=== PATIENT | male | born 1965 | race Caucasian/White ===

== ENCOUNTER 2017-03-07 13:04 | Inpatient (IN) | payer SELFPAY ==
[~2017-03-07] VITALS: Ht 172.7 cm; Wt 88.5 kg
[2017-03-07 13:19] VITALS: BP 84/52; PULSE 110; RESP 30; TEMP 98.9; O2SAT 95
[2017-03-07 13:36] VITALS: BP 84/54; PULSE 115; RESP 25; TEMP 98.9; O2SAT 95
[2017-03-07] MEDS ORDERED: VANCOMYCIN INJ 1,000 MG in SODIUM CHLOR 0.9% 250 ML INJ 250 ML IV ONE (13:45)
[2017-03-07] MEDS ORDERED: PIPERACIL-TAZO 3.375 GM PREMIX 50 ML IV ONE (13:45)
[2017-03-07] MEDS ORDERED: IBUPROFEN 600 MG TAB PO ONE (13:45)
[2017-03-07] MEDS ORDERED: SODIUM CHLOR 0.9% 1000 ML INJ 1,000 ML IV ONE ×4 (13:45→15:00)
--- NOTE | 2017-03-07 13:49 | PD ---
HPI Chief Complaint: Altered Mental Status Time Seen by Provider: 13:22 Travel History International Travel<30 days: No Contact w/Intl Traveler<30days: No Traveled to known affect area: No History of Present Illness HPI This patient is brought in by paramedics. He is critically ill. He is challenging to get any history from. He says he is a daily heavy alcohol drinker and was drinking today. He arrives febrile and hypotensive and tachycardic with an obvious right foot infection with a lot of necrotic changes to that foot. He is an uncontrolled diabetic. He says he moved here from [place] 10 days ago. He doesn't take any prescription medications or take care of himself in any way. Symptoms are severe. No alleviating factors. Duration is unknown. He says 5 or 6 days but I suspect they've been going on much longer. PFSH Past Medical History Diabetes: Yes Patient Takes Glucophage: No Tetanus Vaccination: Unknown Past Surgical History Surgical History: No Previous Surgery Social History Alcohol Use: No (DAILY ) Tobacco Use: No (QUIT 5-6 DAYS AGO 03/02/17) Substance Use: No Allergies-Medications (Allergen,Severity, Reaction): Coded Allergies: No Known Allergies (Unverified , 03/07/17) Reported Meds & Prescriptions Reported Meds & Active Scripts Active No Active Prescriptions or Reported Medications Review of Systems General / Constitutional: Positive: Fever Eyes: No: Visual changes HENT: No: Headaches Cardiovascular: Positive: Tachycardia, Edema, No: Chest Pain or Discomfort Respiratory: No: Shortness of Breath Gastrointestinal: No: Abdominal Pain Genitourinary: No: Dysuria Musculoskeletal: Positive: Weakness, No: Pain Skin: No Rash Neurologic: Positive: Weakness, Change in Mentation Psychiatric: No: Depression Endocrine: No: Polydipsia Hematologic/Lymphatic: No: Easy Bruising Physical Exam Narrative GENERAL: Well-nourished, well-developed patient who is critically ill . SKIN: Focused skin assessment reveals no rash and nodules. Skin is Warm and dry. HEAD: Atraumatic. Normocephalic. EYES: Pupils equal and round. No scleral icterus. No injection or drainage. ENT: No nasal bleeding or discharge. Mucous membranes pink and moist. NECK: Trachea midline. No JVD. CARDIOVASCULAR: Regular rate and rhythm. No murmur appreciated. Tachycardic 120s RESPIRATORY: No accessory muscle use. Clear to auscultation. Breath sounds equal bilaterally. GASTROINTESTINAL: Abdomen soft, non-tender, nondistended. Hepatic and splenic margins not palpable. MUSCULOSKELETAL: No obvious deformities. No clubbing. No cyanosis. There is some edema redness warmth swelling of the right foot and ankle and lower leg. He does have a dopplerable dorsalis pedis pulse on the right foot but a week posterior tibial pulse. The right great toe is entirely blackened and necrotic. It is also some necrotic changes on either malleolus. NEUROLOGICAL: Awake but drowsy. No obvious cranial nerve deficits. Motor grossly within normal limits. Normal speech. PSYCHIATRIC: Appropriate mood and affect; insight and judgment poor . Data Data Last Documented VS Vital Signs Date Time Temp Pulse Resp B/P (MAP) Pulse Ox O2 Delivery O2 Flow Rate FiO2 03/07/17 14:26 95 Room Air 03/07/17 13:36 98.9 115 25 84/54 (64) Orders Orders Complete Blood Count With Diff (03/07/17 13:34) Comprehensive Metabolic Panel (03/07/17 13:34) Prothrombin Time / Inr (Pt) (03/07/17 13:34) Act Partial Throm Time (Ptt) (03/07/17 13:34) Lactic Acid Sepsis Protocol (03/07/17 13:34) Urinalysis - C+S If Indicated (03/07/17 13:34) Blood Culture (03/07/17 13:34) Chest, Single Ap (03/07/17 13:34) Blood Glucose (03/07/17 13:34) Ecg Monitoring (03/07/17 13:34) Iv Access Insert/Monitor (03/07/17 13:34) Oximetry (03/07/17 13:34) Oxygen Administration (03/07/17 13:34) Ibuprofen (Motrin) (03/07/17 13:45) Sodium Chlor 0.9% 1000 Ml Inj (Ns 1000 M (03/07/17 13:45) Sodium Chlor 0.9% 1000 Ml Inj (Ns 1000 M (03/07/17 13:45) Vancomycin Inj (Vancomycin Inj) (03/07/17 13:45) Piperacil-Tazo 3.375 Gm Premix (Zosyn 3. (03/07/17 13:45) Insulin Human Regular Inj (Novolin R Inj (03/07/17 14:00) Alcohol (Ethanol) (03/07/17 13:50) Drug Screen, Random Urine (03/07/17 13:50) Sodium Chlor 0.9% 1000 Ml Inj (Ns 1000 M (03/07/17 14:30) Sodium Chlor 0.9% 1000 Ml Inj (Ns 1000 M (03/07/17 15:00) Admit Order (Ed Use Only) (03/07/17 14:56) Labs Laboratory Tests Test 03/07/17 13:55 White Blood Count 19.8 TH/MM3 Red Blood Count 3.40 MIL/MM3 Hemoglobin 10.6 GM/DL Hematocrit 32.2 % Mean Corpuscular Volume 94.9 FL Mean Corpuscular Hemoglobin 31.3 PG Mean Corpuscular Hemoglobin Concent 33.0 % Red Cell Distribution Width 14.3 % Platelet Count 250 TH/MM3 Mean Platelet Volume 10.2 FL Neutrophils (%) (Auto) 80.6 % Lymphocytes (%) (Auto) 4.8 % Monocytes (%) (Auto) 7.8 % Eosinophils (%) (Auto) 6.5 % Basophils (%) (Auto) 0.3 % Neutrophils # (Auto) 16.0 TH/MM3 Lymphocytes # (Auto) 1.0 TH/MM3 Monocytes # (Auto) 1.5 TH/MM3 Eosinophils # (Auto) 1.3 TH/MM3 Basophils # (Auto) 0.1 TH/MM3 CBC Comment AUTO DIFF Differential Total Cells Counted 100 Neutrophils % (Manual) 50 % Band Neutrophils % 25 % Lymphocytes % 6 % Monocytes % 17 % Neutrophils # (Manual) 15.2 TH/MM3 Metamyelocytes 1 % Myelocytes 1 % Differential Comment FINAL DIFF MANUAL Toxic Granulation 1+ Toxic Vacuolation PRESENT Platelet Estimate NORMAL Platelet Morphology Comment NORMAL Prothrombin Time 18.4 SEC Prothromb Time International Ratio 1.6 RATIO Activated Partial Thromboplast Time 42.7 SEC Blood Urea Nitrogen 67 MG/DL Creatinine 5.38 MG/DL Random Glucose 265 MG/DL Total Protein 6.2 GM/DL Albumin 1.6 GM/DL Calcium Level 8.6 MG/DL Alkaline Phosphatase 81 U/L Aspartate Amino Transf (AST/SGOT) 186 U/L Alanine Aminotransferase (ALT/SGPT) 40 U/L Total Bilirubin 4.6 MG/DL Sodium Level 129 MEQ/L Potassium Level 3.7 MEQ/L Chloride Level 89 MEQ/L Carbon Dioxide Level 15.4 MEQ/L Anion Gap 25 MEQ/L Estimat Glomerular Filtration Rate 11 ML/MIN Lactic Acid Level 11.1 mmol/L MDM Medical Decision Making Medical Screen Exam Complete: Yes Emergency Medical Condition: Yes Medical Record Reviewed: Yes Differential Diagnosis Sepsis, DKA, diabetic foot infection, necrotic foot Narrative Course I have reviewed the patient's electronic medical record. I placed 3 IVs 2 blood cultures obtained I gave him 3 L normal saline IV bolus He arrives hypotensive and tachycardic I gave him IV vancomycin and IV Zosyn CBC shows leukocytosis Metabolic profile shows renal failure with creatinine of 5+ LFTs are noted Lactate very elevated at 11 Accu-Chek 378 I gave him 10 units IV regular insulin I reviewed his chest x-ray which is negative for infiltrate Urinalysis is clean This patient has severe septic shock from a diabetic foot infection and has extensive necrotic changes to the right foot. Undoubtedly he will require amputation after stabilization. I reviewed with cable driller Dr. Lozano who will admit Extensive bedside time is spent in this complicated case He has now had a total of 4 L IV fluid infused and blood pressure is come up from 70 to 99 systolic Critical Care Narrative Aggregate critical care time was 83 minutes. Time to perform other separately billable procedures was not included in the critical care time. My time did not include minutes spent treating any other patients simultaneously or on activities that did not directly contribute to the patient's treatment. The services I provided to this patient were to treat and/or prevent clinically significant deterioration that could result in: Cardiopulmonary arrest, septic shock, I provided critical care services requiring my management, as noted below: Chart data review, documentation time, medication orders and management, vital sign assessments/reviewing monitor data, ordering and reviewing lab tests, ordering and interpreting/reviewing x-rays and diagnostic studies, care of the patient and discussion of the patient with the admitting physicians. Sepsis Criteria SIRS Criteria (2 or more): Temp > 100.9 or < 96.8, Heart rate over 90, WBC > 18892, < 4000 or > 10% bands Sepsis Criteria (SIRS+source): Infect source susp/known Severe Sepsis (+one): Hypotension, Lactate >2, Acute Oliguria/Renal Failure Septic Shock Criteria: Unresponsive to 30ml/kg fluid bolus, Lactic acid >=4 Multiple Organ Dysfunction Syn: Evidence -2 organs failing Criteria Outcome: Meets septic shock criteria, Meets multiple organ dys. criteria Diagnosis Primary Impression: Septic shock Additional Impressions: Diabetic infection of right foot Ischemic necrosis of foot Admitting Information Admitting Physician Requests: Admit Scripts No Active Prescriptions or Reported Meds Matt Saleem MD Mar 07, 2017 13:49
[2017-03-07] MEDS ORDERED: INSULIN HUMAN REGULAR 1,000 UNITS/10 ML VIAL IV PUSH ONE (14:00)
[2017-03-07 14:08] LABS: BASOPHIL # 0.1 TH/MM3 (0-0.2); BASOPHIL % 0.3 % (0.0-2.0); EOSINOPHIL # 1.3 TH/MM3 (0-0.4); EOSINOPHIL % 6.5 % (0.0-4.0); HEMATOCRIT 32.2 % (39.0-51.0); LYMPH % 4.8 % (9.0-44.0); MEAN CELL VOLUME 94.9 FL (80.0-100.0); MEAN CORPUSCULAR HEMOGLOBIN 31.3 PG (27.0-34.0); MONO % 7.8 % (0.0-8.0); NEUT % 80.6 % (16.0-70.0); PLATELET COUNT 250 TH/MM3 (150-450); RED CELL DISTRIBUTION WIDTH 14.3 % (11.6-17.2); WHITE BLOOD COUNT 19.8 TH/MM3 (4.0-11.0)
[2017-03-07 14:10] LABS: HEMO FLAGS AUTO DIFF
[2017-03-07 14:21] LABS: APTT (PATIENT) 42.7 SEC (24.3-30.1); INTERNATIONAL NORMALIZED RATIO 1.6 RATIO; PROTHROMBIN TIME - PATIENT 18.4 SEC (9.8-11.6)
--- NOTE | 2017-03-07 14:25 | RADRPT ---
EXAM DATE/TIME: 03/07/2017 13:55 [facility] COMPARISON: No previous studies available for comparison. INDICATIONS : Fever. MEDICAL HISTORY : None. SURGICAL HISTORY : None. ENCOUNTER: Initial ACUITY: 1 day PAIN SCORE: 8/10 LOCATION: Bilateral chest FINDINGS: Portable AP view of the chest demonstrates a normal-sized cardiac silhouette. No effusion, consolidat ion, or pneumothorax is visualized. The bones and soft tissues demonstrate no acute abnormality. CONCLUSION: No acute cardiopulmonary abnormality is identified. Danny Ngo MD on March 07, 2017 at 14:23 Board Certified Radiologist. This report was verified electronically.
[2017-03-07 14:31] LABS: ALT (GPT) 40 U/L (12-78); ANION GAP 25 MEQ/L (5-15); AST (GOT) 186 U/L (15-37); BICARBONATE 15.4 MEQ/L (21.0-32.0); BLOOD UREA NITROGEN 67 MG/DL (7-18); CHLORIDE 89 MEQ/L (98-107); GLOMERULAR FILTRATION RATE 11 ML/MIN (>89); POTASSIUM 3.7 MEQ/L (3.5-5.1); SODIUM (NA) 129 MEQ/L (136-145)
[2017-03-07 14:34] LABS: ALKALINE PHOSPHATASE 81 U/L (45-117); TOTAL BILIRUBIN ADULT 4.6 MG/DL (0.2-1.0)
[2017-03-07 14:44] LABS: BANDS 25 % (0-6); METAMYELOCYTES 1 % (0-1); MYELOCYTES 1 % (0-0); NEUTROPHIL # MANUAL DIFF 15.2 TH/MM3 (1.8-7.7); PLATELET ESTIMATE SMEAR NORMAL (NORMAL); PLATELET MORPHOLOGY NORMAL (NORMAL); POLYS (SEG NEUTROPHILS) 50 % (16-70); SCAN/DIFF FINAL DIFF MANUAL; TOXIC GRANULATION 1+ (NORMAL); TOXIC VACUOLATION PRESENT (NONE SEEN); WBC DIFF SAMPLE 100
[2017-03-07] MEDS ORDERED: RESP: ALBUTEROL 2.5 MG/IPRATROPIUM 0.5 MG NEB (PRN) INH (15:45)
[2017-03-07] MEDS ORDERED: MORPHINE SULFATE 4 MG/ML INJ IV PRN (15:45)
[2017-03-07] MEDS ORDERED: MISCELLANEOUS NURSING INFORMATION XX SCH (15:45)
[2017-03-07] MEDS ORDERED: CHLORHEXIDINE GLUCONATE 2 % 1 PACK (2 CLOTHS) TOP PRN (15:45)
[2017-03-07] MEDS ORDERED: Vancomycin Consult Pharmacy 1 EA OTHER SCH (15:45)
[2017-03-07] MEDS ORDERED: ACETAMINOPHEN 325 MG TAB PO PRN (15:45)
[2017-03-07 16:01] LABS: LACTIC ACID GHOST NOT REPORTABLE
--- NOTE | 2017-03-07 16:08 | HHI.HP ---
HPI Service Critical Care Medicine Primary Care Physician No Primary Care Physician Admission Diagnosis septic shock from diabetic foot infection, necrotic R foot Diagnosis: Chief Complaint: Confusion Travel History International Travel<30 Days: No Contact w/Intl Traveler <30 Da: No Traveled to Known Affected Are: No History of Present Illness 51 y/o delirious man with draining wound right great toe, untreated diabetes, and severe COPD. According to his girlfriend at bedside in ED he has been confused for 3 days while on a trip to [place]. He has diabetes but does not take insulin, oral agents, nor check his sugar. This foot problem started as a non-healing cut on his right great toe. He is clearly in septic shock at present with hypotension, lactic acid 11, and leukocytosis. He will require a right above knee amputation eventually, possibly sooner if we can't control the source with antibiotics. He has audible wheezing from the doorway and is a chronic smoker. DIANA with creatinine > 5, and metabolic acidosis. Review of Systems ROS No chest pain. Denies SOB. Past Family Social History Allergies: Coded Allergies: No Known Allergies (Unverified , 03/07/17) Past Medical History Past Medical History Diabetes: Yes Patient Takes Glucophage: No Tetanus Vaccination: Unknown Past Surgical History Surgical History: No Previous Surgery Social History Alcohol Use: No (DAILY ) Tobacco Use: No (QUIT 5-6 DAYS AGO 03/02/17) Substance Use: No Allergies-Medications Allergies-Medications (Allergen,Severity, Reaction): Coded Allergies: No Known Allergies (Unverified , 03/07/17) Reported Meds & Prescriptions Reported Meds & Active Scripts Active No Active Prescriptions or Reported Medications Physical Exam Vital Signs Vital Signs Date Time Temp Pulse Resp B/P (MAP) Pulse Ox O2 Delivery O2 Flow Rate FiO2 03/07/17 14:26 95 Room Air 03/07/17 13:36 98.9 115 25 84/54 (64) 95 Room Air 03/07/17 13:36 115 25 95 03/07/17 13:19 98.9 110 30 84/52 (63) 95 Physical Exam [place]-appearing middle age man. Head: Normal. Neck: Supple, airway widely patent. Lungs: Diffuse wheezes and mild tachypnea. Heart: NL S1S2, tachycardia. No JVD. Abdomen: Soft, no guarding, BS active. Extremities: Black, gangrenous right great toe with diffuse erythema involving the foot, ankle and lower leg. 3+ edema right side. No palpable pulses below groin. Palpable right groin nodes. Left foot tepid, pulses absent. Neuro: Confused, delirious. Moves 4 limbs. Feet numb. Tracks with eyes, obinna, protects airway. Laboratory Laboratory Tests Test 03/07/17 13:55 White Blood Count 19.8 Red Blood Count 3.40 Hemoglobin 10.6 Hematocrit 32.2 Mean Corpuscular Volume 94.9 Mean Corpuscular Hemoglobin 31.3 Mean Corpuscular Hemoglobin Concent 33.0 Red Cell Distribution Width 14.3 Platelet Count 250 Mean Platelet Volume 10.2 Neutrophils (%) (Auto) 80.6 Lymphocytes (%) (Auto) 4.8 Monocytes (%) (Auto) 7.8 Eosinophils (%) (Auto) 6.5 Basophils (%) (Auto) 0.3 Neutrophils # (Auto) 16.0 Lymphocytes # (Auto) 1.0 Monocytes # (Auto) 1.5 Eosinophils # (Auto) 1.3 Basophils # (Auto) 0.1 CBC Comment AUTO DIFF Differential Total Cells Counted 100 Neutrophils % (Manual) 50 Band Neutrophils % 25 Lymphocytes % 6 Monocytes % 17 Neutrophils # (Manual) 15.2 Metamyelocytes 1 Myelocytes 1 Differential Comment FINAL DIFF MANUAL Toxic Granulation 1+ Toxic Vacuolation PRESENT Platelet Estimate NORMAL Platelet Morphology Comment NORMAL Prothrombin Time 18.4 Prothromb Time International Ratio 1.6 Activated Partial Thromboplast Time 42.7 Blood Urea Nitrogen 67 Creatinine 5.38 Random Glucose 265 Total Protein 6.2 Albumin 1.6 Calcium Level 8.6 Alkaline Phosphatase 81 Aspartate Amino Transf (AST/SGOT) 186 Alanine Aminotransferase (ALT/SGPT) 40 Total Bilirubin 4.6 Sodium Level 129 Potassium Level 3.7 Chloride Level 89 Carbon Dioxide Level 15.4 Anion Gap 25 Estimat Glomerular Filtration Rate 11 Lactic Acid Level 11.1 Ethyl Alcohol Level LESS THAN 3 Date/Time Source Procedure Growth Status 03/07/17 13:55 Blood Peripheral Aerobic Blood Culture Pending Received 03/07/17 13:55 Blood Peripheral Anaerobic Blood Culture Pending Received Result Diagram: 03/07/17 1355 03/07/17 1355 Caprini VTE Risk Assessment Caprini VTE Risk Assessment: No/Low Risk (score <= 1) Caprini Risk Assessment Model Point Value = 1 Point Value = 2 Point Value = 3 Point Value = 5 Age 41-60 Minor surgery BMI > 25 kg/m2 Swollen legs Varicose veins or History of unexplained or recurrent spontaneous Oral contraceptives or hormone replacement Sepsis (< 1 month) Serious lung disease, including pneumonia (< 1 month) Abnormal pulmonary function Acute myocardial infarction Congestive heart failure (< 1 month) History of inflammatory bowel disease Medical patient at bed rest Age 61-74 Arthroscopic surgery Major open surgery (> 45 min) Laparoscopic surgery (> 45 min) Malignancy Confined to bed (> 72 hours) Immobilizing plaster cast Central venous access Age >= 75 History of VTE Family history of VTE Factor V Leiden Prothrombin [id number] Lupus anticoagulant Anticardiolipin antibodies Elevated serum homocysteine Heparin-induced thrombocytopenia Other congenital or acquired thrombophilia Stroke (< 1 month) Elective arthroplasty Hip, pelvis, or leg fracture Acute spinal cord injury (< 1 month) Prophylaxis Regimen Total Risk Factor Score Risk Level Prophylaxis Regimen 0-1 Low Early ambulation 2 Moderate Order ONE of the following: *Sequential Compression Device (SCD) *Heparin 5000 units SQ BID 3-4 Higher Order ONE of the following medications: *Heparin 5000 units SQ TID *Enoxaparin/Lovenox 40 mg SQ daily (WT < 150 kg, CrCl > 30 mL/min) *Enoxaparin/Lovenox 30 mg SQ daily (WT < 150 kg, CrCl > 10-29 mL/min) *Enoxaparin/Lovenox 30 mg SQ BID (WT < 150 kg, CrCl > 30 mL/min) AND/OR *Sequential Compression Device (SCD) 5 or more Highest Order ONE of the following medications: *Heparin 5000 units SQ TID (Preferred with Epidurals) *Enoxaparin/Lovenox 40 mg SQ daily (WT < 150 kg, CrCl > 30 mL/min) *Enoxaparin/Lovenox 30 mg SQ daily (WT < 150 kg, CrCl > 10-29 mL/min) *Enoxaparin/Lovenox 30 mg SQ BID (WT < 150 kg, CrCl > 30 mL/min) AND *Sequential Compression Device (SCD) Assessment and Plan Assessment and Plan Assessment: 1. Septic shock. 2. DIANA. 3. Gangrene right foot. 4. DIANA. 5. Emphysema, COPD. 6. Encephalopathy. 7. Diabetes mellitus, Type 2 Plan: 1. Aggressive iv hydration. 2. Broad abx coverage including anerobes. 3. Confirm correction of lactic acid. 4. Consider right leg amputation for source control. 5. Follow Creatinine closely. 6. Protonix. 7. Duonebs. 8. Dennison to CBD. 9. SSI coverage. 10. Check beta-hydroxybutyrate (Possibly DKA) Overall impression: Patient is critically ill and in septic shock from a gangrenous right leg. He has developed renal failure and severe metabolic acidosis. Ideally we will tune him up prior to amputation, but the right leg may need to come off sooner to achieve source control. Critical Care 44 mins Carlos A Lofton MD Mar 07, 2017 16:08
[2017-03-07] MEDS ORDERED: DEXTROSE 50% IN WATER 50 ML VIAL(D50) IV PRN (16:15)
[2017-03-07] MEDS ORDERED: GLUCAGON 1 MG/ML VIAL OTHER PRN (16:15)
[2017-03-07 17:03] LABS: CKMB 19.5 NG/ML (0.5-3.6)
[2017-03-07] MEDS: SODIUM CHLOR 0.9% 1000 ML INJ 1,000 ML IV SCH ×2 (17:59→22:55)
[2017-03-07 18:01] VITALS: BP 108/56; PULSE 98; RESP 22; O2SAT 96
[2017-03-07] MEDS: NOREPINEPHRINE 4 MG/D5W 250 ML IV PRN (19:37)
[2017-03-07 20:00] VITALS: BP 89/55; PULSE 106; RESP 22; TEMP 97.9; O2SAT 93
[2017-03-07] MEDS: HEPARIN SODIUM - SQ 10,000 UNITS/ML VIAL SQ SCH (20:03)
[2017-03-07 22:00] VITALS: PULSE 106
[2017-03-07] MEDS: PIPERACIL-TAZO 2.25 GM PREMIX 50 ML IV SCH (22:55)
[2017-03-07] MEDS: INSULIN ASPART SUPPLEMENTAL SCALE SQ SCH (23:06)
--- NOTE | 2017-03-07 23:28 | PD.CONS ---
cc: Efren Hanks MD HPI Service Orthopedic Surgeons Consult Requested By Dr. Lofton Reason for Consult Gangrene right lower extremity Primary Care Physician No Primary Care Physician Admission Diagnosis septic shock from diabetic foot infection, necrotic R foot Diagnoses: (1) Ischemic necrosis of foot (2) Diabetic infection of right foot (3) Septic shock Chief Complaint: Right foot infection History of Present Illness 51 y/o delirious man with draining wound right great toe, untreated diabetes, and severe COPD. According to his girlfriend, he has been confused for 3 days while on a trip to [place]. He has diabetes but does not take insulin, oral agents, nor check his sugar. This foot problem started as a non-healing cut on his right great toe. He presented in septic shock at present with hypotension, lactic acid 11, and leukocytosis. Orthopedic consultation was requested for possible amputation. The patient is mildly confused at the present time. As per the nursing staff in addition to his medical condition, he may be withdrawing from alcohol. Review of Systems Reviewed and well outlined in the medical record Past Family Social History Past Medical History Past Medical History Diabetes: Yes Patient Takes Glucophage: No Tetanus Vaccination: Unknown Past Surgical History Surgical History: No Previous Surgery Social History Alcohol Use: No (DAILY ) Tobacco Use: No (QUIT 5-6 DAYS AGO 03/02/17) Substance Use: No Allergies-Medications (Allergen,Severity, Reaction): Coded Allergies: No Known Allergies (Unverified , 03/07/17) Reported Meds & Prescriptions Reported Meds & Active Scripts Active No Active Prescriptions or Reported Medications Allergies: Coded Allergies: No Known Allergies (Unverified , 03/07/17) Active Ordered Medications Current Medications Medications (Trade) Dose Ordered Sig/Stacy Route Start Time Stop Time Status Last Admin Sodium Chloride 1,000 ml @ 150 mls/hr Q6H40M IV 03/07/17 15:31 03/07/17 22:55 (Tylenol) 650 mg Q6H PRN PO 03/07/17 15:45 (Morphine Inj) 2 mg Q2H PRN IV 03/07/17 15:45 (Protonix Inj) 40 mg DAILY IV 03/08/17 09:00 (Duoneb Neb) 1 ampule Q4HR NEB PRN INH 03/07/17 15:45 (Heparin Inj) 5,000 units Q12H SQ 03/07/17 18:00 03/07/17 20:03 Miscellaneous Information 1 Q361D XX 03/07/17 15:45 03/07/17 15:45 (Chlorhexidine 2% Cloth) 3 pack Taper DAILY@04 TOP 03/08/17 04:00 03/04/18 03:59 (Chlorhexidine 2% Cloth) 3 pack UNSCH PRN TOP 03/07/17 15:45 Pharmacy Profile Note 0 ml @ 0 mls/hr UNSCH OTHER 03/07/17 15:45 Piperacillin Sod/ Tazobactam Sod 50 ml @ 100 mls/hr Q8H IV 03/07/17 22:00 03/07/17 22:55 (D50w (Vial) Inj) 50 ml UNSCH PRN IV 03/07/17 16:15 (Glucagon Inj) 1 mg UNSCH PRN OTHER 03/07/17 16:15 (NovoLOG SUPPLEMENTAL SCALE) 1 Q6H SQ 03/07/17 16:15 03/07/17 23:06 Norepinephrine Bitartrate 250 ml @ 7.5 mls/hr TITRATE PRN IV 03/07/17 21:00 03/07/17 19:37 Reported Meds & Active Scripts Active No Active Prescriptions or Reported Medications Family History Noncontributory Physical Exam Vital Signs Vital Signs Date Time Temp Pulse Resp B/P (MAP) Pulse Ox O2 Delivery O2 Flow Rate FiO2 03/07/17 22:00 106 86/52 03/07/17 20:00 97.9 106 22 89/55 (66) 93 03/07/17 19:37 92 68/44 03/07/17 18:01 98 22 108/56 (73) 96 Nasal Cannula 4.00 03/07/17 17:57 03/07/17 14:26 95 Room Air 03/07/17 13:36 98.9 115 25 84/54 (64) 95 Room Air 03/07/17 13:36 115 25 95 03/07/17 13:19 98.9 110 30 84/52 (63) 95 Physical Exam There is a necrotic great toe on the right. There is no active drainage but it is malodorous. There is a large fluid-filled blister over the medial aspect of the ankle. There is mild swelling of the foot as well as the lower leg. There is slight decrease in temperature of the foot but appears normal in the leg. He relates normal sensation of the leg and foot. There are no palpable pulses present. Laboratory Laboratory Tests Test 03/07/17 13:55 03/07/17 15:49 03/07/17 16:52 03/07/17 17:50 White Blood Count 19.8 Red Blood Count 3.40 Hemoglobin 10.6 Hematocrit 32.2 Mean Corpuscular Volume 94.9 Mean Corpuscular Hemoglobin 31.3 Mean Corpuscular Hemoglobin Concent 33.0 Red Cell Distribution Width 14.3 Platelet Count 250 Mean Platelet Volume 10.2 Neutrophils (%) (Auto) 80.6 Lymphocytes (%) (Auto) 4.8 Monocytes (%) (Auto) 7.8 Eosinophils (%) (Auto) 6.5 Basophils (%) (Auto) 0.3 Neutrophils # (Auto) 16.0 Lymphocytes # (Auto) 1.0 Monocytes # (Auto) 1.5 Eosinophils # (Auto) 1.3 Basophils # (Auto) 0.1 CBC Comment AUTO DIFF Differential Total Cells Counted 100 Neutrophils % (Manual) 50 Band Neutrophils % 25 Lymphocytes % 6 Monocytes % 17 Neutrophils # (Manual) 15.2 Metamyelocytes 1 Myelocytes 1 Differential Comment FINAL DIFF MANUAL Toxic Granulation 1+ Toxic Vacuolation PRESENT Platelet Estimate NORMAL Platelet Morphology Comment NORMAL Prothrombin Time 18.4 Prothromb Time International Ratio 1.6 Activated Partial Thromboplast Time 42.7 Blood Urea Nitrogen 67 Creatinine 5.38 Random Glucose 265 Total Protein 6.2 Albumin 1.6 Calcium Level 8.6 Alkaline Phosphatase 81 Aspartate Amino Transf (AST/SGOT) 186 Alanine Aminotransferase (ALT/SGPT) 40 Total Bilirubin 4.6 Sodium Level 129 Potassium Level 3.7 Chloride Level 89 Carbon Dioxide Level 15.4 Anion Gap 25 Estimat Glomerular Filtration Rate 11 Lactic Acid Level 11.1 6.0 Ethyl Alcohol Level LESS THAN 3 Ammonia 20 Total Creatine Kinase 1454 Creatine Kinase MB 19.5 Creatine Kinase MB % 1.3 B-Hydroxybutyrate 0.14 Nasal Screen MRSA (PCR) MRSA NOT DETECTED Test 03/07/17 19:45 Urine Opiates Screen NEG Urine Barbiturates Screen NEG Urine Amphetamines Screen NEG Urine Benzodiazepines Screen NEG Urine Cocaine Screen POS Urine Cannabinoids Screen POS Date/Time Source Procedure Growth Status 03/07/17 13:55 Blood Peripheral Aerobic Blood Culture Pending Received 03/07/17 13:55 Blood Peripheral Anaerobic Blood Culture Pending Received Result Diagram: 03/07/17 1355 03/07/17 1355 Imaging Last 48 hours Impressions Chest X-Ray 03/07/17 1334 Signed Impressions: Service Date/Time: Tuesday, March 07, 2017 13:55 - CONCLUSION: No acute cardiopulmonary abnormality is identified. Danny Ngo MD Assessment & Plan Problem List: (1) Septic shock ICD Codes: A41.9 - Sepsis, unspecified organism; R65.21 - Severe sepsis with septic shock Status: Acute (2) Ischemic necrosis of foot ICD Codes: I96 - Gangrene, not elsewhere classified Status: Acute Plan: Anticipate probable amputation at the below-knee level. This may be done urgently if his clinical course indicates. If he does show improvement on antibiotics consideration for vascular/podiatry evaluation as the patient does have good sensation involving the foot and may not require as high of a level of amputation. Will keep nothing by mouth for now and follow closely. (3) Diabetic infection of right foot ICD Codes: E11.69 - Type 2 diabetes mellitus with other specified complication ; L08.9 - Local infection of the skin and subcutaneous tissue, unspecified Status: Acute Efren Hanks MD Mar 07, 2017 23:28
[2017-03-08] VITALS (9 sets, daily range): BP systolic 86–100; BP diastolic 53–58; PULSE 90–103; RESP 24–26; TEMP 97.3–97.7; O2SAT 96–98
[2017-03-08] MEDS: CHLORHEXIDINE GLUCONATE 2 % 1 PACK (2 CLOTHS) TOP SCH (03:30)
[2017-03-08] MEDS: NOREPINEPHRINE 4 MG/D5W 250 ML IV PRN ×2 (04:14→15:30)
[2017-03-08] MEDS: INSULIN ASPART SUPPLEMENTAL SCALE SQ SCH ×3 (04:15→16:15)
[2017-03-08 05:13] LABS: ALKALINE PHOSPHATASE 68 U/L (45-117); ALT (GPT) 71 U/L (12-78); ANION GAP 14 MEQ/L (5-15); AST (GOT) 350 U/L (15-37); BLOOD UREA NITROGEN 66 MG/DL (7-18); CHLORIDE 103 MEQ/L (98-107); GLOMERULAR FILTRATION RATE 13 ML/MIN (>89); MAGNESIUM 1.5 MG/DL (1.5-2.5); POTASSIUM 3.6 MEQ/L (3.5-5.1); SODIUM (NA) 133 MEQ/L (136-145); TOTAL BILIRUBIN ADULT 5.1 MG/DL (0.2-1.0)
[2017-03-08] MEDS: PIPERACIL-TAZO 2.25 GM PREMIX 50 ML IV SCH ×3 (05:19→21:57)
[2017-03-08] MEDS: HEPARIN SODIUM - SQ 10,000 UNITS/ML VIAL SQ SCH ×2 (05:20→18:00)
[2017-03-08] MEDS: SODIUM CHLOR 0.9% 1000 ML INJ 1,000 ML IV SCH ×2 (05:28→11:30)
[2017-03-08 05:46] LABS: AUTOMATED NEUTROPHIL # 19.2 TH/MM3 (1.8-7.7); BASOPHIL # 0.1 TH/MM3 (0-0.2); BASOPHIL % 0.3 % (0.0-2.0); EOSINOPHIL # 1.4 TH/MM3 (0-0.4); HEMATOCRIT 38.9 % (39.0-51.0); LYMPH % 4.5 % (9.0-44.0); MEAN CELL VOLUME 96.1 FL (80.0-100.0); MEAN CORPUSCULAR HEMOGLOBIN 30.1 PG (27.0-34.0); MEAN CORPUSCULAR HGB CONC 31.3 % (32.0-36.0); MONO % 4.4 % (0.0-8.0); NEUT % 84.8 % (16.0-70.0); PLATELET COUNT 268 TH/MM3 (150-450); RED BLOOD COUNT 4.05 MIL/MM3 (4.50-5.90); RED CELL DISTRIBUTION WIDTH 14.7 % (11.6-17.2); WHITE BLOOD COUNT 22.6 TH/MM3 (4.0-11.0)
[2017-03-08 05:48] LABS: HEMO FLAGS AUTO DIFF
--- NOTE | 2017-03-08 08:27 | PD.ORT.PN ---
Subjective Subjective Remarks The patient is awake, mildly confused. He is in no distress. Objective Vitals Vital Signs Date Time Temp Pulse Resp B/P (MAP) Pulse Ox O2 Delivery O2 Flow Rate FiO2 03/08/17 06:00 97 03/08/17 04:14 100 96/55 03/08/17 04:00 100 03/08/17 04:00 97.6 100 25 96/55 (69) 98 03/08/17 02:00 101 03/08/17 01:30 100 90/52 03/08/17 01:13 100 102/65 03/08/17 00:00 103 03/08/17 00:00 97.3 103 26 97/57 (70) 97 03/07/17 22:00 106 86/52 03/07/17 22:00 106 03/07/17 20:00 97.9 106 22 89/55 (66) 93 03/07/17 20:00 106 03/07/17 19:37 92 68/44 03/07/17 18:01 98 22 108/56 (73) 96 Nasal Cannula 4.00 03/07/17 17:57 03/07/17 14:26 95 Room Air 03/07/17 13:36 98.9 115 25 84/54 (64) 95 Room Air 03/07/17 13:36 115 25 95 03/07/17 13:19 98.9 110 30 84/52 (63) 95 I/O 03/07/17 03/07/17 03/07/17 03/08/17 03/08/17 03/08/17 07:00 15:00 23:00 07:00 15:00 23:00 Intake Total 1828 ml Output Total 140 ml Balance 1688 ml Intake Oral 0 ml IV Total 1828 ml Output Urine Total 140 ml # Bowel Movements 0 Result Diagram: 03/08/17 0426 03/08/17 0426 Other Results Laboratory Tests Test 03/07/17 13:55 Prothromb Time International Ratio 1.6 RATIO Prothrombin Time 18.4 SEC (9.8-11.6) Imaging Last 24 hours Impressions Chest X-Ray 03/07/17 1334 Signed Impressions: Service Date/Time: Tuesday, March 07, 2017 13:55 - CONCLUSION: No acute cardiopulmonary abnormality is identified. Danny Ngo MD Objective Remarks There is less swelling of the foot. The skin is "wrinkling". The blister over the medial aspect has decompressed. His great toe clinically is unchanged and necrotic. He actively moves his ankle and toes. The foot is warm. The lower leg is warm. There is no induration or fluctuance. There is mild swelling. Assessment & Plan Problem List: (1) Septic shock ICD Codes: A41.9 - Sepsis, unspecified organism; R65.21 - Severe sepsis with septic shock Status: Acute (2) Ischemic necrosis of foot ICD Codes: I96 - Gangrene, not elsewhere classified Status: Acute Plan: Anticipate possible amputation at the below-knee level. This may be done urgently if his clinical course indicates. His white count is elevated. Lactic acid improved. Currently attempting to wean from pressors. If he does show improvement on antibiotics consideration for vascular/podiatry evaluation as the patient does have good sensation involving the foot, moves the ankle and toes and may not require as high of a level of amputation. Will keep nothing by mouth for now and follow closely. Discussed with Clinical Quality Manager. (3) Diabetic infection of right foot ICD Codes: E11.69 - Type 2 diabetes mellitus with other specified complication ; L08.9 - Local infection of the skin and subcutaneous tissue, unspecified Status: Acute Efren Hanks MD Mar 08, 2017 08:27
[2017-03-08] MEDS ORDERED: Vancomycin Consult Pharmacy 1 EA OTHER SCH (08:30)
--- NOTE | 2017-03-08 08:49 | HHI.CCPN ---
Subjective Remarks/Hospital Course 51 y/o delirious man with draining wound right great toe, untreated diabetes, and severe COPD. According to his girlfriend at bedside in ED he has been confused for 3 days while on a trip to [place]. He has diabetes but does not take insulin, oral agents, nor check his sugar. This foot problem started as a non-healing cut on his right great toe. He is clearly in septic shock at present with hypotension, lactic acid 11, and leukocytosis. He will require a right above knee amputation eventually, possibly sooner if we can't control the source with antibiotics. He has audible wheezing from the doorway and is a chronic smoker. DIANA with creatinine > 5, and metabolic acidosis. 03/08 Patient was started on Levophed 8 mics overnight now down to 4 mics. Lactic acid trending down 4.2 this morning from 11.1 on arrical however his WBC increased 22.6 from 19. Objective Vital Signs Date Time Temp Pulse Resp B/P (MAP) Pulse Ox O2 Delivery O2 Flow Rate FiO2 03/08/17 06:00 97 03/08/17 04:14 96/55 03/08/17 04:00 97.6 25 98 03/07/17 18:01 Nasal Cannula 4.00 Intake and Output 03/08/17 03/08/17 03/09/17 08:00 16:00 00:00 Intake Total 1828 ml Output Total 140 ml Balance 1688 ml Result Diagram: 03/08/17 0426 03/08/17 0426 Other Results Laboratory Tests Test 03/07/17 13:55 03/07/17 15:49 03/07/17 16:52 03/07/17 17:50 White Blood Count 19.8 TH/MM3 Red Blood Count 3.40 MIL/MM3 Hemoglobin 10.6 GM/DL Hematocrit 32.2 % Mean Corpuscular Volume 94.9 FL Mean Corpuscular Hemoglobin 31.3 PG Mean Corpuscular Hemoglobin Concent 33.0 % Red Cell Distribution Width 14.3 % Platelet Count 250 TH/MM3 Mean Platelet Volume 10.2 FL Neutrophils (%) (Auto) 80.6 % Lymphocytes (%) (Auto) 4.8 % Monocytes (%) (Auto) 7.8 % Eosinophils (%) (Auto) 6.5 % Basophils (%) (Auto) 0.3 % Neutrophils # (Auto) 16.0 TH/MM3 Lymphocytes # (Auto) 1.0 TH/MM3 Monocytes # (Auto) 1.5 TH/MM3 Eosinophils # (Auto) 1.3 TH/MM3 Basophils # (Auto) 0.1 TH/MM3 CBC Comment AUTO DIFF Differential Total Cells Counted 100 Neutrophils % (Manual) 50 % Band Neutrophils % 25 % Lymphocytes % 6 % Monocytes % 17 % Neutrophils # (Manual) 15.2 TH/MM3 Metamyelocytes 1 % Myelocytes 1 % Differential Comment FINAL DIFF MANUAL Toxic Granulation 1+ Toxic Vacuolation PRESENT Platelet Estimate NORMAL Platelet Morphology Comment NORMAL Prothrombin Time 18.4 SEC Prothromb Time International Ratio 1.6 RATIO Activated Partial Thromboplast Time 42.7 SEC Blood Urea Nitrogen 67 MG/DL Creatinine 5.38 MG/DL Random Glucose 265 MG/DL Total Protein 6.2 GM/DL Albumin 1.6 GM/DL Calcium Level 8.6 MG/DL Alkaline Phosphatase 81 U/L Aspartate Amino Transf (AST/SGOT) 186 U/L Alanine Aminotransferase (ALT/SGPT) 40 U/L Total Bilirubin 4.6 MG/DL Sodium Level 129 MEQ/L Potassium Level 3.7 MEQ/L Chloride Level 89 MEQ/L Carbon Dioxide Level 15.4 MEQ/L Anion Gap 25 MEQ/L Estimat Glomerular Filtration Rate 11 ML/MIN Lactic Acid Level 11.1 mmol/L 6.0 mmol/L Ethyl Alcohol Level LESS THAN 3 MG/DL Ammonia 20 MCMOL/L Total Creatine Kinase 1454 U/L Creatine Kinase MB 19.5 NG/ML Creatine Kinase MB % 1.3 % B-Hydroxybutyrate 0.14 MMOL/L Nasal Screen MRSA (PCR) MRSA NOT DETECTED Test 03/07/17 19:45 03/08/17 04:26 Urine Opiates Screen NEG Urine Barbiturates Screen NEG Urine Amphetamines Screen NEG Urine Benzodiazepines Screen NEG Urine Cocaine Screen POS Urine Cannabinoids Screen POS White Blood Count 22.6 TH/MM3 Red Blood Count 4.05 MIL/MM3 Hemoglobin 12.2 GM/DL Hematocrit 38.9 % Mean Corpuscular Volume 96.1 FL Mean Corpuscular Hemoglobin 30.1 PG Mean Corpuscular Hemoglobin Concent 31.3 % Red Cell Distribution Width 14.7 % Platelet Count 268 TH/MM3 Mean Platelet Volume 9.1 FL Neutrophils (%) (Auto) 84.8 % Lymphocytes (%) (Auto) 4.5 % Monocytes (%) (Auto) 4.4 % Eosinophils (%) (Auto) 6.0 % Basophils (%) (Auto) 0.3 % Neutrophils # (Auto) 19.2 TH/MM3 Lymphocytes # (Auto) 1.0 TH/MM3 Monocytes # (Auto) 1.0 TH/MM3 Eosinophils # (Auto) 1.4 TH/MM3 Basophils # (Auto) 0.1 TH/MM3 CBC Comment AUTO DIFF Blood Urea Nitrogen 66 MG/DL Creatinine 4.86 MG/DL Random Glucose 142 MG/DL Total Protein 6.2 GM/DL Albumin 1.4 GM/DL Calcium Level 7.5 MG/DL Phosphorus Level 1.8 MG/DL Magnesium Level 1.5 MG/DL Alkaline Phosphatase 68 U/L Aspartate Amino Transf (AST/SGOT) 350 U/L Alanine Aminotransferase (ALT/SGPT) 71 U/L Total Bilirubin 5.1 MG/DL Sodium Level 133 MEQ/L Potassium Level 3.6 MEQ/L Chloride Level 103 MEQ/L Carbon Dioxide Level 16.0 MEQ/L Anion Gap 14 MEQ/L Estimat Glomerular Filtration Rate 13 ML/MIN Lactic Acid Level 4.2 mmol/L Imaging Last Impressions Chest X-Ray 03/07/17 1334 Signed Impressions: Service Date/Time: Tuesday, March 07, 2017 13:55 - CONCLUSION: No acute cardiopulmonary abnormality is identified. Danny Ngo MD Objective Remarks GENERAL: Patient is 51 yo critically ill lying on Levophed. SKIN: Warm and dry. HEAD: Normocephalic. EYES: No scleral icterus. No injection or drainage. NECK: Supple, trachea midline. No JVD or lymphadenopathy. CARDIOVASCULAR: Regular rate and rhythm without murmurs, gallops, or rubs. RESPIRATORY: Breath sounds equal bilaterally. No accessory muscle use. GASTROINTESTINAL: Abdomen soft, non-tender, nondistended. Extremities: Black, gangrenous right great toe with diffuse erythema involving the foot, ankle and lower leg. + edema right side. No palpable pulses below groin. Palpable right groin nodes. Left foot tepid, pulses absent. BACK: Nontender without obvious deformity. No CVA tenderness. A/P Assessment and Plan 1)Resp Insuff 2)Septic shock. Gram + bacteremia 3)DIANA. 4)Gangrene right foot. 5)Lactic acidemia 6)Rhabdo 7)Leukocytosis 8)Elevated AST 9)Emphysema, COPD. 10)Encephalopathy. 11)Diabetes mellitus, Type 2 12)ETOH use 13)Malnutrition Plan: Neuro: Monitor neuro status and avoid sedatives Place on Thiamine/Folic acid. Monitor for signs of DT's Pulm: Continue with oxygen keep sat >92% Bronchodilators. CXR 03/07: No acute disease CV: Continue to wean off Levophed keep MAP>65mmHg Serial lactic acid monitoring. Trending down. Continue with IVF, give 1L bolus NS : Monitor renal function, I/O's, avoid nephrotoxins. Change IVF to SW+2amps bicarb @150ml/hr, monitor CK's, check renal US, renal eval. GI: Keep NPO for now, on Protonix 40mg IV daily ID: Continue with abx ( Vanco, Zosyn) adjust doses abx per renal function. BC form 03/07: GPC 4 bottles Will consult ID service. send wound for culture/GS. Consult wound nurse. Discussed with Ortho- Dr. Hanks if no improvements he will likely take him to OR later today. Vascular surgery eval. Heme: Monitor CBC Endo: SSI for glycemic control. GI prophylaxis- Protonix 40mg daily DVT prophylaxis- SCD to LLE, hold chemical AC prophylaxis for now as patient might got to OR. Lines: Place Right IJ CVP Patient is critically ill and in septic shock requiring pressors from a gangrenous right leg, renal failure, worsening leukocytosis Critical Care 30 mins Iman Duffy MD Mar 08, 2017 08:49
[2017-03-08] MEDS: PANTOPRAZOLE SODIUM 40 MG VIAL IV SCH (09:45)
[2017-03-08] MEDS: FOLIC ACID 1 MG TAB PO SCH (09:45)
[2017-03-08] MEDS: THIAMINE HCL 100 MG TAB PO SCH (09:45)
[2017-03-08 09:46] LABS: BANDS 27 % (0-6); METAMYELOCYTES 2 % (0-1); MYELOCYTES 3 % (0-0); NEUTROPHIL # MANUAL DIFF 17.6 TH/MM3 (1.8-7.7); PLATELET ESTIMATE SMEAR NORMAL (NORMAL); PLATELET MORPHOLOGY NORMAL (NORMAL); POLYS (SEG NEUTROPHILS) 46 % (16-70); SCAN/DIFF FINAL DIFF MANUAL; TOXIC GRANULATION 1+ (NORMAL); TOXIC VACUOLATION PRESENT (NONE SEEN); WBC DIFF SAMPLE 100
--- NOTE | 2017-03-08 09:54 | RADRPT ---
EXAM DATE/TIME: 03/08/2017 08:58 [facility] COMPARISON: No previous studies available for comparison. INDICATIONS : Acute renal failure. MEDICAL HISTORY : Diabetes. Unable to obtain further medical history. SURGICAL HISTORY : Unable to obtain further surgical history. ENCOUNTER: Initial ACUITY: 1 day PAIN SCORE: 8/10 LOCATION: Bilateral flank MEASUREMENTS: RIGHT KIDNEY: 10.2 x 5.8 x 5.0 cm LEFT KIDNEY: 10.2 x 5.2 x 5.3 cm FINDINGS: RIGHT KIDNEY: Renal cortex is normal in thickness and echotexture. No hydronephrosis, stone, or mass. LEFT KIDNEY: Renal cortex is normal in thickness and echotexture. No hydronephrosis, stone, or mass. BLADDER: Dennison catheter. Bladder decompressed. The liver appears to be enlarged measuring 20 cm with increased echogenicity. There is a trace of marylin e fluid in the upper abdomen. CONCLUSION: 1. Unremarkable bilateral renal ultrasound. 2. Hepatomegaly with a trace of ascites in the upper abdomen. Carl Sands MD on March 08, 2017 at 9:50 Board Certified Radiologist. This report was verified electronically.
[2017-03-08] MEDS ORDERED: SODIUM PHOSPHATE INJ 15 MMOL in SODIUM CHLORIDE 0.9% INJ 150 ML IV ONE (10:00)
--- NOTE | 2017-03-08 10:51 | PD.CONS ---
[facility] Service Nephrology Consult Requested By Reason for Consult Acute renal failure Primary Care Physician No Primary Care Physician History of Present Illness Patient is a 51-year-old male with history of diabetes, not taking any medications he had open right toe wound and infection which was draining he went to [place] for 3 days straight and came back confused, delirious and has been admitted with sepsis and dehydration, gangrene of right foot his creatinine was 5.38 and this has declined to 4.86 after hydration, his renal ultrasound was unremarkable, he did not have previous history of kidney disease. Review of Systems Constitutional: COMPLAINS OF: Fatigue Musculoskeletal: COMPLAINS OF: Joint pain Psychiatric: COMPLAINS OF: Confusion Past Family Social History Allergies: Coded Allergies: No Known Allergies (Unverified , 03/07/17) Past Medical History Diabetes Right toe wound Hypertension Reported Medications Reported Meds & Active Scripts Active No Active Prescriptions or Reported Medications Active Ordered Medications Current Medications Medications (Trade) Dose Ordered Sig/Stacy Route Start Time Stop Time Status Last Admin Sodium Chloride 1,000 ml @ 150 mls/hr Q6H40M IV 03/07/17 15:31 03/08/17 05:28 (Tylenol) 650 mg Q6H PRN PO 03/07/17 15:45 (Morphine Inj) 2 mg Q2H PRN IV 03/07/17 15:45 (Protonix Inj) 40 mg DAILY IV 03/08/17 09:00 03/08/17 09:45 (Duoneb Neb) 1 ampule Q4HR NEB PRN INH 03/07/17 15:45 (Heparin Inj) 5,000 units Q12H SQ 03/07/17 18:00 03/08/17 05:20 Miscellaneous Information 1 Q361D XX 03/07/17 15:45 03/07/17 15:45 (Chlorhexidine 2% Cloth) 3 pack Taper DAILY@04 TOP 03/08/17 04:00 03/04/18 03:59 03/08/17 03:30 (Chlorhexidine 2% Cloth) 3 pack UNSCH PRN TOP 03/07/17 15:45 Pharmacy Profile Note 0 ml @ 0 mls/hr UNSCH OTHER 03/07/17 15:45 Piperacillin Sod/ Tazobactam Sod 50 ml @ 100 mls/hr Q8H IV 8/25/17 22:00 03/08/17 05:19 (D50w (Vial) Inj) 50 ml UNSCH PRN IV 03/07/17 16:15 (Glucagon Inj) 1 mg UNSCH PRN OTHER 03/07/17 16:15 (NovoLOG SUPPLEMENTAL SCALE) 1 Q6H SQ 03/07/17 16:15 03/07/17 23:06 Norepinephrine Bitartrate 250 ml @ 7.5 mls/hr TITRATE PRN IV 03/07/17 21:00 03/08/17 04:14 (Vitamin B1) 100 mg DAILY PO 03/08/17 09:00 03/08/17 09:45 (Folate) 1 mg DAILY PO 03/08/17 09:00 03/08/17 09:45 Sodium Phosphate 15 mmol/Sodium Chloride 155 ml @ 38.75 mls/ hr ONCE ONCE IV 03/08/17 10:00 03/08/17 13:59 Family History Noncontributory Social History History of smoking, alcohol use positive Physical Exam Vital Signs Vital Signs Date Time Temp Pulse Resp B/P (MAP) Pulse Ox O2 Delivery O2 Flow Rate FiO2 03/08/17 06:00 97 03/08/17 04:14 100 96/55 03/08/17 04:00 100 03/08/17 04:00 97.6 100 25 96/55 (69) 98 03/08/17 02:00 101 03/08/17 01:30 100 90/52 03/08/17 01:13 100 102/65 03/08/17 00:00 103 03/08/17 00:00 97.3 103 26 97/57 (70) 97 03/07/17 22:00 106 86/52 03/07/17 22:00 106 03/07/17 20:00 97.9 106 22 89/55 (66) 93 03/07/17 20:00 106 03/07/17 19:37 92 68/44 03/07/17 18:01 98 22 108/56 (73) 96 Nasal Cannula 4.00 03/07/17 17:57 03/07/17 14:26 95 Room Air 03/07/17 13:36 98.9 115 25 84/54 (64) 95 Room Air 03/07/17 13:36 115 25 95 03/07/17 13:19 98.9 110 30 84/52 (63) 95 Physical Exam GENERAL: Well-nourished, well-developed patient. SKIN: Warm and dry. HEAD: Normocephalic. EYES: No scleral icterus. No injection or drainage. NECK: Supple, trachea midline. No JVD or lymphadenopathy. CARDIOVASCULAR: Regular rate and rhythm without murmurs, gallops, or rubs. RESPIRATORY: Breath sounds equal bilaterally. No accessory muscle use. GASTROINTESTINAL: Abdomen soft, non-tender, nondistended. EXTREMITIES: No cyanosis, positive edema. Gangrene right toe and around right ankle NEUROLOGICAL: Awake, alert, appears slow and confused Laboratory Laboratory Tests Test 03/07/17 13:55 03/07/17 15:49 03/07/17 16:52 03/07/17 17:50 White Blood Count 19.8 Red Blood Count 3.40 Hemoglobin 10.6 Hematocrit 32.2 Mean Corpuscular Volume 94.9 Mean Corpuscular Hemoglobin 31.3 Mean Corpuscular Hemoglobin Concent 33.0 Red Cell Distribution Width 14.3 Platelet Count 250 Mean Platelet Volume 10.2 Neutrophils (%) (Auto) 80.6 Lymphocytes (%) (Auto) 4.8 Monocytes (%) (Auto) 7.8 Eosinophils (%) (Auto) 6.5 Basophils (%) (Auto) 0.3 Neutrophils # (Auto) 16.0 Lymphocytes # (Auto) 1.0 Monocytes # (Auto) 1.5 Eosinophils # (Auto) 1.3 Basophils # (Auto) 0.1 CBC Comment AUTO DIFF Differential Total Cells Counted 100 Neutrophils % (Manual) 50 Band Neutrophils % 25 Lymphocytes % 6 Monocytes % 17 Neutrophils # (Manual) 15.2 Metamyelocytes 1 Myelocytes 1 Differential Comment FINAL DIFF MANUAL Toxic Granulation 1+ Toxic Vacuolation PRESENT Platelet Estimate NORMAL Platelet Morphology Comment NORMAL Prothrombin Time 18.4 Prothromb Time International Ratio 1.6 Activated Partial Thromboplast Time 42.7 Blood Urea Nitrogen 67 Creatinine 5.38 Random Glucose 265 Total Protein 6.2 Albumin 1.6 Calcium Level 8.6 Alkaline Phosphatase 81 Aspartate Amino Transf (AST/SGOT) 186 Alanine Aminotransferase (ALT/SGPT) 40 Total Bilirubin 4.6 Sodium Level 129 Potassium Level 3.7 Chloride Level 89 Carbon Dioxide Level 15.4 Anion Gap 25 Estimat Glomerular Filtration Rate 11 Lactic Acid Level 11.1 6.0 Ethyl Alcohol Level LESS THAN 3 Ammonia 20 Total Creatine Kinase 1454 Creatine Kinase MB 19.5 Creatine Kinase MB % 1.3 B-Hydroxybutyrate 0.14 Nasal Screen MRSA (PCR) MRSA NOT DETECTED Test 03/07/17 19:45 03/08/17 04:26 Urine Opiates Screen NEG Urine Barbiturates Screen NEG Urine Amphetamines Screen NEG Urine Benzodiazepines Screen NEG Urine Cocaine Screen POS Urine Cannabinoids Screen POS White Blood Count 22.6 Red Blood Count 4.05 Hemoglobin 12.2 Hematocrit 38.9 Mean Corpuscular Volume 96.1 Mean Corpuscular Hemoglobin 30.1 Mean Corpuscular Hemoglobin Concent 31.3 Red Cell Distribution Width 14.7 Platelet Count 268 Mean Platelet Volume 9.1 Neutrophils (%) (Auto) 84.8 Lymphocytes (%) (Auto) 4.5 Monocytes (%) (Auto) 4.4 Eosinophils (%) (Auto) 6.0 Basophils (%) (Auto) 0.3 Neutrophils # (Auto) 19.2 Lymphocytes # (Auto) 1.0 Monocytes # (Auto) 1.0 Eosinophils # (Auto) 1.4 Basophils # (Auto) 0.1 CBC Comment AUTO DIFF Differential Total Cells Counted 100 Neutrophils % (Manual) 46 Band Neutrophils % 27 Lymphocytes % 10 Monocytes % 12 Neutrophils # (Manual) 17.6 Metamyelocytes 2 Myelocytes 3 Differential Comment FINAL DIFF MANUAL Toxic Granulation 1+ Toxic Vacuolation PRESENT Platelet Estimate NORMAL Platelet Morphology Comment NORMAL Blood Urea Nitrogen 66 Creatinine 4.86 Random Glucose 142 Total Protein 6.2 Albumin 1.4 Calcium Level 7.5 Phosphorus Level 1.8 Magnesium Level 1.5 Alkaline Phosphatase 68 Aspartate Amino Transf (AST/SGOT) 350 Alanine Aminotransferase (ALT/SGPT) 71 Total Bilirubin 5.1 Sodium Level 133 Potassium Level 3.6 Chloride Level 103 Carbon Dioxide Level 16.0 Anion Gap 14 Estimat Glomerular Filtration Rate 13 Lactic Acid Level 4.2 Date/Time Source Procedure Growth Status 03/07/17 13:55 Blood Peripheral Aerobic Blood Culture - Preliminary Gram Positive Cocci Resulted 03/07/17 13:55 Anaerobic Blood Culture - Preliminary Gram Positive Cocci Resulted Result Diagram: 03/08/17 0426 03/08/17 0426 Imaging Last Impressions Renal Ultrasound 03/08/17 0000 Signed Impressions: Service Date/Time: Wednesday, March 08, 2017 08:58 - CONCLUSION: 1. Unremarkable bilateral renal ultrasound. 2. Hepatomegaly with a trace of ascites in the upper abdomen. Carl Sands MD Chest X-Ray 03/07/17 1334 Signed Impressions: Service Date/Time: Tuesday, March 07, 2017 13:55 - CONCLUSION: No acute cardiopulmonary abnormality is identified. Danny Ngo MD Assessment and Plan Problem List: (1) Acute renal failure ICD Codes: N17.9 - Acute kidney failure, unspecified Status: Acute Plan: Likely dehydrated for underlying sepsis continue supportive care hydration and antibiotics to treat gram-positive cocci bacteremia Avoid nephrotoxic Follow the BMP (2) Sepsis ICD Codes: A41.9 - Sepsis, unspecified organism Plan: Gram-positive cocci in the blood will follow (3) Diabetic infection of right foot ICD Codes: E11.69 - Type 2 diabetes mellitus with other specified complication ; L08.9 - Local infection of the skin and subcutaneous tissue, unspecified Status: Acute Plan: On IV antibiotics Zosyn received vancomycin (4) Ischemic necrosis of foot ICD Codes: I96 - Gangrene, not elsewhere classified Status: Acute Plan: Likely will need amputation, BKA Problem Qualifiers (1) Acute renal failure: Qualified Codes: N17.9 - Acute kidney failure, unspecified Freddy Feliciano MD Mar 08, 2017 10:51
[2017-03-08 11:26] LABS: BACTERIA, URINE RARE /hpf; BLOOD, URINE LARGE (NEG); GLUCOSE,URINE NEG (NEG); HYALINE CAST, URINE 43 /lpf (RARE); KETONE, URINE NEG (NEG); MUCUS URINE FEW /lpf (OCC); NITRITE,URINE NEG (NEG); PH, URINE 5.5 (5.0-8.5); SQUAMOUS EPITHELIAL CELL URINE 5 /hpf (0-5); TRANSITIONAL EPI CELLS, URINE <1 /hpf; URINE COLOR DARK-YELLOW (YELLW/STRAW)
--- NOTE | 2017-03-08 11:33 | RADRPT ---
EXAM DATE/TIME: 03/08/2017 10:47 [facility] COMPARISON: No previous studies available for comparison. INDICATIONS : Right shoulder pain. MEDICAL HISTORY : None. SURGICAL HISTORY : None. ENCOUNTER: Initial ACUITY: 4 - 6 days PAIN SCORE: 5/10 LOCATION: Right Shoulder FINDINGS: Examination of the right shoulder demonstrates no evidence of fracture or dislocation.. Bone mineral ization is normal. The acromioclavicular joint is intact. No foreign body is identified. CONCLUSION: Within normal limits. Danny Buchanan MD on March 08, 2017 at 11:31 Board Certified Radiologist. This report was verified electronically.
--- NOTE | 2017-03-08 11:33 | PD.VS.CON ---
History of Present Illness Chief Complaint: Diabetic foot infection RIGHT foot Consult Requested by: Dr. Hanks (ortho), Dr. Lofton (ICU) History of Present Illness 51 yo male with DM that is likely poorly controlled as he doesn't check his glucose levels who was admitted with septic shock likely from his R foot. The patient is currently in the ICU on pressures with ARF, now improving in LA/ pressor requirement and improving creatinine with appropriate resuscitation. He is obtunded and the history is obtained from the girlfriend. Of note, the POA is the brother because he is NOK. The patient and his girlfriend returned from [place] and then patient had a couple of sores on his R great toe as of Fri. Over the course of 2 days , these progressed and he developed R foot swelling and erythema and new lesions on the medial aspect of the distal calf. Presented to the hospital because of these wounds and because he was continuously passing out. Unknown if F/C. Past/Family/Social History Past Medical History DM Past Surgical History none Social History unknown, lives alone; Family History unknown Home Medications No Active Prescriptions or Reported Meds Coded Allergies: No Known Allergies (Unverified , 03/07/17) Review of Systems ROS Limitations: Clinical Condition Physical Exam Vitals/I&O Date Time Temp Pulse Resp B/P (MAP) Pulse Ox O2 Delivery O2 Flow Rate FiO2 03/08/17 06:00 97 03/08/17 04:14 100 96/55 03/08/17 04:00 100 03/08/17 04:00 97.6 100 25 96/55 (69) 98 03/08/17 02:00 101 03/08/17 01:30 100 90/52 03/08/17 01:13 100 102/65 03/08/17 00:00 103 03/08/17 00:00 97.3 103 26 97/57 (70) 97 03/07/17 22:00 106 86/52 03/07/17 22:00 106 03/07/17 20:00 97.9 106 22 89/55 (66) 93 03/07/17 20:00 106 03/07/17 19:37 92 68/44 03/07/17 18:01 98 22 108/56 (73) 96 Nasal Cannula 4.00 03/07/17 17:57 03/07/17 14:26 95 Room Air 03/07/17 13:36 98.9 115 25 84/54 (64) 95 Room Air 03/07/17 13:36 115 25 95 03/07/17 13:19 98.9 110 30 84/52 (63) 95 03/08/17 03/08/17 03/08/17 07:00 15:00 23:00 Intake Total 1828 ml Output Total 140 ml Balance 1688 ml Neuro: obtunded but intermittently arousable and answers questions, but falls asleep in middle of next question HEENT: NC/AT; + icteric sclera Neck: no JVD Heart: reg rate Lungs: nonlabored breathing, good sats Vascular: palpable R popliteal pulse Extremities: R great toe edematous and gangrenous, + serous exudate and odor R medial distal calf with bulla and what appears to be purulnece beneath edema to knee, erythema to above ankle Laboratory Tests Test 03/07/17 13:55 03/07/17 15:49 03/07/17 16:52 03/07/17 17:50 White Blood Count 19.8 Red Blood Count 3.40 Hemoglobin 10.6 Hematocrit 32.2 Mean Corpuscular Volume 94.9 Mean Corpuscular Hemoglobin 31.3 Mean Corpuscular Hemoglobin Concent 33.0 Red Cell Distribution Width 14.3 Platelet Count 250 Mean Platelet Volume 10.2 Neutrophils (%) (Auto) 80.6 Lymphocytes (%) (Auto) 4.8 Monocytes (%) (Auto) 7.8 Eosinophils (%) (Auto) 6.5 Basophils (%) (Auto) 0.3 Neutrophils # (Auto) 16.0 Lymphocytes # (Auto) 1.0 Monocytes # (Auto) 1.5 Eosinophils # (Auto) 1.3 Basophils # (Auto) 0.1 CBC Comment AUTO DIFF Differential Total Cells Counted 100 Neutrophils % (Manual) 50 Band Neutrophils % 25 Lymphocytes % 6 Monocytes % 17 Neutrophils # (Manual) 15.2 Metamyelocytes 1 Myelocytes 1 Differential Comment FINAL DIFF MANUAL Toxic Granulation 1+ Toxic Vacuolation PRESENT Platelet Estimate NORMAL Platelet Morphology Comment NORMAL Prothrombin Time 18.4 Prothromb Time International Ratio 1.6 Activated Partial Thromboplast Time 42.7 Blood Urea Nitrogen 67 Creatinine 5.38 Random Glucose 265 Total Protein 6.2 Albumin 1.6 Calcium Level 8.6 Alkaline Phosphatase 81 Aspartate Amino Transf (AST/SGOT) 186 Alanine Aminotransferase (ALT/SGPT) 40 Total Bilirubin 4.6 Sodium Level 129 Potassium Level 3.7 Chloride Level 89 Carbon Dioxide Level 15.4 Anion Gap 25 Estimat Glomerular Filtration Rate 11 Lactic Acid Level 11.1 6.0 Ethyl Alcohol Level LESS THAN 3 Ammonia 20 Total Creatine Kinase 1454 Creatine Kinase MB 19.5 Creatine Kinase MB % 1.3 B-Hydroxybutyrate 0.14 Nasal Screen MRSA (PCR) MRSA NOT DETECTED Test 03/07/17 19:45 03/08/17 04:26 03/08/17 10:25 Urine Opiates Screen NEG Urine Barbiturates Screen NEG Urine Amphetamines Screen NEG Urine Benzodiazepines Screen NEG Urine Cocaine Screen POS Urine Cannabinoids Screen POS White Blood Count 22.6 Red Blood Count 4.05 Hemoglobin 12.2 Hematocrit 38.9 Mean Corpuscular Volume 96.1 Mean Corpuscular Hemoglobin 30.1 Mean Corpuscular Hemoglobin Concent 31.3 Red Cell Distribution Width 14.7 Platelet Count 268 Mean Platelet Volume 9.1 Neutrophils (%) (Auto) 84.8 Lymphocytes (%) (Auto) 4.5 Monocytes (%) (Auto) 4.4 Eosinophils (%) (Auto) 6.0 Basophils (%) (Auto) 0.3 Neutrophils # (Auto) 19.2 Lymphocytes # (Auto) 1.0 Monocytes # (Auto) 1.0 Eosinophils # (Auto) 1.4 Basophils # (Auto) 0.1 CBC Comment AUTO DIFF Differential Total Cells Counted 100 Neutrophils % (Manual) 46 Band Neutrophils % 27 Lymphocytes % 10 Monocytes % 12 Neutrophils # (Manual) 17.6 Metamyelocytes 2 Myelocytes 3 Differential Comment FINAL DIFF MANUAL Toxic Granulation 1+ Toxic Vacuolation PRESENT Platelet Estimate NORMAL Platelet Morphology Comment NORMAL Blood Urea Nitrogen 66 Creatinine 4.86 Random Glucose 142 Total Protein 6.2 Albumin 1.4 Calcium Level 7.5 Phosphorus Level 1.8 Magnesium Level 1.5 Alkaline Phosphatase 68 Aspartate Amino Transf (AST/SGOT) 350 Alanine Aminotransferase (ALT/SGPT) 71 Total Bilirubin 5.1 Sodium Level 133 Potassium Level 3.6 Chloride Level 103 Carbon Dioxide Level 16.0 Anion Gap 14 Estimat Glomerular Filtration Rate 13 Lactic Acid Level 4.2 Date/Time Source Procedure Growth Status 03/07/17 13:55 Blood Peripheral Aerobic Blood Culture - Preliminary Gram Positive Cocci Resulted 03/07/17 13:55 Anaerobic Blood Culture - Preliminary Gram Positive Cocci Resulted 03/08/17 10:00 Fluid Other Gram Stain Pending Received 03/08/17 10:00 Fluid Other Body Fluid Culture Pending Received Last 48 hours Impressions Renal Ultrasound 03/08/17 0000 Signed Impressions: Service Date/Time: Wednesday, March 08, 2017 08:58 - CONCLUSION: 1. Unremarkable bilateral renal ultrasound. 2. Hepatomegaly with a trace of ascites in the upper abdomen. Carl Sands MD Chest X-Ray 03/07/17 1334 Signed Impressions: Service Date/Time: Tuesday, March 07, 2017 13:55 - CONCLUSION: No acute cardiopulmonary abnormality is identified. Danny Ngo MD Assessment and Plan Plan He has a diabetic foot infection and secondary sepsis from this. He is improving but I think the chance of limb salvage is minimal and the most prudent action is source control with an open BKA. He already has positive blood cultures. 1. Recommend open R BKA; consent will need to be obtained from NOK. Dr. Hanks (ortho) reportedly has him on the schedule today and I will discuss with him. 2. Trend creatinine, Lactic acid and bilirubin 3. Continue broad antibiotics. 4. Check Hgb A1c, needs diabetic counseling Will follow. Jimbo Rankin MD FACS RPVI manager psychology [facility] at [facility] [phone] Jimbo Rankin MD Mar 08, 2017 11:33
[2017-03-08 11:34] LABS: COMMENT (UR) CATH-CULTURE IND; CULTURE IF INDICATED CATH CULTURE IND
[2017-03-08 11:45] LABS: BICARBONATE 17.7 MEQ/L (21.0-32.0); POTASSIUM 3.7 MEQ/L (3.5-5.1)
--- NOTE | 2017-03-08 11:56 | PD.ID.CON ---
History of Present Illness Service ID Consult Requested By Reason for Consult Evaluation and Mment of septic shock, Strep bacteremia, right great toe gangrene , osteomyelitis as well as gangrenous changes noted on right leg. Primary Care Physician No Primary Care Physician Diagnoses: History of Present Illness Most of the history was obtained from the girlfriend was in the room. Patient appeared to be delirious. is a 51 y/o CM , who appears delirious, and was admitted overnight with septic shock, right great toe wound with gangrene possible osteomyelitis and untreated diabetes. Patient's cough and reports that approximately a week prior to admission patient had an episode of acute gastroenteritis and so did she. She thinks patient hasn't eaten in almost a week. He does consume heavy alcohol and this is the only fluid that he's been consuming in the last 7 days. She reports that patient stopped his right great toe on the superior aspect but did not see any ED, PCP or urgent care for this. No history of consumption of any antibiotics prior to admission. She reports that he is a known diabetic but is not compliant with his medications. Patient was noted to have sepsis on admission with low blood pressure and needing to be placed on pressors septic shock. He was noted to have an elevated lactic acid of 11.8 as well as in acute renal failure. His urine output is low and nephrology has been consulted. Vascular surgery as well as orthopedic surgeons have seen this patient and patient's girlfriend informs me that the surgeons have told him that patient needs a 2 staged amputation beginning with below knee amputation. At the time of my evaluation patient is in the IMC on levophed 4 mics, has undergone fluid resuscitation, has decreased urine output, as well as decreased mentation. There is a plan for placement of a central line later today. Review of Systems ROS Limitations: Altered Mental Status, Poor Historian Past Family Social History Allergies: Coded Allergies: No Known Allergies (Unverified , 03/07/17) Past Medical History Diabetes noncompliant with medications or checking blood sugars. Past Surgical History None per patient or his girlfriend. Reported Medications Reported Meds & Active Scripts Active No Active Prescriptions or Reported Medications Active Ordered Medications Current Medications Medications (Trade) Dose Ordered Sig/Stacy Route Start Time Stop Time Status Last Admin Sodium Chloride 1,000 ml @ 150 mls/hr Q6H40M IV 03/07/17 15:31 03/08/17 11:30 (Tylenol) 650 mg Q6H PRN PO 03/07/17 15:45 (Morphine Inj) 2 mg Q2H PRN IV 03/07/17 15:45 (Protonix Inj) 40 mg DAILY IV 03/08/17 09:00 03/08/17 09:45 (Duoneb Neb) 1 ampule Q4HR NEB PRN INH 03/07/17 15:45 (Heparin Inj) 5,000 units Q12H SQ 03/07/17 18:00 03/08/17 05:20 Miscellaneous Information 1 Q361D XX 03/07/17 15:45 03/07/17 15:45 (Chlorhexidine 2% Cloth) 3 pack Taper DAILY@04 TOP 03/08/17 04:00 03/04/18 03:59 03/08/17 03:30 (Chlorhexidine 2% Cloth) 3 pack UNSCH PRN TOP 03/07/17 15:45 Piperacillin Sod/ Tazobactam Sod 50 ml @ 100 mls/hr Q8H IV 03/07/17 22:00 03/08/17 05:19 (D50w (Vial) Inj) 50 ml UNSCH PRN IV 03/07/17 16:15 (Glucagon Inj) 1 mg UNSCH PRN OTHER 03/07/17 16:15 (NovoLOG SUPPLEMENTAL SCALE) 1 Q6H SQ 03/07/17 16:15 03/07/17 23:06 Norepinephrine Bitartrate 250 ml @ 7.5 mls/hr TITRATE PRN IV 03/07/17 21:00 03/08/17 04:14 (Vitamin B1) 100 mg DAILY PO 03/08/17 09:00 03/08/17 09:45 (Folate) 1 mg DAILY PO 03/08/17 09:00 03/08/17 09:45 Sodium Phosphate 15 mmol/Sodium Chloride 155 ml @ 38.75 mls/ hr ONCE ONCE IV 03/08/17 10:00 03/08/17 13:59 03/08/17 11:22 Family History Could not be obtained. Social History Heavy alcohol consumption as reported by his girlfriend. Possibly smokes. No history of IV drug abuse. Physical Exam Vital Signs Vital Signs Date Time Temp Pulse Resp B/P (MAP) Pulse Ox O2 Delivery O2 Flow Rate FiO2 03/08/17 06:00 97 03/08/17 04:14 100 96/55 03/08/17 04:00 100 03/08/17 04:00 97.6 100 25 96/55 (69) 98 03/08/17 02:00 101 03/08/17 01:30 100 90/52 03/08/17 01:13 100 102/65 03/08/17 00:00 103 03/08/17 00:00 97.3 103 26 97/57 (70) 97 03/07/17 22:00 106 86/52 03/07/17 22:00 106 03/07/17 20:00 97.9 106 22 89/55 (66) 93 03/07/17 20:00 106 03/07/17 19:37 92 68/44 03/07/17 18:01 98 22 108/56 (73) 96 Nasal Cannula 4.00 03/07/17 17:57 03/07/17 14:26 95 Room Air 03/07/17 13:36 98.9 115 25 84/54 (64) 95 Room Air 03/07/17 13:36 115 25 95 03/07/17 13:19 98.9 110 30 84/52 (63) 95 Physical Exam GENERAL: Acutely ill-appearing, well-nourished, well-developed patient, in no apparent distress. SKIN: No rashes, ecchymoses or lesions. Cool and dry. HEAD: Atraumatic. Normocephalic. No temporal or scalp tenderness. EYES: Pupils equal round and reactive. Extraocular motions intact. No scleral icterus. No injection or drainage. ENT: Nose without bleeding, purulent drainage or septal hematoma. Throat without erythema, tonsillar hypertrophy or exudate. Uvula midline. Airway patent. NECK: Trachea midline. Supple, nontender, no meningeal signs. CARDIOVASCULAR: Regular rate and rhythm without murmurs, gallops, or rubs. RESPIRATORY: Clear to auscultation. Breath sounds equal bilaterally. No wheezes , rales, or rhonchi. GASTROINTESTINAL: Abdomen soft, non-tender, nondistended. MUSCULOSKELETAL: Right great toe with ulceration as well as blackening of his toe noted. On the medial aspect of the left leg there is a large blister with blackening noted. There is also some streaking noted that appears to be on the medial aspect of his thigh. NEUROLOGICAL: Awake and alert. Grossly nonfocal. Oriented to self, place. It is slow to respond and appears encephalopathic. Psych cooperative IV line sites with no evidence of infection. Laboratory Laboratory Tests Test 03/07/17 13:55 03/07/17 15:49 03/07/17 16:52 03/07/17 17:50 White Blood Count 19.8 Red Blood Count 3.40 Hemoglobin 10.6 Hematocrit 32.2 Mean Corpuscular Volume 94.9 Mean Corpuscular Hemoglobin 31.3 Mean Corpuscular Hemoglobin Concent 33.0 Red Cell Distribution Width 14.3 Platelet Count 250 Mean Platelet Volume 10.2 Neutrophils (%) (Auto) 80.6 Lymphocytes (%) (Auto) 4.8 Monocytes (%) (Auto) 7.8 Eosinophils (%) (Auto) 6.5 Basophils (%) (Auto) 0.3 Neutrophils # (Auto) 16.0 Lymphocytes # (Auto) 1.0 Monocytes # (Auto) 1.5 Eosinophils # (Auto) 1.3 Basophils # (Auto) 0.1 CBC Comment AUTO DIFF Differential Total Cells Counted 100 Neutrophils % (Manual) 50 Band Neutrophils % 25 Lymphocytes % 6 Monocytes % 17 Neutrophils # (Manual) 15.2 Metamyelocytes 1 Myelocytes 1 Differential Comment FINAL DIFF MANUAL Toxic Granulation 1+ Toxic Vacuolation PRESENT Platelet Estimate NORMAL Platelet Morphology Comment NORMAL Prothrombin Time 18.4 Prothromb Time International Ratio 1.6 Activated Partial Thromboplast Time 42.7 Blood Urea Nitrogen 67 Creatinine 5.38 Random Glucose 265 Total Protein 6.2 Albumin 1.6 Calcium Level 8.6 Alkaline Phosphatase 81 Aspartate Amino Transf (AST/SGOT) 186 Alanine Aminotransferase (ALT/SGPT) 40 Total Bilirubin 4.6 Sodium Level 129 Potassium Level 3.7 Chloride Level 89 Carbon Dioxide Level 15.4 Anion Gap 25 Estimat Glomerular Filtration Rate 11 Lactic Acid Level 11.1 6.0 Ethyl Alcohol Level LESS THAN 3 Ammonia 20 Total Creatine Kinase 1454 Creatine Kinase MB 19.5 Creatine Kinase MB % 1.3 B-Hydroxybutyrate 0.14 Nasal Screen MRSA (PCR) MRSA NOT DETECTED Test 03/07/17 19:45 03/08/17 04:26 03/08/17 10:25 03/08/17 11:38 Urine Opiates Screen NEG Urine Barbiturates Screen NEG Urine Amphetamines Screen NEG Urine Benzodiazepines Screen NEG Urine Cocaine Screen POS Urine Cannabinoids Screen POS White Blood Count 22.6 Red Blood Count 4.05 Hemoglobin 12.2 Hematocrit 38.9 Mean Corpuscular Volume 96.1 Mean Corpuscular Hemoglobin 30.1 Mean Corpuscular Hemoglobin Concent 31.3 Red Cell Distribution Width 14.7 Platelet Count 268 Mean Platelet Volume 9.1 Neutrophils (%) (Auto) 84.8 Lymphocytes (%) (Auto) 4.5 Monocytes (%) (Auto) 4.4 Eosinophils (%) (Auto) 6.0 Basophils (%) (Auto) 0.3 Neutrophils # (Auto) 19.2 Lymphocytes # (Auto) 1.0 Monocytes # (Auto) 1.0 Eosinophils # (Auto) 1.4 Basophils # (Auto) 0.1 CBC Comment AUTO DIFF Differential Total Cells Counted 100 Neutrophils % (Manual) 46 Band Neutrophils % 27 Lymphocytes % 10 Monocytes % 12 Neutrophils # (Manual) 17.6 Metamyelocytes 2 Myelocytes 3 Differential Comment FINAL DIFF MANUAL Toxic Granulation 1+ Toxic Vacuolation PRESENT Platelet Estimate NORMAL Platelet Morphology Comment NORMAL Blood Urea Nitrogen 66 72 Creatinine 4.86 4.73 Random Glucose 142 135 Total Protein 6.2 Albumin 1.4 Calcium Level 7.5 7.4 Phosphorus Level 1.8 Magnesium Level 1.5 Alkaline Phosphatase 68 Aspartate Amino Transf (AST/SGOT) 350 Alanine Aminotransferase (ALT/SGPT) 71 Total Bilirubin 5.1 Sodium Level 133 138 Potassium Level 3.6 3.7 Chloride Level 103 105 Carbon Dioxide Level 16.0 17.7 Anion Gap 14 15 Estimat Glomerular Filtration Rate 13 13 Lactic Acid Level 4.2 Urine Color DARK-YELLOW Urine Turbidity CLOUDY Urine pH 5.5 Urine Specific Recluse 1.014 Urine Protein 30 Urine Glucose (UA) NEG Urine Ketones NEG Urine Occult Blood LARGE Urine Nitrite NEG Urine Bilirubin SMALL Urine Urobilinogen LESS THAN 2.0 Urine Leukocyte Esterase TRACE Urine RBC 15 Urine WBC 44 Urine WBC Clumps FEW Urine Squamous Epithelial Cells 5 Urine Transitional Epithelial Cells <1 Urine Amorphous Sediment MOD Urine Bacteria RARE Urine Hyaline Casts 43 Urine Mucus FEW Microscopic Urinalysis Comment CATH-CULTURE IND Total Creatine Kinase 1502 Date/Time Source Procedure Growth Status 03/07/17 13:55 Blood Peripheral Aerobic Blood Culture - Preliminary Gram Positive Cocci Resulted 03/07/17 13:55 Anaerobic Blood Culture - Preliminary Gram Positive Cocci Resulted 03/08/17 10:00 Fluid Other Gram Stain Pending Received 03/08/17 10:00 Fluid Other Body Fluid Culture Pending Received 03/08/17 10:25 Urine Clean Catch Urine Culture Pending Received Result Diagram: 03/08/17 0426 03/08/17 1025 Imaging Last Impressions Shoulder X-Ray 03/08/17 0000 Signed Impressions: Service Date/Time: Wednesday, March 08, 2017 10:47 - CONCLUSION: Within normal limits. Danny Buchanan MD Renal Ultrasound 03/08/17 0000 Signed Impressions: Service Date/Time: Wednesday, March 08, 2017 08:58 - CONCLUSION: 1. Unremarkable bilateral renal ultrasound. 2. Hepatomegaly with a trace of ascites in the upper abdomen. Carl Sands MD Chest X-Ray 03/07/17 1334 Signed Impressions: Service Date/Time: Tuesday, March 07, 2017 13:55 - CONCLUSION: No acute cardiopulmonary abnormality is identified. Danny Ngo MD Assessment and Plan Assessment and Plan Septic shock with multiorgan dysfunction syndrome Group B strep bacteremia likely source right great toe osteomyelitis/gangrene. Lymphangitis strep related. Possible acute necrotizing component as patient lower extremity worsened quickly in the last 24 hours. Strep toxin concern. Acute renal failure: prerenal, sepsis. Acute metabolic encephalopathy: sepsis, alcohol related withdrawal. Lactic acidemia: sepsis, ischemia of tissues. Abnormal LFTs: Increased AST but normal ALT: likely alcohol related, sepsis. Acute Elevation in CK: ? Rhabdomyolysis vs acute ischemia and destruction of local tissues. Diabetes Mellitus non compliance with hyperglycemia. Recs Continue Zosyn IV DC Vanco IV Check Random Vanco level if significant level in blood will hold off on Vanco IV. If grows resistant strep or MRSA will chose alternative agent to Vanco IV to avoid nephrotoxins. Repeat Blood cultures x 2 Check CRP. Follow cultures Follow clinically. Reina Mason plan for the day. Ortho notes reviewed. Time in excess of 80 mins total including coordination of care, renal adjustment of doses, review of MAR etc, critical thinking and decision making. Susie De La Cruz MD Mar 08, 2017 11:56
[2017-03-08 12:00] LABS: CALCIUM-PROTEIN CORRECTED 8.3 MG/DL (8.5-10.1)
[2017-03-08] MEDS ORDERED: NORMOSOL R INJ 1,000 ML IV ONE (12:00)
[2017-03-08] MEDS ORDERED: PHENYLEPH/NS 1000 MCG/10 ML SYR IV ONE (12:00)
[2017-03-08] MEDS ORDERED: PROPOFOL 200 MG/20 ML AMP IV ONE (12:00)
[2017-03-08] MEDS ORDERED: SODIUM CHLOR 0.9% 250 ML INJ 250 ML IV ONE (12:00)
[2017-03-08 12:14] LABS: CKMB 50.9 NG/ML (0.5-3.6)
--- NOTE | 2017-03-08 13:13 | PD.PROCEDR ---
Central Line Procedure REASON FOR PROCEDURE Central venous access PROCEDURE PERFORMED Central line placement: Right IJ CVP CONSENT Informed consent for procedure was obtained. The risks and benefits of the procedure were discussed to include but limited to bleeding, clot formation, infection, and even . ANESTHESIA Local injection of 1% Lidocaine DESCRIPTION OF THE PROCEDURE The patient was placed in supine, mild Trendelenburg position. The area was exposed and cleansed with ChloraPrep, times two. Large sterile drape was used to cover the patient, with the site exposed, under sterile conditions including cap, face mask, sterile gown, and sterile gloves. On single attempt, the introducer needle was inserted with negative pressure in syringe and venous flash was obtained. The guide wire was then advanced without any restriction and the needle was removed. The dilator was used without any complications. Using Seldinger technique the catheter was advanced over the guide wire to a depth of 20 centimeters. The guide wire was removed. All ports were aspirated with dark venous blood return and flushed easily with sterile saline. All ports were capped. Antibiotic disc was placed around central line at puncture site. The central line was secured to the skin with two interrupted 2.0 silk sutures. The area was bandaged with sterile see-through central line bandage. RADIOLOGICAL DATA Ultrasound guidance was used to locate right IJ vein CXR ordered to verify line placement COMPLICATIONS: No apparent complications ESTIMATED BLOOD LOSS: Less than 1 cc. Iman Duffy MD Mar 08, 2017 13:13
[2017-03-08] MEDS ORDERED: SODIUM BICARBONATE 8.4% INJ 50 ML ONE (13:42)
--- NOTE | 2017-03-08 13:47 | RADRPT ---
EXAM DATE/TIME: 03/08/2017 13:12 [place] COMPARISON: CHEST SINGLE AP, March 07, 2017, 13:55. INDICATIONS : Right central line placement. MEDICAL HISTORY : renal failure SURGICAL HISTORY : unobtainable ENCOUNTER: Initial ACUITY: 1 day PAIN SCORE: 8/10 LOCATION: Bilateral upper chest FINDINGS: New right-sided central line with the tip overlying the region of the caval atrial junction. The lungs are mildly hypoinflated and there is indistinctness of the central pulmonary vasculature wh ich may be secondary to portable supine technique and hypoinflation. No evidence of pneumothorax or f ocal airspace consolidation. Heart size is normal. CONCLUSION: New right-sided central line with the tip overlying the region of the caval atrial junction. No evide nce of pneumothorax. Denae Wilson MD on March 08, 2017 at 13:43 Board Certified Radiologist. This report was verified electronically.
[2017-03-08] MEDS ORDERED: SODIUM BICARBONATE 8.4% INJ 50 MEQ/50 ML SYR IV PUSH ONE (14:00)
[2017-03-08 14:29] LABS: BLOOD GAS BASE EXCESS -9.6 mmol/L (-2-2); BLOOD GAS CARBOXYHEMOGLOBIN 1.5 % (0-4); BLOOD GAS HCO3 15 mmol/L (22-26); BLOOD GAS O2 HGB SATURATION 93 % (90-100); BLOOD GAS OXYGEN CONTENT 13.9 Vol % (12.0-20.0); BLOOD GAS PCO2 28 mmHg (38-42); BLOOD GAS PO2 76 mmHg (61-120); BLOOD GAS TOTAL HGB 10.6 G/DL (12.0-16.0); CRITICAL VALUE YES; TEMP CORR TO 98.6
[2017-03-08 14:30] LABS: DRAW SITE LT RADIAL; FIO2 21 %; NUMBER OF ARTERIAL PUNCTURES 2; STAT YES; ULNAR PULSE PRESENT
[2017-03-08] MEDS: CLINDAMYCIN INJ 900 MG in SODIUM CHLORIDE 0.9% INJ 100 ML IV SCH (15:19)
[2017-03-08] MEDS: SODIUM BICARBONATE 8.4% INJ 100 MEQ in WATER STERILE FOR INJ 850 ML IV SCH (15:19)
[2017-03-08] MEDS ORDERED: GENTAMICIN SULFATE 80 MG/2 ML VIAL ONE ×2 (20:34→22:24)
[2017-03-08] MEDS ORDERED: SUGAMMADEX SODIUM 200 MG/2 ML VIAL IV PUSH ONE ×2 (21:14)
[2017-03-08] MEDS ORDERED: PROPOFOL 1000 MG/100 ML INJ 100 ML ONE (23:57)
--- NOTE | 2017-03-08 23:58 | PD.OP ---
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 Right below-knee amputation 2. Arthrotomy with irrigation and debridement right knee Anesthesia: Gen. Surgeon: Efren Hanks Television Cameraman(s): Zoë Iniguez PA-C ([place]) The surgical procedure was assisted by my physician's surgeon assistant. Her presence was necessary throughout the case for manipulation and positioning of the surgical extremity. My PA was assisting me throughout the duration of this procedure. The skill set of the physician surgeon assistant was medically necessary to complete this procedure. During the surgical case the calibration technician was working at the back table and the physician surgeon assistant was directly assisting me. Operation and Findings: Indications: This 51-year-old male presented in septic shock secondary to a necrotic right foot. The patient did not improve on antibiotic therapy. He has been evaluated by vascular surgery who felt he was not a candidate for revascularization. It was recommended by both the vascular surgeon and the cloak room attendant that he undergo below-knee amputation. Procedure and findings: The patient was taken to the operative suite and after undergoing an adequate level of general anesthesia was kept supine on the operating table. He was maintained on his regular antibiotic schedule. The right lower extremity was noted to have a gangrenous great toe with diffuse swelling and erythema of the foot and a large fluid-filled blister over the medial aspect. There is mild swelling of the lower extremity. He was also noted to have a joint effusion of the knee. The foot was isolated and the right lower extremity prepped and draped in usual sterile fashion with alcohol and Hibiclens. Attention was first focused at the knee and an aspiration revealed return of purulence. It was sent for culture as well as CBC with differential. A below-knee amputation was then performed. A transverse incision was made approximately 12 cm distal to the joint line candidate in the sagittal plane on the medial and lateral aspects and connecting it distally posteriorly. This was carried down through skin and subcutaneous tissue with a knife as well as to the muscular fascia. Upon entering the muscle was noted to be edematous tissue and cloudy fluid this was also cultured. The anterior compartment was initially dissected and the neurovascular bundle identified anterior to the intermuscular septum. The artery, vein and nerve were isolated. The artery and vein were clamped cut and ligated. The nerve was pulled into the wound and cut approximately to allow retraction. The proximal fibula was also identified and subperiosteal dissection carried out. An osteotomy of the tibia and fibula were completed with a saw. The fibular cut was approximately 2 cm proximal to the tibia. The distal extremity was then brought anteriorly and utilizing amputation knife the leg removed. The posterior compartment was isolated and dissected from the underlying soleus muscle. It was noted to have some necrosis as well as purulence. All necrotic tissue was debrided sharply with a scalpel.The involvement was worse in the deep posterior compartment. The posterior tibial artery, vein and tibial nerve were identified and isolated and the artery and vein ligated and sutured. The nerve was retracted into the wound cut and allowed to retract. Small saphenous vein and sural indicating branch were also isolated and the subcutaneous tense tissues posteriorly and in a similar fashion isolated and ligated. The wound was thoroughly irrigated with antibiotic irrigant and pulse lavage. The tourniquet was released and no significant bleeding noted. The muscle appeared somewhat dusky but viable. It was therefore elected to allow the level of the BKA to heal understanding this may require further debridement and or a higher level amputation. After thorough irrigation the wound was clean. Incision was closed in layers utilizing #1 Vicryl suture on the muscular fascia including a myodesis of the Achilles tendon to the anterior tibial periosteum. The fascia was closed with 0 Vicryl suture, the subcutaneous tissue with 2-0 Vicryl suture and the skin with 3-0 nylon. Attention was then focused at the knee where a medial arthrotomy was made. Incision was carried down through skin and subcutaneous tense tissue with a knife. The arthrotomy was then completed and return of cloudy fluid again encountered. This was also cultured. The joint was thoroughly irrigated with antibiotic irrigant and pulse lavage. A synovectomy was completed in the suprapatellar pouch and all visualized synovial tissue. A drain was placed and the arthrotomy closed with #1 Vicryl suture. The deep tissue was closed with 0 Vicryl suture and the subcutaneous tense tissue with 2-0 Vicryl suture. 3-0 nylon was utilized on the skin. Sterile dressings were applied, the patient was placed into a lower extremity splint and taken to the recovery room in stable condition. He was not extubated in the operating room setting. He will return to the medical intensive care unit. The patient tolerated the procedure well. Estimated blood loss: Less than 100 cc Complications: None Tourniquet time: 45 minutes Efren Hanks MD Mar 08, 2017 23:58
[2017-03-09] VITALS (36 sets, daily range): BP systolic 86–113; BP diastolic 51–62; PULSE 81–97; RESP 16–46; TEMP 98.1–103.1; O2SAT 98–100
[2017-03-09] MEDS ORDERED: MIDAZOLAM HCL 2 MG/2 ML VIAL ONE (00:05)
[2017-03-09] MEDS ORDERED: DO NOT ADM ANY ANTICOAGULANT DRUGS PRN (00:30)
[2017-03-09] MEDS: INSULIN ASPART SUPPLEMENTAL SCALE SQ SCH ×5 (01:00→22:31)
[2017-03-09] MEDS: NOREPINEPHRINE 4 MG/D5W 250 ML IV PRN ×2 (01:46→22:30)
[2017-03-09] MEDS: SODIUM BICARBONATE 8.4% INJ 100 MEQ in WATER STERILE FOR INJ 850 ML IV SCH ×2 (01:47→05:25)
[2017-03-09] MEDS: CHLORHEXIDINE GLUCONATE 2 % 1 PACK (2 CLOTHS) TOP SCH (01:47)
[2017-03-09] MEDS: PROPOFOL 1000 MG/100 ML IV PRN (02:12)
[2017-03-09 02:17] LABS: WBC, SYNOVIAL FLUID 83000 /MM3 (0-200)
[2017-03-09] MEDS: CLINDAMYCIN INJ 900 MG in SODIUM CHLORIDE 0.9% INJ 100 ML IV SCH ×5 (05:24→22:29)
[2017-03-09] MEDS: PIPERACIL-TAZO 2.25 GM PREMIX 50 ML IV SCH ×3 (05:24→22:30)
[2017-03-09] MEDS: HEPARIN SODIUM - SQ 10,000 UNITS/ML VIAL SQ SCH ×2 (05:25→17:30)
[2017-03-09 05:34] LABS: AUTOMATED NEUTROPHIL # 22.1 TH/MM3 (1.8-7.7); BASOPHIL # 0.1 TH/MM3 (0-0.2); BASOPHIL % 0.5 % (0.0-2.0); EOSINOPHIL # 0.1 TH/MM3 (0-0.4); EOSINOPHIL % 0.5 % (0.0-4.0); HEMATOCRIT 30.5 % (39.0-51.0); LYMPH % 6.3 % (9.0-44.0); LYMPHOCYTE # 1.6 TH/MM3 (1.0-4.8); MEAN CELL VOLUME 93.5 FL (80.0-100.0); MEAN CORPUSCULAR HEMOGLOBIN 30.9 PG (27.0-34.0); NEUT % 89.7 % (16.0-70.0); PLATELET COUNT 188 TH/MM3 (150-450); RED BLOOD COUNT 3.26 MIL/MM3 (4.50-5.90); WHITE BLOOD COUNT 24.7 TH/MM3 (4.0-11.0)
[2017-03-09 05:41] LABS: HEMO FLAGS AUTO DIFF
[2017-03-09 06:09] LABS: BANDS 10 % (0-6); CORRECTED NUCLEATED RBC 1 /100 WBC (0-0); EOSINOPHILS 1 % (0-4); METAMYELOCYTES 1 % (0-1); MYELOCYTES 2 % (0-0); POLYS (SEG NEUTROPHILS) 75 % (16-70); PROMYELOCYTES 1 % (0-0); WBC DIFF SAMPLE 100
[2017-03-09 06:10] LABS: BICARBONATE 21.3 MEQ/L (21.0-32.0); CALCIUM-PROTEIN CORRECTED 7.5 MG/DL (8.5-10.1); MAGNESIUM 1.5 MG/DL (1.5-2.5); PLATELET ESTIMATE SMEAR NORMAL (NORMAL); PLATELET MORPHOLOGY NORMAL (NORMAL); POTASSIUM 3.5 MEQ/L (3.5-5.1); SCAN/DIFF FINAL DIFF MANUAL; TOTAL BILIRUBIN ADULT 4.8 MG/DL (0.2-1.0); TOXIC VACUOLATION PRESENT (NONE SEEN)
--- NOTE | 2017-03-09 07:44 | HHI.CCPN ---
Subjective Remarks/Hospital Course 51 y/o delirious man with draining wound right great toe, untreated diabetes, and severe COPD. According to his girlfriend at bedside in ED he has been confused for 3 days while on a trip to [place]. He has diabetes but does not take insulin, oral agents, nor check his sugar. This foot problem started as a non-healing cut on his right great toe. He is clearly in septic shock at present with hypotension, lactic acid 11, and leukocytosis. He will require a right above knee amputation eventually, possibly sooner if we can't control the source with antibiotics. He has audible wheezing from the doorway and is a chronic smoker. DIANA with creatinine > 5, and metabolic acidosis. 03/08 Patient was started on Levophed 8 mics overnight now down to 4 mics. Lactic acid trending down 4.2 this morning from 11.1 on arrical however his WBC increased 22.6 from 19. 03/09 Patient s/p Right BKA last night remaind intubated postop sedated with Diprivan. On Levophed 7 mics and bicarb drip. Objective Vital Signs Date Time Temp Pulse Resp B/P (MAP) Pulse Ox O2 Delivery O2 Flow Rate FiO2 03/09/17 06:00 93 03/09/17 04:15 100 40 03/09/17 04:00 99.1 23 98/59 (72) 03/09/17 00:30 Mechanical Ventilator 03/08/17 07:20 2.00 Intake and Output 03/09/17 03/09/17 03/10/17 08:00 16:00 00:00 Intake Total 2626 ml Output Total 250 ml Balance 2376 ml Result Diagram: 03/09/17 0350 03/09/17 0350 Other Results Laboratory Tests Test 03/08/17 10:25 03/08/17 11:38 03/08/17 14:23 03/08/17 21:10 Urine Color DARK-YELLOW Urine Turbidity CLOUDY Urine pH 5.5 Urine Specific [place] 1.014 Urine Protein 30 mg/dL Urine Glucose (UA) NEG mg/dL Urine Ketones NEG mg/dL Urine Occult Blood LARGE Urine Nitrite NEG Urine Bilirubin SMALL Urine Urobilinogen LESS THAN 2.0 MG/DL Urine Leukocyte Esterase TRACE Urine RBC 15 /hpf Urine WBC 44 /hpf Urine WBC Clumps FEW Urine Squamous Epithelial Cells 5 /hpf Urine Transitional Epithelial Cells <1 /hpf Urine Amorphous Sediment MOD Urine Bacteria RARE /hpf Urine Hyaline Casts 43 /lpf Urine Mucus FEW /lpf Microscopic Urinalysis Comment CATH-CULTURE IND Blood Urea Nitrogen 72 MG/DL Creatinine 4.73 MG/DL Random Glucose 135 MG/DL Total Protein 5.5 GM/DL Calcium Level 7.4 MG/DL Sodium Level 138 MEQ/L Potassium Level 3.7 MEQ/L Chloride Level 105 MEQ/L Carbon Dioxide Level 17.7 MEQ/L Anion Gap 15 MEQ/L Estimat Glomerular Filtration Rate 13 ML/MIN Protein Corrected Calcium 8.3 MG/DL Total Creatine Kinase 1502 U/L Creatine Kinase MB 50.9 NG/ML Creatine Kinase MB % 3.4 % C-Reactive Protein 26.00 MG/DL Random Vancomycin Level 12.7 COMMENT Lactic Acid Level 4.1 mmol/L Blood Gas Puncture Site LT RADIAL Blood Gas Patient Temperature 98.6 Blood Gas HCO3 15 mmol/L Blood Gas Base Excess -9.6 mmol/L Blood Gas Oxygen Saturation 93 % Arterial Blood pH 7.34 Arterial Blood Partial Pressure CO2 28 mmHg Arterial Blood Partial Pressure O2 76 mmHg Arterial Blood Oxygen Content 13.9 Vol % Arterial Blood Carboxyhemoglobin 1.5 % Arterial Blood Methemoglobin 1.0 % Blood Gas Hemoglobin 10.6 G/DL Blood Gas Inspired Oxygen 21 % Synovial Fluid Color YELLOW Synovial Fluid Appearance MARKED Synovial Fluid WBC 47174 /MM3 Synovial Fluid RBC 6000 /MM3 Synovial Fluid Neutrophils 99 % Synovial Fluid Lymphocytes 0 % Synovial Fluid Monocytes 1 % Test 03/09/17 03:50 White Blood Count 24.7 TH/MM3 Red Blood Count 3.26 MIL/MM3 Hemoglobin 10.1 GM/DL Hematocrit 30.5 % Mean Corpuscular Volume 93.5 FL Mean Corpuscular Hemoglobin 30.9 PG Mean Corpuscular Hemoglobin Concent 33.0 % Red Cell Distribution Width 15.0 % Platelet Count 188 TH/MM3 Mean Platelet Volume 9.2 FL Neutrophils (%) (Auto) 89.7 % Lymphocytes (%) (Auto) 6.3 % Monocytes (%) (Auto) 3.0 % Eosinophils (%) (Auto) 0.5 % Basophils (%) (Auto) 0.5 % Neutrophils # (Auto) 22.1 TH/MM3 Lymphocytes # (Auto) 1.6 TH/MM3 Monocytes # (Auto) 0.7 TH/MM3 Eosinophils # (Auto) 0.1 TH/MM3 Basophils # (Auto) 0.1 TH/MM3 CBC Comment AUTO DIFF Differential Total Cells Counted 100 Neutrophils % (Manual) 75 % Band Neutrophils % 10 % Lymphocytes % 6 % Monocytes % 4 % Eosinophils % 1 % Neutrophils # (Manual) 22.0 TH/MM3 Metamyelocytes 1 % Myelocytes 2 % Promyelocytes 1 % Nucleated Red Blood Cells 1 /100 WBC Differential Comment FINAL DIFF MANUAL Toxic Vacuolation PRESENT Platelet Estimate NORMAL Platelet Morphology Comment NORMAL Red Cell Morphology Comment NORMAL Blood Urea Nitrogen 78 MG/DL Creatinine 4.52 MG/DL Random Glucose 169 MG/DL Total Protein 5.1 GM/DL Albumin 1.1 GM/DL Calcium Level 6.5 MG/DL Phosphorus Level 2.8 MG/DL Magnesium Level 1.5 MG/DL Alkaline Phosphatase 77 U/L Aspartate Amino Transf (AST/SGOT) 162 U/L Alanine Aminotransferase (ALT/SGPT) 55 U/L Total Bilirubin 4.8 MG/DL Sodium Level 136 MEQ/L Potassium Level 3.5 MEQ/L Chloride Level 101 MEQ/L Carbon Dioxide Level 21.3 MEQ/L Anion Gap 14 MEQ/L Estimat Glomerular Filtration Rate 14 ML/MIN Protein Corrected Calcium 7.5 MG/DL Imaging Last Impressions Shoulder X-Ray 03/08/17 0000 Signed Impressions: Service Date/Time: Wednesday, March 08, 2017 10:47 - CONCLUSION: Within normal limits. Danny Buchanan MD Renal Ultrasound 03/08/17 0000 Signed Impressions: Service Date/Time: Wednesday, March 08, 2017 08:58 - CONCLUSION: 1. Unremarkable bilateral renal ultrasound. 2. Hepatomegaly with a trace of ascites in the upper abdomen. Carl Sands MD Chest X-Ray 03/08/17 0000 Signed Impressions: Service Date/Time: Wednesday, March 08, 2017 13:12 - CONCLUSION: New right-sided central line with the tip overlying the region of the caval atrial junction. No evidence of pneumothorax. Denae Wilson MD Objective Remarks GENERAL: Patient is 51 yo critically ill intubated, sedated and on Levophed. SKIN: Warm and dry. HEAD: Normocephalic. EYES: No scleral icterus. No injection or drainage. NECK: Supple, trachea midline. No JVD or lymphadenopathy. Orally intubated CARDIOVASCULAR: Regular rate and rhythm without murmurs, gallops, or rubs. RESPIRATORY: Breath sounds equal bilaterally. No accessory muscle use. GASTROINTESTINAL: Abdomen soft, non-tender, nondistended. Extremities: Right BKA Neuro: Intubated and sedated A/P Assessment and Plan 1)VDRF 2)Septic shock. Gram + bacteremia/ Group B strep 3)s/p right BKA 4)Septic arthritis of knee 5)DIANA. 6)Lactic acidemia 7)Rhabdo 8)Leukocytosis 9)Elevated AST 10)Emphysema, COPD. 11)Encephalopathy. 12)Diabetes mellitus, Type 2 13)ETOH use 14)Malnutrition Plan: Neuro: On Diptivan infusion for sedation. Daily sdeation vacation. Monitor neuro status On Thiamine/Folic acid. Pulm: Continue with vent support keep sat >92% Bronchodilators, ICU vent bundle, check CXR and ABG CV: Continue to wean off Levophed keep MAP>65mmHg Serial lactic acid monitoring. Trending down. Continue with IVF : Monitor renal function, I/O's, avoid nephrotoxins. IVF change IVF NS@100 ml/hr, monitor CK's, Renal US: No hydro. Renal is following-Dr. Feliciano GI: Keep NPO for now, on Protonix 40mg IV daily Monitor LFT;s, check US liver ID: Continue with abx ( Zosyn, Clindamycin) adjust doses abx per renal function. ID is following BC form 03/07: GPC, Group B strep s/p right BKA 03/08. Follow up on cultures Ortho and Vascular are following Heme: Monitor CBC Endo: SSI for glycemic control. GI prophylaxis- Protonix 40mg daily DVT prophylaxis- SCD to LLE, Lines: Right IJ CVP placed 03/08 Patient is critically ill and in septic shock requiring pressors, renal failure , worsening leukocytosis Critical Care 30 mins Iman Duffy MD Mar 09, 2017 07:44
[2017-03-09] MEDS: PANTOPRAZOLE SODIUM 40 MG VIAL IV SCH (07:52)
[2017-03-09] MEDS: FOLIC ACID 1 MG TAB PO SCH (08:36)
[2017-03-09] MEDS: THIAMINE HCL 100 MG TAB PO SCH (08:36)
--- NOTE | 2017-03-09 08:38 | RADRPT ---
EXAM DATE/TIME: 03/09/2017 07:58 This report includes an Addendum and supersedes previous reports for this exam. [facility] COMPARISON: CHEST SINGLE AP, March 08, 2017, 13:12. INDICATIONS : Shortness of breath. MEDICAL HISTORY : None. SURGICAL HISTORY : None. ENCOUNTER: Initial ACUITY: 1 day PAIN SCORE: Non-responsive. LOCATION: Bilateral chest FINDINGS: Single view of the chest demonstrate interval placement of an endotracheal tube with the tip at the l evel of the clavicles. There is a left-sided chest tube overlying the left lung base with hypoinflati on of the left hemithorax and a deep sulcus sign seen on the left. There is a stable right-sided cent ral line with the tip overlying the cavoatrial junction. The right hemithorax is grossly clear. [place] us structures are unremarkable. CONCLUSION: Status post interval intubation and placement of a left-sided chest tube. Hypoinflation of the left l arthur and a deep sulcus sign suggestive of a left-sided pneumothorax are present. Stable right sided ce ntral line. Denae Wilson MD on March 09, 2017 at 8:35 Board Certified Radiologist. This report was verified electronically. ADDENDUM: This report is amended after discussion with the referring physician. There is no left-sided chest tu be present. The line overlying the inferior left hemithorax is artifact. There is persistent appearan ce of a deep sulcus sign concern for possible pneumothorax. Recommend better evaluation with CT to ex clude this abnormality. Denae Wilson MD on March 09, 2017 at 10:28 Board Certified Radiologist. This report was verified electronically.
[2017-03-09 08:40] LABS: BLOOD GAS BASE EXCESS -4.4 mmol/L (-2-2); BLOOD GAS CARBOXYHEMOGLOBIN 1.3 % (0-4); BLOOD GAS HCO3 19 mmol/L (22-26); BLOOD GAS METHEMOGLOBIN 1.1 % (0-2); BLOOD GAS O2 HGB SATURATION 96 % (90-100); BLOOD GAS OXYGEN CONTENT 17.3 Vol % (12.0-20.0); BLOOD GAS PCO2 31 mmHg (38-42); BLOOD GAS PO2 116 mmHg (61-120); BLOOD GAS TOTAL HGB 12.7 G/DL (12.0-16.0); CRITICAL VALUE YES; FIO2 40 %; TEMP CORR TO 98.6; VENT SETTINGS PRVC 16/500/1.0/5
[2017-03-09 08:41] LABS: DRAW SITE RT RADIAL; NUMBER OF ARTERIAL PUNCTURES 1; STAT NO; ULNAR PULSE Y
--- NOTE | 2017-03-09 08:58 | PD.ORT.PN ---
Subjective Post Op Day #: 1 Subjective Remarks Patient is intubated and sedated and not arousable. RN at bedside. RN to reports no acute overnight events and patient is stable. Objective Vitals Vital Signs Date Time Temp Pulse Resp B/P (MAP) Pulse Ox O2 Delivery O2 Flow Rate FiO2 03/09/17 07:45 100 40 03/09/17 06:00 93 03/09/17 04:15 100 40 03/09/17 04:00 93 03/09/17 04:00 99.1 93 23 98/59 (72) 100 03/09/17 02:00 88 03/09/17 01:46 96 99/55 03/09/17 00:45 100 50 03/09/17 00:40 94 03/09/17 00:30 50 03/09/17 00:30 98.7 94 23 99/56 (70) 100 03/09/17 00:30 97 16 98/57 (71) 99 Mechanical Ventilator 50 03/09/17 00:15 98 23 94/51 (65) 99 Mechanical Ventilator 50 03/09/17 00:00 104 22 101/55 (70) 99 Mechanical Ventilator 50 03/08/17 23:50 50 03/08/17 23:50 98.8 106 26 106/56 (73) 97 Mechanical Ventilator 50 03/08/17 20:15 89 22 118/73 (88) 99 03/08/17 20:00 90 16 121/73 (89) 99 03/08/17 19:53 100 Room Air 03/08/17 19:53 90 03/08/17 19:53 97.3 90 16 120/74 (89) 100 03/08/17 16:00 97.7 100 24 93/58 (70) 96 03/08/17 15:30 94/57 03/08/17 14:56 86/50 03/08/17 12:00 91/52 03/08/17 12:00 97.6 92 24 100/55 (70) 96 I/O 03/08/17 03/08/17 03/08/17 03/09/17 03/09/17 03/09/17 07:00 15:00 23:00 07:00 15:00 23:00 Intake Total 1828 ml 4185 ml 2626 ml Output Total 140 ml 400 ml 250 ml Balance 1688 ml 3785 ml 2376 ml Intake Oral 0 ml 0 ml IV Total 1828 ml 2830 ml 2526 ml Other 1355 ml 100 ml Output Urine Total 140 ml 350 ml 250 ml Estimated Blood Loss 50 ml # Bowel Movements 0 0 0 Result Diagram: 03/09/17 0350 03/09/17 0350 Imaging Last 24 hours Impressions Chest X-Ray 03/07/17 1334 Signed Impressions: Service Date/Time: Tuesday, March 07, 2017 13:55 - CONCLUSION: No acute cardiopulmonary abnormality is identified. Danny Ngo MD Procedures 1. Right below-knee amputation 03/08/2017 2. Arthrotomy with irrigation and debridement right knee 03/08/2017 Objective Remarks RLE: BKA stable, + drain, posterior and sugar tong splint in place, frank wrap and dressings not removed for examination, knee is 0 of extension, thigh is soft and warm Assessment & Plan Ortho Post Op Day #: 1 Problem List: (1) Septic shock ICD Codes: A41.9 - Sepsis, unspecified organism; R65.21 - Severe sepsis with septic shock Status: Acute (2) Ischemic necrosis of foot ICD Codes: I96 - Gangrene, not elsewhere classified Status: Acute (3) Diabetic infection of right foot ICD Codes: E11.69 - Type 2 diabetes mellitus with other specified complication ; L08.9 - Local infection of the skin and subcutaneous tissue, unspecified Status: Acute Assessment and Plan POD #1 1. Right below-knee amputation POD #1 2. Arthrotomy with irrigation and debridement right knee Ortho status stable Nonweightbearing right lower extremity. Keep splint on at this time Daily dressing changes starting postop day #2 Keep drain in at this time Awaiting cultures and microbiology: right knee synovial fluid aspirate and right calf posterior compartment culture Will progress rehab when patient is extubated and more arousable Discharge planning Zoë Iniguez Mar 09, 2017 08:58
[2017-03-09 09:22] LABS: CKMB 12.8 NG/ML (0.5-3.6)
[2017-03-09] MEDS: fentaNYL DRIP 250 ML IV PRN (09:31)
[2017-03-09] MEDS: RESP: ALBUTEROL 2.5 MG/IPRATROPIUM 0.5 MG NEB (SCH) NEB ×3 (09:54→21:12)
--- NOTE | 2017-03-09 12:45 | RADRPT ---
EXAM DATE/TIME: 03/09/2017 12:31 [facility] COMPARISON: No previous studies available for comparison. INDICATIONS : Respiratory distress. RADIATION DOSE: 8.07 CTDIvol (mGy) MEDICAL HISTORY : diabetes SURGICAL HISTORY : None. ENCOUNTER: Initial ACUITY: 1 day PAIN SCALE: Non-responsive LOCATION: Bilateral chest TECHNIQUE: Volumetric scanning of the chest was performed. Using automated exposure control and adjustment of t he mA and/or kV according to patient size, radiation dose was kept as low as reasonably achievable to obtain optimal diagnostic quality images. DICOM format image data is available electronically for r eview and comparison. Follow-up recommendations for detected pulmonary nodules are based at a minimum on nodule size and pa tient risk factors according to Fleischner Society Guidelines. FINDINGS: LUNGS: The upper lung badillo are clear. There are infiltrates in both lung bases with small effusions. Other yañez, no other definite abnormalities are seen in the lung badillo. No evidence of pneumothorax. PLEURAE: Small bilateral effusions. MEDIASTINUM: The heart and great vessels demonstrate no acute abnormality. There is no mediastinal or hilar lymph adenopathy. Atherosclerotic changes. Coronary calcifications. There is an ET tube in place. AXILLAE: Within normal limits. No lymphadenopathy. MUSCULOSKELETAL: Within normal limits for patient age. MISCELLANEOUS: Small amount of ascites adjacent to the liver. NG tube in the stomach. CONCLUSION: Bibasilar infiltrates with small effusions. Carl Sands MD on March 09, 2017 at 12:41 Board Certified Radiologist. This report was verified electronically.
--- NOTE | 2017-03-09 13:24 | RADRPT ---
EXAM DATE/TIME: 03/09/2017 12:50 [facility] COMPARISON: No previous studies available for comparison. INDICATIONS : Increased lab values. MEDICAL HISTORY : Diabetes. Hepatomegaly. Confusion. Unable to obtain further medical information. SURGICAL HISTORY : Unable to obtain further surgical information. ENCOUNTER: Initial ACUITY: 1 day PAIN SCORE: Nonresponsive. LOCATION: Abdomen. MEASUREMENTS: LIVER: 19.8 cm length COMMON DUCT: 4 mm RIGHT KIDNEY: 10.9 x 6.0 x 5.8 cm SPLEEN: 12.7 cm length FINDINGS: LIVER: There is increased echogenicity throughout the liver. No dilated biliary ducts. There is a trace of a scites adjacent to the liver. COMMON DUCT: No intraluminal mass or stone visualized. GALLBLADDER: No evidence of gallstones. There is some thickening of the gallbladder wall 5 mm. PANCREAS: The visualized portions are within normal limits. RIGHT KIDNEY: No hydronephrosis, stone or mass. SPLEEN: No focal lesion. CONCLUSION: 1. No gallstones or biliary tract obstruction. 2. Thickening of the gallbladder wall at 5 mm. This can be seen with chronic gallbladder disease. 3. Increased echogenicity throughout the liver suggestive of fatty infiltration and/or hepatocellular disease. Carl Sands MD on March 09, 2017 at 13:20 Board Certified Radiologist. This report was verified electronically.
--- NOTE | 2017-03-09 13:31 | HHI.IDPN ---
Subjective Subjective Remarks is a 51 y/o CM , who appears delirious, and was admitted overnight with septic shock, right great toe wound with gangrene possible osteomyelitis and untreated diabetes. Patient's cough and reports that approximately a week prior to admission patient had an episode of acute gastroenteritis and so did she. She thinks patient hasn't eaten in almost a week. He does consume heavy alcohol and this is the only fluid that he's been consuming in the last 7 days. She reports that patient stopped his right great toe on the superior aspect but did not see any ED, PCP or urgent care for this. No history of consumption of any antibiotics prior to admission. She reports that he is a known diabetic but is not compliant with his medications. Patient was noted to have sepsis on admission with low blood pressure and needing to be placed on pressors septic shock. He was noted to have an elevated lactic acid of 11.8 as well as in acute renal failure. His urine output is low and nephrology has been consulted. Vascular surgery as well as orthopedic surgeons have seen this patient and patient's girlfriend informs me that the surgeons have told him that patient needs a 2 staged amputation beginning with below knee amputation. At the time of my evaluation patient is in the [facility] on levophed 4 mics, has undergone fluid resuscitation, has decreased urine output, as well as decreased mentation. There is a plan for placement of a central line later today. Overnight events reviewed. Temp 103 F No rash No diarrhea S/p BKA yesterday. WBC elevated today. Right knee appears swollen. RN informs me about small necrotic area on sacral area. No e.o infection surrounding it. Antibiotics Zosyn IV Clinda IV Lines Line sites with no e.o infection Past Medical History reviewed Allergies: Coded Allergies: No Known Allergies (Unverified , 03/07/17) Objective . Vital Signs Date Time Temp Pulse Resp B/P (MAP) Pulse Ox O2 Delivery O2 Flow Rate FiO2 03/09/17 13:05 99 40 03/09/17 12:52 99 100 03/09/17 10:01 99 40 03/09/17 07:45 100 40 03/09/17 06:00 93 03/09/17 04:15 100 40 03/09/17 04:00 93 03/09/17 04:00 99.1 93 23 98/59 (72) 100 8/27/17 02:00 88 03/09/17 01:46 96 99/55 03/09/17 00:45 100 50 03/09/17 00:40 94 03/09/17 00:30 50 03/09/17 00:30 98.7 94 23 99/56 (70) 100 03/09/17 00:30 97 16 98/57 (71) 99 Mechanical Ventilator 50 03/09/17 00:15 98 23 94/51 (65) 99 Mechanical Ventilator 50 03/09/17 00:00 104 22 101/55 (70) 99 Mechanical Ventilator 50 03/08/17 23:50 50 03/08/17 23:50 98.8 106 26 106/56 (73) 97 Mechanical Ventilator 50 03/08/17 20:15 89 22 118/73 (88) 99 03/08/17 20:00 90 16 121/73 (89) 99 03/08/17 19:53 100 Room Air 03/08/17 19:53 90 03/08/17 19:53 97.3 90 16 120/74 (89) 100 03/08/17 16:00 97.7 100 24 93/58 (70) 96 03/08/17 15:30 94/57 03/08/17 14:56 86/50 . Laboratory Tests Test 03/07/17 13:55 03/08/17 04:26 03/09/17 03:50 White Blood Count 19.8 TH/MM3 22.6 TH/MM3 24.7 TH/MM3 Red Blood Count 3.40 MIL/MM3 4.05 MIL/MM3 3.26 MIL/MM3 Hemoglobin 10.6 GM/DL 12.2 GM/DL 10.1 GM/DL Hematocrit 32.2 % 38.9 % 30.5 % Mean Corpuscular Volume 94.9 FL 96.1 FL 93.5 FL Mean Corpuscular Hemoglobin 31.3 PG 30.1 PG 30.9 PG Mean Corpuscular Hemoglobin Concent 33.0 % 31.3 % 33.0 % Red Cell Distribution Width 14.3 % 14.7 % 15.0 % Platelet Count 250 TH/MM3 268 TH/MM3 188 TH/MM3 Mean Platelet Volume 10.2 FL 9.1 FL 9.2 FL Neutrophils (%) (Auto) 80.6 % 84.8 % 89.7 % Lymphocytes (%) (Auto) 4.8 % 4.5 % 6.3 % Monocytes (%) (Auto) 7.8 % 4.4 % 3.0 % Eosinophils (%) (Auto) 6.5 % 6.0 % 0.5 % Basophils (%) (Auto) 0.3 % 0.3 % 0.5 % Neutrophils # (Auto) 16.0 TH/MM3 19.2 TH/MM3 22.1 TH/MM3 Lymphocytes # (Auto) 1.0 TH/MM3 1.0 TH/MM3 1.6 TH/MM3 Monocytes # (Auto) 1.5 TH/MM3 1.0 TH/MM3 0.7 TH/MM3 Eosinophils # (Auto) 1.3 TH/MM3 1.4 TH/MM3 0.1 TH/MM3 Basophils # (Auto) 0.1 TH/MM3 0.1 TH/MM3 0.1 TH/MM3 CBC Comment AUTO DIFF AUTO DIFF AUTO DIFF Differential Total Cells Counted 100 100 100 Neutrophils % (Manual) 50 % 46 % 75 % Band Neutrophils % 25 % 27 % 10 % Lymphocytes % 6 % 10 % 6 % Monocytes % 17 % 12 % 4 % Neutrophils # (Manual) 15.2 TH/MM3 17.6 TH/MM3 22.0 TH/MM3 Metamyelocytes 1 % 2 % 1 % Myelocytes 1 % 3 % 2 % Differential Comment FINAL DIFF MANUAL FINAL DIFF MANUAL FINAL DIFF MANUAL Toxic Granulation 1+ 1+ Toxic Vacuolation PRESENT PRESENT PRESENT Platelet Estimate NORMAL NORMAL NORMAL Platelet Morphology Comment NORMAL NORMAL NORMAL Eosinophils % 1 % Promyelocytes 1 % Nucleated Red Blood Cells 1 /100 WBC Red Cell Morphology Comment NORMAL Laboratory Tests Test 03/07/17 13:55 03/07/17 15:49 03/07/17 16:52 03/08/17 04:26 Blood Urea Nitrogen 67 MG/DL 66 MG/DL Creatinine 5.38 MG/DL 4.86 MG/DL Random Glucose 265 MG/DL 142 MG/DL Total Protein 6.2 GM/DL 6.2 GM/DL Albumin 1.6 GM/DL 1.4 GM/DL Calcium Level 8.6 MG/DL 7.5 MG/DL Alkaline Phosphatase 81 U/L 68 U/L Aspartate Amino Transf (AST/SGOT) 186 U/L 350 U/L Alanine Aminotransferase (ALT/SGPT) 40 U/L 71 U/L Total Bilirubin 4.6 MG/DL 5.1 MG/DL Sodium Level 129 MEQ/L 133 MEQ/L Potassium Level 3.7 MEQ/L 3.6 MEQ/L Chloride Level 89 MEQ/L 103 MEQ/L Carbon Dioxide Level 15.4 MEQ/L 16.0 MEQ/L Anion Gap 25 MEQ/L 14 MEQ/L Estimat Glomerular Filtration Rate 11 ML/MIN 13 ML/MIN Lactic Acid Level 11.1 mmol/L 6.0 mmol/L 4.2 mmol/L Ammonia 20 MCMOL/L Total Creatine Kinase 1454 U/L Creatine Kinase MB 19.5 NG/ML Creatine Kinase MB % 1.3 % Phosphorus Level 1.8 MG/DL Magnesium Level 1.5 MG/DL Test 03/08/17 10:25 03/08/17 11:38 03/09/17 03:50 03/09/17 08:18 Blood Urea Nitrogen 72 MG/DL 78 MG/DL Creatinine 4.73 MG/DL 4.52 MG/DL Random Glucose 135 MG/DL 169 MG/DL Total Protein 5.5 GM/DL 5.1 GM/DL Calcium Level 7.4 MG/DL 6.5 MG/DL Sodium Level 138 MEQ/L 136 MEQ/L Potassium Level 3.7 MEQ/L 3.5 MEQ/L Chloride Level 105 MEQ/L 101 MEQ/L Carbon Dioxide Level 17.7 MEQ/L 21.3 MEQ/L Anion Gap 15 MEQ/L 14 MEQ/L Estimat Glomerular Filtration Rate 13 ML/MIN 14 ML/MIN Protein Corrected Calcium 8.3 MG/DL 7.5 MG/DL Total Creatine Kinase 1502 U/L 527 U/L Creatine Kinase MB 50.9 NG/ML 12.8 NG/ML Creatine Kinase MB % 3.4 % 2.4 % C-Reactive Protein 26.00 MG/DL Lactic Acid Level 4.1 mmol/L 2.6 mmol/L Albumin 1.1 GM/DL Phosphorus Level 2.8 MG/DL Magnesium Level 1.5 MG/DL Alkaline Phosphatase 77 U/L Aspartate Amino Transf (AST/SGOT) 162 U/L Alanine Aminotransferase (ALT/SGPT) 55 U/L Total Bilirubin 4.8 MG/DL Microbiology Date/Time Source Procedure Growth Status 03/08/17 12:00 Blood Peripheral Aerobic Blood Culture - Preliminary NO GROWTH IN 1 DAY Resulted 03/08/17 12:00 Blood Peripheral Anaerobic Blood Culture - Final QNS - SEE AEROBE REPORT Resulted 03/08/17 11:50 Blood Peripheral Aerobic Blood Culture - Preliminary NO GROWTH IN 1 DAY Resulted 03/08/17 11:50 Blood Peripheral Anaerobic Blood Culture - Preliminary NO GROWTH IN 1 DAY Resulted 03/07/17 13:55 Blood Peripheral Aerobic Blood Culture - Preliminary Group B Beta Strep Resulted 03/07/17 13:55 Anaerobic Blood Culture - Preliminary Group B Beta Strep Resulted 03/07/17 13:55 Blood Peripheral Aerobic Blood Culture - Preliminary Group B Beta Strep Resulted 03/07/17 13:55 Anaerobic Blood Culture - Preliminary Group B Beta Strep Resulted 03/08/17 10:00 Fluid Other Gram Stain - Final Resulted 03/08/17 10:00 Fluid Other Body Fluid Culture Pending Resulted 03/08/17 10:25 Urine Clean Catch Urine Culture - Preliminary NO GROWTH IN 24 HOURS. Resulted 03/08/17 21:10 Abscess Knee Fungal Smear Pending Received 03/08/17 21:10 Abscess Knee Fungal Culture Pending Received 03/08/17 21:10 Abscess Knee Acid Fast Stain Pending Received 03/08/17 21:10 Abscess Knee Mycobacterial Culture Pending Received 03/08/17 21:10 Abscess Knee Gram Stain - Final Resulted 03/08/17 21:10 Abscess Knee Wound Culture Pending Resulted 03/08/17 21:10 Abscess Knee Fungal Smear - Final NO FUNGAL ELEMENTS SEEN. Resulted 03/08/17 21:10 Abscess Knee Fungal Culture Pending Resulted 03/08/17 21:10 Abscess Knee Acid Fast Stain Pending Received 03/08/17 21:10 Abscess Knee Mycobacterial Culture Pending Received 03/08/17 21:10 Abscess Knee Gram Stain - Final Resulted 03/08/17 21:10 Abscess Knee Wound Culture Pending Resulted Imaging Last Impressions Liver Ultrasound 03/09/17 0000 Signed Impressions: Service Date/Time: Thursday, March 09, 2017 12:50 - CONCLUSION: 1. No gallstones or biliary tract obstruction. 2. Thickening of the gallbladder wall at 5 mm. This can be seen with chronic gallbladder disease. 3. Increased echogenicity throughout the liver suggestive of fatty infiltration and/or hepatocellular disease. Carl Sands MD Chest X-Ray 03/09/17 0000 Signed Impressions: Service Date/Time: Thursday, March 09, 2017 07:58 - CONCLUSION: Status post interval intubation and placement of a left-sided chest tube. Hypoinflation of the left lung and a deep sulcus sign suggestive of a left-sided pneumothorax are present. Stable right sided central line. Denae Wilson MD ADDENDUM: This report is amended after discussion with the referring physician. There is no left-sided chest tube present. The line overlying the inferior left hemithorax is artifact. There is persistent appearance of a deep sulcus sign concern for possible pneumothorax. Recommend better evaluation with CT to exclude this abnormality. Denae Wilson MD Chest CT 03/09/17 0000 Signed Impressions: Service Date/Time: Thursday, March 09, 2017 12:31 - CONCLUSION: Bibasilar infiltrates with small effusions. Carl Sands MD Shoulder X-Ray 03/08/17 Signed Impressions: Service Date/Time: Wednesday, March 08, 2017 10:47 - CONCLUSION: Within normal limits. Danny Buchanan MD Renal Ultrasound 03/08/17 Signed Impressions: Service Date/Time: Wednesday, March 08, 2017 08:58 - CONCLUSION: 1. Unremarkable bilateral renal ultrasound. 2. Hepatomegaly with a trace of ascites in the upper abdomen. Carl Sands MD Physical Exam GENERAL: Acutely ill-appearing, well-nourished, well-developed patient, in no apparent distress. SKIN: No rashes, ecchymoses or lesions. Cool and dry. HEAD: Atraumatic. Normocephalic. No temporal or scalp tenderness. EYES: Pupils equal round and reactive. Extraocular motions intact. No scleral icterus. No injection or drainage. ENT: Nose without bleeding, purulent drainage or septal hematoma. Throat without erythema, tonsillar hypertrophy or exudate. Uvula midline. Airway patent. NECK: Trachea midline. Supple, nontender, no meningeal signs. CARDIOVASCULAR: Regular rate and rhythm without murmurs, gallops, or rubs. RESPIRATORY: Clear to auscultation. Breath sounds equal bilaterally. No wheezes , rales, or rhonchi. GASTROINTESTINAL: Abdomen soft, non-tender, nondistended. MUSCULOSKELETAL: right BKA site with dressing on it. Left knee with swelling slight warmth noted and superior area of bogginess ? ballotable. Right hand on palm below the 5th digit there was a callous like lesion with erythema, yellowish boggy swelling noted. NEUROLOGICAL: Awake and alert. Grossly nonfocal. Oriented to self, place. It is slow to respond and appears encephalopathic. Psych cooperative IV line sites with no evidence of infection. Assessment & Plan Remarks Septic shock with multiorgan dysfunction syndrome Group B strep bacteremia likely source right great toe osteomyelitis/gangrene. Lymphangitis strep related. Possible left knee effusion ? septic arthritis. Possible acute necrotizing component as patient lower extremity worsened quickly in the last 24 hours. Strep toxin concern. Acute renal failure: prerenal, sepsis. Acute metabolic encephalopathy: sepsis, alcohol related withdrawal. Lactic acidemia: sepsis, ischemia of tissues. Abnormal LFTs: Increased AST but normal ALT: likely alcohol related, sepsis. Acute Elevation in CK: ? Rhabdomyolysis vs acute ischemia and destruction of local tissues. Diabetes Mellitus non compliance with hyperglycemia. Recs Continue Zosyn IV Continue Clindamycin IV Hand surgery consult (Re: possible right palm abscess) Blood cultures x 2 2D ECHO r/o endocarditis. Xray Right knee Follow Blood cultures Follow intra op cultures Follow cultures Follow clinically. Reina Mason plan for the day. Ortho notes reviewed. Susie De La Cruz MD Mar 09, 2017 13:31
[2017-03-09] MEDS: SODIUM CHLOR 0.9% 1000 ML INJ 1,000 ML IV SCH ×2 (13:34→22:30)
--- NOTE | 2017-03-09 15:04 | RADRPT ---
EXAM DATE/TIME: 03/09/2017 14:15 [facility] COMPARISON: No previous studies available for comparison. INDICATIONS : Left knee swelling. MEDICAL HISTORY : Diabetes mellitus type II. SURGICAL HISTORY : None. ENCOUNTER: Initial ACUITY: 1 day PAIN SCORE: Non-responsive. LOCATION: Left knee. FINDINGS: There is a moderate left knee joint effusion. Mild medial compartment osteoarthritis present. No frac ture or subluxation seen. Patchy atherosclerotic plaque seen of the popliteal artery. CONCLUSION: 1. No acute bony abnormality. 2. Moderate nonspecific joint effusion. 3. Mild medial compartment osteoarthritis. Danny Buchanan MD on March 09, 2017 at 15:02 Board Certified Radiologist. This report was verified electronically.
--- NOTE | 2017-03-09 15:06 | RADRPT ---
EXAM DATE/TIME: 03/09/2017 14:11 [facility] COMPARISON: No previous studies available for comparison. INDICATIONS : Right hand swelling. MEDICAL HISTORY : Diabetes mellitus type II. SURGICAL HISTORY : None. ENCOUNTER: Initial ACUITY: 1 day PAIN SCORE: Non-responsive. LOCATION: Right hand. FINDINGS: Fairly generalized soft tissue swelling seen. No radiopaque foreign body. No high-grade arthropathy, erosions or acute fracture/subluxation demonstrated. There is an old, healed fracture of the mid to d istal shaft of the fifth metacarpal. CONCLUSION: Nonspecific soft tissue swelling. No acute bony abnormality of the right hand. Danny Buchanan MD on March 09, 2017 at 15:04 Board Certified Radiologist. This report was verified electronically.
--- NOTE | 2017-03-09 15:52 | HHI.NPPN ---
Subjective History of Present Illness 51 year old male with diabetes, Right foot gangrene Additional Remarks has septic shock, s/p amputation R BKA, Rt septic knee Objective Data Data Vital Signs Date Time Temp Pulse Resp B/P (MAP) Pulse Ox O2 Delivery O2 Flow Rate FiO2 03/09/17 13:05 99 40 03/09/17 12:52 99 100 03/09/17 10:01 99 40 03/09/17 07:45 100 40 03/09/17 06:00 93 03/09/17 04:15 100 40 03/09/17 04:00 93 03/09/17 04:00 99.1 93 23 98/59 (72) 100 03/09/17 02:00 88 03/09/17 01:46 96 99/55 03/09/17 00:45 100 50 03/09/17 00:40 94 03/09/17 00:30 50 03/09/17 00:30 98.7 94 23 99/56 (70) 100 03/09/17 00:30 97 16 98/57 (71) 99 Mechanical Ventilator 50 03/09/17 00:15 98 23 94/51 (65) 99 Mechanical Ventilator 50 03/09/17 00:00 104 22 101/55 (70) 99 Mechanical Ventilator 50 03/08/17 23:50 50 03/08/17 23:50 98.8 106 26 106/56 (73) 97 Mechanical Ventilator 50 03/08/17 20:15 89 22 118/73 (88) 99 03/08/17 20:00 90 16 121/73 (89) 99 03/08/17 19:53 100 Room Air 03/08/17 19:53 90 03/08/17 19:53 97.3 90 16 120/74 (89) 100 03/08/17 16:00 97.7 100 24 93/58 (70) 96 -: 03/09/17 0350 03/09/17 0350 Microbiology 03/08/17 Fungal Smear, Received Pending 03/08/17 Fungal Culture, Received Pending 03/08/17 Acid Fast Stain, Received Pending 03/08/17 Mycobacterial Culture, Received Pending 03/08/17 Gram Stain - Final, Resulted 03/08/17 Wound Culture, Resulted Pending 03/08/17 Fungal Smear - Final, Resulted NO FUNGAL ELEMENTS SEEN. 03/08/17 Fungal Culture, Resulted Pending 03/08/17 Acid Fast Stain, Received Pending 03/08/17 Mycobacterial Culture, Received Pending 03/08/17 Gram Stain - Final, Resulted 03/08/17 Wound Culture, Resulted Pending Physical Exam General Appearance: Well Developed Neck Neck Exam: Neck Supple Pulmonary Resp Exam: Clear Bilaterally, Breath Sounds Equal Cardiology CV Exam: Tachycardia Gastrointestinal/Abdomen GI Exam: Soft, Bowel Sounds Present Extremeties Extremities Exam: No Edema (RT BKA) Assessment/Plan Problem List: (1) Acute renal failure ICD Codes: N17.9 - Acute kidney failure, unspecified Status: Acute Plan: ATN not resolved from sepsis intubated s/p Rt BKA on vasopressor poor UOP likely need dialysis support possible soon Avoid nephrotoxic Follow the BMP (2) Sepsis ICD Codes: A41.9 - Sepsis, unspecified organism Plan: Beta strep infection (3) Diabetic infection of right foot ICD Codes: E11.69 - Type 2 diabetes mellitus with other specified complication ; L08.9 - Local infection of the skin and subcutaneous tissue, unspecified Status: Acute Plan: On IV antibiotics Zosyn/ Clindamycin (4) Ischemic necrosis of foot ICD Codes: I96 - Gangrene, not elsewhere classified Status: Acute Plan: post amputation, BKA Problem Qualifiers (1) Acute renal failure: Qualified Codes: N17.9 - Acute kidney failure, unspecified Freddy Feliciano MD Mar 09, 2017 15:52
[2017-03-10] VITALS (51 sets, daily range): BP systolic 76–105; BP diastolic 46–64; PULSE 77–89; RESP 12–25; TEMP 97.5–98.8; O2SAT 96–100
[2017-03-10] MEDS: CHLORHEXIDINE GLUCONATE 2 % 1 PACK (2 CLOTHS) TOP SCH (04:00)
[2017-03-10] MEDS: RESP: ALBUTEROL 2.5 MG/IPRATROPIUM 0.5 MG NEB (SCH) NEB ×4 (04:03→19:32)
[2017-03-10 04:14] LABS: BASOPHIL # 0.1 TH/MM3 (0-0.2); BASOPHIL % 0.4 % (0.0-2.0); EOSINOPHIL # 0.2 TH/MM3 (0-0.4); EOSINOPHIL % 0.7 % (0.0-4.0); HEMATOCRIT 29.1 % (39.0-51.0); LYMPH % 9.3 % (9.0-44.0); LYMPHOCYTE # 2.9 TH/MM3 (1.0-4.8); MEAN CORPUSCULAR HEMOGLOBIN 30.4 PG (27.0-34.0); MONO % 3.3 % (0.0-8.0); NEUT % 86.3 % (16.0-70.0); PLATELET COUNT 121 TH/MM3 (150-450); RED BLOOD COUNT 3.16 MIL/MM3 (4.50-5.90); WHITE BLOOD COUNT 31.4 TH/MM3 (4.0-11.0)
[2017-03-10] MEDS: INSULIN ASPART SUPPLEMENTAL SCALE SQ SCH ×4 (04:15→21:48)
[2017-03-10 04:16] LABS: INTERNATIONAL NORMALIZED RATIO 1.3 RATIO
[2017-03-10 04:20] LABS: HEMO FLAGS AUTO DIFF
[2017-03-10 04:28] LABS: BICARBONATE 22.3 MEQ/L (21.0-32.0); CALCIUM-PROTEIN CORRECTED 7.7 MG/DL (8.5-10.1); POTASSIUM 3.2 MEQ/L (3.5-5.1); TOTAL BILIRUBIN ADULT 5.4 MG/DL (0.2-1.0)
[2017-03-10 04:54] LABS: BANDS 7 % (0-6); CORRECTED NUCLEATED RBC 3 /100 WBC (0-0); EOSINOPHILS 1 % (0-4); METAMYELOCYTES 1 % (0-1); MYELOCYTES 1 % (0-0); NEUTROPHIL # MANUAL DIFF 26.7 TH/MM3 (1.8-7.7); POLYS (SEG NEUTROPHILS) 76 % (16-70); WBC DIFF SAMPLE 100
[2017-03-10 04:55] LABS: PLATELET ESTIMATE SMEAR LOW (NORMAL); PLATELET MORPHOLOGY NORMAL (NORMAL); SCAN/DIFF FINAL DIFF MANUAL; TARGET CELLS 1+ (NORMAL)
[2017-03-10] MEDS: NOREPINEPHRINE 4 MG/D5W 250 ML IV PRN ×2 (05:18→23:49)
[2017-03-10] MEDS: HEPARIN SODIUM - SQ 10,000 UNITS/ML VIAL SQ SCH ×2 (05:24→17:11)
[2017-03-10] MEDS: CLINDAMYCIN INJ 900 MG in SODIUM CHLORIDE 0.9% INJ 100 ML IV SCH ×3 (05:25→21:12)
[2017-03-10] MEDS: PIPERACIL-TAZO 2.25 GM PREMIX 50 ML IV SCH ×3 (05:25→21:12)
--- NOTE | 2017-03-10 08:33 | HHI.CCPN ---
Subjective Remarks/Hospital Course 51 y/o delirious man with draining wound right great toe, untreated diabetes, and severe COPD. According to his girlfriend at bedside in ED he has been confused for 3 days while on a trip to [place]. He has diabetes but does not take insulin, oral agents, nor check his sugar. This foot problem started as a non-healing cut on his right great toe. He is clearly in septic shock at present with hypotension, lactic acid 11, and leukocytosis. He will require a right above knee amputation eventually, possibly sooner if we can't control the source with antibiotics. He has audible wheezing from the doorway and is a chronic smoker. DIANA with creatinine > 5, and metabolic acidosis. 03/08 Patient was started on Levophed 8 mics overnight now down to 4 mics. Lactic acid trending down 4.2 this morning from 11.1 on arrical however his WBC increased 22.6 from 19. 03/09 Patient s/p Right BKA last night remains intubated postop sedated with Diprivan. On Levophed 7 mics and bicarb drip. 03/10 Patient is sedated with Diprivan and Fentanyl. On Levophed 8 mics. renal function worse today with Cr:5.29 from 4.532 with poor UOP:75ml in 24 hrs. Afebrile. Objective Vital Signs Date Time Temp Pulse Resp B/P (MAP) Pulse Ox O2 Delivery O2 Flow Rate FiO2 03/10/17 06:00 79 03/10/17 05:18 84/52 03/10/17 04:18 99 40 03/10/17 04:00 98.2 17 03/09/17 00:30 Mechanical Ventilator 03/08/17 07:20 2.00 Intake and Output 03/10/17 03/10/17 03/11/17 08:00 16:00 00:00 Intake Total 1669 ml Output Total 30 ml Balance 1639 ml Result Diagram: 03/10/17 0354 03/10/17 0354 Other Results Laboratory Tests Test 03/09/17 08:35 03/10/17 03:54 Blood Gas Puncture Site RT RADIAL Blood Gas Patient Temperature 98.6 Blood Gas HCO3 19 mmol/L Blood Gas Base Excess -4.4 mmol/L Blood Gas Oxygen Saturation 96 % Arterial Blood pH 7.42 Arterial Blood Partial Pressure CO2 31 mmHg Arterial Blood Partial Pressure O2 116 mmHg Arterial Blood Oxygen Content 17.3 Vol % Arterial Blood Carboxyhemoglobin 1.3 % Arterial Blood Methemoglobin 1.1 % Blood Gas Hemoglobin 12.7 G/DL Blood Gas [facility]/500/1.0/5 Blood Gas Inspired Oxygen 40 % White Blood Count 31.4 TH/MM3 Red Blood Count 3.16 MIL/MM3 Hemoglobin 9.6 GM/DL Hematocrit 29.1 % Mean Corpuscular Volume 92.0 FL Mean Corpuscular Hemoglobin 30.4 PG Mean Corpuscular Hemoglobin Concent 33.0 % Red Cell Distribution Width 15.0 % Platelet Count 121 TH/MM3 Mean Platelet Volume 9.1 FL Neutrophils (%) (Auto) 86.3 % Lymphocytes (%) (Auto) 9.3 % Monocytes (%) (Auto) 3.3 % Eosinophils (%) (Auto) 0.7 % Basophils (%) (Auto) 0.4 % Neutrophils # (Auto) 27.0 TH/MM3 Lymphocytes # (Auto) 2.9 TH/MM3 Monocytes # (Auto) 1.0 TH/MM3 Eosinophils # (Auto) 0.2 TH/MM3 Basophils # (Auto) 0.1 TH/MM3 CBC Comment AUTO DIFF Differential Total Cells Counted 100 Neutrophils % (Manual) 76 % Band Neutrophils % 7 % Lymphocytes % 11 % Monocytes % 3 % Eosinophils % 1 % Neutrophils # (Manual) 26.7 TH/MM3 Metamyelocytes 1 % Myelocytes 1 % Nucleated Red Blood Cells 3 /100 WBC Differential Comment FINAL DIFF MANUAL Platelet Estimate LOW Platelet Morphology Comment NORMAL Target Cells 1+ Prothrombin Time 14.0 SEC Prothromb Time International Ratio 1.3 RATIO Blood Urea Nitrogen 97 MG/DL Creatinine 5.29 MG/DL Random Glucose 179 MG/DL Total Protein 5.4 GM/DL Albumin 0.9 GM/DL Calcium Level 6.8 MG/DL Alkaline Phosphatase 107 U/L Aspartate Amino Transf (AST/SGOT) 136 U/L Alanine Aminotransferase (ALT/SGPT) 50 U/L Total Bilirubin 5.4 MG/DL Sodium Level 137 MEQ/L Potassium Level 3.2 MEQ/L Chloride Level 99 MEQ/L Carbon Dioxide Level 22.3 MEQ/L Anion Gap 16 MEQ/L Estimat Glomerular Filtration Rate 11 ML/MIN Protein Corrected Calcium 7.7 MG/DL Imaging Last Impressions Liver Ultrasound 03/09/17 0000 Signed Impressions: Service Date/Time: Thursday, March 09, 2017 12:50 - CONCLUSION: 1. No gallstones or biliary tract obstruction. 2. Thickening of the gallbladder wall at 5 mm. This can be seen with chronic gallbladder disease. 3. Increased echogenicity throughout the liver suggestive of fatty infiltration and/or hepatocellular disease. Carl Sands MD Knee X-Ray 03/09/17 0000 Signed Impressions: Service Date/Time: Thursday, March 09, 2017 14:15 - CONCLUSION: 1. No acute bony abnormality. 2. Moderate nonspecific joint effusion. 3. Mild medial compartment osteoarthritis. Danny Buchanan MD Hand X-Ray 03/09/17 0000 Signed Impressions: Service Date/Time: Thursday, March 09, 2017 14:11 - CONCLUSION: Nonspecific soft tissue swelling. No acute bony abnormality of the right hand. Danny Buchanan MD Chest X-Ray 03/09/17 0000 Signed Impressions: Service Date/Time: Thursday, March 09, 2017 07:58 - CONCLUSION: Status post interval intubation and placement of a left-sided chest tube. Hypoinflation of the left lung and a deep sulcus sign suggestive of a left-sided pneumothorax are present. Stable right sided central line. Denae Wilson MD ADDENDUM: This report is amended after discussion with the referring physician. There is no left-sided chest tube present. The line overlying the inferior left hemithorax is artifact. There is persistent appearance of a deep sulcus sign concern for possible pneumothorax. Recommend better evaluation with CT to exclude this abnormality. Denae Wilson MD Chest CT 03/09/17 Signed Impressions: Service Date/Time: Thursday, March 09, 2017 12:31 - CONCLUSION: Bibasilar infiltrates with small effusions. Carl Sands MD Shoulder X-Ray 03/08/17 0000 Signed Impressions: Service Date/Time: Wednesday, March 08, 2017 10:47 - CONCLUSION: Within normal limits. Danny Buchanan MD Renal Ultrasound 03/08/17 0000 Signed Impressions: Service Date/Time: Wednesday, March 08, 2017 08:58 - CONCLUSION: 1. Unremarkable bilateral renal ultrasound. 2. Hepatomegaly with a trace of ascites in the upper abdomen. Carl Sands MD Objective Remarks GENERAL: Patient is 51 yo critically ill intubated, sedated and on Levophed. SKIN: Warm and dry. HEAD: Normocephalic. EYES: No scleral icterus. No injection or drainage. NECK: Supple, trachea midline. No JVD or lymphadenopathy. Orally intubated CARDIOVASCULAR: Regular rate and rhythm without murmurs, gallops, or rubs. RESPIRATORY: Breath sounds equal bilaterally. No accessory muscle use. GASTROINTESTINAL: Abdomen soft, non-tender, nondistended. Extremities: Right BKA Neuro: Intubated and sedated A/P Assessment and Plan 1)VDRF 2)Septic shock. Gram + bacteremia/ Group B strep 3)s/p right BKA 4)Septic arthritis of knee 5)DIANA. 6)Lactic acidemia 7)Rhabdo 8)Leukocytosis 9)Elevated AST 10)Emphysema, COPD. 11)Encephalopathy. 12)Diabetes mellitus, Type 2 13)ETOH use 14)Malnutrition Plan: Neuro: On Diprivan ?Fentnayl infusion for sedation. Daily sedation vacation. Monitor neuro status On Thiamine/Folic acid. Pulm: Continue with vent support keep sat >92% Bronchodilators, ICU vent bundle, Ct chest 03/08: Bibasilar infiltrates CV: Continue to wean off Levophed keep MAP>65mmHg Serial lactic acid monitoring. Trending down. Continue with IVF : Monitor renal function, I/O's, avoid nephrotoxins. IVF NS@75 ml/hr, monitor CK's, Diurese with Bumex, give KCL 20meq Iv x1, likely need HD Renal US: No hydro. Renal is following-Dr. Feliciano GI: on Protonix 40mg IV daily, start tube feeds- Nepro with goal rate 40ml/hr Monitor LFT;s, US liver: No gallstones or biliary tract obstruction. Thickening of the gallbladder wall at 5 mm. This can be seen with chronic gallbladder disease. Increased echogenicity throughout the liver suggestive of fatty infiltration and/or hepatocellular disease. ID: Continue with abx ( Zosyn, Clindamycin) adjust doses abx per renal function. ID is following BC form 03/07: GPC, Group B strep Fluid cx 03/08: Group B strep s/p right BKA 03/08 Ortho and Vascular are following X ray left knee showed mod joint effusion, no joint abnormalities will discuss with Ortho about possible aspiration/drainage Heme: Monitor CBC Endo: SSI for glycemic control. GI prophylaxis- Protonix 40mg daily DVT prophylaxis- SCD to LLE, Lines: Right IJ CVP placed 03/08 Patient is critically ill and in septic shock requiring pressors, renal failure , leukocytosis Critical Care 30 mins Iman Duffy MD Mar 10, 2017 08:33
[2017-03-10] MEDS ORDERED: BUMETANIDE INJ 1 MG/4 ML VIAL IV PUSH ONE (09:30)
[2017-03-10] MEDS: FOLIC ACID 1 MG TAB PO SCH (09:43)
[2017-03-10] MEDS: PANTOPRAZOLE SODIUM 40 MG VIAL IV SCH (09:43)
[2017-03-10] MEDS: THIAMINE HCL 100 MG TAB PO SCH (09:43)
[2017-03-10] MEDS: SODIUM CHLOR 0.9% 1000 ML INJ 1,000 ML IV SCH ×2 (09:44→17:11)
--- NOTE | 2017-03-10 09:47 | PD.ORT.PN ---
Subjective Post Op Day #: 2 Subjective Remarks Patient is intubated and sedated and not arousable. RN at bedside. RN to reports no acute overnight events overnight. Physician made note to have left knee examined for possible aspiration. I performed dressing change myself at bedside and examined the wound with assistance of RN. Objective Vitals Vital Signs Date Time Temp Pulse Resp B/P (MAP) Pulse Ox O2 Delivery O2 Flow Rate FiO2 03/10/17 08:43 99 40 03/10/17 08:43 40 03/10/17 06:00 79 03/10/17 05:18 81 84/52 03/10/17 04:18 99 40 03/10/17 04:00 77 03/10/17 04:00 98.2 77 17 94/57 (69) 99 03/10/17 02:00 79 03/10/17 01:24 99 40 03/10/17 00:00 82 03/10/17 00:00 97.5 82 18 97/60 (72) 99 03/09/17 22:35 99 40 03/09/17 22:30 80 97/57 03/09/17 22:00 81 03/09/17 20:00 85 03/09/17 20:00 98.1 85 16 101/62 (75) 98 03/09/17 19:45 99 40 03/09/17 16:15 90 19 101/61 (74) 99 03/09/17 16:00 103.1 90 19 98/57 (71) 100 03/09/17 15:58 40 03/09/17 15:58 99 40 03/09/17 15:45 93 19 97/57 (70) 99 03/09/17 15:30 95 18 97/55 (69) 99 03/09/17 15:15 97 22 100/57 (71) 99 03/09/17 15:00 97 18 98/55 (69) 99 03/09/17 14:45 97 29 96/56 (69) 98 03/09/17 14:30 92 21 88/53 (65) 99 03/09/17 14:15 91 23 86/51 (63) 99 03/09/17 14:15 86/51 03/09/17 14:00 92 23 88/51 (63) 99 03/09/17 13:45 93 21 91/51 (64) 99 03/09/17 13:30 97 23 99/55 (70) 98 03/09/17 13:16 97 33 113/62 (79) 99 03/09/17 13:05 99 40 03/09/17 13:00 95 20 97/61 (73) 98 03/09/17 12:53 92 92/56 (68) 98 03/09/17 12:52 99 100 03/09/17 12:45 92 46 92/54 (67) 100 03/09/17 12:30 89 27 91/52 (65) 100 03/09/17 12:22 92 23 96/56 (69) 100 03/09/17 12:00 102.3 94 22 95/53 (67) 99 03/09/17 10:01 99 40 I/O 03/09/17 03/09/17 03/09/17 03/10/17 03/10/17 03/10/17 07:00 15:00 23:00 07:00 15:00 23:00 Intake Total 2626 ml 1415 ml 1669 ml Output Total 250 ml 45 ml 30 ml Balance 2376 ml 1370 ml 1639 ml IV Total 2526 ml 1415 ml 1669 ml Other 100 ml Output Urine Total 250 ml 45 ml 30 ml # Bowel Movements 0 0 Result Diagram: 03/10/17 0354 03/10/17 0354 Other Results Laboratory Tests Test 03/10/17 03:54 Prothromb Time International Ratio 1.3 RATIO Prothrombin Time 14.0 SEC (9.8-11.6) Imaging Last 24 hours Impressions Chest X-Ray 03/07/17 1334 Signed Impressions: Service Date/Time: Tuesday, March 07, 2017 13:55 - CONCLUSION: No acute cardiopulmonary abnormality is identified. Danny Ngo MD Procedures 1. Right below-knee amputation 03/08/2017 2. Arthrotomy with irrigation and debridement right knee 03/08/2017 Objective Remarks RLE: BKA stable, drain was pulled, incision line is healing very well, sutures are intact, skin is warm, good capillary refill present, no specific areas of mottling at this time. No specific swelling noted. Slight purplish hue present over skin noted on lateral portion near incision line. No necrotic tissue noted. Knee itself does not have an effusion. Full range of motion of knee is appreciated with passive movement. Neuro exam unobtainable LLE: Moderate effusion present at knee, the skin is not hot or erythematous in nature, no localizing signs of a septic knee joint at this point, skin is soft, good cap refill noted distally, neuro exam is unobtainable Assessment & Plan Ortho Post Op Day #: 2 Problem List: (1) Septic shock ICD Codes: A41.9 - Sepsis, unspecified organism; R65.21 - Severe sepsis with septic shock Status: Acute (2) Ischemic necrosis of foot ICD Codes: I96 - Gangrene, not elsewhere classified Status: Acute (3) Diabetic infection of right foot ICD Codes: E11.69 - Type 2 diabetes mellitus with other specified complication ; L08.9 - Local infection of the skin and subcutaneous tissue, unspecified Status: Acute Assessment and Plan POD #2 1. Right below-knee amputation POD #2 2. Arthrotomy with irrigation and debridement right knee Ortho status stable. I'm very pleased with how postoperative incision line appears upon examination at this time. Nonweightbearing right lower extremity. Keep splint on at this time Daily dressing changes per orders Drain was removed Awaiting cultures and microbiology: right knee synovial fluid aspirate and right calf posterior compartment culture -currently on clindamycin and Zosyn per ID. Previous right foot wound culture revealed group B strep Will progress rehab when patient is extubated and more arousable Discharge planning Left knee was examined. Upon my clinical judgment I do not think an aspiration is necessary at this time. The knee does not appear septic. It is not hot or erythematous in nature, although there is a moderate effusion present. I would like to watch it at this time. Will consider aspiration of the next few days if symptoms do not improve. RN makes mention of right first digit upper extremity necrosis forming. Hand surgeon has been consulted Zoë Iniguez Mar 10, 2017 09:47
[2017-03-10] MEDS ORDERED: POTASSIUM CHLOR 20 MEQ PREMIX 100 ML IV ONE (10:00)
[2017-03-10 11:35] LABS: CKMB 12.6 NG/ML (0.5-3.6)
--- NOTE | 2017-03-10 12:04 | HHI.NPPN ---
Subjective History of Present Illness 51 year old male with diabetes, Right foot gangrene Additional Remarks has septic shock, s/p amputation R BKA, Rt septic knee Objective Data Data Vital Signs Date Time Temp Pulse Resp B/P (MAP) Pulse Ox O2 Delivery O2 Flow Rate FiO2 03/10/17 11:47 99 40 03/10/17 08:43 99 40 03/10/17 08:43 40 03/10/17 06:00 79 03/10/17 05:18 81 84/52 03/10/17 04:18 99 40 03/10/17 04:00 77 03/10/17 04:00 98.2 77 17 94/57 (69) 99 03/10/17 02:00 79 03/10/17 01:24 99 40 03/10/17 00:00 82 03/10/17 00:00 97.5 82 18 97/60 (72) 99 03/09/17 22:35 99 40 03/09/17 22:30 80 97/57 03/09/17 22:00 81 03/09/17 20:00 85 03/09/17 20:00 98.1 85 16 101/62 (75) 98 03/09/17 19:45 99 40 03/09/17 16:15 90 19 101/61 (74) 99 03/09/17 16:00 103.1 90 19 98/57 (71) 100 03/09/17 15:58 40 03/09/17 15:58 99 40 03/09/17 15:45 93 19 97/57 (70) 99 03/09/17 15:30 95 18 97/55 (69) 99 03/09/17 15:15 97 22 100/57 (71) 99 03/09/17 15:00 97 18 98/55 (69) 99 03/09/17 14:45 97 29 96/56 (69) 98 03/09/17 14:30 92 21 88/53 (65) 99 03/09/17 14:15 91 23 86/51 (63) 99 03/09/17 14:15 86/51 03/09/17 14:00 92 23 88/51 (63) 99 03/09/17 13:45 93 21 91/51 (64) 99 03/09/17 13:30 97 23 99/55 (70) 98 03/09/17 13:16 97 33 113/62 (79) 99 03/09/17 13:05 99 40 03/09/17 13:00 95 20 97/61 (73) 98 03/09/17 12:53 92 92/56 (68) 98 03/09/17 12:52 99 100 03/09/17 12:45 92 46 92/54 (67) 100 03/09/17 12:30 89 27 91/52 (65) 100 03/09/17 12:22 92 23 96/56 (69) 100 -: 03/10/17 0354 03/10/17 0354 Microbiology 03/09/17 Aerobic Blood Culture - Preliminary, Resulted NO GROWTH IN 1 DAY 03/09/17 Anaerobic Blood Culture - Final, Resulted QNS - SEE AEROBE REPORT 03/09/17 Aerobic Blood Culture - Preliminary, Resulted NO GROWTH IN 1 DAY 03/09/17 Anaerobic Blood Culture - Final, Resulted QNS - SEE AEROBE REPORT Physical Exam General Appearance: Well Developed Neck Neck Exam: Neck Supple Pulmonary Resp Exam: Clear Bilaterally, Breath Sounds Equal Cardiology CV Exam: Tachycardia Gastrointestinal/Abdomen GI Exam: Soft, Bowel Sounds Present Extremeties Extremities Exam: No Edema (RT BKA) Assessment/Plan Problem List: (1) Acute renal failure ICD Codes: N17.9 - Acute kidney failure, unspecified Status: Acute Plan: ATN not resolved from sepsis intubated s/p Rt BKA on vasopressor poor UOP need dialysis support discuss with family agreeable d/w Dr. Duffy he will place vascat Follow the [facility] (2) Sepsis ICD Codes: A41.9 - Sepsis, unspecified organism Plan: Beta strep infection (3) Diabetic infection of right foot ICD Codes: E11.69 - Type 2 diabetes mellitus with other specified complication ; L08.9 - Local infection of the skin and subcutaneous tissue, unspecified Status: Acute Plan: On IV antibiotics Zosyn/ Clindamycin (4) Ischemic necrosis of foot ICD Codes: I96 - Gangrene, not elsewhere classified Status: Acute Plan: post amputation, BKA Problem Qualifiers (1) Acute renal failure: Qualified Codes: N17.9 - Acute kidney failure, unspecified Freddy Feliciano MD Mar 10, 2017 12:04
[2017-03-10] MEDS ORDERED: SODIUM CHLOR 0.9% 1000 ML INJ 1,000 ML OTHER PRN ×2 (12:05)
[2017-03-10] MEDS ORDERED: SODIUM CHLOR 0.9% 1000 ML INJ 1,000 ML IV PRN (12:05)
[2017-03-10] MEDS ORDERED: cloNIDine HCL 0.1 MG TAB PO PRN (12:15)
[2017-03-10] MEDS ORDERED: ACETAMINOPHEN 325 MG TAB PO PRN (12:15)
[2017-03-10] MEDS ORDERED: SODIUM CHLORIDE 0.9% FLUSH 10 ML FLUSH IV FLUSH PRN (12:15)
[2017-03-10] MEDS ORDERED: MANNITOL 12.5 GM/50 ML VIAL IV PRN (12:15)
[2017-03-10] MEDS ORDERED: GELATIN 12 MM/7 MM FOAM TOP PRN (12:15)
[2017-03-10] MEDS ORDERED: ONDANSETRON HCL 4 MG/2 ML VIAL IV PRN (12:15)
[2017-03-10] MEDS ORDERED: HEPARIN SODIUM - IV 10,000 UNITS/10 ML VIAL IVF PRN (12:15)
[2017-03-10] MEDS ORDERED: diphenhydrAMINE HCL 25 MG CAP PO PRN (12:15)
[2017-03-10] MEDS ORDERED: NITROGLYCERIN 0.4 MG SL 25 TABS/BTL SL PRN (12:15)
[2017-03-10] MEDS: LACTULOSE SYRUP 20 GM/30 ML CUP PO SCH ×3 (12:39→21:12)
[2017-03-10] MEDS: DOCUSATE SODIUM 100 MG/10 ML UDC PO SCH ×2 (12:39→21:12)
[2017-03-10] MEDS: SENNOSIDES SYRUP 8.8 MG/5 ML CUP PO SCH (12:40)
--- NOTE | 2017-03-10 12:44 | PD.VS.PN ---
Subjective Subjective/Hospital Course Pt intubated and on propofol drip for sedation POD 2 (Right BKA) Callus with darkened ulceration to Right lateral aspect of palm Right hand swollen (Jael Aranda) Objective Vitals/I&O Date Time Temp Pulse Resp B/P (MAP) Pulse Ox O2 Delivery O2 Flow Rate FiO2 03/10/17 11:47 99 40 03/10/17 08:43 99 40 03/10/17 08:43 40 03/10/17 06:00 79 03/10/17 05:18 81 84/52 03/10/17 04:18 99 40 03/10/17 04:00 77 03/10/17 04:00 98.2 77 17 94/57 (69) 99 03/10/17 02:00 79 03/10/17 01:24 99 40 03/10/17 00:00 82 03/10/17 00:00 97.5 82 18 97/60 (72) 99 03/09/17 22:35 99 40 03/09/17 22:30 80 97/57 03/09/17 22:00 81 03/09/17 20:00 85 03/09/17 20:00 98.1 85 16 101/62 (75) 98 03/09/17 19:45 99 40 03/09/17 16:15 90 19 101/61 (74) 99 03/09/17 16:00 103.1 90 19 98/57 (71) 100 03/09/17 15:58 40 03/09/17 15:58 99 40 03/09/17 15:45 93 19 97/57 (70) 99 03/09/17 15:30 95 18 97/55 (69) 99 03/09/17 15:15 97 22 100/57 (71) 99 03/09/17 15:00 97 18 98/55 (69) 99 03/09/17 14:45 97 29 96/56 (69) 98 03/09/17 14:30 92 21 88/53 (65) 99 03/09/17 14:15 91 23 86/51 (63) 99 03/09/17 14:15 86/51 03/09/17 14:00 92 23 88/51 (63) 99 03/09/17 13:45 93 21 91/51 (64) 99 03/09/17 13:30 97 23 99/55 (70) 98 03/09/17 13:16 97 33 113/62 (79) 99 03/09/17 13:05 99 40 03/09/17 13:00 95 20 97/61 (73) 98 03/09/17 12:53 92 92/56 (68) 98 03/09/17 12:52 99 100 03/09/17 12:45 92 46 92/54 (67) 100 03/09/17 12:30 89 27 91/52 (65) 100 03/10/17 03/10/17 03/10/17 07:00 15:00 23:00 Intake Total 1669 ml Output Total 30 ml Balance 1639 ml Physical Exam GENERAL: Pt intubated and sedated with Propofol SKIN: Warm and dry/ R BKA dressing intact with an frank wrap C/D Right lateral aspect of palm with a darkened ulceration and swelling Right strong palpable radial pulse present Triphasic signal heard via Doppler right deep brown arch Right hand warm with cap refill 3 sec (Jael Aranda) Laboratory Laboratory Tests Test 03/10/17 03:54 03/10/17 09:42 White Blood Count 31.4 Red Blood Count 3.16 Hemoglobin 9.6 Hematocrit 29.1 Mean Corpuscular Volume 92.0 Mean Corpuscular Hemoglobin 30.4 Mean Corpuscular Hemoglobin Concent 33.0 Red Cell Distribution Width 15.0 Platelet Count 121 Mean Platelet Volume 9.1 Neutrophils (%) (Auto) 86.3 Lymphocytes (%) (Auto) 9.3 Monocytes (%) (Auto) 3.3 Eosinophils (%) (Auto) 0.7 Basophils (%) (Auto) 0.4 Neutrophils # (Auto) 27.0 Lymphocytes # (Auto) 2.9 Monocytes # (Auto) 1.0 Eosinophils # (Auto) 0.2 Basophils # (Auto) 0.1 CBC Comment AUTO DIFF Differential Total Cells Counted 100 Neutrophils % (Manual) 76 Band Neutrophils % 7 Lymphocytes % 11 Monocytes % 3 Eosinophils % 1 Neutrophils # (Manual) 26.7 Metamyelocytes 1 Myelocytes 1 Nucleated Red Blood Cells 3 Differential Comment FINAL DIFF MANUAL Platelet Estimate LOW Platelet Morphology Comment NORMAL Target Cells 1+ Prothrombin Time 14.0 Prothromb Time International Ratio 1.3 Blood Urea Nitrogen 97 Creatinine 5.29 Random Glucose 179 Total Protein 5.4 Albumin 0.9 Calcium Level 6.8 Alkaline Phosphatase 107 Aspartate Amino Transf (AST/SGOT) 136 Alanine Aminotransferase (ALT/SGPT) 50 Total Bilirubin 5.4 Sodium Level 137 Potassium Level 3.2 Chloride Level 99 Carbon Dioxide Level 22.3 Anion Gap 16 Estimat Glomerular Filtration Rate 11 Protein Corrected Calcium 7.7 Phosphorus Level 4.7 Total Creatine Kinase 672 Creatine Kinase MB 12.6 Creatine Kinase MB % 1.9 Date/Time Source Procedure Growth Status 03/09/17 19:56 Blood Peripheral Aerobic Blood Culture - Preliminary NO GROWTH IN 1 DAY Resulted 03/09/17 19:56 Blood Peripheral Anaerobic Blood Culture - Final QNS - SEE AEROBE REPORT Resulted 03/08/17 10:00 Fluid Other Gram Stain - Final Complete 03/08/17 10:00 Body Fluid Culture - Final Group B Beta Strep Complete 03/08/17 10:25 Urine Clean Catch Urine Culture - Final NO GROWTH IN 48 HOURS. Complete 03/08/17 21:10 Abscess Knee Fungal Smear - Final NO FUNGAL ELEMENTS SEEN. Resulted 03/08/17 21:10 Abscess Knee Fungal Culture Pending Resulted Imaging Last 48 hours Impressions Liver Ultrasound 03/09/17 0000 Signed Impressions: Service Date/Time: Thursday, March 09, 2017 12:50 - CONCLUSION: 1. No gallstones or biliary tract obstruction. 2. Thickening of the gallbladder wall at 5 mm. This can be seen with chronic gallbladder disease. 3. Increased echogenicity throughout the liver suggestive of fatty infiltration and/or hepatocellular disease. Carl Sands MD Knee X-Ray 03/09/17 0000 Signed Impressions: Service Date/Time: Thursday, March 09, 2017 14:15 - CONCLUSION: 1. No acute bony abnormality. 2. Moderate nonspecific joint effusion. 3. Mild medial compartment osteoarthritis. Danny Buchanan MD Hand X-Ray 03/09/17 0000 Signed Impressions: Service Date/Time: Thursday, March 09, 2017 14:11 - CONCLUSION: Nonspecific soft tissue swelling. No acute bony abnormality of the right hand. Danny Buchanan MD Chest X-Ray 03/09/17 0000 Signed Impressions: Service Date/Time: Thursday, March 09, 2017 07:58 - CONCLUSION: Status post interval intubation and placement of a left-sided chest tube. Hypoinflation of the left lung and a deep sulcus sign suggestive of a left-sided pneumothorax are present. Stable right sided central line. Denae Wlison MD ADDENDUM: This report is amended after discussion with the referring physician. There is no left-sided chest tube present. The line overlying the inferior left hemithorax is artifact. There is persistent appearance of a deep sulcus sign concern for possible pneumothorax. Recommend better evaluation with CT to exclude this abnormality. Denae Wilson MD Chest CT 03/09/17 0000 Signed Impressions: Service Date/Time: Thursday, March 09, 2017 12:31 - CONCLUSION: Bibasilar infiltrates with small effusions. Carl Sands MD (Jael Aranda) Assessment and Plan Plan Pt w/ a hx of a diabetic foot infection and secondary sepsis from this Pt s/p R BKA 03/08/17 Ulceration noted to right hand with swelling Pt w/ strong palpable R Radial pulse and triphasic signals heard via deep brown arch Pt with adequate blood flow to right hand Plan Recommend elevating right arm to relieve pressure and to decrease swelling No vascular surgical interventions needed at this time Will sign off Jael LEAL [facility] [employer] [facility] [phone] Discharge Planning Pt cleared from a vascular standpoint (Jael Aranda) Plan Pt underwent open BKA with ortho for source control. Please call with any questions. Happy to see him anytime if needed from a vascular surgery standpoint. (Jimbo Rankin MD) Jael Aranda Mar 10, 2017 12:44 Jimbo Rankin MD Mar 10, 2017 16:39
--- NOTE | 2017-03-10 13:32 | PD.PROCEDR ---
Central Line Procedure REASON FOR PROCEDURE Central venous access PROCEDURE PERFORMED Central line placement: Left IJ vascath CONSENT Informed consent for procedure was obtained. The risks and benefits of the procedure were discussed to include but limited to bleeding, clot formation, infection, and even . ANESTHESIA Local injection of 1% Lidocaine DESCRIPTION OF THE PROCEDURE The patient was placed in supine, mild Trendelenburg position. The area was exposed and cleansed with ChloraPrep, times two. Large sterile drape was used to cover the patient, with the site exposed, under sterile conditions including cap, face mask, sterile gown, and sterile gloves. On single attempt, the introducer needle was inserted with negative pressure in syringe and venous flash was obtained. The guide wire was then advanced without any restriction and the needle was removed. The dilator was used without any complications. Using Seldinger technique the catheter was advanced over the guide wire to a depth of 20 centimeters. The guide wire was removed. All ports were aspirated with dark venous blood return and flushed easily with sterile saline. All ports were capped. Antibiotic disc was placed around central line at puncture site. The central line was secured to the skin with two interrupted 2.0 silk sutures. The area was bandaged with sterile see-through central line bandage. RADIOLOGICAL DATA Ultrasound guidance was used to locate left IJ vein CXR ordered to verify line placement. COMPLICATIONS: No apparent complications ESTIMATED BLOOD LOSS: Less than 1 cc. Iman Duffy MD Mar 10, 2017 13:32
--- NOTE | 2017-03-10 14:29 | RADRPT ---
EXAM DATE/TIME: 03/10/2017 13:39 [place] COMPARISON: CHEST SINGLE AP, March 09, 2017, 7:58. INDICATIONS : Post central line placement MEDICAL HISTORY : diabetic, septic shock SURGICAL HISTORY : None. ENCOUNTER: Subsequent ACUITY: 2 days PAIN SCORE: Non-responsive. LOCATION: Bilateral chest FINDINGS: ET tube, nasogastric tube, central venous catheter and dialysis catheter are in good position. Moder ate bibasilar parenchymal changes are evident worse on the right than the left. Mild interstitial pr ominence is evident. CONCLUSION: Support apparatus in good position without pneumothorax. Darinel Graves MD FACR on March 10, 2017 at 14:25 Board Certified Radiologist. This report was verified electronically.
--- NOTE | 2017-03-10 15:19 | PD.CONS ---
History of Present Illness Service Hand Surgery Consult Requested By Reason for Consult Abscess of right hand Primary Care Physician No Primary Care Physician Diagnoses: History of Present Illness History is obtained from the chart and RN as patient is sedated. This is a 51 year old male who was admitted over the weekend for septic shock. The patient was brought into the hospital delirious by his girlfriend and found to have gangrene of the right great toe, which was likely the source of the sepsis. He is diabetic, with poor control. The patient's girlfriend reported that he had not eaten in a week and had consumed only alcohol in the last 7 days. 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 Hand surgery was called to evaluate a blister which had formed on the right hand. On arrival, the RN noted that another blister had formed on the left wrist. He has just undergone a central line placement. RN states that he has been given a dose of Bumex without any result, and he is due to have dialysis today. Review of Systems ROS Limitations: Clinical Condition, Intubated, Altered Mental Status Past Family Social History Allergies: Coded Allergies: No Known Allergies (Unverified , 03/07/17) Past Medical History Uncontrolled diabetes Past Surgical History None reported Active Ordered Medications Current Medications Medications (Trade) Dose Ordered Sig/Stacy Route Start Time Stop Time Status Last Admin (Tylenol) 650 mg Q6H PRN PO 03/07/17 15:45 03/09/17 09:19 (Morphine Inj) 2 mg Q2H PRN IV 03/07/17 15:45 03/09/17 07:56 (Protonix Inj) 40 mg DAILY IV 03/08/17 09:00 03/10/17 09:43 (Duoneb Neb) 1 ampule Q4HR NEB PRN INH 03/07/17 15:45 (Heparin Inj) 5,000 units Q12H SQ 03/07/17 18:00 03/10/17 05:24 Miscellaneous Information 1 Q361D XX 03/07/17 15:45 03/07/17 15:45 (Chlorhexidine 2% Cloth) 3 pack Taper DAILY@04 TOP 03/08/17 04:00 03/04/18 03:59 03/10/17 04:00 (Chlorhexidine 2% Cloth) 3 pack UNSCH PRN TOP 03/07/17 15:45 Piperacillin Sod/ Tazobactam Sod 50 ml @ 100 mls/hr Q8H IV 03/07/17 22:00 03/10/17 12:40 (D50w (Vial) Inj) 50 ml UNSCH PRN IV 03/07/17 16:15 (Glucagon Inj) 1 mg UNSCH PRN OTHER 03/07/17 16:15 (NovoLOG SUPPLEMENTAL SCALE) 1 Q6H SQ 03/07/17 16:15 03/10/17 10:15 Norepinephrine Bitartrate 250 ml @ 7.5 mls/hr TITRATE PRN IV 03/07/17 21:00 03/10/17 05:18 (Vitamin B1) 100 mg DAILY PO 03/08/17 09:00 03/10/17 09:43 (Folate) 1 mg DAILY PO 03/08/17 09:00 03/10/17 09:43 Clindamycin Phosphate 900 mg/ Sodium Chloride 106 ml @ 212 mls/hr Q8H IV 03/08/17 13:00 03/10/17 12:40 Propofol 100 ml @ 2.79 mls/hr TITRATE PRN IV 03/09/17 00:30 03/09/17 02:12 (Duoneb Neb) 1 ampule Q6HR NEB NEB 03/09/17 10:00 03/10/17 08:42 Fentanyl Citrate 250 ml @ 5 mls/hr Q24H PRN IV 03/09/17 08:38 03/09/17 09:31 Sodium Chloride 1,000 ml @ 75 mls/hr [id number] IV 03/09/17 11:00 03/10/17 09:44 (Colace Liq) 100 mg Q12HR PO 03/10/17 10:00 03/10/17 12:39 (Senna Liq) 8.8 mg DAILY PO 03/10/17 10:00 03/10/17 12:40 (Lactulose Liq) 30 ml QID PO 03/10/17 13:00 03/10/17 12:39 Sodium Chloride 1,000 ml @ 0 mls/hr Q0M PRN OTHER 03/10/17 12:05 (Heparin Inj) 8,000 units UNSCH PRN IVF 03/10/17 12:15 Sodium Chloride 1,000 ml @ 200 mls/hr Q5H PRN IV 03/10/17 12:05 Sodium Chloride 1,000 ml @ 0 mls/hr Q0M PRN OTHER 03/10/17 12:05 (Mannitol Inj) 12.5 gm UNSCH PRN IV 03/10/17 12:15 (Albumin 25% Inj) 25 gm UNSCH PRN IV 03/10/17 12:15 (NS Flush) 5 ml UNSCH PRN IV FLUSH 03/10/17 12:15 (Heparin Inj) UNSCH PRN .XX 03/10/17 12:15 (Gentamicin (Dialysis) Inj) 20 mg UNSCH PRN IV 03/10/17 12:15 (Zofran Inj) 4 mg UNSCH PRN IV 03/10/17 12:15 (Tylenol) 650 mg UNSCH PRN PO 03/10/17 12:15 (Benadryl) 25 mg UNSCH PRN PO 03/10/17 12:15 (Nitrostat Sl) 0.4 mg UNSCH PRN SL 03/10/17 12:15 (Catapres) 0.1 mg UNSCH PRN PO 03/10/17 12:15 (Epogen Inj) 4,000 units UNSCH PRN IV 03/10/17 14:00 (Gelfoam 12 Mm/7 Mm Top) 1 foam UNSCH PRN TOP 03/10/17 12:15 Family History None reported. Social History Known to abuse alcohol. Cocaine and cannabis also noted on drug screen. Physical Exam Vital Signs Vital Signs Date Time Temp Pulse Resp B/P (MAP) Pulse Ox O2 Delivery O2 Flow Rate FiO2 03/10/17 11:47 99 40 03/10/17 08:43 99 40 03/10/17 08:43 40 03/10/17 06:00 79 03/10/17 05:18 81 84/52 03/10/17 04:18 99 40 03/10/17 04:00 77 03/10/17 04:00 98.2 77 17 94/57 (69) 99 03/10/17 02:00 79 03/10/17 01:24 99 40 03/10/17 00:00 82 03/10/17 00:00 97.5 82 18 97/60 (72) 99 03/09/17 22:35 99 40 03/09/17 22:30 80 97/57 03/09/17 22:00 81 03/09/17 20:00 85 03/09/17 20:00 98.1 85 16 101/62 (75) 98 03/09/17 19:45 99 40 03/09/17 16:15 90 19 101/61 (74) 99 03/09/17 16:00 103.1 90 19 98/57 (71) 100 03/09/17 15:58 40 03/09/17 15:58 99 40 03/09/17 15:45 93 19 97/57 (70) 99 03/09/17 15:30 95 18 97/55 (69) 99 03/09/17 15:15 97 22 100/57 (71) 99 Physical Exam GENERAL: Patient is lying in bed, intubated and sedated. SKIN: There is a blister-like lesion present to the ulnar aspect of the right hand, just proximal to the fifth finger. Fluid under the blister is dark in appearance. There is an area in the center where the skin is adhered to underlying tissue. There is no open area. On the left wrist, there is a similar blister on the radial aspect, also with dark fluid. There is pitting edema throughout the upper extremity bilaterally. HEAD: Atraumatic. Normocephalic. No temporal or scalp tenderness. ENT: Patient is intubated. NECK: Trachea midline. CARDIOVASCULAR: Regular rate and rhythm without murmurs, gallops, or rubs. RESPIRATORY: Patient is intubated. MUSCULOSKELETAL: Pitting edema present to all extremities. NEUROLOGICAL: Sedated and intubated. Laboratory Laboratory Tests Test 03/10/17 03:54 03/10/17 09:42 White Blood Count 31.4 Red Blood Count 3.16 Hemoglobin 9.6 Hematocrit 29.1 Mean Corpuscular Volume 92.0 Mean Corpuscular Hemoglobin 30.4 Mean Corpuscular Hemoglobin Concent 33.0 Red Cell Distribution Width 15.0 Platelet Count 121 Mean Platelet Volume 9.1 Neutrophils (%) (Auto) 86.3 Lymphocytes (%) (Auto) 9.3 Monocytes (%) (Auto) 3.3 Eosinophils (%) (Auto) 0.7 Basophils (%) (Auto) 0.4 Neutrophils # (Auto) 27.0 Lymphocytes # (Auto) 2.9 Monocytes # (Auto) 1.0 Eosinophils # (Auto) 0.2 Basophils # (Auto) 0.1 CBC Comment AUTO DIFF Differential Total Cells Counted 100 Neutrophils % (Manual) 76 Band Neutrophils % 7 Lymphocytes % 11 Monocytes % 3 Eosinophils % 1 Neutrophils # (Manual) 26.7 Metamyelocytes 1 Myelocytes 1 Nucleated Red Blood Cells 3 Differential Comment FINAL DIFF MANUAL Platelet Estimate LOW Platelet Morphology Comment NORMAL Target Cells 1+ Prothrombin Time 14.0 Prothromb Time International Ratio 1.3 Blood Urea Nitrogen 97 Creatinine 5.29 Random Glucose 179 Total Protein 5.4 Albumin 0.9 Calcium Level 6.8 Alkaline Phosphatase 107 Aspartate Amino Transf (AST/SGOT) 136 Alanine Aminotransferase (ALT/SGPT) 50 Total Bilirubin 5.4 Sodium Level 137 Potassium Level 3.2 Chloride Level 99 Carbon Dioxide Level 22.3 Anion Gap 16 Estimat Glomerular Filtration Rate 11 Protein Corrected Calcium 7.7 Phosphorus Level 4.7 Total Creatine Kinase 672 Creatine Kinase MB 12.6 Creatine Kinase MB % 1.9 Date/Time Source Procedure Growth Status 03/09/17 19:56 Blood Peripheral Aerobic Blood Culture - Preliminary NO GROWTH IN 1 DAY Resulted 03/09/17 19:56 Blood Peripheral Anaerobic Blood Culture - Final QNS - SEE AEROBE REPORT Resulted 03/08/17 10:00 Fluid Other Gram Stain - Final Complete 03/08/17 10:00 Body Fluid Culture - Final Group B Beta Strep Complete 03/08/17 10:25 Urine Clean Catch Urine Culture - Final NO GROWTH IN 48 HOURS. Complete 03/08/17 21:10 Abscess Knee Fungal Smear - Final NO FUNGAL ELEMENTS SEEN. Resulted 03/08/17 21:10 Abscess Knee Fungal Culture Pending Resulted Result Diagram: 03/10/17 0354 03/10/17 0354 Assessment and Plan Problem List: (1) Abscess of right hand ICD Codes: L02.511 - Cutaneous abscess of right hand Status: Acute Plan: The area was cleansed with betadine. Using sterile scissor and forceps, the superficial abscess was unroofed. Approximately 1mL of brown, turbid fluid was removed. There was an area in the center where the tissue was necrotic. This was also removed sharply with scissor and forceps. The area was then mechanically debrided with sterile cause. A dressing was applied including povidone iodine ointment, telfa, and loosely wrapped andrae. RN was present for exam and procedure. Dressings to be changed daily. (2) Abscess, wrist ICD Codes: L02.419 - Cutaneous abscess of limb, unspecified Plan: The area was cleansed with betadine. Using sterile scissor and forceps, the superficial abscess was unroofed. Approximately 0.5mL of brown, turbid fluid was removed. This was also removed sharply with scissor and forceps. The area was then mechanically debrided with sterile gauze. A dressing was applied including povidone iodine ointment, telfa, and loosely wrapped andrae. RN was present for exam and procedure. Dressings to be changed daily. Physician Attestation The exam, history, and the medical decision-making described in the above note were completed with the assistance of the mid-level provider. I reviewed and agree with the findings presented. I attest that I had a [id number] encounter with the patient on the same day, and personally performed and documented my assessment and findings in the medical record. Gudelia Marie M.D. Leila Echeverria Mar 10, 2017 15:19
--- NOTE | 2017-03-10 16:46 | PD.WCN.NOT ---
Wound Consult Description: Received consult from Doctor Duffy for coccyx pressure injury Communicated with: MASON Dick [facility] and Doctor Duffy Recommendation: Please paint wound to R side of sacrum and L heel with povidone-iodine BID and leave open to air. Additional Information: Patient seen on 5th floor [facility] for evaluation of coccyx possible pressure injury. Patient turned to L side with maximum assist from conventional underwriter and Mayelin [facility]. Patient noted with wound over R side of sacrum that presents with 100% coverage of black stable eschar.100% coverage of eschar to wound over a sandra prominence indicates unstageable pressure injury. Wound measures 1 cm x 1cm. L side of sacrum is noted with a deflated blister that measures 2cm x 1cm. Both wounds are dry without active drainage or odor.Bilateral buttocks and gluteal cleft areas present with macerated skin and deflated blisters that appear to be resolving. Cleansed wound with normal saline and patted dry. Applied skin prep to R side sacral wound and left open to air.Patient is laying on special support surface mattress Yaritza standard [facility] bed low air loss mattress, two cloth pads noted in staggered fashion were under patient slightly soiled. Mayelin [facility] Removed soiled cloth pads and placed two staggered ultrasorb pads under patient.Patient positioned to R side with pillow. Wound care was also consulted for R foot wound. Patient now has R BKA, BKA surgery was on 03/08/2017 Assessed L heel, patient is noted with small area of purple non blanchable discoloration to the intact skin on L heel, indicating deep tissue injury.Wound measures ~2cm x ~1cm and appears to be resolving. L heel is being floated on pillow. Applied skin prep over DTI and left open to air. Jinny Ortega [facility] Mar 10, 2017 16:46
[2017-03-10] MEDS: HEPARIN SODIUM - IV 10,000 UNITS/10 ML VIAL PRN (18:11)
[2017-03-10] MEDS: GENTAMICIN SULFATE (DIALYSIS USE ONLY) 20 MG/2 ML VIAL IV PRN (18:12)
[2017-03-10] MEDS: ALBUMIN HUMAN 25% 25 GM/100 ML BAGP IV PRN (18:13)
[2017-03-10] MEDS: EPOETIN ALFA 4,000 UNITS/ML VIAL IV PRN (18:13)
--- NOTE | 2017-03-10 20:45 | ECHRPT ---
Indication: endocarditis CONCLUSIONS The left ventricular systolic function is normal with an estimated ejection fraction in the range of 55-60%. Normal left ventricular size. Wall thickness is normal. No regional wall motion abnormalities are present. The right ventricle is mildly dilated. There is mild tricuspid valve regurgitation. BP: / HR: Rhythm: MEASUREMENTS (Male / Female) Normal Values Technical Quality:Good 2D ECHO LV Diastolic Diameter PLAX 4.9 cm 4.2 - 5.9 / 3.9 - 5.3 cm LV Systolic Diameter PLAX 3.6 cm IVS Diastolic Thickness 1.0 cm 0.6 - 1.0 / 0.6 - 0.9 cm LVPW Diastolic Thickness 0.8 cm 0.6 - 1.0 / 0.6 - 0.9 cm LV Relative Wall Thickness 0.4 RV Internal Dim ED PLAX 4.1 cm M-MODE Aortic Root Diameter MM 3.7 cm LA Systolic Diameter MM 3.1 cm LA Ao Ratio MM 0.8 AV Cusp Separation MM 2.5 cm DOPPLER Mitral E Point Velocity 59.2 cm/s Mitral A Point Velocity 72.1 cm/s Mitral E to A Ratio 0.8 LV E' Lateral Velocity 12.4 cm/s Mitral E to LV E' Lateral Ratio 4.8 LV E' Septal Velocity 9.7 cm/s Mitral E to LV E' Septal Ratio 6.1 TR Peak Velocity 277.0 cm/s TR Peak Gradient 30.7 mmHg FINDINGS LEFT VENTRICLE The left ventricular systolic function is normal with an estimated ejection fraction in the range of 55-60%. Normal left ventricular size. Wall thickness is normal. No regional wall motion abnormalities are present. RIGHT VENTRICLE The right ventricle is mildly dilated. LEFT ATRIUM The left atrial size is normal. RIGHT ATRIUM The right atrial size is normal. ATRIAL SEPTUM Normal atrial septal thickness without atrial level shunting by limited color doppler interrogation. AORTA The aortic root and proximal ascending aorta are normal in size on limited imaging. MITRAL VALVE Structurally normal mitral valve. No mitral valve regurgitation. No mitral valve stenosis. AORTIC VALVE Trileaflet aortic valve. No aortic valve regurgitation. No aortic valve stenosis. TRICUSPID VALVE Structurally normal tricuspid valve. There is mild tricuspid valve regurgitation. PULMONARY VALVE The pulmonary valve is not well visualized. VESSELS The inferior vena cava is normal in size. PERICARDIUM No pericardial effusion. Kat Martinez MD, FACC (Electronically Signed) Final Date:10 March 2017 20:44
[2017-03-10] MEDS: PROPOFOL 1000 MG/100 ML IV PRN (20:50)
[2017-03-11] VITALS (83 sets, daily range): BP systolic 88–123; BP diastolic 50–70; PULSE 80–93; RESP 16–35; TEMP 98.4–99.7; O2SAT 96–100
[2017-03-11] MEDS: fentaNYL DRIP 250 ML IV PRN (01:55)
[2017-03-11] MEDS: RESP: ALBUTEROL 2.5 MG/IPRATROPIUM 0.5 MG NEB (SCH) NEB ×4 (03:19→20:38)
[2017-03-11] MEDS: CHLORHEXIDINE GLUCONATE 2 % 1 PACK (2 CLOTHS) TOP SCH (04:00)
[2017-03-11] MEDS: INSULIN ASPART SUPPLEMENTAL SCALE SQ SCH ×4 (04:03→22:15)
[2017-03-11] MEDS: CLINDAMYCIN INJ 900 MG in SODIUM CHLORIDE 0.9% INJ 100 ML IV SCH (06:00)
[2017-03-11] MEDS: PIPERACIL-TAZO 2.25 GM PREMIX 50 ML IV SCH (06:00)
[2017-03-11] MEDS: HEPARIN SODIUM - SQ 10,000 UNITS/ML VIAL SQ SCH (06:03)
[2017-03-11 07:04] LABS: AUTOMATED NEUTROPHIL # 22.5 TH/MM3 (1.8-7.7); BASOPHIL # 0.1 TH/MM3 (0-0.2); BASOPHIL % 0.5 % (0.0-2.0); EOSINOPHIL # 0.2 TH/MM3 (0-0.4); EOSINOPHIL % 0.7 % (0.0-4.0); HEMATOCRIT 26.7 % (39.0-51.0); LYMPH % 9.6 % (9.0-44.0); LYMPHOCYTE # 2.5 TH/MM3 (1.0-4.8); MEAN CELL VOLUME 91.2 FL (80.0-100.0); MEAN CORPUSCULAR HEMOGLOBIN 30.2 PG (27.0-34.0); MEAN CORPUSCULAR HGB CONC 33.1 % (32.0-36.0); MONO % 3.1 % (0.0-8.0); NEUT % 86.1 % (16.0-70.0); PLATELET COUNT 85 TH/MM3 (150-450); RED BLOOD COUNT 2.93 MIL/MM3 (4.50-5.90); RED CELL DISTRIBUTION WIDTH 15.2 % (11.6-17.2); WHITE BLOOD COUNT 26.2 TH/MM3 (4.0-11.0)
[2017-03-11 07:23] LABS: HEMO FLAGS AUTO DIFF
[2017-03-11 07:44] LABS: BICARBONATE 21.7 MEQ/L (21.0-32.0)
[2017-03-11 08:01] LABS: POTASSIUM 3.7 MEQ/L (3.5-5.1)
--- NOTE | 2017-03-11 08:02 | HHI.CCPN ---
Subjective Remarks/Hospital Course 51 y/o delirious man with draining wound right great toe, untreated diabetes, and severe COPD. According to his girlfriend at bedside in ED he has been confused for 3 days while on a trip to [place]. He has diabetes but does not take insulin, oral agents, nor check his sugar. This foot problem started as a non-healing cut on his right great toe. He is clearly in septic shock at present with hypotension, lactic acid 11, and leukocytosis. He will require a right above knee amputation eventually, possibly sooner if we can't control the source with antibiotics. He has audible wheezing from the doorway and is a chronic smoker. DIANA with creatinine > 5, and metabolic acidosis. 03/08 Patient was started on Levophed 8 mics overnight now down to 4 mics. Lactic acid trending down 4.2 this morning from 11.1 on arrical however his WBC increased 22.6 from 19. 03/09 Patient s/p Right BKA last night remains intubated postop sedated with Diprivan. On Levophed 7 mics and bicarb drip. 03/10 Patient is sedated with Diprivan and Fentanyl. On Levophed 8 mics. renal function worse today with Cr:5.29 from 4.532 with poor UOP:75ml in 24 hrs. Afebrile. 03/11 Patient remains sedated and intubated. HD initiated yesterday with removal 2L. Levophed down 5 mics. Afebrile, WBC trending down. TF held for high residuals. Objective Vital Signs Date Time Temp Pulse Resp B/P (MAP) Pulse Ox O2 Delivery O2 Flow Rate FiO2 03/11/17 06:00 82 03/11/17 04:53 99 40 03/11/17 04:00 99.2 19 89/53 (65) 03/09/17 00:30 Mechanical Ventilator 03/08/17 07:20 2.00 Intake and Output 03/11/17 03/11/17 03/12/17 08:00 16:00 00:00 Output Total 100.0 ml Balance -100.0 ml Result Diagram: 03/11/17 0614 03/11/17613 Other Results Laboratory Tests Test 03/10/17 09:42 03/10/17 18:30 03/11/17 06:14 Phosphorus Level 4.7 MG/DL Total Creatine Kinase 672 U/L Creatine Kinase MB 12.6 NG/ML Creatine Kinase MB % 1.9 % White Blood Count 26.2 TH/MM3 Red Blood Count 2.93 MIL/MM3 Hemoglobin 8.8 GM/DL Hematocrit 26.7 % Mean Corpuscular Volume 91.2 FL Mean Corpuscular Hemoglobin 30.2 PG Mean Corpuscular Hemoglobin Concent 33.1 % Red Cell Distribution Width 15.2 % Platelet Count 85 TH/MM3 Mean Platelet Volume 9.6 FL Neutrophils (%) (Auto) 86.1 % Lymphocytes (%) (Auto) 9.6 % Monocytes (%) (Auto) 3.1 % Eosinophils (%) (Auto) 0.7 % Basophils (%) (Auto) 0.5 % Neutrophils # (Auto) 22.5 TH/MM3 Lymphocytes # (Auto) 2.5 TH/MM3 Monocytes # (Auto) 0.8 TH/MM3 Eosinophils # (Auto) 0.2 TH/MM3 Basophils # (Auto) 0.1 TH/MM3 CBC Comment AUTO DIFF Blood Urea Nitrogen 74 MG/DL Creatinine 4.69 MG/DL Random Glucose 142 MG/DL Calcium Level 7.5 MG/DL Carbon Dioxide Level 21.7 MEQ/L Estimat Glomerular Filtration Rate 13 ML/MIN Imaging Last Impressions Chest X-Ray 03/10/17 0000 Signed Impressions: Service Date/Time: Friday, March 10, 2017 13:39 - CONCLUSION: Support apparatus in good position without pneumothorax. Darinel Graves MD FACR Liver Ultrasound 03/09/17 0000 Signed Impressions: Service Date/Time: Thursday, March 09, 2017 12:50 - CONCLUSION: 1. No gallstones or biliary tract obstruction. 2. Thickening of the gallbladder wall at 5 mm. This can be seen with chronic gallbladder disease. 3. Increased echogenicity throughout the liver suggestive of fatty infiltration and/or hepatocellular disease. Carl Sands MD Knee X-Ray 03/09/17 0000 Signed Impressions: Service Date/Time: Thursday, March 09, 2017 14:15 - CONCLUSION: 1. No acute bony abnormality. 2. Moderate nonspecific joint effusion. 3. Mild medial compartment osteoarthritis. Danny Buchanan MD Hand X-Ray 03/09/17 0000 Signed Impressions: Service Date/Time: Thursday, March 09, 2017 14:11 - CONCLUSION: Nonspecific soft tissue swelling. No acute bony abnormality of the right hand. Danny Buchanan MD Chest CT 03/09/17 0000 Signed Impressions: Service Date/Time: Thursday, March 09, 2017 12:31 - CONCLUSION: Bibasilar infiltrates with small effusions. Carl Sands MD Shoulder X-Ray 03/08/17 0000 Signed Impressions: Service Date/Time: Wednesday, March 08, 2017 10:47 - CONCLUSION: Within normal limits. Danny Buchanan MD Renal Ultrasound 03/08/17 0000 Signed Impressions: Service Date/Time: Wednesday, March 08, 2017 08:58 - CONCLUSION: 1. Unremarkable bilateral renal ultrasound. 2. Hepatomegaly with a trace of ascites in the upper abdomen. Carl Sands MD Objective Remarks GENERAL: Patient is 51 yo critically ill intubated, sedated and on Levophed. SKIN: Warm and dry. HEAD: Normocephalic. EYES: No scleral icterus. No injection or drainage. NECK: Supple, trachea midline. No JVD or lymphadenopathy. Orally intubated CARDIOVASCULAR: Regular rate and rhythm without murmurs, gallops, or rubs. RESPIRATORY: Breath sounds equal bilaterally. No accessory muscle use. GASTROINTESTINAL: Abdomen soft, non-tender, nondistended. Extremities: Right BKA Neuro: Intubated and sedated A/P Assessment and Plan 1)VDRF 2)Septic shock. Gram + bacteremia/ Group B strep 3)s/p right BKA 4)Septic arthritis of knee 5)DIANA. 6)Lactic acidemia 7)Rhabdo 8)Leukocytosis 9)Elevated AST 10)Emphysema, COPD. 11)Encephalopathy. 12)Diabetes mellitus, Type 2 13)ETOH use 14)Malnutrition Plan: Neuro: On Diprivan, Fentanyl infusion for sedation. Daily sedation vacation. Monitor neuro status On Thiamine/Folic acid. Pulm: Continue with vent support keep sat >92% Bronchodilators, ICU vent bundle, SBT daily as dimitri CV: Continue to wean off Levophed keep MAP>65mmHg Serial lactic acid monitoring. Trending down. 03/10 Echo EF 55-60%, no RWMA, no vegetations : Monitor renal function, I/O's, avoid nephrotoxins. HD inittaed 03/10 with removal 2L. for another HD session today. Renal US: No hydro. Renal is following-Dr. Feliciano. Cr: 4.69 today from 5. GI: on Protonix 40mg IV daily, tube feeds- Nepro with goal rate 40ml/hr Monitor LFT;s, US liver: No gallstones or biliary tract obstruction. Thickening of the gallbladder wall at 5 mm. This can be seen with chronic gallbladder disease. Increased echogenicity throughout the liver suggestive of fatty infiltration and/or hepatocellular disease. ID: Continue with abx ( Zosyn, Clindamycin) adjust doses abx per renal function. ID is following BC form 03/07: GPC, Group B strep Fluid/wound cx 03/08: Group B strep s/p right BKA 03/08 Ortho and Vascular are following X ray left knee showed mod joint effusion, no joint abnormalities will discuss with Ortho about possible aspiration/drainage Right hand abscess s/p debridement at bedside by Dr. Marie 03/10 Heme: Monitor CBC Endo: SSI for glycemic control. GI prophylaxis- Protonix 40mg daily DVT prophylaxis- SCD to LLE, Lines: Right IJ CVP placed 03/08, Left IJ vascath placed 03/10 Patient is critically ill and in septic shock requiring pressors, renal failure , leukocytosis Critical Care 30 mins Iman Duffy MD Mar 11, 2017 08:02
[2017-03-11] MEDS: THIAMINE HCL 100 MG TAB PO SCH (08:38)
[2017-03-11] MEDS: SENNOSIDES SYRUP 8.8 MG/5 ML CUP PO SCH (08:38)
[2017-03-11] MEDS: PANTOPRAZOLE SODIUM 40 MG VIAL IV SCH (08:38)
[2017-03-11] MEDS: POVIDONE IODINE 10% OINT 30 GM TUBE TOPICAL SCH (08:38)
[2017-03-11] MEDS: FOLIC ACID 1 MG TAB PO SCH (08:38)
[2017-03-11] MEDS: DOCUSATE SODIUM 100 MG/10 ML UDC PO SCH ×2 (08:38→21:21)
[2017-03-11] MEDS: LACTULOSE SYRUP 20 GM/30 ML CUP PO SCH ×2 (08:38→16:22)
[2017-03-11 09:12] LABS: BANDS 8 % (0-6); BASOPHILS 1 % (0-2); CORRECTED NUCLEATED RBC 15 /100 WBC (0-0); METAMYELOCYTES 1 % (0-1); NEUTROPHIL # MANUAL DIFF 18.6 TH/MM3 (1.8-7.7); POLYS (SEG NEUTROPHILS) 62 % (16-70); WBC DIFF SAMPLE 100
[2017-03-11 09:13] LABS: TOXIC GRANULATION 1+ (NORMAL)
[2017-03-11 09:14] LABS: PLATELET ESTIMATE SMEAR LOW (NORMAL); PLATELET MORPHOLOGY NORMAL (NORMAL); SCAN/DIFF FINAL DIFF MANUAL
--- NOTE | 2017-03-11 10:17 | PD.ORT.PN ---
Subjective Post Op Day #: 3 Subjective Remarks Patient is intubated and sedated and not arousable. RN to reports no acute overnight events overnight. Left knee aspirate was performed at bedside with RN. Objective Vitals Vital Signs Date Time Temp Pulse Resp B/P (MAP) Pulse Ox O2 Delivery O2 Flow Rate FiO2 03/11/17 07:58 97 40 03/11/17 06:00 82 03/11/17 04:53 99 40 03/11/17 04:00 40 03/11/17 04:00 84 03/11/17 04:00 99.2 84 19 89/53 (65) 99 03/11/17 02:58 98 40 03/11/17 02:00 80 03/11/17 00:00 40 03/11/17 00:00 99.0 83 22 89/53 (65) 99 03/11/17 00:00 83 03/10/17 23:49 84 90/54 03/10/17 23:16 87 96/57 03/10/17 22:18 90 100/58 03/10/17 22:00 87 03/10/17 20:47 84 100/62 03/10/17 20:00 84 03/10/17 20:00 98.8 84 21 102/64 (77) 99 03/10/17 20:00 40 03/10/17 19:32 99 40 03/10/17 17:00 84 21 91/56 (68) 100 03/10/17 16:45 85 21 93/57 (69) 100 03/10/17 16:37 86 24 95/57 (70) 100 03/10/17 16:32 87 21 76/48 (57) 100 03/10/17 16:30 86 20 78/46 (57) 100 03/10/17 16:15 87 16 96/55 (69) 99 03/10/17 16:00 98.7 89 21 78/48 (58) 100 03/10/17 15:45 87 20 92/54 (67) 100 03/10/17 15:30 87 25 95/58 (70) 100 03/10/17 15:15 80 24 92/55 (67) 100 03/10/17 15:11 99 40 03/10/17 15:00 83 20 86/52 (63) 99 03/10/17 14:45 84 22 86/52 (63) 99 03/10/17 14:35 85 18 84/52 (63) 99 03/10/17 14:30 85 23 86/51 (63) 98 03/10/17 14:15 87 18 77/48 (58) 98 03/10/17 14:00 86 21 88/53 (65) 98 03/10/17 13:45 86 22 89/53 (65) 98 03/10/17 13:30 87 12 90/53 (65) 98 03/10/17 13:15 87 17 89/53 (65) 96 03/10/17 13:00 85 14 96/61 (73) 100 03/10/17 12:30 84 18 98/60 (73) 99 03/10/17 12:15 86 16 94/57 (69) 99 03/10/17 12:00 98.5 86 19 95/55 (68) 99 03/10/17 11:47 99 40 03/10/17 11:45 86 18 96/55 (69) 99 03/10/17 11:30 87 18 97/55 (69) 99 03/10/17 11:15 87 18 98/58 (71) 99 03/10/17 11:00 87 21 96/56 (69) 99 03/10/17 10:45 86 13 95/57 (70) 100 03/10/17 10:30 86 24 96/58 (71) 99 03/10/17 10:15 85 14 94/54 (67) 99 I/O 03/10/17 03/10/17 03/10/17 03/11/17 03/11/17 03/11/17 07:00 15:00 23:00 07:00 15:00 23:00 Intake Total 1669 ml 1260 ml 1620 ml 50 ml Output Total 30 ml 60 ml 135.0 ml Balance 1639 ml 1200 ml 1485.0 ml 50 ml IV Total 1669 ml 1160 ml 1500 ml 50 ml Tube Irrigant 100 ml 120 ml Output Urine Total 30 ml 60 ml 35 ml Tube Feeding Residual Discard 100.0 ml # Bowel Movements 0 0 Result Diagram: 03/11/17 0614 03/11/17613 Imaging Last 24 hours Impressions Chest X-Ray 03/07/17 7257 Signed Impressions: Service Date/Time: Tuesday, March 07, 2017 13:55 - CONCLUSION: No acute cardiopulmonary abnormality is identified. Danny Ngo MD Procedures 1. Right below-knee amputation 03/08/2017 2. Arthrotomy with irrigation and debridement right knee 03/08/2017 Objective Remarks RLE: BKA stable, splint and dressing not removed for examination, skin is warm over thigh, good capillary refill present over thigh, no specific areas of mottling at this time. No specific swelling noted. (03/10/17) Dressings removed for exam. Slight purplish hue present over skin noted on lateral portion near incision line. No necrotic tissue noted. Knee itself does not have an effusion. Full range of motion of knee is appreciated with passive movement. Neuro exam unobtainable LLE: Moderate effusion present at knee, small area of pink hue noted on lateral portion, pt does grimace with passive ROM, skin is soft, good cap refill noted distally, neuro exam is unobtainable Left knee aspiration: RN increased sedation for pain control, lateral aspect of knee joint was cleansed with betadine/chlorahexadine, 18 gauge needle was inserted into joint, approximately 20cc of dark yellow cloudy fluid was obtained , sent for cultures, cleansed with alcohol and a sterile dressing was applied. Assessment & Plan Ortho Post Op Day #: 3 Problem List: (1) Septic shock ICD Codes: A41.9 - Sepsis, unspecified organism; R65.21 - Severe sepsis with septic shock Status: Acute (2) Ischemic necrosis of foot ICD Codes: I96 - Gangrene, not elsewhere classified Status: Acute (3) Diabetic infection of right foot ICD Codes: E11.69 - Type 2 diabetes mellitus with other specified complication ; L08.9 - Local infection of the skin and subcutaneous tissue, unspecified Status: Acute Assessment and Plan POD #3 1. Right below-knee amputation POD #3. Arthrotomy with irrigation and debridement right knee POD #0 Left knee aspiration Ortho status stable. Based upopnm exam left knee was aspirated. see above for details of procedure Left knee aspirate sent for cultures, G/S, aerobic/anaerobic. Awaiting results. Possible repeat aspiration and/or knee washout in OR depending on clinical course. Nonweightbearing right lower extremity. Keep splint on at this time Daily dressing changes per orders Awaiting cultures and microbiology: right knee synovial fluid aspirate. right calf posterior showed group B strep -currently on clindamycin and Zosyn per ID. Previous right foot wound culture revealed group B strep Will progress rehab when patient is extubated and more arousable Discharge planning Hand surgeon has seen Zoë Du Mar 11, 2017 10:17
[2017-03-11] MEDS ORDERED: SUGAMMADEX SODIUM 200 MG/2 ML VIAL IV PUSH ONE ×2 (12:00)
[2017-03-11] MEDS ORDERED: PHENYLEPH/NS 1000 MCG/10 ML SYR IV ONE (12:00)
[2017-03-11] MEDS ORDERED: PROPOFOL 200 MG/20 ML AMP IV ONE (12:00)
[2017-03-11 12:16] LABS: WBC, SYNOVIAL FLUID 27000 /MM3 (0-200)
--- NOTE | 2017-03-11 12:17 | HHI.IDPN ---
Subjective Subjective Remarks is a 51 y/o CM , who appears delirious, and was admitted overnight with septic shock, right great toe wound with gangrene possible osteomyelitis and untreated diabetes. Patient's cough and reports that approximately a week prior to admission patient had an episode of acute gastroenteritis and so did she. She thinks patient hasn't eaten in almost a week. He does consume heavy alcohol and this is the only fluid that he's been consuming in the last 7 days. She reports that patient stopped his right great toe on the superior aspect but did not see any ED, PCP or urgent care for this. No history of consumption of any antibiotics prior to admission. She reports that he is a known diabetic but is not compliant with his medications. Patient was noted to have sepsis on admission with low blood pressure and needing to be placed on pressors septic shock. He was noted to have an elevated lactic acid of 11.8 as well as in acute renal failure. His urine output is low and nephrology has been consulted. Vascular surgery as well as orthopedic surgeons have seen this patient and patient's girlfriend informs me that the surgeons have told him that patient needs a 2 staged amputation beginning with below knee amputation. At the time of my evaluation patient is in the [facility] on levophed 4 mics, has undergone fluid resuscitation, has decreased urine output, as well as decreased mentation. There is a plan for placement of a central line later today. Overnight events reviewed. Underwent Left knee thoracentesis. Right knee in post op dressing. New blister on left thumb. Also LLE with significant erythema. On HD (not a scheduled) S/p BKA No fevers No rash No diarrhea Antibiotics Zosyn IV Clinda IV Lines Line sites with no e.o infection Past Medical History reviewed Allergies: Coded Allergies: No Known Allergies (Unverified , 03/07/17) Objective . Vital Signs Date Time Temp Pulse Resp B/P (MAP) Pulse Ox O2 Delivery O2 Flow Rate FiO2 03/11/17 12:00 40 03/11/17 10:54 99 40 03/11/17 09:15 87 23 96/56 (69) 99 03/11/17 09:00 87 20 92/55 (67) 99 03/11/17 08:45 87 20 93/53 (66) 99 03/11/17 08:30 86 19 94/56 (69) 99 8/29/17 08:15 84 17 92/54 (67) 99 03/11/17 08:00 98.7 84 21 94/58 (70) 99 03/11/17 08:00 40 03/11/17 07:58 97 40 03/11/17 07:45 84 19 91/55 (67) 99 03/11/17 07:30 83 22 91/54 (66) 99 03/11/17 07:15 83 19 91/55 (67) 99 03/11/17 07:00 83 18 93/55 (68) 99 03/11/17 06:45 83 30 95/58 (70) 99 03/11/17 06:30 83 28 92/55 (67) 98 03/11/17 06:16 82 20 88/50 (63) 100 03/11/17 06:15 82 20 88/50 (63) 99 03/11/17 06:00 82 19 92/53 (66) 99 03/11/17 06:00 82 03/11/17 05:45 83 20 94/55 (68) 99 03/11/17 05:30 84 19 92/53 (66) 99 03/11/17 05:15 82 18 93/56 (68) 99 03/11/17 05:00 82 17 90/53 (65) 99 03/11/17 04:53 99 40 03/11/17 04:00 40 03/11/17 04:00 84 03/11/17 04:00 99.2 84 19 89/53 (65) 99 03/11/17 02:58 98 40 03/11/17 02:00 80 03/11/17 00:00 40 03/11/17 00:00 99.0 83 22 89/53 (65) 99 03/11/17 00:00 83 03/10/17 23:49 84 90/54 03/10/17 23:16 87 96/57 03/10/17 22:18 90 100/58 03/10/17 22:00 87 03/10/17 20:47 84 100/62 03/10/17 20:00 84 03/10/17 20:00 98.8 84 21 102/64 (77) 99 03/10/17 20:00 40 03/10/17 19:32 99 40 03/10/17 17:00 84 21 91/56 (68) 100 03/10/17 16:45 85 21 93/57 (69) 100 03/10/17 16:37 86 24 95/57 (70) 100 03/10/17 16:32 87 21 76/48 (57) 100 03/10/17 16:30 86 20 78/46 (57) 100 03/10/17 16:15 87 16 96/55 (69) 99 03/10/17 16:00 98.7 89 21 78/48 (58) 100 03/10/17 15:45 87 20 92/54 (67) 100 03/10/17 15:30 87 25 95/58 (70) 100 03/10/17 15:15 80 24 92/55 (67) 100 03/10/17 15:11 99 40 03/10/17 15:00 83 20 86/52 (63) 99 03/10/17 14:45 84 22 86/52 (63) 99 03/10/17 14:35 85 18 84/52 (63) 99 03/10/17 14:30 85 23 86/51 (63) 98 03/10/17 14:15 87 18 77/48 (58) 98 03/10/17 14:00 86 21 88/53 (65) 98 03/10/17 13:45 86 22 89/53 (65) 98 03/10/17 13:30 87 12 90/53 (65) 98 03/10/17 13:15 87 17 89/53 (65) 96 03/10/17 13:00 85 14 96/61 (73) 100 03/10/17 12:30 84 18 98/60 (73) 99 03/10/17 12:15 86 16 94/57 (69) 99 03/11/17 03/11/17 03/12/17 15:00 23:00 07:00 Intake Total 50 ml Balance 50 ml IV Total 50 ml . Laboratory Tests Test 03/10/17 03:54 03/11/17 06:14 White Blood Count 31.4 TH/MM3 26.2 TH/MM3 Red Blood Count 3.16 MIL/MM3 2.93 MIL/MM3 Hemoglobin 9.6 GM/DL 8.8 GM/DL Hematocrit 29.1 % 26.7 % Mean Corpuscular Volume 92.0 FL 91.2 FL Mean Corpuscular Hemoglobin 30.4 PG 30.2 PG Mean Corpuscular Hemoglobin Concent 33.0 % 33.1 % Red Cell Distribution Width 15.0 % 15.2 % Platelet Count 121 TH/MM3 85 TH/MM3 Mean Platelet Volume 9.1 FL 9.6 FL Neutrophils (%) (Auto) 86.3 % 86.1 % Lymphocytes (%) (Auto) 9.3 % 9.6 % Monocytes (%) (Auto) 3.3 % 3.1 % Eosinophils (%) (Auto) 0.7 % 0.7 % Basophils (%) (Auto) 0.4 % 0.5 % Neutrophils # (Auto) 27.0 TH/MM3 22.5 TH/MM3 Lymphocytes # (Auto) 2.9 TH/MM3 2.5 TH/MM3 Monocytes # (Auto) 1.0 TH/MM3 0.8 TH/MM3 Eosinophils # (Auto) 0.2 TH/MM3 0.2 TH/MM3 Basophils # (Auto) 0.1 TH/MM3 0.1 TH/MM3 CBC Comment AUTO DIFF AUTO DIFF Differential Total Cells Counted 100 100 Neutrophils % (Manual) 76 % 62 % Band Neutrophils % 7 % 8 % Lymphocytes % 11 % 27 % Monocytes % 3 % 1 % Eosinophils % 1 % Neutrophils # (Manual) 26.7 TH/MM3 18.6 TH/MM3 Metamyelocytes 1 % 1 % Myelocytes 1 % Nucleated Red Blood Cells 3 /100 WBC 15 /100 WBC Differential Comment FINAL DIFF MANUAL FINAL DIFF MANUAL Platelet Estimate LOW LOW Platelet Morphology Comment NORMAL NORMAL Target Cells 1+ Basophils % 1 % Toxic Granulation 1+ Laboratory Tests Test 03/10/17 03:54 03/10/17 09:42 03/11/17 06:14 Blood Urea Nitrogen 97 MG/DL 74 MG/DL Creatinine 5.29 MG/DL 4.69 MG/DL Random Glucose 179 MG/DL 142 MG/DL Total Protein 5.4 GM/DL Albumin 0.9 GM/DL Calcium Level 6.8 MG/DL 7.5 MG/DL Alkaline Phosphatase 107 U/L Aspartate Amino Transf (AST/SGOT) 136 U/L Alanine Aminotransferase (ALT/SGPT) 50 U/L Total Bilirubin 5.4 MG/DL Sodium Level 137 MEQ/L 138 MEQ/L Potassium Level 3.2 MEQ/L 3.7 MEQ/L Chloride Level 99 MEQ/L 100 MEQ/L Carbon Dioxide Level 22.3 MEQ/L 21.7 MEQ/L Anion Gap 16 MEQ/L 16 MEQ/L Estimat Glomerular Filtration Rate 11 ML/MIN 13 ML/MIN Protein Corrected Calcium 7.7 MG/DL Phosphorus Level 4.7 MG/DL Total Creatine Kinase 672 U/L Creatine Kinase MB 12.6 NG/ML Creatine Kinase MB % 1.9 % Microbiology Date/Time Source Procedure Growth Status 03/09/17 19:56 Blood Peripheral Aerobic Blood Culture - Preliminary NO GROWTH IN 2 DAYS Resulted 03/09/17 19:56 Blood Peripheral Anaerobic Blood Culture - Final QNS - SEE AEROBE REPORT Resulted 03/09/17 19:55 Blood Peripheral Aerobic Blood Culture - Preliminary NO GROWTH IN 2 DAYS Resulted 03/09/17 19:55 Blood Peripheral Anaerobic Blood Culture - Final QNS - SEE AEROBE REPORT Resulted 03/11/17 10:06 Fluid Synovial Fluid Gram Stain Pending Received 03/11/17 10:06 Fluid Synovial Fluid Body Fluid Culture Pending Received 03/11/17 10:06 Fluid Synovial Fluid Acid Fast Stain Pending Received 03/11/17 10:06 Fluid Synovial Fluid Mycobacterial Culture Pending Received 03/08/17 21:10 Abscess Knee Fungal Smear - Final NO FUNGAL ELEMENTS SEEN. Resulted 03/08/17 21:10 Abscess Knee Fungal Culture Pending Resulted 03/08/17 21:10 Abscess Knee Acid Fast Stain - Final NO ACID FAST BACILLI SEEN Resulted 03/08/17 21:10 Abscess Knee Mycobacterial Culture Pending Resulted 03/08/17 21:10 Abscess Knee Gram Stain - Final Complete 03/08/17 21:10 Wound Culture - Final Group B Beta Strep Complete 03/08/17 21:10 Abscess Knee Fungal Smear - Final NO FUNGAL ELEMENTS SEEN. Resulted 03/08/17 21:10 Abscess Knee Fungal Culture Pending Resulted 03/08/17 21:10 Abscess Knee Acid Fast Stain - Final NO ACID FAST BACILLI SEEN Resulted 03/08/17 21:10 Abscess Knee Mycobacterial Culture Pending Resulted 03/08/17 21:10 Abscess Knee Gram Stain - Final Resulted 03/08/17 21:10 Abscess Knee Wound Culture - Preliminary NO GROWTH IN 48 HOURS. Resulted Imaging Last Impressions Liver Ultrasound 03/09/17 0000 Signed Impressions: Service Date/Time: Thursday, March 09, 2017 12:50 - CONCLUSION: 1. No gallstones or biliary tract obstruction. 2. Thickening of the gallbladder wall at 5 mm. This can be seen with chronic gallbladder disease. 3. Increased echogenicity throughout the liver suggestive of fatty infiltration and/or hepatocellular disease. Carl Sands MD Chest X-Ray 03/09/17 Signed Impressions: Service Date/Time: Thursday, March 09, 2017 07:58 - CONCLUSION: Status post interval intubation and placement of a left-sided chest tube. Hypoinflation of the left lung and a deep sulcus sign suggestive of a left-sided pneumothorax are present. Stable right sided central line. Denae Wilson MD ADDENDUM: This report is amended after discussion with the referring physician. There is no left-sided chest tube present. The line overlying the inferior left hemithorax is artifact. There is persistent appearance of a deep sulcus sign concern for possible pneumothorax. Recommend better evaluation with CT to exclude this abnormality. Denae Wilson MD Chest CT 03/09/17 Signed Impressions: Service Date/Time: Thursday, March 09, 2017 12:31 - CONCLUSION: Bibasilar infiltrates with small effusions. Carl Sands MD Shoulder X-Ray 03/08/17 Signed Impressions: Service Date/Time: Wednesday, March 08, 2017 10:47 - CONCLUSION: Within normal limits. Danny Buchanan MD Renal Ultrasound 03/08/17 Signed Impressions: Service Date/Time: Wednesday, March 08, 2017 08:58 - CONCLUSION: 1. Unremarkable bilateral renal ultrasound. 2. Hepatomegaly with a trace of ascites in the upper abdomen. Carl Sands MD Physical Exam GENERAL: Acutely ill-appearing, well-nourished, well-developed patient, in no apparent distress. SKIN: No rashes, ecchymoses or lesions. Cool and dry. HEAD: Atraumatic. Normocephalic. No temporal or scalp tenderness. EYES: Pupils equal round and reactive. Extraocular motions intact. No scleral icterus. No injection or drainage. ENT: Intubated. NECK: Trachea midline. Supple, nontender, no meningeal signs. CARDIOVASCULAR: Regular rate and rhythm without murmurs, gallops, or rubs. RESPIRATORY: Clear to auscultation. Breath sounds equal bilaterally. No wheezes , rales, or rhonchi. GASTROINTESTINAL: Abdomen soft, non-tender, nondistended. MUSCULOSKELETAL: right BKA site with dressing on it. Left knee with swelling slight warmth noted and superior area of bogginess reduced. Right hand dressing. Left hand thumb with blister noted. NEUROLOGICAL: Sedated on vent. IV line sites with no evidence of infection. Assessment & Plan Remarks Septic shock with multiorgan dysfunction syndrome Group B strep bacteremia likely source right great toe osteomyelitis/gangrene. Lymphangitis strep related. Possible left knee effusion ? septic arthritis. Possible acute necrotizing component as patient lower extremity worsened quickly in the last 24 hours. Strep toxin concern. Acute renal failure: prerenal, sepsis. Acute metabolic encephalopathy: sepsis, alcohol related withdrawal. Lactic acidemia: sepsis, ischemia of tissues. Abnormal LFTs: Increased AST but normal ALT: likely alcohol related, sepsis. Acute Elevation in CK: ? Rhabdomyolysis vs acute ischemia and destruction of local tissues. Diabetes Mellitus non compliance with hyperglycemia. Recs DC Zosyn IV DC Clinda IV Start Ceftriaxone IV (Re: Strep Grp B Endocarditis, multiple joint septic arthritis) Hand surgery consult (Re: possible right palm abscess) Blood cultures x 2 2D ECHO r/o endocarditis. Added studies and fungal culture for Synovial fluid. Xray Right knee Follow Blood cultures Follow intra op cultures Follow cultures Follow clinically. Reina Mason plan for the day. Ortho notes reviewed. Susie De La Cruz MD Mar 11, 2017 12:17
--- NOTE | 2017-03-11 12:27 | HHI.NPPN ---
Subjective History of Present Illness 51 year old male with diabetes, Right foot gangrene Additional Remarks has septic shock, s/p amputation R BKA, Rt septic knee Objective Data Data 03/11/17 03/12/17 19:00 07:00 Intake Total 50 ml Balance 50 ml IV Total 50 ml Vital Signs Date Time Temp Pulse Resp B/P (MAP) Pulse Ox O2 Delivery O2 Flow Rate FiO2 03/11/17 12:00 40 03/11/17 10:54 99 40 03/11/17 09:15 87 23 96/56 (69) 99 03/11/17 09:00 87 20 92/55 (67) 99 03/11/17 08:45 87 20 93/53 (66) 99 03/11/17 08:30 86 19 94/56 (69) 99 03/11/17 08:15 84 17 92/54 (67) 99 03/11/17 08:00 98.7 84 21 94/58 (70) 99 03/11/17 08:00 40 03/11/17 07:58 97 40 03/11/17 07:45 84 19 91/55 (67) 99 03/11/17 07:30 83 22 91/54 (66) 99 03/11/17 07:15 83 19 91/55 (67) 99 03/11/17 07:00 83 18 93/55 (68) 99 03/11/17 06:45 83 30 95/58 (70) 99 03/11/17 06:30 83 28 92/55 (67) 98 03/11/17 06:16 82 20 88/50 (63) 100 03/11/17 06:15 82 20 88/50 (63) 99 03/11/17 06:00 82 19 92/53 (66) 99 03/11/17 06:00 82 03/11/17 05:45 83 20 94/55 (68) 99 03/11/17 05:30 84 19 92/53 (66) 99 03/11/17 05:15 82 18 93/56 (68) 99 03/11/17 05:00 82 17 90/53 (65) 99 03/11/17 04:53 99 40 03/11/17 04:00 40 03/11/17 04:00 84 03/11/17 04:00 99.2 84 19 89/53 (65) 99 03/11/17 02:58 98 40 03/11/17 02:00 80 03/11/17 00:00 40 03/11/17 00:00 99.0 83 22 89/53 (65) 99 03/11/17 00:00 83 03/10/17 23:49 84 90/54 03/10/17 23:16 87 96/57 03/10/17 22:18 90 100/58 03/10/17 22:00 87 03/10/17 20:47 84 100/62 03/10/17 20:00 84 03/10/17 20:00 98.8 84 21 102/64 (77) 99 03/10/17 20:00 40 03/10/17 19:32 99 40 03/10/17 17:00 84 21 91/56 (68) 100 03/10/17 16:45 85 21 93/57 (69) 100 03/10/17 16:37 86 24 95/57 (70) 100 03/10/17 16:32 87 21 76/48 (57) 100 03/10/17 16:30 86 20 78/46 (57) 100 03/10/17 16:15 87 16 96/55 (69) 99 03/10/17 16:00 98.7 89 21 78/48 (58) 100 03/10/17 15:45 87 20 92/54 (67) 100 03/10/17 15:30 87 25 95/58 (70) 100 03/10/17 15:15 80 24 92/55 (67) 100 03/10/17 15:11 99 40 03/10/17 15:00 83 20 86/52 (63) 99 03/10/17 14:45 84 22 86/52 (63) 99 03/10/17 14:35 85 18 84/52 (63) 99 03/10/17 14:30 85 23 86/51 (63) 98 03/10/17 14:15 87 18 77/48 (58) 98 03/10/17 14:00 86 21 88/53 (65) 98 03/10/17 13:45 86 22 89/53 (65) 98 03/10/17 13:30 87 12 90/53 (65) 98 03/10/17 13:15 87 17 89/53 (65) 96 03/10/17 13:00 85 14 96/61 (73) 100 03/10/17 12:30 84 18 98/60 (73) 99 -: 03/11/17 0614 03/11/17 0614 Microbiology 03/11/17 Gram Stain, Received Pending 03/11/17 Body Fluid Culture, Received Pending 03/11/17 Acid Fast Stain, Received Pending 03/11/17 Mycobacterial Culture, Received Pending Physical Exam General Appearance: Well Developed Neck Neck Exam: Neck Supple Pulmonary Resp Exam: Clear Bilaterally, Breath Sounds Equal Cardiology CV Exam: Tachycardia Gastrointestinal/Abdomen GI Exam: Soft, Bowel Sounds Present Extremeties Extremities Exam: No Edema (RT BKA) Assessment/Plan Problem List: (1) Acute renal failure ICD Codes: N17.9 - Acute kidney failure, unspecified Status: Acute Plan: ATN from sepsis intubated s/p Rt BKA on vasopressor poor UOP on hemodialysis seen at dialysis UF 2 L or more BP low trying Albumin/ Vasopressors critically ill R BKA (2) Sepsis ICD Codes: A41.9 - Sepsis, unspecified organism Plan: Beta strep infection (3) Diabetic infection of right foot ICD Codes: E11.69 - Type 2 diabetes mellitus with other specified complication ; L08.9 - Local infection of the skin and subcutaneous tissue, unspecified Status: Acute Plan: On IV antibiotics Ceftriaxone (4) Ischemic necrosis of foot ICD Codes: I96 - Gangrene, not elsewhere classified Status: Acute Plan: post amputation, BKA Problem Qualifiers (1) Acute renal failure: Qualified Codes: N17.9 - Acute kidney failure, unspecified Freddy Feliciano MD Mar 11, 2017 12:27
[2017-03-11] MEDS: cefTRIAXone INJ 2,000 MG in SODIUM CHLORIDE 0.9% INJ 100 ML IV SCH (16:21)
[2017-03-11] MEDS: NOREPINEPHRINE 4 MG/D5W 250 ML IV PRN (17:02)
[2017-03-11] MEDS ORDERED: ceFAZolin INJ 1,000 MG VIAL ONE (19:09)
[2017-03-11] MEDS ORDERED: GENTAMICIN SULFATE 80 MG/2 ML VIAL ONE (19:09)
--- NOTE | 2017-03-11 20:29 | PD.OP ---
cc: Efren Hanks MD Operative Report Date of Surgery: Mar 11, 2017 Preoperative Diagnosis: (1) Septic arthritis of knee, left Postoperative Diagnosis: (1) Septic arthritis of knee, left Procedure: Left knee arthrotomy with irrigation debridement Anesthesia: Gen. Surgeon: Efren Hanks Research Chemist(s): OR staff Operation and Findings: The patient was taken to the operative suite and after undergoing an adequate level of general anesthesia was kept supine on the operating table. The patient was maintained on his schedule of antibiotic therapy. The left lower extremity was prepped and draped in usual sterile fashion with alcohol and Hibiclens. A joint effusion was noted. There was no erythema. A medial parapatellar arthrotomy was made with incision along the medial aspect of the patella. This was carried down through skin and subcutaneous tense tissue with a knife. Hemostasis was obtained with electrocautery. An arthrotomy was made and copious amounts of serosanguineous type fluid evacuated. It was cultured. The knee joint was then thoroughly irrigated with pulse lavage with antibiotic irrigant.. Some small particulate material and clot were also lavaged. The articular cartilage appeared mildly degenerative but otherwise intact. The synovial tissue appeared healthy. A partial synovectomy was completed in the suprapatellar pouch. After an adequate irrigation and debridement a Hemovac drain was left in place. Incision was closed in layers utilizing #1 Vicryl suture on the arthrotomy and deep tissue, 2-0 Vicryl suture in subcutaneous tissue and velma on the skin. Sterile dressings were applied, the patient was transferred to the hospital bed and taken back to the medical intensive care unit in stable condition. Estimated blood loss: 50 cc Complications: None Efren Hanks MD Mar 11, 2017 20:29
[2017-03-11] MEDS ORDERED: SODIUM CHLORIDE 0.9% FLUSH 10 ML FLUSH IV FLUSH PRN (20:30)
[2017-03-11] MEDS ORDERED: Post-op Orders (for Pharmacy) MISC XX ONE (20:30)
[2017-03-11] MEDS: SODIUM CHLORIDE 0.9% FLUSH 10 ML FLUSH IV FLUSH SCH (21:21)
[2017-03-12] VITALS (62 sets, daily range): BP systolic 83–144; BP diastolic 50–82; PULSE 80–101; RESP 15–27; TEMP 98.1–100.1; O2SAT 96–100
[2017-03-12] MEDS: fentaNYL DRIP 250 ML IV PRN ×2 (02:41→16:52)
[2017-03-12] MEDS: RESP: ALBUTEROL 2.5 MG/IPRATROPIUM 0.5 MG NEB (SCH) NEB ×4 (04:12→20:20)
[2017-03-12] MEDS: INSULIN ASPART SUPPLEMENTAL SCALE SQ SCH ×4 (04:15→22:08)
[2017-03-12 04:56] LABS: BASOPHIL # 0.1 TH/MM3 (0-0.2); BASOPHIL % 0.3 % (0.0-2.0); EOSINOPHIL # 0.2 TH/MM3 (0-0.4); EOSINOPHIL % 0.8 % (0.0-4.0); HEMATOCRIT 26.9 % (39.0-51.0); LYMPH % 7.1 % (9.0-44.0); LYMPHOCYTE # 2.1 TH/MM3 (1.0-4.8); MEAN CELL VOLUME 91.2 FL (80.0-100.0); MEAN CORPUSCULAR HEMOGLOBIN 30.5 PG (27.0-34.0); MEAN CORPUSCULAR HGB CONC 33.5 % (32.0-36.0); MONO % 2.6 % (0.0-8.0); NEUT % 89.2 % (16.0-70.0); PLATELET COUNT 68 TH/MM3 (150-450); RED BLOOD COUNT 2.95 MIL/MM3 (4.50-5.90); WHITE BLOOD COUNT 29.1 TH/MM3 (4.0-11.0)
[2017-03-12] MEDS: CHLORHEXIDINE GLUCONATE 2 % 1 PACK (2 CLOTHS) TOP SCH (05:00)
[2017-03-12 05:06] LABS: HEMO FLAGS AUTO DIFF
[2017-03-12 05:12] LABS: ALKALINE PHOSPHATASE 193 U/L (45-117); ALT (GPT) 30 U/L (12-78); ANION GAP 11 MEQ/L (5-15); AST (GOT) 71 U/L (15-37); BICARBONATE 27.2 MEQ/L (21.0-32.0); BLOOD UREA NITROGEN 59 MG/DL (7-18); CHLORIDE 103 MEQ/L (98-107); GLOMERULAR FILTRATION RATE 17 ML/MIN (>89); POTASSIUM 3.6 MEQ/L (3.5-5.1); SODIUM (NA) 141 MEQ/L (136-145); TOTAL BILIRUBIN ADULT 7.8 MG/DL (0.2-1.0)
[2017-03-12 05:47] LABS: BANDS 1 % (0-6); EOSINOPHILS 2 % (0-4); METAMYELOCYTES 1 % (0-1); MYELOCYTES 1 % (0-0); NEUTROPHIL # MANUAL DIFF 25.6 TH/MM3 (1.8-7.7); POLYS (SEG NEUTROPHILS) 85 % (16-70); WBC DIFF SAMPLE 100
[2017-03-12 05:48] LABS: PLATELET ESTIMATE SMEAR LOW (NORMAL); PLATELET MORPHOLOGY NORMAL (NORMAL); SCAN/DIFF FINAL DIFF MANUAL; TARGET CELLS 1+ (NORMAL)
[2017-03-12] MEDS: HEPARIN SODIUM - SQ 10,000 UNITS/ML VIAL SQ SCH ×2 (06:39→17:40)
[2017-03-12] MEDS: NOREPINEPHRINE 4 MG/D5W 250 ML IV PRN (06:40)
[2017-03-12] MEDS: SODIUM CHLORIDE 0.9% FLUSH 10 ML FLUSH IV FLUSH SCH ×2 (09:00→19:43)
[2017-03-12] MEDS: LACTULOSE SYRUP 20 GM/30 ML CUP PO SCH ×4 (09:00→20:43)
[2017-03-12] MEDS: SENNOSIDES SYRUP 8.8 MG/5 ML CUP PO SCH (09:00)
[2017-03-12] MEDS: DOCUSATE SODIUM 100 MG/10 ML UDC PO SCH ×2 (09:00→20:43)
[2017-03-12] MEDS: FOLIC ACID 1 MG TAB PO SCH (10:43)
[2017-03-12] MEDS: PANTOPRAZOLE SODIUM 40 MG VIAL IV SCH (10:43)
[2017-03-12] MEDS: THIAMINE HCL 100 MG TAB PO SCH (10:43)
[2017-03-12] MEDS: POVIDONE IODINE 10% OINT 30 GM TUBE TOPICAL SCH (10:43)
[2017-03-12] MEDS: cefTRIAXone INJ 2,000 MG in SODIUM CHLORIDE 0.9% INJ 100 ML IV SCH (13:06)
--- NOTE | 2017-03-12 13:40 | HHI.NPPN ---
Subjective History of Present Illness 51 year old male with diabetes, Right foot gangrene Additional Remarks has septic shock, s/p amputation R BKA, Rt septic knee Objective Data Data Vital Signs Date Time Temp Pulse Resp B/P (MAP) Pulse Ox O2 Delivery O2 Flow Rate FiO2 03/12/17 12:30 30 03/12/17 12:00 87 03/12/17 12:00 40 03/12/17 12:00 98.2 87 16 97/59 (72) 99 03/12/17 11:25 96 30 03/12/17 10:00 87 03/12/17 08:00 83 03/12/17 08:00 98.8 83 16 99/54 (69) 99 03/12/17 08:00 40 03/12/17 07:25 99 30 03/12/17 07:00 85 23 90/56 (67) 100 03/12/17 06:45 83 18 91/57 (68) 99 03/12/17 06:40 83 83/51 03/12/17 06:30 85 16 83/51 (62) 99 03/12/17 06:15 88 16 104/62 (76) 98 03/12/17 06:00 90 03/12/17 06:00 90 24 106/66 (79) 98 03/12/17 05:45 82 15 104/60 (75) 99 03/12/17 05:30 82 27 144/82 (102) 98 03/12/17 05:15 81 25 100/61 (74) 100 03/12/17 05:00 81 21 97/61 (73) 100 03/12/17 04:45 82 20 97/57 (70) 99 03/12/17 04:30 83 16 92/55 (67) 99 03/12/17 04:30 83 16 92/55 (67) 99 03/12/17 04:20 100 40 03/12/17 04:15 82 17 87/50 (62) 100 03/12/17 04:00 40 03/12/17 04:00 98.5 81 16 103/63 (76) 100 03/12/17 04:00 81 24 103/63 (76) 100 03/12/17 04:00 81 03/12/17 03:45 81 18 102/63 (76) 100 03/12/17 03:30 82 17 101/61 (74) 100 03/12/17 03:15 81 16 97/61 (73) 100 03/12/17 03:00 80 16 96/58 (71) 100 03/12/17 02:45 80 21 89/52 (64) 100 03/12/17 02:42 80 25 96/59 (71) 100 03/12/17 02:40 80 23 91/55 (67) 100 03/12/17 02:37 80 20 89/54 (66) 100 03/12/17 02:35 80 20 93/56 (68) 100 03/12/17 02:32 80 20 94/59 (71) 100 03/12/17 02:30 80 21 95/58 (70) 100 03/12/17 02:15 81 20 94/58 (70) 100 03/12/17 02:00 82 03/12/17 02:00 82 21 102/58 (73) 100 03/12/17 01:30 81 16 97/57 (70) 100 03/12/17 01:30 81 16 97/57 (70) 100 03/12/17 01:18 97 40 03/12/17 01:15 80 19 94/57 (69) 100 03/12/17 01:00 80 21 92/57 (69) 100 03/12/17 00:45 80 19 94/58 (70) 100 03/12/17 00:45 80 19 94/58 (70) 100 03/12/17 00:30 80 21 94/58 (70) 99 03/12/17 00:15 81 16 92/53 (66) 100 03/12/17 00:00 81 16 91/53 (66) 99 03/12/17 00:00 40 03/12/17 00:00 81 03/12/17 00:00 98.1 81 19 91/53 (66) 99 03/11/17 23:45 82 16 94/56 (69) 99 03/11/17 23:30 83 19 95/54 (68) 99 03/11/17 23:15 84 20 93/56 (68) 99 03/11/17 23:05 84 18 88/54 (65) 99 03/11/17 23:00 85 17 92/52 (65) 99 03/11/17 23:00 85 17 92/52 (65) 99 03/11/17 22:30 85 22 100 03/11/17 22:20 86 18 97/55 (69) 99 03/11/17 22:19 97 40 03/11/17 22:15 86 19 96/54 (68) 99 03/11/17 22:10 86 19 94/52 (66) 99 03/11/17 22:05 87 18 99/55 (70) 99 03/11/17 22:00 86 03/11/17 22:00 86 17 97/53 (68) 99 03/11/17 21:30 89 19 100/58 (72) 99 03/11/17 21:25 88 18 123/65 (84) 99 03/11/17 21:20 90 18 108/57 (74) 99 03/11/17 21:15 89 24 110/61 (77) 99 03/11/17 21:10 90 20 104/56 (72) 99 03/11/17 21:00 90 19 106/58 (74) 99 03/11/17 20:50 91 19 110/61 (77) 99 03/11/17 20:45 91 19 113/64 (80) 99 03/11/17 20:40 90 18 115/65 (82) 98 03/11/17 20:38 100 40 03/11/17 20:30 86 03/11/17 20:30 86 23 100 03/11/17 20:30 98.4 86 17 106/63 (77) 100 03/11/17 20:30 40 03/11/17 20:20 86 100/58 (72) 100 03/11/17 20:15 85 114/70 (85) 100 03/11/17 20:10 85 111/66 (81) 100 03/11/17 20:00 84 106/65 (79) 100 03/11/17 19:00 100 100 03/11/17 18:00 90 03/11/17 17:02 91 94/58 03/11/17 16:45 92/56 (68) 03/11/17 16:30 90 26 93/60 (71) 98 03/11/17 16:15 98 40 03/11/17 16:15 91 21 92/56 (68) 98 03/11/17 16:00 99.7 91 28 91/55 (67) 97 03/11/17 16:00 91 03/11/17 16:00 40 03/11/17 15:45 92 25 92/55 (67) 97 03/11/17 15:30 93 24 101/65 (77) 98 03/11/17 15:15 93 27 91/59 (70) 96 03/11/17 15:00 90 35 98/65 (76) 97 03/11/17 14:45 89 24 100/62 (75) 99 03/11/17 14:30 86 29 95/59 (71) 99 03/11/17 14:15 84 22 94/58 (70) 99 03/11/17 14:00 83 25 94/57 (69) 99 03/11/17 14:00 83 03/11/17 13:45 83 29 95/57 (70) 99 -: 03/12/17 0410 03/12/17 0410 Microbiology 03/11/17 Fungal Smear - Final, Resulted NO FUNGAL ELEMENTS SEEN. 03/11/17 Fungal Culture, Resulted Pending 03/11/17 Acid Fast Stain, Received Pending 03/11/17 Mycobacterial Culture, Received Pending 03/11/17 Gram Stain - Final, Resulted 03/11/17 Wound Culture, Resulted Pending Physical Exam General Appearance: Well Developed Neck Neck Exam: Neck Supple Pulmonary Resp Exam: Clear Bilaterally, Breath Sounds Equal Cardiology CV Exam: Tachycardia Gastrointestinal/Abdomen GI Exam: Soft, Bowel Sounds Present Extremeties Extremities Exam: No Edema (RT BKA) Assessment/Plan Problem List: (1) Acute renal failure ICD Codes: N17.9 - Acute kidney failure, unspecified Status: Acute Plan: ATN from sepsis intubated s/p Rt BKA on vasopressor poor UOP on hemodialysis R BKA next HD in am (2) Sepsis ICD Codes: A41.9 - Sepsis, unspecified organism Plan: Beta strep infection (3) Diabetic infection of right foot ICD Codes: E11.69 - Type 2 diabetes mellitus with other specified complication ; L08.9 - Local infection of the skin and subcutaneous tissue, unspecified Status: Acute Plan: On IV antibiotics Ceftriaxone (4) Ischemic necrosis of foot ICD Codes: I96 - Gangrene, not elsewhere classified Status: Acute Plan: post amputation, BKA Problem Qualifiers (1) Acute renal failure: Qualified Codes: N17.9 - Acute kidney failure, unspecified Freddy Feliciano MD Mar 12, 2017 13:40
--- NOTE | 2017-03-12 14:08 | HHI.CCPN ---
Subjective Remarks/Hospital Course 51 y/o delirious man with draining wound right great toe, untreated diabetes, and severe COPD. According to his girlfriend at bedside in ED he has been confused for 3 days while on a trip to [place]. He has diabetes but does not take insulin, oral agents, nor check his sugar. This foot problem started as a non-healing cut on his right great toe. He is clearly in septic shock at present with hypotension, lactic acid 11, and leukocytosis. He will require a right above knee amputation eventually, possibly sooner if we can't control the source with antibiotics. He has audible wheezing from the doorway and is a chronic smoker. DIANA with creatinine > 5, and metabolic acidosis. 03/08 Patient was started on Levophed 8 mics overnight now down to 4 mics. Lactic acid trending down 4.2 this morning from 11.1 on arrival however his WBC increased 22.6 from 19. 03/09 Patient s/p Right BKA last night remains intubated postop sedated with Diprivan. On Levophed 7 mics and bicarb drip. 03/10 Patient is sedated with Diprivan and Fentanyl. On Levophed 8 mics. renal function worse today with Cr:5.29 from 4.532 with poor UOP:75ml in 24 hrs. Afebrile. 03/11 Patient remains sedated and intubated. HD initiated yesterday with removal 2L. Levophed down 5 mics. Afebrile, WBC trending down. TF held for high residuals. 03/12. Remains severely encephalopathic. Grimaces to pain. Currently on only fentanyl infusion and control. WBC worsening 26.2 to 29.1 today. Worsening thrombocytopenia 68 today. Remains oliguric. Remains on Levophed Objective Vital Signs Date Time Temp Pulse Resp B/P (MAP) Pulse Ox O2 Delivery O2 Flow Rate FiO2 03/12/17 12:30 30 03/12/17 12:00 87 03/12/17 12:00 98.2 16 97/59 (72) 99 03/09/17 00:30 Mechanical Ventilator 03/08/17 07:20 2.00 Intake and Output 03/12/17 03/12/17 03/13/17 08:00 16:00 00:00 Intake Total 256 ml Output Total 415 ml Balance -159 ml Result Diagram: 03/12/17 0410 03/12/17 0410 Imaging Last Impressions Chest X-Ray 03/10/17 0000 Signed Impressions: Service Date/Time: Friday, March 10, 2017 13:39 - CONCLUSION: Support apparatus in good position without pneumothorax. Darinel Graves MD FACR Liver Ultrasound 03/09/17 Signed Impressions: Service Date/Time: Thursday, March 09, 2017 12:50 - CONCLUSION: 1. No gallstones or biliary tract obstruction. 2. Thickening of the gallbladder wall at 5 mm. This can be seen with chronic gallbladder disease. 3. Increased echogenicity throughout the liver suggestive of fatty infiltration and/or hepatocellular disease. Carl Sands MD Knee X-Ray 03/09/17 Signed Impressions: Service Date/Time: Thursday, March 09, 2017 14:15 - CONCLUSION: 1. No acute bony abnormality. 2. Moderate nonspecific joint effusion. 3. Mild medial compartment osteoarthritis. Danny Buchanan MD Hand X-Ray 03/09/17 Signed Impressions: Service Date/Time: Thursday, March 09, 2017 14:11 - CONCLUSION: Nonspecific soft tissue swelling. No acute bony abnormality of the right hand. Danny Buchanan MD Chest CT 03/09/17 Signed Impressions: Service Date/Time: Thursday, March 09, 2017 12:31 - CONCLUSION: Bibasilar infiltrates with small effusions. Carl Sands MD Shoulder X-Ray 03/08/17 Signed Impressions: Service Date/Time: Wednesday, March 08, 2017 10:47 - CONCLUSION: Within normal limits. Danny Buchanan MD Renal Ultrasound 03/08/17 Signed Impressions: Service Date/Time: Wednesday, March 08, 2017 08:58 - CONCLUSION: 1. Unremarkable bilateral renal ultrasound. 2. Hepatomegaly with a trace of ascites in the upper abdomen. Carl Sands MD Objective Remarks GENERAL: Patient is 51 yo critically ill intubated, sedated with Fentanyl and on Levophed . SKIN: Warm and dry. HEAD: Normocephalic. EYES: No scleral icterus. No injection or drainage. NECK: Supple, trachea midline. No JVD or lymphadenopathy. Orally intubated CARDIOVASCULAR: Regular rate and rhythm without murmurs, gallops, or rubs. RESPIRATORY: Breath sounds equal bilaterally. No accessory muscle use. GASTROINTESTINAL: Abdomen soft, non-tender, nondistended. EXT: s/p Right BKA with dressing on. s/p L knee aspiration by ortho Neuro: Intubated and sedated. Grimaces to painful stimuli no spontaneous eye opening. No spontaneous movement noted on my exam Urinary Catheter: Yes Assessment to: Continue A/P Assessment and Plan Acute respiratory failure Septic shock. Gram + bacteremia/ Group B strep Acute metabolic encephalopathy s/p right BKA 03/08 Septic arthritis of knee Acute kidney failure Lactic acidemia Rhabdo Leukocytosis Elevated AST Emphysema, COPD. Diabetes mellitus, Type 2 ETOH use Malnutrition Plan: Neuro: On Fentanyl infusion for sedation. Daily sedation vacation. Monitor neuro status On Thiamine/Folic acid. Did not wake up on sedation hold, grimaces to pain Pulm: Continue with vent support keep sat >92% Bronchodilators, ICU vent bundle, SBT daily as dimitri, unable to extubate due to severe encephalopathy CV: Continue to wean off Levophed keep MAP>65mmHg. currently on 4 mcg/m Serial lactic acid. Trending down. 03/10 Echo EF 55-60%, no RWMA, no vegetations : Monitor renal function, I/O's, avoid nephrotoxins. HD inittaed 03/10 with removal 2L.HD per nephrology Renal US: No hydro. Renal is following-Dr. Feliciano. Cr: 3.9 today from 4.7. UO 200 ml in 24 hours GI: On Protonix 40mg IV daily, tube feeds- Nepro with goal rate 40ml/hr Monitor LFT;s, US liver: No gallstones or biliary tract obstruction. Thickening of the gallbladder wall at 5 mm. This can be seen with chronic gallbladder disease. Increased echogenicity throughout the liver suggestive of fatty infiltration and/or hepatocellular disease. ID: Continue with abx ( Zosyn, Clindamycin DCd 03/11, currently on Rocephin) adjust doses abx per renal function. ID is following BC form 03/07: GPC, Group B strep Fluid/wound cx 03/08: Group B strep s/p right BKA 03/08 Ortho and Vascular are following X ray left knee showed mod joint effusion, no joint abnormalities s/p aspiration/drainage by Ortho Right hand abscess s/p debridement at bedside by Dr. Marie 03/10 Heme: Monitor CBC, trending up Endo: SSI for glycemic control. GI prophylaxis- Protonix 40mg daily DVT prophylaxis- SCD to LLE, Heparin sq q12 Lines: Right IJ CVP placed 03/08, Left IJ vascath placed 03/10 Patient is critically ill and in septic shock requiring pressors, renal failure , leukocytosis Critical Care 30 mins Portia Delgado MD Mar 12, 2017 14:08
--- NOTE | 2017-03-12 14:09 | PD.ORT.PN ---
Subjective Post Op Day #: 4 Subjective Remarks Patient is intubated and sedated and not arousable. RN to reports no acute overnight events overnight. Uncle at bedside. Objective Vitals Vital Signs Date Time Temp Pulse Resp B/P (MAP) Pulse Ox O2 Delivery O2 Flow Rate FiO2 03/12/17 12:30 30 03/12/17 12:00 87 03/12/17 12:00 40 03/12/17 12:00 98.2 87 16 97/59 (72) 99 03/12/17 11:25 96 30 03/12/17 10:00 87 03/12/17 08:00 83 03/12/17 08:00 98.8 83 16 99/54 (69) 99 03/12/17 08:00 40 03/12/17 07:25 99 30 03/12/17 07:00 85 23 90/56 (67) 100 03/12/17 06:45 83 18 91/57 (68) 99 03/12/17 06:40 83 83/51 03/12/17 06:30 85 16 83/51 (62) 99 03/12/17 06:15 88 16 104/62 (76) 98 03/12/17 06:00 90 03/12/17 06:00 90 24 106/66 (79) 98 03/12/17 05:45 82 15 104/60 (75) 99 03/12/17 05:30 82 27 144/82 (102) 98 03/12/17 05:15 81 25 100/61 (74) 100 03/12/17 05:00 81 21 97/61 (73) 100 03/12/17 04:45 82 20 97/57 (70) 99 03/12/17 04:30 83 16 92/55 (67) 99 03/12/17 04:30 83 16 92/55 (67) 99 03/12/17 04:20 100 40 03/12/17 04:15 82 17 87/50 (62) 100 03/12/17 04:00 40 03/12/17 04:00 98.5 81 16 103/63 (76) 100 03/12/17 04:00 81 24 103/63 (76) 100 03/12/17 04:00 81 03/12/17 03:45 81 18 102/63 (76) 100 03/12/17 03:30 82 17 101/61 (74) 100 03/12/17 03:15 81 16 97/61 (73) 100 03/12/17 03:00 80 16 96/58 (71) 100 03/12/17 02:45 80 21 89/52 (64) 100 03/12/17 02:42 80 25 96/59 (71) 100 03/12/17 02:40 80 23 91/55 (67) 100 03/12/17 02:37 80 20 89/54 (66) 100 03/12/17 02:35 80 20 93/56 (68) 100 03/12/17 02:32 80 20 94/59 (71) 100 03/12/17 02:30 80 21 95/58 (70) 100 03/12/17 02:15 81 20 94/58 (70) 100 03/12/17 02:00 82 03/12/17 02:00 82 21 102/58 (73) 100 03/12/17 01:30 81 16 97/57 (70) 100 03/12/17 01:30 81 16 97/57 (70) 100 03/12/17 01:18 97 40 03/12/17 01:15 80 19 94/57 (69) 100 03/12/17 01:00 80 21 92/57 (69) 100 03/12/17 00:45 80 19 94/58 (70) 100 03/12/17 00:45 80 19 94/58 (70) 100 03/12/17 00:30 80 21 94/58 (70) 99 03/12/17 00:15 81 16 92/53 (66) 100 03/12/17 00:00 81 16 91/53 (66) 99 03/12/17 00:00 40 03/12/17 00:00 81 03/12/17 00:00 98.1 81 19 91/53 (66) 99 03/11/17 23:45 82 16 94/56 (69) 99 03/11/17 23:30 83 19 95/54 (68) 99 03/11/17 23:15 84 20 93/56 (68) 99 03/11/17 23:05 84 18 88/54 (65) 99 03/11/17 23:00 85 17 92/52 (65) 99 03/11/17 23:00 85 17 92/52 (65) 99 03/11/17 22:30 85 22 100 03/11/17 22:20 86 18 97/55 (69) 99 03/11/17 22:19 97 40 03/11/17 22:15 86 19 96/54 (68) 99 03/11/17 22:10 86 19 94/52 (66) 99 03/11/17 22:05 87 18 99/55 (70) 99 03/11/17 22:00 86 03/11/17 22:00 86 17 97/53 (68) 99 03/11/17 21:30 89 19 100/58 (72) 99 03/11/17 21:25 88 18 123/65 (84) 99 03/11/17 21:20 90 18 108/57 (74) 99 03/11/17 21:15 89 24 110/61 (77) 99 03/11/17 21:10 90 20 104/56 (72) 99 03/11/17 21:00 90 19 106/58 (74) 99 03/11/17 20:50 91 19 110/61 (77) 99 03/11/17 20:45 91 19 113/64 (80) 99 03/11/17 20:40 90 18 115/65 (82) 98 03/11/17 20:38 100 40 03/11/17 20:30 86 03/11/17 20:30 86 23 100 03/11/17 20:30 98.4 86 17 106/63 (77) 100 03/11/17 20:30 40 03/11/17 20:20 86 100/58 (72) 100 03/11/17 20:15 85 114/70 (85) 100 03/11/17 20:10 85 111/66 (81) 100 03/11/17 20:00 84 106/65 (79) 100 03/11/17 19:00 100 100 03/11/17 18:00 90 03/11/17 17:02 91 94/58 03/11/17 16:45 92/56 (68) 03/11/17 16:30 90 26 93/60 (71) 98 03/11/17 16:15 98 40 03/11/17 16:15 91 21 92/56 (68) 98 03/11/17 16:00 99.7 91 28 91/55 (67) 97 03/11/17 16:00 91 03/11/17 16:00 40 03/11/17 15:45 92 25 92/55 (67) 97 03/11/17 15:30 93 24 101/65 (77) 98 03/11/17 15:15 93 27 91/59 (70) 96 03/11/17 15:00 90 35 98/65 (76) 97 03/11/17 14:45 89 24 100/62 (75) 99 03/11/17 14:30 86 29 95/59 (71) 99 03/11/17 14:15 84 22 94/58 (70) 99 I/O 03/11/17 03/11/17 03/11/17 03/12/17 03/12/17 03/12/17 07:00 15:00 23:00 07:00 15:00 23:00 Intake Total 1620 ml 50 ml 310 ml 256 ml Output Total 135.0 ml 2050 ml 415 ml Balance 1485.0 ml 50 ml -1740 ml -159 ml IV Total 1500 ml 50 ml 310 ml Tube Feeding 166 ml Tube Irrigant 120 ml Other 90 ml Output Urine Total 35 ml 200 ml Stool Total 200 ml Tube Feeding Residual Discard 100.0 ml Drainage Total 15 ml Hemodialysis 2000 ml Estimated Blood Loss 50 ml # Bowel Movements 0 3 Result Diagram: 03/12/17 0410 03/12/17 0410 Imaging Last 24 hours Impressions Chest X-Ray 03/07/17 1334 Signed Impressions: Service Date/Time: Tuesday, March 07, 2017 13:55 - CONCLUSION: No acute cardiopulmonary abnormality is identified. Danny Ngo MD Procedures 1. Right below-knee amputation 03/08/2017 2. Arthrotomy with irrigation and debridement right knee 03/08/2017 3. Left knee arthrotomy with irrigation debridement 03/11/2017 Objective Remarks RLE: BKA stable, splint and dressing not removed for examination, skin is warm over thigh, good capillary refill present over thigh, no specific areas of mottling at this time. No specific swelling noted. (03/10/17) Dressings removed for exam. Slight purplish hue present over skin noted on lateral portion near incision line. No necrotic tissue noted. Knee itself does not have an effusion. Full range of motion of knee is appreciated with passive movement. Neuro exam unobtainable LLE: dressings is are clean and dry, not removed for examination, soft, good cap refill noted distally, moderate swelling noted distally, skin blanches, neuro exam is unobtainable Assessment & Plan Problem List: (1) Septic shock ICD Codes: A41.9 - Sepsis, unspecified organism; R65.21 - Severe sepsis with septic shock Status: Acute (2) Ischemic necrosis of foot ICD Codes: I96 - Gangrene, not elsewhere classified Status: Acute (3) Diabetic infection of right foot ICD Codes: E11.69 - Type 2 diabetes mellitus with other specified complication ; L08.9 - Local infection of the skin and subcutaneous tissue, unspecified Status: Acute (4) Septic arthritis of knee, left ICD Codes: M00.9 - Pyogenic arthritis, unspecified Status: Acute (5) Septic arthritis of knee, right ICD Codes: M00.9 - Pyogenic arthritis, unspecified Status: Acute Assessment and Plan POD #4 1. Right below-knee amputation POD #4. Arthrotomy with irrigation and debridement right knee POD #1 Left knee arthrotomy with irrigation debridement Ortho status stable. Awaiting culture, G/S, ID following. Nonweightbearing right lower extremity. Keep splint on at this time Daily dressing changes per orders Fight calf posterior compartment showed group B strep Previous right foot wound culture revealed group B strep Will progress rehab when patient is extubated and more arousable Discharge planning Hand surgeon has seen RUE. Mild swelling of right olecranon bursa noted - will continue to follow. Ortho following closely. Zoë Iniguez Mar 12, 2017 2:09 pm
--- NOTE | 2017-03-12 14:43 | RADRPT ---
EXAM DATE/TIME: 03/12/2017 14:03 [facility] COMPARISON: CHEST SINGLE AP, March 10, 2017, 13:39. INDICATIONS : Evaluate respiratory disease. MEDICAL HISTORY : None. SURGICAL HISTORY : None. ENCOUNTER: Subsequent ACUITY: 4 - 6 days PAIN SCORE: Non-responsive. LOCATION: chest FINDINGS: Dialysis catheter, central line, ET tube and nasogastric tube are in good position. Minimal airspace disease remains in the right lower lobe slowly improving. Left lung is clear. There is no pneumoth orax. CONCLUSION: Support apparatus in good position. Interval improvement. Darinel Graves MD FACR on March 12, 2017 at 14:40 Board Certified Radiologist. This report was verified electronically.
--- NOTE | 2017-03-12 15:26 | HHI.IDPN ---
Subjective Subjective Remarks is a 51 y/o CM , who appears delirious, and was admitted overnight with septic shock, right great toe wound with gangrene possible osteomyelitis and untreated diabetes. Patient's cough and reports that approximately a week prior to admission patient had an episode of acute gastroenteritis and so did she. She thinks patient hasn't eaten in almost a week. He does consume heavy alcohol and this is the only fluid that he's been consuming in the last 7 days. She reports that patient stopped his right great toe on the superior aspect but did not see any ED, PCP or urgent care for this. No history of consumption of any antibiotics prior to admission. She reports that he is a known diabetic but is not compliant with his medications. Patient was noted to have sepsis on admission with low blood pressure and needing to be placed on pressors septic shock. He was noted to have an elevated lactic acid of 11.8 as well as in acute renal failure. His urine output is low and nephrology has been consulted. Vascular surgery as well as orthopedic surgeons have seen this patient and patient's girlfriend informs me that the surgeons have told him that patient needs a 2 staged amputation beginning with below knee amputation. At the time of my evaluation patient is in the [facility] on levophed 4 mics, has undergone fluid resuscitation, has decreased urine output, as well as decreased mentation. There is a plan for placement of a central line later today. Overnight events reviewed. Underwent Left knee I&D Right knee in post op dressing. RN reports Right elbow swelling. Also L ankle and foot with significant erythema. On HD (not as scheduled) S/p BKA on Right side. Low grade fevers 99.8 No rash No diarrhea On Levophed 6 mics. Antibiotics Ceftriaxone IV Lines Line sites with no e.o infection Past Medical History reviewed Allergies: Coded Allergies: No Known Allergies (Unverified , 03/07/17) Objective . Vital Signs Date Time Temp Pulse Resp B/P (MAP) Pulse Ox O2 Delivery O2 Flow Rate FiO2 03/12/17 14:00 87 03/12/17 12:30 30 03/12/17 12:00 87 03/12/17 12:00 40 03/12/17 12:00 98.2 87 16 97/59 (72) 99 03/12/17 11:25 96 30 03/12/17 10:00 87 03/12/17 08:00 83 03/12/17 08:00 98.8 83 16 99/54 (69) 99 03/12/17 08:00 40 03/12/17 07:25 99 30 03/12/17 07:00 85 23 90/56 (67) 100 03/12/17 06:45 83 18 91/57 (68) 99 03/12/17 06:40 83 83/51 03/12/17 06:30 85 16 83/51 (62) 99 03/12/17 06:15 88 16 104/62 (76) 98 03/12/17 06:00 90 03/12/17 06:00 90 24 106/66 (79) 98 03/12/17 05:45 82 15 104/60 (75) 99 03/12/17 05:30 82 27 144/82 (102) 98 03/12/17 05:15 81 25 100/61 (74) 100 03/12/17 05:00 81 21 97/61 (73) 100 03/12/17 04:45 82 20 97/57 (70) 99 03/12/17 04:30 83 16 92/55 (67) 99 03/12/17 04:30 83 16 92/55 (67) 99 03/12/17 04:20 100 40 03/12/17 04:15 82 17 87/50 (62) 100 03/12/17 04:00 40 03/12/17 04:00 98.5 81 16 103/63 (76) 100 03/12/17 04:00 81 24 103/63 (76) 100 03/12/17 04:00 81 03/12/17 03:45 81 18 102/63 (76) 100 03/12/17 03:30 82 17 101/61 (74) 100 03/12/17 03:15 81 16 97/61 (73) 100 03/12/17 03:00 80 16 96/58 (71) 100 03/12/17 02:45 80 21 89/52 (64) 100 03/12/17 02:42 80 25 96/59 (71) 100 03/12/17 02:40 80 23 91/55 (67) 100 03/12/17 02:37 80 20 89/54 (66) 100 03/12/17 02:35 80 20 93/56 (68) 100 03/12/17 02:32 80 20 94/59 (71) 100 03/12/17 02:30 80 21 95/58 (70) 100 03/12/17 02:15 81 20 94/58 (70) 100 03/12/17 02:00 82 03/12/17 02:00 82 21 102/58 (73) 100 03/12/17 01:30 81 16 97/57 (70) 100 03/12/17 01:30 81 16 97/57 (70) 100 03/12/17 01:18 97 40 03/12/17 01:15 80 19 94/57 (69) 100 03/12/17 01:00 80 21 92/57 (69) 100 03/12/17 00:45 80 19 94/58 (70) 100 03/12/17 00:45 80 19 94/58 (70) 100 03/12/17 00:30 80 21 94/58 (70) 99 03/12/17 00:15 81 16 92/53 (66) 100 03/12/17 00:00 81 16 91/53 (66) 99 03/12/17 00:00 40 03/12/17 00:00 81 03/12/17 00:00 98.1 81 19 91/53 (66) 99 03/11/17 23:45 82 16 94/56 (69) 99 03/11/17 23:30 83 19 95/54 (68) 99 03/11/17 23:15 84 20 93/56 (68) 99 03/11/17 23:05 84 18 88/54 (65) 99 03/11/17 23:00 85 17 92/52 (65) 99 03/11/17 23:00 85 17 92/52 (65) 99 03/11/17 22:30 85 22 100 03/11/17 22:20 86 18 97/55 (69) 99 03/11/17 22:19 97 40 03/11/17 22:15 86 19 96/54 (68) 99 03/11/17 22:10 86 19 94/52 (66) 99 03/11/17 22:05 87 18 99/55 (70) 99 03/11/17 22:00 86 03/11/17 22:00 86 17 97/53 (68) 99 03/11/17 21:30 89 19 100/58 (72) 99 03/11/17 21:25 88 18 123/65 (84) 99 03/11/17 21:20 90 18 108/57 (74) 99 03/11/17 21:15 89 24 110/61 (77) 99 03/11/17 21:10 90 20 104/56 (72) 99 03/11/17 21:00 90 19 106/58 (74) 99 03/11/17 20:50 91 19 110/61 (77) 99 03/11/17 20:45 91 19 113/64 (80) 99 03/11/17 20:40 90 18 115/65 (82) 98 03/11/17 20:38 100 40 03/11/17 20:30 86 03/11/17 20:30 86 23 100 03/11/17 20:30 98.4 86 17 106/63 (77) 100 03/11/17 20:30 40 03/11/17 20:20 86 100/58 (72) 100 03/11/17 20:15 85 114/70 (85) 100 03/11/17 20:10 85 111/66 (81) 100 03/11/17 20:00 84 106/65 (79) 100 03/11/17 19:00 100 100 03/11/17 18:00 90 03/11/17 17:02 91 94/58 03/11/17 16:45 92/56 (68) 03/11/17 16:30 90 26 93/60 (71) 98 03/11/17 16:15 98 40 03/11/17 16:15 91 21 92/56 (68) 98 03/11/17 16:00 99.7 91 28 91/55 (67) 97 03/11/17 16:00 91 03/11/17 16:00 40 03/11/17 15:45 92 25 92/55 (67) 97 03/11/17 15:30 93 24 101/65 (77) 98 . Laboratory Tests Test 03/11/17 06:14 03/12/17 04:10 White Blood Count 26.2 TH/MM3 29.1 TH/MM3 Red Blood Count 2.93 MIL/MM3 2.95 MIL/MM3 Hemoglobin 8.8 GM/DL 9.0 GM/DL Hematocrit 26.7 % 26.9 % Mean Corpuscular Volume 91.2 FL 91.2 FL Mean Corpuscular Hemoglobin 30.2 PG 30.5 PG Mean Corpuscular Hemoglobin Concent 33.1 % 33.5 % Red Cell Distribution Width 15.2 % 15.0 % Platelet Count 85 TH/MM3 68 TH/MM3 Mean Platelet Volume 9.6 FL 9.9 FL Neutrophils (%) (Auto) 86.1 % 89.2 % Lymphocytes (%) (Auto) 9.6 % 7.1 % Monocytes (%) (Auto) 3.1 % 2.6 % Eosinophils (%) (Auto) 0.7 % 0.8 % Basophils (%) (Auto) 0.5 % 0.3 % Neutrophils # (Auto) 22.5 TH/MM3 26.0 TH/MM3 Lymphocytes # (Auto) 2.5 TH/MM3 2.1 TH/MM3 Monocytes # (Auto) 0.8 TH/MM3 0.8 TH/MM3 Eosinophils # (Auto) 0.2 TH/MM3 0.2 TH/MM3 Basophils # (Auto) 0.1 TH/MM3 0.1 TH/MM3 CBC Comment AUTO DIFF AUTO DIFF Differential Total Cells Counted 100 100 Neutrophils % (Manual) 62 % 85 % Band Neutrophils % 8 % 1 % Lymphocytes % 27 % 8 % Monocytes % 1 % 2 % Basophils % 1 % Neutrophils # (Manual) 18.6 TH/MM3 25.6 TH/MM3 Metamyelocytes 1 % 1 % Nucleated Red Blood Cells 15 /100 WBC Differential Comment FINAL DIFF MANUAL FINAL DIFF MANUAL Toxic Granulation 1+ Platelet Estimate LOW LOW Platelet Morphology Comment NORMAL NORMAL Eosinophils % 2 % Myelocytes 1 % Target Cells 1+ Laboratory Tests Test 03/11/17 06:14 03/12/17 04:10 Blood Urea Nitrogen 74 MG/DL 59 MG/DL Creatinine 4.69 MG/DL 3.86 MG/DL Random Glucose 142 MG/DL 145 MG/DL Calcium Level 7.5 MG/DL 7.7 MG/DL Sodium Level 138 MEQ/L 141 MEQ/L Potassium Level 3.7 MEQ/L 3.6 MEQ/L Chloride Level 100 MEQ/L 103 MEQ/L Carbon Dioxide Level 21.7 MEQ/L 27.2 MEQ/L Anion Gap 16 MEQ/L 11 MEQ/L Estimat Glomerular Filtration Rate 13 ML/MIN 17 ML/MIN Total Protein 5.6 GM/DL Albumin 1.8 GM/DL Alkaline Phosphatase 193 U/L Aspartate Amino Transf (AST/SGOT) 71 U/L Alanine Aminotransferase (ALT/SGPT) 30 U/L Total Bilirubin 7.8 MG/DL Microbiology Date/Time Source Procedure Growth Status 03/09/17 19:56 Blood Peripheral Aerobic Blood Culture - Preliminary NO GROWTH IN 3 DAYS Resulted 03/09/17 19:56 Blood Peripheral Anaerobic Blood Culture - Final QNS - SEE AEROBE REPORT Resulted 03/09/17 19:55 Blood Peripheral Aerobic Blood Culture - Preliminary NO GROWTH IN 3 DAYS Resulted 03/09/17 19:55 Blood Peripheral Anaerobic Blood Culture - Final QNS - SEE AEROBE REPORT Resulted 03/11/17 13:31 Fluid Synovial Fluid Fungal Smear - Final NO FUNGAL ELEMENTS SEEN. Resulted 03/11/17 13:31 Fluid Synovial Fluid Fungal Culture Pending Resulted 03/11/17 10:06 Fluid Synovial Fluid Gram Stain - Final Resulted 03/11/17 10:06 Fluid Synovial Fluid Body Fluid Culture Pending Resulted 03/11/17 10:06 Fluid Synovial Fluid Acid Fast Stain - Final NO ACID FAST BACILLI SEEN Resulted 03/11/17 10:06 Fluid Synovial Fluid Mycobacterial Culture Pending Resulted 03/11/17 19:45 Wound Knee Fungal Smear - Final NO FUNGAL ELEMENTS SEEN. Resulted 03/11/17 19:45 Wound Knee Fungal Culture Pending Resulted 03/11/17 19:45 Wound Knee Acid Fast Stain - Final NO ACID FAST BACILLI SEEN Resulted 03/11/17 19:45 Wound Knee Mycobacterial Culture Pending Resulted 03/11/17 19:45 Wound Knee Gram Stain - Final Resulted 03/11/17 19:45 Wound Knee Wound Culture Pending Resulted Imaging Last Impressions Liver Ultrasound 03/09/17 0000 Signed Impressions: Service Date/Time: Thursday, March 09, 2017 12:50 - CONCLUSION: 1. No gallstones or biliary tract obstruction. 2. Thickening of the gallbladder wall at 5 mm. This can be seen with chronic gallbladder disease. 3. Increased echogenicity throughout the liver suggestive of fatty infiltration and/or hepatocellular disease. Carl Sands MD Chest X-Ray 03/09/17 0000 Signed Impressions: Service Date/Time: Thursday, March 09, 2017 07:58 - CONCLUSION: Status post interval intubation and placement of a left-sided chest tube. Hypoinflation of the left lung and a deep sulcus sign suggestive of a left-sided pneumothorax are present. Stable right sided central line. Denae Wilson MD ADDENDUM: This report is amended after discussion with the referring physician. There is no left-sided chest tube present. The line overlying the inferior left hemithorax is artifact. There is persistent appearance of a deep sulcus sign concern for possible pneumothorax. Recommend better evaluation with CT to exclude this abnormality. Denae Wilson MD Chest CT 03/09/17 Signed Impressions: Service Date/Time: Thursday, March 09, 2017 12:31 - CONCLUSION: Bibasilar infiltrates with small effusions. Carl Sands MD Shoulder X-Ray 03/08/17 Signed Impressions: Service Date/Time: Wednesday, March 08, 2017 10:47 - CONCLUSION: Within normal limits. Danny Buchanan MD Renal Ultrasound 03/08/17 Signed Impressions: Service Date/Time: Wednesday, March 08, 2017 08:58 - CONCLUSION: 1. Unremarkable bilateral renal ultrasound. 2. Hepatomegaly with a trace of ascites in the upper abdomen. Carl Sands MD Physical Exam GENERAL: Acutely ill-appearing, well-nourished, well-developed patient, in no apparent distress. SKIN: No rashes, ecchymoses or lesions. Cool and dry. HEAD: Atraumatic. Normocephalic. No temporal or scalp tenderness. EYES: Pupils equal round and reactive. Extraocular motions intact. No scleral icterus. No injection or drainage. ENT: Intubated. NECK: Trachea midline. Supple, nontender, no meningeal signs. CARDIOVASCULAR: Regular rate and rhythm without murmurs, gallops, or rubs. RESPIRATORY: Clear to auscultation. Breath sounds equal bilaterally. No wheezes , rales, or rhonchi. GASTROINTESTINAL: Abdomen soft, non-tender, nondistended. MUSCULOSKELETAL: right BKA site with dressing on it. Left knee in post op dressing. Right hand dressing. Left elbow and right elbow with swelling, erythema and significant tenderness. NEUROLOGICAL: Sedated on vent. IV line sites with no evidence of infection. Assessment & Plan Remarks Septic shock with multiorgan dysfunction syndrome Group B strep bacteremia likely source right great toe osteomyelitis/gangrene. Probable endocarditis (ECHO may be negative as patient may have showered emboli : 3 joints with sepsis). Lymphangitis strep related. Bilateral knee septic arthritis. Elbows bilaterally with cellulitis possible septic arthritis. Acute renal failure: prerenal, sepsis. Acute metabolic encephalopathy: sepsis, alcohol related withdrawal. Lactic acidemia: sepsis, ischemia of tissues. Abnormal LFTs: Increased AST but normal ALT: likely alcohol related, sepsis. Acute Elevation in CK: ? Rhabdomyolysis vs acute ischemia and destruction of local tissues. Diabetes Mellitus non compliance with hyperglycemia. Thrombocytopenia: sepsis, Antibiotics. Recs DC Ceftriaxone IV Start Penicillin G (Re: Strep Grp B Endocarditis, multiple joint septic arthritis) Start Cefepime IV (Re:Possible PSAE HCAP) Sputum culture. Check Lactic acid. Type and Screen 2D ECHO negative for endocarditis. Xray Left ankle. X ray left and right elbow. Cardiology for SALMA. [id number] . CT C/A/P with contrast ([facility]) ok to do it right before HD in am D/w HD, CT dept and RN. Follow Blood cultures Follow intra op cultures Follow cultures Follow clinically. Nicol Osuna plan for the day. Ortho notes reviewed. Critical thinking and decision making. Time > 40 mins. Susie De La Cruz MD Mar 12, 2017 15:26
[2017-03-12] MEDS ORDERED: PENICILLIN G SODIUM INJ 4,000,000 UNITS in SODIUM CHLORIDE 0.9% INJ 100 ML IV ONE (16:00)
[2017-03-12] MEDS ORDERED: RESP: ALBUTEROL 2.5 MG/IPRATROPIUM 0.5 MG NEB (SCH) NEB (16:00)
[2017-03-12] MEDS ORDERED: MIDAZOLAM HCL 5 MG/ML VIAL (1 ML) ONE (16:03)
[2017-03-12] MEDS ORDERED: MIDAZOLAM HCL 5 MG/ML VIAL (1 ML) IV ONE (16:30)
--- NOTE | 2017-03-12 16:34 | RADRPT ---
EXAM DATE/TIME: 03/12/2017 15:27 [facility] COMPARISON: No previous studies available for comparison. INDICATIONS : Effusion. MEDICAL HISTORY : Diabetes SURGICAL HISTORY : None. ENCOUNTER: Initial ACUITY: 4 - 6 days PAIN SCORE: Non-responsive. LOCATION: Left ankle FINDINGS: Two view exam was performed of the left ankle. The bony structures are in normal alignment. No evid ence of fracture, dislocation, or soft tissue swelling. No radiopaque foreign bodies are seen. Bony mineralization is normal. Mild vascular calcification is present. CONCLUSION: No acute bony findings Danny Garrett MD on March 12, 2017 at 16:32 Board Certified Radiologist. This report was verified electronically.
--- NOTE | 2017-03-12 16:35 | RADRPT ---
EXAM DATE/TIME: 03/12/2017 15:35 [facility] COMPARISON: No previous studies available for comparison. INDICATIONS : Effusion. MEDICAL HISTORY : None. SURGICAL HISTORY : None. ENCOUNTER: Initial ACUITY: 1 day PAIN SCORE: Non-responsive. LOCATION: Left elbow. FINDINGS: Mineralization alignment are grossly normal. No definite displaced fractures identified. There is mil d diffuse soft tissue swelling. No definite joint effusion. CONCLUSION: No acute bony findings Danny Garrett MD on March 12, 2017 at 16:33 Board Certified Radiologist. This report was verified electronically.
--- NOTE | 2017-03-12 16:39 | RADRPT ---
EXAM DATE/TIME: 03/12/2017 15:42 [facility] COMPARISON: No previous studies available for comparison. INDICATIONS : Effusion MEDICAL HISTORY : Diabetes SURGICAL HISTORY : None. ENCOUNTER: Initial ACUITY: 4 - 6 days PAIN SCORE: Non-responsive. LOCATION: Right elbow FINDINGS: Mineralization and alignment are satisfactory. No definite displaced fractures identified. There is m ild diffuse soft tissue swelling. No evidence of joint effusion. CONCLUSION: No acute bony findings Danny Garrett MD on March 12, 2017 at 16:37 Board Certified Radiologist. This report was verified electronically.
--- NOTE | 2017-03-12 17:20 | ECHRPT ---
Indication: SEPTIC EMBOLI CONCLUSIONS The left ventricular systolic function is normal with an estimated ejection fraction in the range of 55-60%. Trace mitral valve regurgitation. No evidence of vegetation or abscess BP: / HR: Rhythm: Sinus Technical Quality:Excellent Medications Versed, Fentanyl Complications None Proc. Components Patient intubated. Moderate sedation with Versed/Fentanyl for 30 minutes. FINDINGS LEFT VENTRICLE Normal left ventricular size. Wall thickness is normal. The left ventricular systolic function is normal with an estimated ejection fraction in the range of 55-60%. No regional wall motion abnormalities are present. RIGHT VENTRICLE The right ventricular size is normal. LEFT ATRIUM The left atrial size is normal. RIGHT ATRIUM The right atrial size is normal. ATRIAL APPENDAGES Normal left atrial appendage size with no evidence of thrombus formation. The velocities in the left atrial appendage are normal. ATRIAL SEPTUM Normal atrial septal thickness without atrial level shunting by limited color doppler interrogation. No atrial level shunt is observed with agitated saline contrast administration. AORTA The aortic root and proximal ascending aorta are not well visualized. MITRAL VALVE Structurally normal mitral valve. Trace mitral valve regurgitation. No mitral valve stenosis. AORTIC VALVE Trileaflet aortic valve. No aortic valve regurgitation. No aortic valve stenosis. TRICUSPID VALVE Structurally normal tricuspid valve. No tricuspid regurgitation. No tricuspid valve stenosis. VESSELS The pulmonary valve is not well visualized. Trivial pulmonary valve regurgitation. PERICADIUM No pericardial effusion. Cristobal Ruiz DO (Electronically Signed) Final Date:12 March 2017 17:19
[2017-03-12] MEDS: CEFEPIME INJ 1,000 MG in SODIUM CHLORIDE 0.9% INJ 100 ML IV SCH (17:39)
[2017-03-12] MEDS: PENICILLIN G SODIUM INJ 2,000,000 UNITS in SODIUM CHLORIDE 0.9% INJ 100 ML IV SCH (19:43)
--- NOTE | 2017-03-12 21:10 | MB ---
cc: CRISTOBAL MAST DO DATE OF CONSULTATION 03/12/2017 REASON FOR CONSULTATION Septic shock, bacteremia, septic emboli. HISTORY OF PRESENT ILLNESS Isra Bob is a 51-year-old male who presented to [facility] on March 07, 2017 due to altered mental status. The patient is currently intubated and I am unable to get a history from him so history is taken from the chart. Supposedly the patient has only drank alcohol over the past 7 days before being admitted. He has not been checking his glucose levels and was found to have a right foot ulcer with most likely sepsis due to this. Since being admitted he has had bacteremia with group B strep on March 07 and March 08 blood cultures. I was asked to see him due to his septic shock with multiorgan dysfunction as well as concern for multiple joint infections possibly due to septic emboli from endocarditis. In seeing him he is currently intubated. Since admission and he has undergone a right BKA due to his diabetic wound causing infection. He also underwent a left knee arthrotomy with irrigation. PAST MEDICAL HISTORY Diabetes with noncompliance with medications and checking his blood sugars. PAST SURGICAL HISTORY 1. Right BKA (March 08, 2017) 2. Left knee arthrotomy (March 11, 2017). ALLERGIES NO KNOWN DRUG ALLERGIES. MEDICATIONS None reported. FAMILY HISTORY Unknown. SOCIAL HISTORY Per the girlfriend he drinks heavily. It appears that he also smokes tobacco but an unknown amount. No history of IV drug abuse. REVIEW OF SYSTEMS Unable to obtain secondary to the patient being intubated and sedated. PHYSICAL EXAMINATION VITAL SIGNS: Temperature 98.2, heart rate 87, blood pressure 97/60, respirations 16, pulse ox 99% on the vent at 30% FIO2. GENERAL: The patient is currently sedated in no acute distress but overall chronically ill appearing. HEENT: Pupils are equal, round and reactive. Endotracheal tube is in place. NECK: Supple. No JVD at 45 degrees. No carotid bruits heard bilaterally. Carotid upstroke is brisk in nature. CARDIOVASCULAR: Heart is regular rate and rhythm. Positive first and second heart sounds with a 1/6 holosystolic murmur noted at the apex. LUNGS: The lungs have decreased breath sounds at bilateral bases but no overt wheezes, rales or rhonchi. ABDOMEN: Soft, nontender, nondistended, no organomegaly noted. EXTREMITIES: Right lower extremity with BKA and dressing intact. Left knee in postop dressing. Right hand in dressing. Left double and right elbow with swelling, erythema and significant tenderness. NEUROLOGIC: Sedated on the vent. LABORATORY FINDINGS White blood cells 29.1, hemoglobin 9, hematocrit 26.9, platelets 68. INR 1.3. Potassium 3.6, BUN 59, creatinine 3.86. UDS positive for cocaine and cannabis. IMPRESSION 1. Possible septic emboli with a concern for endocarditis. 2. Bacteremia with gram-positive cocci group B strep. 3. Acute respiratory failure currently intubated and sedated. 4. Acute metabolic encephalopathy. 5. Diabetic foot ulcer on the right leg status post right BKA (March 08, 2017). 6. Septic arthritis of the left knee status post arthrotomy. 7. Diabetes mellitus with noncompliance. 8. Leukocytosis. 9. Anemia. 10. Thrombocytopenia most likely secondary to sepsis. 11. Acute kidney injury. 12. UDS positive for cocaine and cannabis. 13. Tobacco abuse. RECOMMENDATIONS 1. Mr. Bob is obviously extremely sick at this time. I was asked from infectious disease to consider SALMA as there is a concern for septic emboli. 2. I discussed this with both his brother (Stevie) who asked me to discuss it with Anish (who I believe is Isra's uncle who was in orthopedic surgeon in [facility]). After discussing with Anish I spoke with Stevie who consented to the procedure. 3. He understands the risks, benefits and alternatives specifically his risk of bleeding as he is thrombocytopenic. 4. Overall I believe that the procedure should be done as it will change our management extensively if he was found to have a large abscess versus no endocarditis. 5. Further management of antibiotics per infectious disease. 6. Further recommendations after transesophageal echocardiogram. 7. Greater than 45 minutes spent critical care time with the patient, decisions and discussion with the family about the procedure. Thank you for allowing me to see Isra Bob. If there are any questions please do not hesitate to call. Cristobal Mast DO VGP/KK /3:58 PM /8:50 PM
[2017-03-13] VITALS (45 sets, daily range): BP systolic 75–110; BP diastolic 50–63; PULSE 87–99; RESP 14–35; TEMP 98.9–100.2; O2SAT 94–100
[2017-03-13] MEDS: PENICILLIN G SODIUM INJ 2,000,000 UNITS in SODIUM CHLORIDE 0.9% INJ 100 ML IV SCH ×6 (00:02→21:14)
[2017-03-13] MEDS: fentaNYL DRIP 250 ML IV PRN ×2 (01:56→15:07)
[2017-03-13] MEDS: NOREPINEPHRINE 4 MG/D5W 250 ML IV PRN ×2 (01:56→10:05)
[2017-03-13] MEDS: RESP: ALBUTEROL 2.5 MG/IPRATROPIUM 0.5 MG NEB (SCH) NEB ×4 (03:35→20:50)
[2017-03-13] MEDS: CHLORHEXIDINE GLUCONATE 2 % 1 PACK (2 CLOTHS) TOP SCH (04:00)
[2017-03-13 04:02] LABS: AUTOMATED NEUTROPHIL # 28.1 TH/MM3 (1.8-7.7); BASOPHIL # 0.3 TH/MM3 (0-0.2); BASOPHIL % 0.8 % (0.0-2.0); EOSINOPHIL # 0.2 TH/MM3 (0-0.4); EOSINOPHIL % 0.7 % (0.0-4.0); HEMO FLAGS AUTO DIFF; LYMPH % 8.6 % (9.0-44.0); LYMPHOCYTE # 2.8 TH/MM3 (1.0-4.8); MEAN CELL VOLUME 92.8 FL (80.0-100.0); MEAN CORPUSCULAR HEMOGLOBIN 29.9 PG (27.0-34.0); MEAN CORPUSCULAR HGB CONC 32.3 % (32.0-36.0); MONO % 2.4 % (0.0-8.0); NEUT % 87.5 % (16.0-70.0); PLATELET COUNT 100 TH/MM3 (150-450); RED BLOOD COUNT 3.02 MIL/MM3 (4.50-5.90); RED CELL DISTRIBUTION WIDTH 15.5 % (11.6-17.2); WHITE BLOOD COUNT 32.1 TH/MM3 (4.0-11.0)
[2017-03-13] MEDS: INSULIN ASPART SUPPLEMENTAL SCALE SQ SCH ×4 (04:07→21:35)
[2017-03-13 04:40] LABS: ALKALINE PHOSPHATASE 265 U/L (45-117); ALT (GPT) 27 U/L (12-78); ANION GAP 13 MEQ/L (5-15); AST (GOT) 71 U/L (15-37); BICARBONATE 24.6 MEQ/L (21.0-32.0); BLOOD UREA NITROGEN 71 MG/DL (7-18); CHLORIDE 102 MEQ/L (98-107); GLOMERULAR FILTRATION RATE 13 ML/MIN (>89); MAGNESIUM 2.3 MG/DL (1.5-2.5); POTASSIUM 3.5 MEQ/L (3.5-5.1); SODIUM (NA) 140 MEQ/L (136-145); TOTAL BILIRUBIN ADULT 8.2 MG/DL (0.2-1.0)
[2017-03-13 05:37] LABS: BANDS 6 % (0-6); BASOPHILS 1 % (0-2); CORRECTED NUCLEATED RBC 1 /100 WBC (0-0); EOSINOPHILS 1 % (0-4); MYELOCYTES 1 % (0-0); NEUTROPHIL # MANUAL DIFF 27.9 TH/MM3 (1.8-7.7); PLATELET ESTIMATE SMEAR LOW (NORMAL); PLATELET MORPHOLOGY NORMAL (NORMAL); POLYS (SEG NEUTROPHILS) 79 % (16-70); PROMYELOCYTES 1 % (0-0); SCAN/DIFF FINAL DIFF MANUAL; WBC DIFF SAMPLE 100
[2017-03-13 05:38] LABS: DOHLE BODIES PRESENT (NONE SEEN); TOXIC GRANULATION 1+ (NORMAL)
[2017-03-13] MEDS: HEPARIN SODIUM - SQ 10,000 UNITS/ML VIAL SQ SCH ×2 (06:20→18:49)
[2017-03-13] MEDS ORDERED: DIATRIZOATE MEGLUM/DIATRIZOATE SOD 9 ML CUP PO ONE (07:45)
[2017-03-13] MEDS: THIAMINE HCL 100 MG TAB PO SCH (08:48)
[2017-03-13] MEDS: FOLIC ACID 1 MG TAB PO SCH (08:48)
[2017-03-13] MEDS: LACTULOSE SYRUP 20 GM/30 ML CUP PO SCH ×4 (08:48→21:15)
[2017-03-13] MEDS: PANTOPRAZOLE SODIUM 40 MG VIAL IV SCH (08:49)
[2017-03-13] MEDS: SODIUM CHLORIDE 0.9% FLUSH 10 ML FLUSH IV FLUSH SCH ×2 (08:49→21:14)
[2017-03-13] MEDS: DOCUSATE SODIUM 100 MG/10 ML UDC PO SCH ×2 (08:51→21:00)
[2017-03-13] MEDS: SENNOSIDES SYRUP 8.8 MG/5 ML CUP PO SCH (08:51)
[2017-03-13] MEDS: POVIDONE IODINE 10% OINT 30 GM TUBE TOPICAL SCH (08:52)
--- NOTE | 2017-03-13 10:25 | PD.ORT.PN ---
Subjective Post Op Day #: 5 Subjective Remarks Patient is intubated and sedated and not arousable. RN to reports no acute overnight events overnight. I was present for dressing change. RN reports abdominal CT today Objective Vitals Vital Signs Date Time Temp Pulse Resp B/P (MAP) Pulse Ox O2 Delivery O2 Flow Rate FiO2 03/13/17 08:18 98 30 03/13/17 08:18 98 Ventilator 40 03/13/17 07:34 91 107/59 03/13/17 07:00 90 17 108/61 (77) 97 03/13/17 06:45 92 22 106/59 (75) 96 03/13/17 06:30 93 16 105/57 (73) 96 03/13/17 06:15 93 16 105/61 (76) 95 03/13/17 06:00 93 19 99/56 (70) 97 03/13/17 06:00 93 03/13/17 05:45 88 22 102/60 (74) 98 03/13/17 05:30 90 21 99/56 (70) 98 03/13/17 05:15 92 22 98/55 (69) 98 03/13/17 05:00 93 16 101/56 (71) 98 03/13/17 04:45 95 16 101/57 (72) 99 03/13/17 04:30 96 17 104/55 (71) 98 03/13/17 04:30 98 30 03/13/17 04:15 97 16 108/63 (78) 98 03/13/17 04:00 30 03/13/17 04:00 98 03/13/17 04:00 98 21 110/60 (77) 99 03/13/17 04:00 98 21 110/60 (77) 99 03/13/17 04:00 99.4 98 20 110/60 (77) 99 03/13/17 03:45 98 21 92/53 (66) 98 03/13/17 03:36 98 30 03/13/17 03:30 99 23 96/54 (68) 99 03/13/17 03:15 98 17 92/51 (65) 98 03/13/17 03:04 96 18 103/59 (74) 96 03/13/17 03:00 97 27 75/53 (60) 94 03/13/17 02:45 96 17 90/60 (70) 98 03/13/17 02:30 96 20 105/59 (74) 97 03/13/17 02:15 96 17 99/56 (70) 98 03/13/17 02:00 96 03/13/17 02:00 96 16 96/55 (69) 98 03/13/17 01:56 96 97/55 03/13/17 01:45 96 16 97/55 (69) 98 03/13/17 01:30 93 16 96/54 (68) 98 03/13/17 01:15 94 19 93/55 (68) 98 03/13/17 01:00 93 20 94/53 (67) 98 03/13/17 00:45 92 21 92/51 (65) 98 03/13/17 00:30 91 19 97/54 (68) 100 03/13/17 00:23 99 30 03/13/17 00:15 93 16 94/50 (65) 98 03/13/17 00:00 94 16 94/51 (65) 98 03/13/17 00:00 94 03/13/17 00:00 30 03/13/17 00:00 98.9 94 16 94/51 (65) 98 03/13/17 00:00 94 16 94/51 (65) 98 03/12/17 23:45 95 16 91/50 (64) 99 03/12/17 23:30 95 16 92/54 (67) 99 03/12/17 23:15 93 21 93/55 (68) 99 03/12/17 23:00 91 23 91/55 (67) 99 03/12/17 22:45 89 25 92/54 (67) 99 03/12/17 22:30 89 23 88/51 (63) 99 03/12/17 22:15 84 22 85/52 (63) 99 03/12/17 22:00 83 17 91/50 (64) 100 03/12/17 22:00 83 03/12/17 21:58 100 30 03/12/17 21:45 84 17 87/54 (65) 99 03/12/17 21:30 83 16 87/50 (62) 99 03/12/17 21:15 83 16 87/54 (65) 99 03/12/17 21:00 84 17 90/50 (63) 99 03/12/17 20:45 84 16 92/50 (64) 99 03/12/17 20:30 83 16 91/54 (66) 99 03/12/17 20:18 98 30 03/12/17 20:15 81 16 93/53 (66) 98 03/12/17 20:00 82 24 94/53 (67) 99 03/12/17 20:00 100.1 82 18 94/53 (67) 99 03/12/17 20:00 30 03/12/17 20:00 82 03/12/17 18:00 88 03/12/17 17:02 97 30 03/12/17 16:15 40 03/12/17 16:00 101 03/12/17 16:00 99.2 101 16 133/81 (98) 98 03/12/17 16:00 30 03/12/17 14:00 87 03/12/17 12:30 30 03/12/17 12:00 87 03/12/17 12:00 40 03/12/17 12:00 98.2 87 16 97/59 (72) 99 03/12/17 11:25 96 30 I/O 03/12/17 03/12/17 03/12/17 03/13/17 03/13/17 03/13/17 07:00 15:00 23:00 07:00 15:00 23:00 Intake Total 256 ml 100 ml 260 ml 538 ml Output Total 415 ml 825 ml 145 ml Balance -159 ml 100 ml -565 ml 393 ml IV Total 100 ml 200 ml Tube Feeding 166 ml 418 ml Other 90 ml 60 ml 120 ml Output Urine Total 200 ml 225 ml 75 ml Stool Total 200 ml 600 ml 60 ml Drainage Total 15 ml 10 ml Result Diagram: 03/13/17 0320 03/13/17 0320 Imaging Last 48 hours Impressions Elbow X-Ray 03/12/17 0000 Signed Impressions: Service Date/Time: Sunday, March 12, 2017 15:42 - CONCLUSION: No acute bony findings Danny Garrett MD Elbow X-Ray 03/12/17 0000 Signed Impressions: Service Date/Time: Sunday, March 12, 2017 15:35 - CONCLUSION: No acute bony findings Danny Garrett MD Chest X-Ray 03/12/17 0000 Signed Impressions: Service Date/Time: Sunday, March 12, 2017 14:03 - CONCLUSION: Support apparatus in good position. Interval improvement. Darinel Graves MD FACR Ankle X-Ray 03/12/17 0000 Signed Impressions: Service Date/Time: Friday, March 12, 2017 15:27 - CONCLUSION: No acute bony findings Danny Garrett MD Procedures 1. Right below-knee amputation 03/08/2017 2. Arthrotomy with irrigation and debridement right knee 03/08/2017 3. Left knee arthrotomy with irrigation debridement 03/11/2017 Objective Remarks RLE: BKA stable,skin is warm over thigh, small petechia present over thigh, good capillary refill present over thigh, no specific areas of mottling at this time. No specific swelling noted. Dressings removed for exam. Purplish hue has grown in size over skin noted on lateral portion proximal to incision line, most likely necrotic tissue. Skin sloughing is noted on lateral aspect proximal to incision, yellow exudate noted in middle of sloughed skin. Skin is cool to touch near skin sloughing and lateral portion. Knee itself does not have an effusion. Full range of motion of knee is appreciated with passive movement. Neuro exam unobtainable LLE: dressings is are clean and dry, not removed for examination, soft, good cap refill noted distally, moderate swelling noted distally, skin blanches, neuro exam is unobtainable. Slight erythema noted on plantar aspect of foot. RN has marked area with pen. RUE: elbow is moderately swollen, pink area approximately 5cm in size at olecranon, pt grimaces with movement, not warm to touch, good cap refill distally. All extremities appear to be moderately edematous due to patients condition. Assessment & Plan Ortho Post Op Day #: 5 Problem List: (1) Septic shock ICD Codes: A41.9 - Sepsis, unspecified organism; R65.21 - Severe sepsis with septic shock Status: Acute (2) Ischemic necrosis of foot ICD Codes: I96 - Gangrene, not elsewhere classified Status: Acute (3) Diabetic infection of right foot ICD Codes: E11.69 - Type 2 diabetes mellitus with other specified complication ; L08.9 - Local infection of the skin and subcutaneous tissue, unspecified Status: Acute (4) Septic arthritis of knee, left ICD Codes: M00.9 - Pyogenic arthritis, unspecified Status: Acute (5) Septic arthritis of knee, right ICD Codes: M00.9 - Pyogenic arthritis, unspecified Status: Acute Assessment and Plan POD #5 Right below-knee amputation POD #5. Arthrotomy with irrigation and debridement right knee POD #2 Left knee arthrotomy with irrigation debridement Changes noted in right BKA and right elbow exam. Will be discussed in detail with attending. Possible need for right AKA in near future. Would consider a LP and/or MRI of thoracic/lumbar spine to rule out possible spinal abscess per fare enforcement officer/ID team. X-rays reviewed. Nonweightbearing right lower extremity. Keep splint on at this time Daily dressing changes per orders. I was present for dressing change today, orthotech was consulted for resplinting. Right calf posterior compartment showed group B strep - ID following Previous right foot wound culture revealed group B strep - ID following Will progress rehab when patient is extubated and more arousable Discharge planning Hand surgeon has seen R hand. RN concerned for changes in L hand - hand surgeon to see. Ortho following closely. Zoë Iniguez Mar 13, 2017 10:25
--- NOTE | 2017-03-13 10:26 | HHI.NPPN ---
Subjective History of Present Illness 51 year old male with diabetes, Right foot gangrene Additional Remarks has septic shock, s/p amputation R BKA, Rt septic knee Objective Data Data Vital Signs Date Time Temp Pulse Resp B/P (MAP) Pulse Ox O2 Delivery O2 Flow Rate FiO2 03/13/17 10:05 90 95/54 03/13/17 08:18 98 30 03/13/17 08:18 98 Ventilator 40 03/13/17 07:34 91 107/59 03/13/17 07:00 90 17 108/61 (77) 97 03/13/17 06:45 92 22 106/59 (75) 96 03/13/17 06:30 93 16 105/57 (73) 96 03/13/17 06:15 93 16 105/61 (76) 95 03/13/17 06:00 93 19 99/56 (70) 97 03/13/17 06:00 93 03/13/17 05:45 88 22 102/60 (74) 98 03/13/17 05:30 90 21 99/56 (70) 98 03/13/17 05:15 92 22 98/55 (69) 98 03/13/17 05:00 93 16 101/56 (71) 98 03/13/17 04:45 95 16 101/57 (72) 99 03/13/17 04:30 96 17 104/55 (71) 98 03/13/17 04:30 98 30 03/13/17 04:15 97 16 108/63 (78) 98 03/13/17 04:00 30 03/13/17 04:00 98 03/13/17 04:00 98 21 110/60 (77) 99 03/13/17 04:00 98 21 110/60 (77) 99 03/13/17 04:00 99.4 98 20 110/60 (77) 99 03/13/17 03:45 98 21 92/53 (66) 98 03/13/17 03:36 98 30 03/13/17 03:30 99 23 96/54 (68) 99 03/13/17 03:15 98 17 92/51 (65) 98 03/13/17 03:04 96 18 103/59 (74) 96 03/13/17 03:00 97 27 75/53 (60) 94 03/13/17 02:45 96 17 90/60 (70) 98 03/13/17 02:30 96 20 105/59 (74) 97 03/13/17 02:15 96 17 99/56 (70) 98 03/13/17 02:00 96 03/13/17 02:00 96 16 96/55 (69) 98 03/13/17 01:56 96 97/55 03/13/17 01:45 96 16 97/55 (69) 98 03/13/17 01:30 93 16 96/54 (68) 98 03/13/17 01:15 94 19 93/55 (68) 98 03/13/17 01:00 93 20 94/53 (67) 98 03/13/17 00:45 92 21 92/51 (65) 98 03/13/17 00:30 91 19 97/54 (68) 100 03/13/17 00:23 99 30 03/13/17 00:15 93 16 94/50 (65) 98 03/13/17 00:00 94 16 94/51 (65) 98 03/13/17 00:00 94 03/13/17 00:00 30 03/13/17 00:00 98.9 94 16 94/51 (65) 98 03/13/17 00:00 94 16 94/51 (65) 98 03/12/17 23:45 95 16 91/50 (64) 99 03/12/17 23:30 95 16 92/54 (67) 99 03/12/17 23:15 93 21 93/55 (68) 99 03/12/17 23:00 91 23 91/55 (67) 99 03/12/17 22:45 89 25 92/54 (67) 99 03/12/17 22:30 89 23 88/51 (63) 99 03/12/17 22:15 84 22 85/52 (63) 99 03/12/17 22:00 83 17 91/50 (64) 100 03/12/17 22:00 83 03/12/17 21:58 100 30 03/12/17 21:45 84 17 87/54 (65) 99 03/12/17 21:30 83 16 87/50 (62) 99 03/12/17 21:15 83 16 87/54 (65) 99 03/12/17 21:00 84 17 90/50 (63) 99 03/12/17 20:45 84 16 92/50 (64) 99 03/12/17 20:30 83 16 91/54 (66) 99 03/12/17 20:18 98 30 03/12/17 20:15 81 16 93/53 (66) 98 03/12/17 20:00 82 24 94/53 (67) 99 03/12/17 20:00 100.1 82 18 94/53 (67) 99 03/12/17 20:00 30 03/12/17 20:00 82 03/12/17 18:00 88 03/12/17 17:02 97 30 03/12/17 16:15 40 03/12/17 16:00 101 03/12/17 16:00 99.2 101 16 133/81 (98) 98 03/12/17 16:00 30 03/12/17 14:00 87 03/12/17 12:30 30 03/12/17 12:00 87 03/12/17 12:00 40 03/12/17 12:00 98.2 87 16 97/59 (72) 99 03/12/17 11:25 96 30 -: 03/13/17 0320 03/13/17 0320 Microbiology 03/12/17 Gram Stain - Final, Resulted 03/12/17 Sputum Culture, Resulted Pending Physical Exam General Appearance: Well Developed Neck Neck Exam: Neck Supple Pulmonary Resp Exam: Clear Bilaterally, Breath Sounds Equal Cardiology CV Exam: Tachycardia Gastrointestinal/Abdomen GI Exam: Soft, Bowel Sounds Present Integumentary Skin Exam: Lesion(s) Skin Remarks left hand Extremeties Extremities Exam: Moderate Edema, Pitting Edema Assessment/Plan Problem List: (1) Acute renal failure ICD Codes: N17.9 - Acute kidney failure, unspecified Status: Acute Plan: ATN from sepsis intubated s/p Rt BKA on vasopressor poor UOP on hemodialysis R BKA more limbs appears infected with sepsis, Left hand necrotic next HD today (2) Sepsis ICD Codes: A41.9 - Sepsis, unspecified organism Plan: Beta strep infection (3) Diabetic infection of right foot ICD Codes: E11.69 - Type 2 diabetes mellitus with other specified complication ; L08.9 - Local infection of the skin and subcutaneous tissue, unspecified Status: Acute Plan: On IV antibiotics Ceftriaxone (4) Ischemic necrosis of foot ICD Codes: I96 - Gangrene, not elsewhere classified Status: Acute Plan: post amputation, BKA Problem Qualifiers (1) Acute renal failure: Qualified Codes: N17.9 - Acute kidney failure, unspecified Freddy Feliciano MD Mar 13, 2017 10:26
--- NOTE | 2017-03-13 11:45 | HHI.IDPN ---
Subjective Subjective Remarks is a 51 y/o CM , who appears delirious, and was admitted overnight with septic shock, right great toe wound with gangrene possible osteomyelitis and untreated diabetes. Patient's cough and reports that approximately a week prior to admission patient had an episode of acute gastroenteritis and so did she. She thinks patient hasn't eaten in almost a week. He does consume heavy alcohol and this is the only fluid that he's been consuming in the last 7 days. She reports that patient stopped his right great toe on the superior aspect but did not see any ED, PCP or urgent care for this. No history of consumption of any antibiotics prior to admission. She reports that he is a known diabetic but is not compliant with his medications. Patient was noted to have sepsis on admission with low blood pressure and needing to be placed on pressors septic shock. He was noted to have an elevated lactic acid of 11.8 as well as in acute renal failure. His urine output is low and nephrology has been consulted. Vascular surgery as well as orthopedic surgeons have seen this patient and patient's girlfriend informs me that the surgeons have told him that patient needs a 2 staged amputation beginning with below knee amputation. At the time of my evaluation patient is in the [facility] on levophed 4 mics, has undergone fluid resuscitation, has decreased urine output, as well as decreased mentation. There is a plan for placement of a central line later today. Overnight events reviewed. Right knee in post op dressing. RN reports Right elbow swelling again today. Elbow Xrays negative. Also L ankle and foot with significant erythema. HD planned for after Contrast CTs S/p BKA on Right side. Low grade fevers 99.8 No rash No diarrhea On Levophed 6 mics. Antibiotics Ceftriaxone IV Lines Line sites with no e.o infection Past Medical History reviewed Allergies: Coded Allergies: No Known Allergies (Unverified , 03/07/17) Objective . Vital Signs Date Time Temp Pulse Resp B/P (MAP) Pulse Ox O2 Delivery O2 Flow Rate FiO2 03/13/17 10:05 90 95/54 03/13/17 10:00 90 03/13/17 08:18 98 30 03/13/17 08:18 98 Ventilator 40 03/13/17 08:00 99.6 87 21 104/56 (72) 97 03/13/17 08:00 87 03/13/17 08:00 30 03/13/17 07:34 91 107/59 03/13/17 07:00 90 17 108/61 (77) 97 03/13/17 06:45 92 22 106/59 (75) 96 03/13/17 06:30 93 16 105/57 (73) 96 03/13/17 06:15 93 16 105/61 (76) 95 03/13/17 06:00 93 19 99/56 (70) 97 03/13/17 06:00 93 03/13/17 05:45 88 22 102/60 (74) 98 03/13/17 05:30 90 21 99/56 (70) 98 03/13/17 05:15 92 22 98/55 (69) 98 03/13/17 05:00 93 16 101/56 (71) 98 03/13/17 04:45 95 16 101/57 (72) 99 03/13/17 04:30 96 17 104/55 (71) 98 03/13/17 04:30 98 30 03/13/17 04:15 97 16 108/63 (78) 98 03/13/17 04:00 30 03/13/17 04:00 98 03/13/17 04:00 98 21 110/60 (77) 99 03/13/17 04:00 98 21 110/60 (77) 99 03/13/17 04:00 99.4 98 20 110/60 (77) 99 03/13/17 03:45 98 21 92/53 (66) 98 03/13/17 03:36 98 30 03/13/17 03:30 99 23 96/54 (68) 99 03/13/17 03:15 98 17 92/51 (65) 98 03/13/17 03:04 96 18 103/59 (74) 96 03/13/17 03:00 97 27 75/53 (60) 94 03/13/17 02:45 96 17 90/60 (70) 98 03/13/17 02:30 96 20 105/59 (74) 97 03/13/17 02:15 96 17 99/56 (70) 98 03/13/17 02:00 96 03/13/17 02:00 96 16 96/55 (69) 98 03/13/17 01:56 96 97/55 03/13/17 01:45 96 16 97/55 (69) 98 03/13/17 01:30 93 16 96/54 (68) 98 03/13/17 01:15 94 19 93/55 (68) 98 03/13/17 01:00 93 20 94/53 (67) 98 03/13/17 00:45 92 21 92/51 (65) 98 03/13/17 00:30 91 19 97/54 (68) 100 03/13/17 00:23 99 30 03/13/17 00:15 93 16 94/50 (65) 98 03/13/17 00:00 94 16 94/51 (65) 98 03/13/17 00:00 94 03/13/17 00:00 30 03/13/17 00:00 98.9 94 16 94/51 (65) 98 03/13/17 00:00 94 16 94/51 (65) 98 03/12/17 23:45 95 16 91/50 (64) 99 03/12/17 23:30 95 16 92/54 (67) 99 03/12/17 23:15 93 21 93/55 (68) 99 03/12/17 23:00 91 23 91/55 (67) 99 03/12/17 22:45 89 25 92/54 (67) 99 03/12/17 22:30 89 23 88/51 (63) 99 03/12/17 22:15 84 22 85/52 (63) 99 03/12/17 22:00 83 17 91/50 (64) 100 03/12/17 22:00 83 03/12/17 21:58 100 30 03/12/17 21:45 84 17 87/54 (65) 99 03/12/17 21:30 83 16 87/50 (62) 99 03/12/17 21:15 83 16 87/54 (65) 99 03/12/17 21:00 84 17 90/50 (63) 99 03/12/17 20:45 84 16 92/50 (64) 99 03/12/17 20:30 83 16 91/54 (66) 99 03/12/17 20:18 98 30 03/12/17 20:15 81 16 93/53 (66) 98 03/12/17 20:00 82 24 94/53 (67) 99 03/12/17 20:00 100.1 82 18 94/53 (67) 99 03/12/17 20:00 30 03/12/17 20:00 82 03/12/17 18:00 88 03/12/17 17:02 97 30 03/12/17 16:15 40 03/12/17 16:00 101 03/12/17 16:00 99.2 101 16 133/81 (98) 98 03/12/17 16:00 30 03/12/17 14:00 87 03/12/17 12:30 30 03/12/17 12:00 87 03/12/17 12:00 40 03/12/17 12:00 98.2 87 16 97/59 (72) 99 . Laboratory Tests Test 03/12/17 04:10 03/13/17 03:20 White Blood Count 29.1 TH/MM3 32.1 TH/MM3 Red Blood Count 2.95 MIL/MM3 3.02 MIL/MM3 Hemoglobin 9.0 GM/DL 9.0 GM/DL Hematocrit 26.9 % 28.0 % Mean Corpuscular Volume 91.2 FL 92.8 FL Mean Corpuscular Hemoglobin 30.5 PG 29.9 PG Mean Corpuscular Hemoglobin Concent 33.5 % 32.3 % Red Cell Distribution Width 15.0 % 15.5 % Platelet Count 68 TH/MM3 100 TH/MM3 Mean Platelet Volume 9.9 FL 10.0 FL Neutrophils (%) (Auto) 89.2 % 87.5 % Lymphocytes (%) (Auto) 7.1 % 8.6 % Monocytes (%) (Auto) 2.6 % 2.4 % Eosinophils (%) (Auto) 0.8 % 0.7 % Basophils (%) (Auto) 0.3 % 0.8 % Neutrophils # (Auto) 26.0 TH/MM3 28.1 TH/MM3 Lymphocytes # (Auto) 2.1 TH/MM3 2.8 TH/MM3 Monocytes # (Auto) 0.8 TH/MM3 0.8 TH/MM3 Eosinophils # (Auto) 0.2 TH/MM3 0.2 TH/MM3 Basophils # (Auto) 0.1 TH/MM3 0.3 TH/MM3 CBC Comment AUTO DIFF AUTO DIFF Differential Total Cells Counted 100 100 Neutrophils % (Manual) 85 % 79 % Band Neutrophils % 1 % 6 % Lymphocytes % 8 % 10 % Monocytes % 2 % 1 % Eosinophils % 2 % 1 % Neutrophils # (Manual) 25.6 TH/MM3 27.9 TH/MM3 Metamyelocytes 1 % Myelocytes 1 % 1 % Differential Comment FINAL DIFF MANUAL FINAL DIFF MANUAL Platelet Estimate LOW LOW Platelet Morphology Comment NORMAL NORMAL Target Cells 1+ Basophils % 1 % Promyelocytes 1 % Nucleated Red Blood Cells 1 /100 WBC Toxic Granulation 1+ Dohle Bodies PRESENT Red Cell Morphology Comment NORMAL Laboratory Tests Test 03/12/17 04:10 03/12/17 15:45 03/13/17 03:20 Blood Urea Nitrogen 59 MG/DL 71 MG/DL Creatinine 3.86 MG/DL 4.66 MG/DL Random Glucose 145 MG/DL 164 MG/DL Total Protein 5.6 GM/DL 5.9 GM/DL Albumin 1.8 GM/DL 1.5 GM/DL Calcium Level 7.7 MG/DL 7.9 MG/DL Alkaline Phosphatase 193 U/L 265 U/L Aspartate Amino Transf (AST/SGOT) 71 U/L 71 U/L Alanine Aminotransferase (ALT/SGPT) 30 U/L 27 U/L Total Bilirubin 7.8 MG/DL 8.2 MG/DL Sodium Level 141 MEQ/L 140 MEQ/L Potassium Level 3.6 MEQ/L 3.5 MEQ/L Chloride Level 103 MEQ/L 102 MEQ/L Carbon Dioxide Level 27.2 MEQ/L 24.6 MEQ/L Anion Gap 11 MEQ/L 13 MEQ/L Estimat Glomerular Filtration Rate 17 ML/MIN 13 ML/MIN Lactic Acid Level 2.0 mmol/L Magnesium Level 2.3 MG/DL Microbiology Date/Time Source Procedure Growth Status 03/11/17 13:31 Fluid Synovial Fluid Fungal Smear - Final NO FUNGAL ELEMENTS SEEN. Resulted 03/11/17 13:31 Fluid Synovial Fluid Fungal Culture Pending Resulted 03/11/17 10:06 Fluid Synovial Fluid Gram Stain - Final Resulted 03/11/17 10:06 Fluid Synovial Fluid Body Fluid Culture - Preliminary NO GROWTH IN 48 HOURS. Resulted 03/11/17 10:06 Fluid Synovial Fluid Acid Fast Stain - Final NO ACID FAST BACILLI SEEN Resulted 03/11/17 10:06 Fluid Synovial Fluid Mycobacterial Culture Pending Resulted 03/12/17 15:45 Sputum Endotracheal Gram Stain - Final Resulted 03/12/17 15:45 Sputum Endotracheal Sputum Culture Pending Resulted 03/11/17 19:45 Wound Knee Fungal Smear - Final NO FUNGAL ELEMENTS SEEN. Resulted 03/11/17 19:45 Wound Knee Fungal Culture Pending Resulted 03/11/17 19:45 Wound Knee Acid Fast Stain - Final NO ACID FAST BACILLI SEEN Resulted 03/11/17 19:45 Wound Knee Mycobacterial Culture Pending Resulted 03/11/17 19:45 Wound Knee Gram Stain - Final Resulted 03/11/17 19:45 Wound Knee Wound Culture - Preliminary NO GROWTH IN 48 HOURS. Resulted Imaging Last Impressions Liver Ultrasound 03/09/17 Signed Impressions: Service Date/Time: Thursday, March 09, 2017 12:50 - CONCLUSION: 1. No gallstones or biliary tract obstruction. 2. Thickening of the gallbladder wall at 5 mm. This can be seen with chronic gallbladder disease. 3. Increased echogenicity throughout the liver suggestive of fatty infiltration and/or hepatocellular disease. Carl Sands MD Chest X-Ray 03/09/17 Signed Impressions: Service Date/Time: Thursday, March 09, 2017 07:58 - CONCLUSION: Status post interval intubation and placement of a left-sided chest tube. Hypoinflation of the left lung and a deep sulcus sign suggestive of a left-sided pneumothorax are present. Stable right sided central line. Denae Wilson MD ADDENDUM: This report is amended after discussion with the referring physician. There is no left-sided chest tube present. The line overlying the inferior left hemithorax is artifact. There is persistent appearance of a deep sulcus sign concern for possible pneumothorax. Recommend better evaluation with CT to exclude this abnormality. Denae Wilson MD Chest CT 03/09/17 Signed Impressions: Service Date/Time: Thursday, March 09, 2017 12:31 - CONCLUSION: Bibasilar infiltrates with small effusions. Carl Sands MD Shoulder X-Ray 03/08/17 Signed Impressions: Service Date/Time: Wednesday, March 08, 2017 10:47 - CONCLUSION: Within normal limits. Danny Buchanan MD Renal Ultrasound 03/08/17 Signed Impressions: Service Date/Time: Wednesday, March 08, 2017 08:58 - CONCLUSION: 1. Unremarkable bilateral renal ultrasound. 2. Hepatomegaly with a trace of ascites in the upper abdomen. Carl Sands MD Physical Exam GENERAL: Acutely ill-appearing, well-nourished, well-developed patient, in no apparent distress. SKIN: No rashes, ecchymoses or lesions. Cool and dry. HEAD: Atraumatic. Normocephalic. No temporal or scalp tenderness. EYES: Pupils equal round and reactive. Extraocular motions intact. No scleral icterus. No injection or drainage. ENT: Intubated. NECK: Trachea midline. Supple, nontender, no meningeal signs. CARDIOVASCULAR: Regular rate and rhythm without murmurs, gallops, or rubs. RESPIRATORY: Clear to auscultation. Breath sounds equal bilaterally. No wheezes , rales, or rhonchi. GASTROINTESTINAL: Abdomen soft, non-tender, nondistended. MUSCULOSKELETAL: right BKA site with dressing on it. Left knee in post op dressing. Right hand dressing. Left elbow and right elbow with swelling, erythema and significant tenderness. NEUROLOGICAL: Sedated on vent. IV line sites with no evidence of infection. Assessment & Plan Remarks Septic shock with multiorgan dysfunction syndrome Group B strep bacteremia likely source right great toe osteomyelitis/gangrene. Probable endocarditis (ECHO may be negative as patient may have showered emboli : 3 joints with sepsis). Lymphangitis strep related. Bilateral knee septic arthritis. Elbows bilaterally with cellulitis possible septic arthritis. Acute renal failure: prerenal, sepsis. Acute metabolic encephalopathy: sepsis, alcohol related withdrawal. Lactic acidemia: sepsis, ischemia of tissues. Abnormal LFTs: Increased AST but normal ALT: likely alcohol related, sepsis. Acute Elevation in CK: ? Rhabdomyolysis vs acute ischemia and destruction of local tissues. Diabetes Mellitus non compliance with hyperglycemia. Thrombocytopenia: sepsis, Antibiotics. Recs Continue Penicillin G (Re: Strep Grp B Endocarditis, multiple joint septic arthritis) Continue Cefepime IV (Re:Possible PSAE HCAP) Start Clindamycin IV (Re: Toxin neutralization for Strep) Start IVIgG x 5 days. SALMA negative for endocarditis but patient likely threw septic emboli or hematogenously disseminated. CT C/A/P with IV contrast (workup dissemination) MRI bilateral elbows (r/o abscess) MRI Entire spine (r/o epidural abscess) Check HIV screen,CD4, Viral load, Immune globulins (G,A,M) d/w Radiologist , Medical Insurance Coder, . ok with CT and MRI contrast and HD right after. Coordinated with RN to nicol HD RN. Follow intra op cultures Follow cultures Follow clinically. Consult Palliative care (Re: address goals of therapy. Nicol Ott plan for the day multiple times today. Ortho notes reviewed. Critical thinking and decision making. Time > 60 mins multiple times today. Addendum: Patient imaging reviewed by me again at 4:08 pm and findings nicol Ott. Recommended Paracentesis in view of moderate ascites. Patient has h/o alcoholism and Hep C. Recommend albumin infusion. Recommend hematology consult Check D-Dimer, Haptoglobulin, HIT, Fibrinogen. Consult Gastroenterology. Asked RN to notify Ortho about Elbow MRI with fluid collection? need for aspiration/I&D. Paracentesis workup tests entered. Addendum: Consult hand surgery: left hand abscess. Susie De La Cruz MD Mar 13, 2017 11:44
[2017-03-13] MEDS ORDERED: IODIXANOL 320 MG/ML 50 ML VIAL (for Rad CT) IV ONE (12:15)
--- NOTE | 2017-03-13 12:37 | PD.CARD.PN ---
Subjective Subjective Remarks No events [place] [facility] [place]ations Current Medications Medications (Trade) Dose Ordered Sig/Stacy Route Start Time Stop Time Status Last Admin (Tylenol) 650 mg Q6H PRN PO 03/07/17 15:45 03/09/17 09:19 (Morphine Inj) 2 mg Q2H PRN IV 03/07/17 15:45 03/09/17 07:56 (Protonix Inj) 40 mg DAILY IV 03/08/17 09:00 03/13/17 08:49 (Duoneb Neb) 1 ampule Q4HR NEB PRN INH 03/07/17 15:45 (Heparin Inj) 5,000 units Q12H SQ 03/07/17 18:00 03/13/17 06:20 Miscellaneous Information 1 Q361D XX 03/07/17 15:45 03/07/17 15:45 (Chlorhexidine 2% Cloth) Taper DAILY@04 TOP 03/08/17 04:00 03/04/18 03:59 03/12/17 05:00 (Chlorhexidine 2% Cloth) 3 pack UNSCH PRN TOP 03/07/17 15:45 (D50w (Vial) Inj) 50 ml UNSCH PRN IV 03/07/17 16:15 (Glucagon Inj) 1 mg UNSCH PRN OTHER 03/07/17 16:15 (NovoLOG SUPPLEMENTAL SCALE) 1 Q6H SQ 03/07/17 16:15 03/13/17 04:07 Norepinephrine Bitartrate 250 ml @ 7.5 mls/hr TITRATE PRN IV 03/07/17 21:00 03/13/17 10:05 (Vitamin B1) 100 mg DAILY PO 03/08/17 09:00 03/13/17 08:48 (Folate) 1 mg DAILY PO 03/08/17 09:00 03/13/17 08:48 Propofol 100 ml @ 2.79 mls/hr TITRATE PRN IV 03/09/17 00:30 03/10/17 20:50 Fentanyl Citrate 250 ml @ 5 mls/hr Q24H PRN IV 03/09/17 08:38 03/13/17 01:56 (Colace Liq) 100 mg Q12HR PO 03/10/17 10:00 03/12/17 20:43 (Senna Liq) 8.8 mg DAILY PO 03/10/17 10:00 03/13/17 08:51 (Lactulose Liq) 30 ml QID PO 03/10/17 13:00 03/13/17 08:48 Sodium Chloride 1,000 ml @ 0 mls/hr Q0M PRN OTHER 03/10/17 12:05 (Heparin Inj) 8,000 units UNSCH PRN IVF 03/10/17 12:15 Sodium Chloride 1,000 ml @ 200 mls/hr Q5H PRN IV 03/10/17 12:05 03/10/17 18:14 Sodium Chloride 1,000 ml @ 0 mls/hr Q0M PRN OTHER 03/10/17 12:05 (Mannitol Inj) 12.5 gm UNSCH PRN IV 03/10/17 12:15 03/10/17 18:13 (Albumin 25% Inj) 25 gm UNSCH PRN IV 03/10/17 12:15 03/10/17 18:13 (NS Flush) 5 ml UNSCH PRN IV FLUSH 03/10/17 12:15 (Heparin Inj) UNSCH PRN .XX 03/10/17 12:15 03/10/17 18:11 (Gentamicin (Dialysis) Inj) 20 mg UNSCH PRN IV 03/10/17 12:15 03/10/17 18:12 (Zofran Inj) 4 mg UNSCH PRN IV 03/10/17 12:15 (Tylenol) 650 mg UNSCH PRN PO 03/10/17 12:15 (Benadryl) 25 mg UNSCH PRN PO 03/10/17 12:15 (Nitrostat Sl) 0.4 mg UNSCH PRN SL 03/10/17 12:15 (Catapres) 0.1 mg UNSCH PRN PO 03/10/17 12:15 (Epogen Inj) 4,000 units UNSCH PRN IV 03/10/17 14:00 03/10/17 18:13 (Gelfoam 12 Mm/7 Mm Top) 1 foam UNSCH PRN TOP 03/10/17 12:15 (Betadine 10% Oint) 1 applic DAILY TOPICAL 03/11/17 09:00 03/13/17 08:52 (NS Flush) 2 ml UNSCH PRN IV FLUSH 03/11/17 20:30 (NS Flush) 2 ml BID IV FLUSH 03/11/17 21:00 03/13/17 08:49 (Duoneb Neb) 1 ampule Q6HR NEB NEB 03/12/17 16:00 03/13/17 08:17 Cefepime HCl 1000 mg/Sodium Chloride 100 ml @ 200 mls/hr Q24H IV 03/12/17 15:00 03/12/17 17:39 Penicillin G Sodium [id number] units/Sodium Chloride 100 ml @ 200 mls/hr Q4H IV 03/12/17 20:00 03/13/17 08:49 Clindamycin Phosphate 900 mg/ Sodium Chloride 106 ml @ 212 mls/hr Q8H IV 03/13/17 12:00 Sodium Chloride 500 ml @ 500 mls/hr Q24H IV 03/13/17 17:00 03/17/17 17:59 (Tylenol) 650 mg Q24H PO 03/13/17 17:00 03/18/17 16:59 Dextrose 500 ml @ 30 mls/hr [id number] OTHER 03/13/17 18:00 03/17/17 05:19 (Benadryl) 25 mg Q24H PO 03/13/17 17:00 03/18/17 16:59 Immune Globulin 30 gm/Syringe / Bag 300 ml @ 24.75 mls/ hr Q24H IV 03/13/17 18:00 03/18/17 06:08 (Benadryl Inj) 50 mg UNSCH PRN IV PUSH 03/13/17 17:00 03/19/17 16:59 (Adrenalin (1:1000) Inj) 0.3 mg Q10M PRN OTHER 03/13/17 17:00 03/19/17 16:59 Vital Signs / I&O Vital Signs Date Time Temp Pulse Resp B/P (MAP) Pulse Ox O2 Delivery O2 Flow Rate FiO2 03/13/17 10:05 90 95/54 03/13/17 10:00 90 03/13/17 08:18 98 30 03/13/17 08:18 98 Ventilator 40 03/13/17 08:00 99.6 87 21 104/56 (72) 97 03/13/17 08:00 87 03/13/17 08:00 30 03/13/17 07:34 91 107/59 03/13/17 07:00 90 17 108/61 (77) 97 03/13/17 06:45 92 22 106/59 (75) 96 03/13/17 06:30 93 16 105/57 (73) 96 03/13/17 06:15 93 16 105/61 (76) 95 03/13/17 06:00 93 19 99/56 (70) 97 03/13/17 06:00 93 03/13/17 05:45 88 22 102/60 (74) 98 03/13/17 05:30 90 21 99/56 (70) 98 03/13/17 05:15 92 22 98/55 (69) 98 03/13/17 05:00 93 16 101/56 (71) 98 03/13/17 04:45 95 16 101/57 (72) 99 03/13/17 04:30 96 17 104/55 (71) 98 03/13/17 04:30 98 30 03/13/17 04:15 97 16 108/63 (78) 98 03/13/17 04:00 30 03/13/17 04:00 98 03/13/17 04:00 98 21 110/60 (77) 99 03/13/17 04:00 98 21 110/60 (77) 99 03/13/17 04:00 99.4 98 20 110/60 (77) 99 03/13/17 03:45 98 21 92/53 (66) 98 03/13/17 03:36 98 30 03/13/17 03:30 99 23 96/54 (68) 99 03/13/17 03:15 98 17 92/51 (65) 98 03/13/17 03:04 96 18 103/59 (74) 96 03/13/17 03:00 97 27 75/53 (60) 94 03/13/17 02:45 96 17 90/60 (70) 98 03/13/17 02:30 96 20 105/59 (74) 97 03/13/17 02:15 96 17 99/56 (70) 98 03/13/17 02:00 96 03/13/17 02:00 96 16 96/55 (69) 98 03/13/17 01:56 96 97/55 03/13/17 01:45 96 16 97/55 (69) 98 03/13/17 01:30 93 16 96/54 (68) 98 03/13/17 01:15 94 19 93/55 (68) 98 03/13/17 01:00 93 20 94/53 (67) 98 03/13/17 00:45 92 21 92/51 (65) 98 03/13/17 00:30 91 19 97/54 (68) 100 03/13/17 00:23 99 30 03/13/17 00:15 93 16 94/50 (65) 98 03/13/17 00:00 94 16 94/51 (65) 98 03/13/17 00:00 94 03/13/17 00:00 30 03/13/17 00:00 98.9 94 16 94/51 (65) 98 03/13/17 00:00 94 16 94/51 (65) 98 03/12/17 23:45 95 16 91/50 (64) 99 03/12/17 23:30 95 16 92/54 (67) 99 03/12/17 23:15 93 21 93/55 (68) 99 03/12/17 23:00 91 23 91/55 (67) 99 03/12/17 22:45 89 25 92/54 (67) 99 03/12/17 22:30 89 23 88/51 (63) 99 03/12/17 22:15 84 22 85/52 (63) 99 03/12/17 22:00 83 17 91/50 (64) 100 03/12/17 22:00 83 03/12/17 21:58 100 30 03/12/17 21:45 84 17 87/54 (65) 99 03/12/17 21:30 83 16 87/50 (62) 99 03/12/17 21:15 83 16 87/54 (65) 99 03/12/17 21:00 84 17 90/50 (63) 99 03/12/17 20:45 84 16 92/50 (64) 99 03/12/17 20:30 83 16 91/54 (66) 99 03/12/17 20:18 98 30 03/12/17 20:15 81 16 93/53 (66) 98 03/12/17 20:00 82 24 94/53 (67) 99 03/12/17 20:00 100.1 82 18 94/53 (67) 99 03/12/17 20:00 30 03/12/17 20:00 82 03/12/17 18:00 88 03/12/17 17:02 97 30 03/12/17 16:15 40 03/12/17 16:00 101 03/12/17 16:00 99.2 101 16 133/81 (98) 98 03/12/17 16:00 30 03/12/17 14:00 87 I/O 03/12/17 03/12/17 03/12/17 03/13/17 03/13/17 03/13/17 07:00 15:00 23:00 07:00 15:00 23:00 Intake Total 256 ml 100 ml 260 ml 538 ml Output Total 415 ml 825 ml 145 ml Balance -159 ml 100 ml -565 ml 393 ml IV Total 100 ml 200 ml Tube Feeding 166 ml 418 ml Other 90 ml 60 ml 120 ml Output Urine Total 200 ml 225 ml 75 ml Stool Total 200 ml 600 ml 60 ml Drainage Total 15 ml 10 ml Physical Exam GENERAL: Intubated and sedated SKIN: Warm and dry. HEAD: Atraumatic. Normocephalic. EYES: Pupils equal and round. No scleral icterus. No injection or drainage. ENT: No nasal bleeding or discharge. Mucous membranes pink and moist. NECK: Trachea midline. No JVD. CARDIOVASCULAR: Regular rate and rhythm. RESPIRATORY: No accessory muscle use. Decreased breath sounds bilaterally GASTROINTESTINAL: Abdomen soft, non-tender, nondistended. Hepatic and splenic margins not palpable. MUSCULOSKELETAL: Right LE BKA. Left knee with drain. B/L elbows erythematous NEUROLOGICAL: Sedated on the vent Laboratory Laboratory Tests Test 03/12/17 15:45 03/13/17 03:20 Lactic Acid Level 2.0 mmol/L White Blood Count 32.1 TH/MM3 Red Blood Count 3.02 MIL/MM3 Hemoglobin 9.0 GM/DL Hematocrit 28.0 % Mean Corpuscular Volume 92.8 FL Mean Corpuscular Hemoglobin 29.9 PG Mean Corpuscular Hemoglobin Concent 32.3 % Red Cell Distribution Width 15.5 % Platelet Count 100 TH/MM3 Mean Platelet Volume 10.0 FL Neutrophils (%) (Auto) 87.5 % Lymphocytes (%) (Auto) 8.6 % Monocytes (%) (Auto) 2.4 % Eosinophils (%) (Auto) 0.7 % Basophils (%) (Auto) 0.8 % Neutrophils # (Auto) 28.1 TH/MM3 Lymphocytes # (Auto) 2.8 TH/MM3 Monocytes # (Auto) 0.8 TH/MM3 Eosinophils # (Auto) 0.2 TH/MM3 Basophils # (Auto) 0.3 TH/MM3 CBC Comment AUTO DIFF Differential Total Cells Counted 100 Neutrophils % (Manual) 79 % Band Neutrophils % 6 % Lymphocytes % 10 % Monocytes % 1 % Eosinophils % 1 % Basophils % 1 % Neutrophils # (Manual) 27.9 TH/MM3 Myelocytes 1 % Promyelocytes 1 % Nucleated Red Blood Cells 1 /100 WBC Differential Comment FINAL DIFF MANUAL Toxic Granulation 1+ Dohle Bodies PRESENT Platelet Estimate LOW Platelet Morphology Comment NORMAL Red Cell Morphology Comment NORMAL Blood Urea Nitrogen 71 MG/DL Creatinine 4.66 MG/DL Random Glucose 164 MG/DL Total Protein 5.9 GM/DL Albumin 1.5 GM/DL Calcium Level 7.9 MG/DL Magnesium Level 2.3 MG/DL Alkaline Phosphatase 265 U/L Aspartate Amino Transf (AST/SGOT) 71 U/L Alanine Aminotransferase (ALT/SGPT) 27 U/L Total Bilirubin 8.2 MG/DL Sodium Level 140 MEQ/L Potassium Level 3.5 MEQ/L Chloride Level 102 MEQ/L Carbon Dioxide Level 24.6 MEQ/L Anion Gap 13 MEQ/L Estimat Glomerular Filtration Rate 13 ML/MIN Assessment and Plan Problem List: (1) Septic shock ICD Codes: A41.9 - Sepsis, unspecified organism; R65.21 - Severe sepsis with septic shock Status: Acute (2) Septic arthritis of knee, right ICD Codes: M00.9 - Pyogenic arthritis, unspecified Status: Acute (3) Septic arthritis of knee, left ICD Codes: M00.9 - Pyogenic arthritis, unspecified Status: Acute (4) Abscess, wrist ICD Codes: L02.419 - Cutaneous abscess of limb, unspecified (5) Abscess of right hand ICD Codes: L02.511 - Cutaneous abscess of right hand Status: Acute (6) 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 ICD Codes: E11.622 - Type 2 diabetes mellitus with other skin ulcer; L97.913 - Non-pressure chronic ulcer of unspecified part of right lower leg with necrosis of muscle (7) Acute renal failure ICD Codes: N17.9 - Acute kidney failure, unspecified Status: Acute (8) Diabetic infection of right foot ICD Codes: E11.69 - Type 2 diabetes mellitus with other specified complication ; L08.9 - Local infection of the skin and subcutaneous tissue, unspecified Status: Acute (9) Ischemic necrosis of foot ICD Codes: I96 - Gangrene, not elsewhere classified Status: Acute Assessment and Plan 1) SALMA showing no endocarditis/abscess 2) Con't work up per ID 3) Wean vasopressors as possible Problem Qualifiers (1) Acute renal failure: Qualified Codes: N17.9 - Acute kidney failure, unspecified Cristobal Ruiz DO Mar 13, 2017 12:37
--- NOTE | 2017-03-13 13:18 | HHI.CCPN ---
Subjective Remarks/Hospital Course 51 y/o delirious man with draining wound right great toe, untreated diabetes, and severe COPD. According to his girlfriend at bedside in ED he has been confused for 3 days while on a trip to [place]. He has diabetes but does not take insulin, oral agents, nor check his sugar. This foot problem started as a non-healing cut on his right great toe. He is clearly in septic shock at present with hypotension, lactic acid 11, and leukocytosis. He will require a right above knee amputation eventually, possibly sooner if we can't control the source with antibiotics. He has audible wheezing from the doorway and is a chronic smoker. DIANA with creatinine > 5, and metabolic acidosis. 03/08 Patient was started on Levophed 8 mics overnight now down to 4 mics. Lactic acid trending down 4.2 this morning from 11.1 on arrival however his WBC increased 22.6 from 19. 03/09 Patient s/p Right BKA last night remains intubated postop sedated with Diprivan. On Levophed 7 mics and bicarb drip. 03/10 Patient is sedated with Diprivan and Fentanyl. On Levophed 8 mics. renal function worse today with Cr:5.29 from 4.532 with poor UOP:75ml in 24 hrs. Afebrile. 03/11 Patient remains sedated and intubated. HD initiated yesterday with removal 2L. Levophed down 5 mics. Afebrile, WBC trending down. TF held for high residuals. 03/12. Remains severely encephalopathic. Grimaces to pain. Currently on only fentanyl infusion and control. WBC worsening 26.2 to 29.1 today. Worsening thrombocytopenia 68 today. Remains oliguric. Remains on Levophed Objective Vital Signs Date Time Temp Pulse Resp B/P (MAP) Pulse Ox O2 Delivery O2 Flow Rate FiO2 03/13/17 10:05 90 95/54 03/13/17 08:18 98 30 03/13/17 08:18 Ventilator 03/13/17 08:00 99.6 21 Intake and Output 03/13/17 03/13/17 03/13/17 07:59 15:59 23:59 Intake Total 538 ml Output Total 145 ml Balance 393 ml Result Diagram: 03/13/17 0320 03/13/17 0320 Imaging Last Impressions Chest X-Ray 03/10/17 Signed Impressions: Service Date/Time: Friday, March 10, 2017 13:39 - CONCLUSION: Support apparatus in good position without pneumothorax. Darinel Graves MD FACR Liver Ultrasound 03/09/17 Signed Impressions: Service Date/Time: Thursday, March 09, 2017 12:50 - CONCLUSION: 1. No gallstones or biliary tract obstruction. 2. Thickening of the gallbladder wall at 5 mm. This can be seen with chronic gallbladder disease. 3. Increased echogenicity throughout the liver suggestive of fatty infiltration and/or hepatocellular disease. Carl Sands MD Knee X-Ray 03/09/17 Signed Impressions: Service Date/Time: Thursday, March 09, 2017 14:15 - CONCLUSION: 1. No acute bony abnormality. 2. Moderate nonspecific joint effusion. 3. Mild medial compartment osteoarthritis. Danny Buchanan MD Hand X-Ray 03/09/17 Signed Impressions: Service Date/Time: Thursday, March 09, 2017 14:11 - CONCLUSION: Nonspecific soft tissue swelling. No acute bony abnormality of the right hand. Danny Buchanan MD Chest CT 03/09/17 Signed Impressions: Service Date/Time: Thursday, March 09, 2017 12:31 - CONCLUSION: Bibasilar infiltrates with small effusions. Carl Sands MD Shoulder X-Ray 03/08/17 Signed Impressions: Service Date/Time: Wednesday, March 08, 2017 10:47 - CONCLUSION: Within normal limits. Danny Buchanan MD Renal Ultrasound 03/08/17 Signed Impressions: Service Date/Time: Wednesday, March 08, 2017 08:58 - CONCLUSION: 1. Unremarkable bilateral renal ultrasound. 2. Hepatomegaly with a trace of ascites in the upper abdomen. Carl Sands MD Objective Remarks GENERAL: Patient is 51 yo critically ill intubated, sedated with Fentanyl and on Levophed . SKIN: Warm and dry. HEAD: Normocephalic. EYES: No scleral icterus. No injection or drainage. NECK: Supple, trachea midline. No JVD or lymphadenopathy. Orally intubated CARDIOVASCULAR: Regular rate and rhythm without murmurs, gallops, or rubs. RESPIRATORY: Breath sounds equal bilaterally. No accessory muscle use. GASTROINTESTINAL: Abdomen soft, non-tender, nondistended. EXT: s/p Right BKA with dressing on. s/p L knee aspiration by ortho Neuro: Intubated and sedated. Grimaces to painful stimuli no spontaneous eye opening. No spontaneous movement noted on my exam A/P Assessment and Plan Assessment: 51yM with septic shock secondary to Group B strep bacteremia and multiple septic joints, with clinically worsening course including more septic appearing joints. clinically declining and remains critically ill. to OR for debridements which likely will include a total of 3 extremity amputations. I have spoken with Dr. De La Cruz and I agree that palliative care should be involved , at a minimum due to 3-extremity amputation which is acutely life-changing and very morbid, but also given his clinical decline despite maximal therapy. For now will continue with IV antibiotics and supportive care for ongoing shock and multiorgan system dysfunction. Acute hypoxic and hypercarbic respiratory failure Septic shock. Gram + bacteremia/ Group B strep Acute metabolic encephalopathy s/p right BKA 03/08 Septic arthritis of knee, elbow, wrist Acute kidney injury requiring renal replacement therapy Lactic acidemia- resolving. Acute Rhabdomyolysis- resolving. Leukocytosis Elevated AST Emphysema, COPD. Diabetes mellitus, Type 2 ETOH use Acute protein calorie Malnutrition- severe Plan: Neuro: On Fentanyl infusion for sedation. Daily sedation vacation. Monitor neuro status On Thiamine/Folic acid. Did not wake up on sedation hold, grimaces to pain Pulm: Continue with vent support keep sat >92% Bronchodilators, ICU vent bundle, SBT daily as dimitri, unable to extubate due to severe encephalopathy CV: Continue to wean off Levophed keep MAP>65mmHg. Serial lactic acid. Trending down. 03/10 Echo EF 55-60%, no RWMA, no vegetations : Monitor renal function, I/O's, avoid nephrotoxins. HD initiated 03/10 with removal 2L.HD per nephrology Renal US: No hydro. Renal is following-Dr. Feliciano. GI: On Protonix 40mg IV daily, tube feeds- Nepro with goal rate 40ml/hr Monitor LFT;s, US liver: No gallstones or biliary tract obstruction. Thickening of the gallbladder wall at 5 mm. This can be seen with chronic gallbladder disease. Increased echogenicity throughout the liver suggestive of fatty infiltration and/or hepatocellular disease. ID: Continue with abx BC form 03/07: GPC, Group B strep Fluid/wound cx 03/08: Group B strep s/p right BKA 03/08 Ortho and Vascular are following X ray left knee showed mod joint effusion, no joint abnormalities s/p aspiration/drainage by Ortho Right hand abscess s/p debridement at bedside by Dr. Marie 03/10 increasing abscess formations to OR with ortho likely today repeat imaging: MRI spine with ct chest/abd/pelvis today agree with ID plan to restart clindamycin and add IVIG. continue Pen G. Heme: Monitor CBC, trending up despite maximal therapy Endo: SSI for glycemic control. GI prophylaxis- Protonix 40mg daily DVT prophylaxis- SCD to LLE, Heparin sq q12 Lines: Right IJ CVP placed 03/08, Left IJ vascath placed 03/10 Patient is critically ill and in septic shock requiring pressors, renal failure , leukocytosis. worsening clinical status. may require 3-extremity amputation which is very morbid. This patient remains critically ill with one or more organ systems which are or may become a threat to life. I have spent in excess of 52 minutes discontinuously in the care and management of this patient. This time is exclusive of procedures, and includes, but is not limited to, evaluation of the patient, review of the medical record, discussions with family, consultants, nursing staff, or respiratory therapy, and documentation in the medical record. Jericho Marie MD Mar 13, 2017 13:18
--- NOTE | 2017-03-13 13:29 | RADRPT ---
EXAM DATE/TIME: 03/13/2017 11:37 [facility] COMPARISON: No previous studies available for comparison. INDICATIONS : Septic patient with septic joints. Evaluate for abscess or septic emboli. IV CONTRAST: 50 cc Visipaque (iodixanol) IV ; Cumulative dose for multiple exams. ORAL CONTRAST: No oral contrast ingested. RADIATION DOSE: 15.81 CTDIvol (mGy) ; Combined studies - Thorax/Abdomen/Pelvis MEDICAL HISTORY : Diabetes SURGICAL HISTORY : None. ENCOUNTER: Initial ACUITY: 1 day PAIN SCALE: Non-responsive LOCATION: Abdomen TECHNIQUE: Volumetric scanning of the abdomen and pelvis was performed. Using automated exposure control and ad justment of the mA and/or kV according to patient size, radiation dose was kept as low as reasonably achievable to obtain optimal diagnostic quality images. DICOM format image data is available electro nically for review and comparison. FINDINGS: LOWER LUNGS: There are small bilateral pleural effusions with consolidation in both lung bases with multiple air b ronchograms. LIVER: The liver is mildly prominent and inhomogeneous with slight lobulation of the outer contour which cou ld indicate mild cirrhosis. There is no focal mass or ductal dilatation. The gallbladder is unremarka ble. There is a moderate amount of ascitic fluid surrounding the liver. There is no dilation of the b iliary tree. No calcified gallstones. SPLEEN: Normal size without lesion. PANCREAS: Within normal limits. KIDNEYS: Normal in size and shape. There is no mass, stone or hydronephrosis. ADRENAL GLANDS: Within normal limits. VASCULAR: There is no aortic aneurysm. BOWEL/MESENTERY: There is partial opacification of the small bowel. The distal small bowel and colon are unopacified. There is a moderate amount of ascitic fluid present with fluid in both paracolic gutters and pelvis. There is no free air or. A nasogastric tube is seen coursing into the stomach. There is apparent circ umferential bowel wall thickening involving portions of the ascending colon and proximal transverse c olon with air-fluid levels. No distinct focal abscess is identified. ABDOMINAL WALL: Within normal limits. RETROPERITONEUM: There is no lymphadenopathy. BLADDER: No wall thickening or mass. A Dennison catheter is present and there is a small amount of air. REPRODUCTIVE: Within normal limits. INGUINAL: There is no lymphadenopathy or hernia. MUSCULOSKELETAL: Within normal limits for patient age. CONCLUSION: 1. Apparent circumferential bowel wall thickening involving portions of the ascending colon and proxi mal transverse colon which are nonspecific but most characteristic of colitis. 2. Moderate amount of ascitic fluid in the abdomen and pelvis. 3. The liver is mildly prominent and cirrhotic in appearance. 4. Small bilateral pleural effusions with consolidation in both posterior lung bases. Mike Anthony MD on March 13, 2017 at 13:22 Board Certified Radiologist. This report was verified electronically.
--- NOTE | 2017-03-13 13:36 | RADRPT ---
EXAM DATE/TIME: 03/13/2017 12:17 [facility] COMPARISON: CT THORAX W CONTRAST, March 13, 2017, 11:37. INDICATIONS : Possible abscess with positive group B. MEDICAL HISTORY : Diabetes mellitus type 2. SURGICAL HISTORY : Rt BKA ENCOUNTER: Subsequent ACUITY: 4-6 days PAIN SCORE: Nonresponsive. LOCATION: spine TECHNIQUE: Multiplanar multisequence MRI of the thoracic spine was performed. FINDINGS: The esophagus is fluid-filled throughout. NG tube is seen. There are bilateral pleural effusions and lung base pneumonias. There is no evidence of paraspinal mass or collection. VERTEBRA: Normal vertebral body height. Homogeneous marrow signal. ALIGNMENT: Normal. CORD: Normal position and configuration. T1-T2: Broad slight dorsal disc protrusion in a bilateral paracentral location, right worse than left withou t significant associated canal compromise. T2-T3: Minimal broad left paracentral disc protrusion slightly indenting thecal sac in the lateral recess. T3-T4: The thecal sac has a normal diameter. No evidence of disc bulge or protrusion. T4-T5: The thecal sac has a normal diameter. No evidence of disc bulge or protrusion. T5-T6: Minimal broad left paracentral disc protrusion slightly indenting thecal sac in the lateral recess. T6-T7: The thecal sac has a normal diameter. No evidence of disc bulge or protrusion. T7-T8: The thecal sac has a normal diameter. No evidence of disc bulge or protrusion. T8-T9: Tiny central to slightly left paracentral disc protrusion minimally indenting thecal sac. No canal or foraminal compromise. T9-T10: The thecal sac has a normal diameter. No evidence of disc bulge or protrusion. T10-T11: The thecal sac has a normal diameter. No evidence of disc bulge or protrusion. T11-T12: The thecal sac has a normal diameter. No evidence of disc bulge or protrusion. T12-L1: The thecal sac has a normal diameter. No evidence of disc bulge or protrusion. CONCLUSION: Tiny disc protrusions at several levels. No evidence of epidural or paraspinal abscess. Danny Garrett MD on March 13, 2017 at 13:27 Board Certified Radiologist. This report was verified electronically.
--- NOTE | 2017-03-13 14:13 | RADRPT ---
EXAM DATE/TIME: 03/13/2017 11:37 [facility] COMPARISON: No previous studies available for comparison. INDICATIONS : Septic patient with known septic joint. Evaluate for septic emboli and pneumonia. IV CONTRAST: 50 cc Visipaque (iodixanol) IV ; Cumulative dose for multiple exams. RADIATION DOSE: 15.81 CTDIvol (mGy) ; Combined studies - Thorax/Abdomen/Pelvis MEDICAL HISTORY : Diabetes SURGICAL HISTORY : None. ENCOUNTER: Initial ACUITY: 1 day PAIN SCALE: Non-responsive LOCATION: chest TECHNIQUE: Volumetric scanning of the chest was performed. Using automated exposure control and adjustment of t he mA and/or kV according to patient size, radiation dose was kept as low as reasonably achievable to obtain optimal diagnostic quality images. DICOM format image data is available electronically for review and comparison. Follow-up recommendations for detected pulmonary nodules are based at a minimum on nodule size and pa tient risk factors according to Fleischner Society Guidelines. FINDINGS: LUNGS: There is consolidation in both posterior lower lobes right greater than left with air bronchograms. T he upper lobes and perihilar regions are clear. There are no pulmonary masses or nodules. PLEURA: There is small bilateral pleural effusions. MEDIASTINUM: The heart and great vessels demonstrate no acute abnormality. There is no mediastinal or hilar lymph adenopathy. An endotracheal tube and nasogastric tube are in place. AXILLAE: Within normal limits. No lymphadenopathy. SKELETAL: Within normal limits for patient age. MISCELLANEOUS: A moderate amount of ascitic fluid is noted in the upper right abdomen surrounding the liver margin. CONCLUSION: 1. Consolidation in both lower lobes right greater than left. 2. Small bilateral pleural effusions. Mike Anthony MD on March 13, 2017 at 14:09 Board Certified Radiologist. This report was verified electronically.
[2017-03-13] MEDS: ALBUMIN HUMAN 25% 25 GM/100 ML BAGP IV PRN ×2 (14:48→14:50)
[2017-03-13] MEDS: HEPARIN SODIUM - IV 10,000 UNITS/10 ML VIAL PRN (14:49)
[2017-03-13] MEDS: GENTAMICIN SULFATE (DIALYSIS USE ONLY) 20 MG/2 ML VIAL IV PRN (14:49)
[2017-03-13] MEDS: EPOETIN ALFA 4,000 UNITS/ML VIAL IV PRN (14:49)
--- NOTE | 2017-03-13 14:56 | RADRPT ---
EXAM DATE/TIME: 03/13/2017 12:17 [facility] COMPARISON: No previous studies available for comparison. INDICATIONS : Possible abscess with positive group B. MEDICAL HISTORY : Diabetes mellitus type 2. SURGICAL HISTORY : Rt BKA ENCOUNTER: Subsequent ACUITY: 4-6 days PAIN SCORE: Nonresponsive. LOCATION: spine TECHNIQUE: Multiplanar multisequence MRI of the lumbar spine was performed without contrast. FINDINGS: The most caudal appearing lumbar vertebra is numbered as L5. VERTEBRAE: Homogeneous signal. Normal alignment. CONUS: Normal level and configuration. T12-L1: The thecal sac has a normal diameter. No evidence of disc bulge or protrusion. The neural foramina are patent bilaterally. L1-L2: The thecal sac has a normal diameter. No evidence of disc bulge or protrusion. The neural foramina are patent bilaterally. L2-L3: The thecal sac has a normal diameter. No evidence of disc bulge or protrusion. The neural foramina are patent bilaterally. L3-L4: The thecal sac has a normal diameter. No evidence of disc bulge or protrusion. The neural foramina are patent bilaterally. L4-L5: The thecal sac has a normal diameter. No evidence of disc bulge or protrusion. The neural foramina are patent bilaterally. L5-S1: The thecal sac has a normal diameter. No evidence of disc bulge or protrusion. The neural foramina are patent bilaterally. CONCLUSION: Normal examination. Adrian Fisher Jr., MD on March 13, 2017 at 14:51 Board Certified Radiologist. This report was verified electronically.
[2017-03-13] MEDS: CEFEPIME INJ 1,000 MG in SODIUM CHLORIDE 0.9% INJ 100 ML IV SCH (15:00)
--- NOTE | 2017-03-13 15:00 | RADRPT ---
EXAM DATE/TIME: 03/13/2017 12:17 [facility] COMPARISON: No previous studies available for comparison. INDICATIONS : Possible abscess with positive group B. MEDICAL HISTORY : Diabetes mellitus type 2. SURGICAL HISTORY : Rt BKA ENCOUNTER: Subsequent ACUITY: 4-6 days PAIN SCORE: Nonresponsive. LOCATION: spine TECHNIQUE: Multiplanar, multisequence MRI examination of the cervical spine was performed. FINDINGS: VERTEBRAE: Normal vertebral body height. Homogeneous marrow signal. ALIGNMENT: No evidence of subluxation. CORD: Normal configuration and signal. POST FOSSA: The cerebellar tonsils are normal in position. C2-C3: The thecal sac has a normal configuration. There is no evidence of disc herniation or spinal canal s tenosis. The neural foramina are patent bilaterally. C3-C4: The thecal sac has a normal configuration. There is no evidence of disc herniation or spinal canal s tenosis. The neural foramina are patent bilaterally. C4-C5: There is a minimal broad-based bulge. No abutment of the cord or central canal stenosis. Neural zhanna jose are patent. C5-C6: The thecal sac has a normal configuration. There is no evidence of disc herniation or spinal canal s tenosis. The neural foramina are patent bilaterally. C6-C7: There is a mild broad-based disc bulge slightly eccentric to the left. No abutment of the cord or true tral canal stenosis. Lateral recesses and neural foramina are patent bilaterally. C7-T1: The thecal sac has a normal configuration. There is no evidence of disc herniation or spinal canal s tenosis. The neural foramina are patent bilaterally. CONCLUSION: 1. Minimal degenerative disc disease. No abutment of the cord or central canal stenosis. 2. No abscess. Adrian Fisher Jr., MD on March 13, 2017 at 14:55 Board Certified Radiologist. This report was verified electronically.
[2017-03-13] MEDS: CLINDAMYCIN INJ 900 MG in SODIUM CHLORIDE 0.9% INJ 100 ML IV SCH ×2 (15:07→21:14)
--- NOTE | 2017-03-13 15:16 | RADRPT ---
EXAM DATE/TIME: 03/13/2017 12:17 [facility] COMPARISON: No previous studies available for comparison. INDICATIONS : Right elbow swelling with possitive group B. MEDICAL HISTORY : Diabetes mellitus type 2. SURGICAL HISTORY : Rt BKA ENCOUNTER: Subsequent ACUITY: 4-6 days PAIN SCORE: Nonresponsive. LOCATION: Right elbow TECHNIQUE: Multiplanar, multisequence MRI examination was performed without contrast. FINDINGS: There is prominent subcutaneous soft tissue edema involving the entirety of the visualized arm. There is a small volume of fluid in the olecranon bursa. Minimal joint fluid is present. No suspicious mar row signal abnormalities are identified. No significant internal derangement of the elbow. CONCLUSION: Prominent subcutaneous edema. Minimal fluid in the joint and olecranon bursa Danny Garrett MD on March 13, 2017 at 15:10 Board Certified Radiologist. This report was verified electronically.
--- NOTE | 2017-03-13 15:22 | RADRPT ---
EXAM DATE/TIME: 03/13/2017 12:17 [facility] COMPARISON: No previous studies available for comparison. INDICATIONS : Left elbow swelling with positive group B. MEDICAL HISTORY : Diabetes mellitus type 2. SURGICAL HISTORY : Rt BKA ENCOUNTER: Subsequent ACUITY: 4-6 days PAIN SCORE: Nonresponsive. LOCATION: Left elbow TECHNIQUE: Multiplanar, multisequence MRI examination was performed without contrast. FINDINGS: There is prominence subcutaneous edema present throughout the visualized arm and seen to a similar de gree in the adjacent visualized body wall. This presumably reflects anasarca. There is a small focal fluid collection just dorsal to the medial epicondyle which measures 3.3 x 1.2 x 2.8 cm (sagittal x AP x transverse). There are arthritic changes in the elbow with some subchondral signal abnormalities and marginal ossi fic spurring most prominent in the radiocapitellar joint. No significant joint effusion. No suspiciou s marrow signal abnormalities. CONCLUSION: Small fluid collection just dorsal to the medial epicondyle. Diffuse soft tissue edema. Danny Garrett MD on March 13, 2017 at 15:14 Board Certified Radiologist. This report was verified electronically.
--- NOTE | 2017-03-13 16:15 | PD.CONS ---
Consult Service Palliative Care Consult Requested By Dr. Shaka De La Cruz . Primary Care Physician No Primary Care Physician . Reason for Consultation a. To assist with evaluation and management of symptoms including: Dyspnea , pain b. To assist medical decision maker(s) with: better understanding of current medical conditions; weighing benefits/burdens of medical treatment options; making medical treatment decisions. . HPI History of Present Illness This 51-year-old male, with a past history of diabetes, COPD, hypertension, drug and alcohol abuse, and medical noncompliance, presented to the emergency department on 03/07/17 after a few days of altered mental status and worsening weakness. The patient had reportedly sustained a small injury to his right great toe a couple weeks prior to admission, that led to a black toe, which eventually led to a black foot and lower leg, and when the patient showed up in the emergency department he was in septic shock. In the emergency department, findings included: * Lethargy, poorly protected airway * Temp 98.9, pulse 1:15, respirations 25, blood pressure 84/54 * White count 19.8, hemoglobin 10.6 * Sodium 129, creatinine 5.38, albumin 1.6 * CO2 was 15.4 * Lactic acid 11.1 * Bilirubin 4.6 Fluid resuscitation was begun in the emergency department, cultures were obtained, and he was placed on antibiotics and pressors. Cultures from the gangrenous foot and from his blood grew Group B strep. The patient underwent a below-knee amputation on the right on 03/08/17, and a renal ultrasound done on that date did not reveal obstruction. The following day, a CT of the chest revealed effusions, and an ultrasound of the liver was consistent with hepatocellular disease. Hemodialysis was begun on 03/10/17, and in spite of aggressive treatment his white count continued to climb. An echocardiogram was negative for endocarditis, and bilirubin had risen to 5.4. By 03/12/17 his white count was 29 and the bilirubin was 7.8. On 03/13/17, his white count was up to 32, the albumin was down to 1.5, bilirubin was up to 8.2, and he remained in septic shock and on Levophed. During the few days in the hospital, the patient was noted to have septic joints in the right hand, left elbow, and left knee. There appears to be ongoing infection in his right BKA stump. Palliative Care was consulted to assist with symptom management, and to enter into discussions with the patient's family regarding his history, his current illnesses and challenges, the prognosis, and the benefits and burdens of the various choices now. . Function/Cognitive Trajectory The patient reportedly lived with a girlfriend, but was functioning somewhat independently until a few days prior to this hospitalization. He reportedly consumed significant amounts of Goldschlager schnapps most of the hours of the day. . Review of Systems ROS Limitations: Clinical Condition, Intubated Constitutional: COMPLAINS OF: Fever Endocrine: DENIES: Polyuria Eyes: DENIES: Eye inflammation Ears, nose, mouth, throat: DENIES: Epistaxis Respiratory: COMPLAINS OF: Shortness of breath Cardiovascular: COMPLAINS OF: Lower Extremity Edema Gastrointestinal: DENIES: Diarrhea, Vomiting, Vomiting blood Genitourinary: DENIES: Hematuria Musculoskeletal: COMPLAINS OF: Joint Swelling (septic joints) Integumentary: DENIES: Rash Hematologic/Lymphatics: DENIES: Bruising Immunologic/Allergic: DENIES: Urticaria Neurologic: DENIES: Seizures Psychiatric: COMPLAINS OF: Confusion Past Family Social History Coded Allergies: No Known Allergies (Unverified , 03/07/17) Past Medical History * Profound septic shock * Respiratory failure * Group B strep bacteremia * Multiple septic joints * Gangrenous foot, status post right BKA * Acute kidney injury/failure, now on dialysis * Colitis on CT scan * COPD * Alcohol and drug abuse * Possible rhabdomyolysis * Diabetes, with no recent treatment . Past Surgical History * INTUBATION 03/07/17 * Right BKA 03/08/17 * Vas-Cath 03/10/17 * Left knee arthrotomy and irrigation 03/11/17 . Reported Medications Reportedly no medicines at home . Current Medications Medications (Trade) Dose Ordered Sig/Stacy Route Start Time Stop Time Status Last Admin (Tylenol) 650 mg Q6H PRN PO 03/07/17 15:45 03/09/17 09:19 (Morphine Inj) 2 mg Q2H PRN IV 03/07/17 15:45 03/09/17 07:56 (Protonix Inj) 40 mg DAILY IV 03/08/17 09:00 03/13/17 08:49 (Duoneb Neb) 1 ampule Q4HR NEB PRN INH 03/07/17 15:45 (Heparin Inj) 5,000 units Q12H SQ 03/07/17 18:00 03/13/17 06:20 Miscellaneous Information 1 Q361D XX 03/07/17 15:45 03/07/17 15:45 (Chlorhexidine 2% Cloth) Taper DAILY@04 TOP 03/08/17 04:00 03/04/18 03:59 03/12/17 05:00 (Chlorhexidine 2% Cloth) 3 pack UNSCH PRN TOP 03/07/17 15:45 (D50w (Vial) Inj) 50 ml UNSCH PRN IV 03/07/17 16:15 (Glucagon Inj) 1 mg UNSCH PRN OTHER 03/07/17 16:15 (NovoLOG SUPPLEMENTAL SCALE) 1 Q6H SQ 03/07/17 16:15 03/13/17 04:07 Norepinephrine Bitartrate 250 ml @ 7.5 mls/hr TITRATE PRN IV 03/07/17 21:00 03/13/17 10:05 (Vitamin B1) 100 mg DAILY PO 03/08/17 09:00 03/13/17 08:48 (Folate) 1 mg DAILY PO 03/08/17 09:00 03/13/17 08:48 Propofol 100 ml @ 2.79 mls/hr TITRATE PRN IV 03/09/17 00:30 03/10/17 20:50 Fentanyl Citrate 250 ml @ 5 mls/hr Q24H PRN IV 03/09/17 08:38 03/13/17 15:07 (Colace Liq) 100 mg Q12HR PO 03/10/17 10:00 03/12/17 20:43 (Senna Liq) 8.8 mg DAILY PO 03/10/17 10:00 03/13/17 08:51 (Lactulose Liq) 30 ml QID PO 03/10/17 13:00 03/13/17 08:48 Sodium Chloride 1,000 ml @ 0 mls/hr Q0M PRN OTHER 03/10/17 12:05 (Heparin Inj) 8,000 units UNSCH PRN IVF 03/10/17 12:15 Sodium Chloride 1,000 ml @ 200 mls/hr Q5H PRN IV 03/10/17 12:05 03/10/17 18:14 Sodium Chloride 1,000 ml @ 0 mls/hr Q0M PRN OTHER 03/10/17 12:05 (Mannitol Inj) 12.5 gm UNSCH PRN IV 03/10/17 12:15 03/10/17 18:13 (Albumin 25% Inj) 25 gm UNSCH PRN IV 03/10/17 12:15 03/13/17 14:50 (NS Flush) 5 ml UNSCH PRN IV FLUSH 03/10/17 12:15 (Heparin Inj) UNSCH PRN .XX 03/10/17 12:15 03/13/17 14:49 (Gentamicin (Dialysis) Inj) 20 mg UNSCH PRN IV 03/10/17 12:15 03/13/17 14:49 (Zofran Inj) 4 mg UNSCH PRN IV 03/10/17 12:15 (Tylenol) 650 mg UNSCH PRN PO 03/10/17 12:15 (Benadryl) 25 mg UNSCH PRN PO 03/10/17 12:15 (Nitrostat Sl) 0.4 mg UNSCH PRN SL 03/10/17 12:15 (Catapres) 0.1 mg UNSCH PRN PO 03/10/17 12:15 (Epogen Inj) 4,000 units UNSCH PRN IV 03/10/17 14:00 03/13/17 14:49 (Gelfoam 12 Mm/7 Mm Top) 1 foam UNSCH PRN TOP 03/10/17 12:15 (Betadine 10% Oint) 1 applic DAILY TOPICAL 03/11/17 09:00 03/13/17 08:52 (NS Flush) 2 ml UNSCH PRN IV FLUSH 03/11/17 20:30 (NS Flush) 2 ml BID IV FLUSH 03/11/17 21:00 03/13/17 08:49 (Duoneb Neb) 1 ampule Q6HR NEB NEB 03/12/17 16:00 03/13/17 08:17 Cefepime HCl 1000 mg/Sodium Chloride 100 ml @ 200 mls/hr Q24H IV 03/12/17 15:00 03/12/17 17:39 Penicillin G Sodium [id number] units/Sodium Chloride 100 ml @ 200 mls/hr Q4H IV 03/12/17 20:00 03/13/17 08:49 Clindamycin Phosphate 900 mg/ Sodium Chloride 106 ml @ 212 mls/hr Q8H IV 03/13/17 12:00 03/13/17 15:07 Sodium Chloride 500 ml @ 500 mls/hr Q24H IV 03/13/17 17:00 03/17/17 17:59 (Tylenol) 650 mg Q24H PO 03/13/17 17:00 03/18/17 16:59 Dextrose 500 ml @ 30 mls/hr [id number] OTHER 03/13/17 18:00 03/17/17 05:19 (Benadryl) 25 mg Q24H PO 03/13/17 17:00 03/18/17 16:59 Immune Globulin 30 gm/Syringe / Bag 300 ml @ 24.75 mls/ hr Q24H IV 03/13/17 18:00 03/18/17 06:08 (Benadryl Inj) 50 mg UNSCH PRN IV PUSH 03/13/17 17:00 03/19/17 16:59 (Adrenalin (1:1000) Inj) 0.3 mg Q10M PRN OTHER 03/13/17 17:00 03/19/17 16:59 Family History The patient's mother had suffered a stroke, but of suicide via gunshot wound. The patient's father of pulmonary fibrosis at age 77, and also suffered from alcoholism, heart disease, and diabetes. Two brothers are alcoholic. . Substance Use Tobacco: Longtime smoker. Alcohol: Alcohol abuse since in his teens, in recent years drinking Risk I/Onapps Prescription med abuse: Abuse many different types of substances in the past Illicits: Multiple substance abuse but no history of IV drug abuse . Psychosocial History The patient was born and raised in [place], and came to [facility] at the age of 12 with his father, an orthopedic surgeon. After a short time here, the patient was abusing drugs and hallucinogenic plants, and the patient's father sent him back to [place] to live with his mother. He has lived in [place] since then and was just in this area for a few days prior to this hospitalization. His brother reports he was living in an and may have had a girlfriend. The patient has 3/2 brothers, all sharing the same father but different mothers. The patient was once for several years but a couple years ago. He has had a girlfriend recently. The patient's brother Mike reports that the patient had no children. The patient's brother is unsure whether the patient never actually worked. He thinks that the patient got a trust fund when the patient's mother by suicide. . Spiritual/Cultural Factors Is unknown whether the patient was spiritual or congregational . Living Will: Never completed Health Care Surrogate: Never completed Durable Power of Snubber: Never completed Family/friends goals: The patient's brother Mike will be contacting his 2 brothers (Stevie and Mikey), and we will all talk tomorrow about goals, specifically about the patient's very poor prognosis, CODE STATUS, and the option to "stop doing things to him and allow him to peacefully." . Ethical and Legal Issues There are no ethical issues that would impact his care or decision-making at this time. The patient lacks capacity for decision-making, and it is highly unlikely that he will regain that capacity. He is unmarried and has no children, so decision making falls to the majority of his 3 brothers who will decide if they want to participate in the decision making. . Physical Exam Vital Signs Date Time Temp Pulse Resp B/P (MAP) Pulse Ox O2 Delivery O2 Flow Rate FiO2 03/13/17 10:05 90 95/54 03/13/17 10:00 90 03/13/17 08:18 98 30 03/13/17 08:18 98 Ventilator 40 03/13/17 08:00 99.6 87 21 104/56 (72) 97 03/13/17 08:00 87 03/13/17 08:00 30 03/13/17 07:34 91 107/59 03/13/17 07:00 90 17 108/61 (77) 97 03/13/17 06:45 92 22 106/59 (75) 96 03/13/17 06:30 93 16 105/57 (73) 96 03/13/17 06:15 93 16 105/61 (76) 95 03/13/17 06:00 93 19 99/56 (70) 97 03/13/17 06:00 93 03/13/17 05:45 88 22 102/60 (74) 98 03/13/17 05:30 90 21 99/56 (70) 98 03/13/17 05:15 92 22 98/55 (69) 98 03/13/17 05:00 93 16 101/56 (71) 98 03/13/17 04:45 95 16 101/57 (72) 99 03/13/17 04:30 96 17 104/55 (71) 98 03/13/17 04:30 98 30 03/13/17 04:15 97 16 108/63 (78) 98 03/13/17 04:00 30 03/13/17 04:00 98 03/13/17 04:00 98 21 110/60 (77) 99 03/13/17 04:00 98 21 110/60 (77) 99 03/13/17 04:00 99.4 98 20 110/60 (77) 99 03/13/17 03:45 98 21 92/53 (66) 98 03/13/17 03:36 98 30 03/13/17 03:30 99 23 96/54 (68) 99 03/13/17 03:15 98 17 92/51 (65) 98 03/13/17 03:04 96 18 103/59 (74) 96 03/13/17 03:00 97 27 75/53 (60) 94 03/13/17 02:45 96 17 90/60 (70) 98 03/13/17 02:30 96 20 105/59 (74) 97 03/13/17 02:15 96 17 99/56 (70) 98 03/13/17 02:00 96 03/13/17 02:00 96 16 96/55 (69) 98 03/13/17 01:56 96 97/55 03/13/17 01:45 96 16 97/55 (69) 98 03/13/17 01:30 93 16 96/54 (68) 98 03/13/17 01:15 94 19 93/55 (68) 98 03/13/17 01:00 93 20 94/53 (67) 98 03/13/17 00:45 92 21 92/51 (65) 98 03/13/17 00:30 91 19 97/54 (68) 100 03/13/17 00:23 99 30 03/13/17 00:15 93 16 94/50 (65) 98 03/13/17 00:00 94 16 94/51 (65) 98 03/13/17 00:00 94 03/13/17 00:00 30 03/13/17 00:00 98.9 94 16 94/51 (65) 98 03/13/17 00:00 94 16 94/51 (65) 98 03/12/17 23:45 95 16 91/50 (64) 99 03/12/17 23:30 95 16 92/54 (67) 99 03/12/17 23:15 93 21 93/55 (68) 99 03/12/17 23:00 91 23 91/55 (67) 99 03/12/17 22:45 89 25 92/54 (67) 99 03/12/17 22:30 89 23 88/51 (63) 99 03/12/17 22:15 84 22 85/52 (63) 99 03/12/17 22:00 83 17 91/50 (64) 100 03/12/17 22:00 83 03/12/17 21:58 100 30 03/12/17 21:45 84 17 87/54 (65) 99 03/12/17 21:30 83 16 87/50 (62) 99 03/12/17 21:15 83 16 87/54 (65) 99 03/12/17 21:00 84 17 90/50 (63) 99 03/12/17 20:45 84 16 92/50 (64) 99 03/12/17 20:30 83 16 91/54 (66) 99 03/12/17 20:18 98 30 03/12/17 20:15 81 16 93/53 (66) 98 03/12/17 20:00 82 24 94/53 (67) 99 03/12/17 20:00 100.1 82 18 94/53 (67) 99 03/12/17 20:00 30 03/12/17 20:00 82 03/12/17 18:00 88 03/12/17 17:02 97 30 03/12/17 16:15 40 03/12/17 16:00 101 03/12/17 16:00 99.2 101 16 133/81 (98) 98 03/12/17 16:00 30 03/13/17 03/14/17 19:00 07:00 Intake Total 200 ml Balance 200 ml IV Total 200 ml Exam CONSTITUTIONAL/GENERAL: This is an ill-appearing patient, sedated, ventilated. TUBES/LINES/DRAINS: OG tube, ET tube, SCDs, Dennison catheter, vas catheter SKIN: No rashes, or lesions, but jaundice is present. Ecchymoses on upper extremities. No wounds seen anteriorly. Skin temperature appropriate. Not diaphoretic. HEAD: Atraumatic. Normocephalic. EYES: Pupils equal and round but I don't see any reaction to light. No scleral icterus. No injection or drainage. Fundi not examined. ENT: Nose without bleeding or purulent drainage. NECK: Trachea midline. Supple, nontender. No palpable thyroid enlargement or nodularity. CARDIOVASCULAR: Regular rate and rhythm without murmurs, gallops, or rubs. Tachycardic. No JVD. Weak radial pulses. RESPIRATORY/CHEST: Symmetric, unlabored respirations. Scattered rales and rhonchi GASTROINTESTINAL: Abdomen soft, nondistended. No hepato-splenomegaly, or palpable masses. No guarding. Bowel sounds present. GENITOURINARY: Without palpable bladder distension. Dennison catheter in place. MUSCULOSKELETAL: Bandage on right BKA stump. Left foot edematous, cool. Left elbow swollen, edematous. LYMPHATICS: No palpable cervical or supraclavicular adenopathy. NEUROLOGICAL: Unresponsive. PSYCHIATRIC: Unable to evaluate due to her clinical condition . Diagnostic Tests Laboratory Laboratory Tests Test 03/10/17 18:30 03/11/17 06:14 03/11/17 10:06 03/12/17 04:10 Hepatitis A IgM Antibody NEGATIVE (NEGATIVE) Hepatitis B Surface Antigen NEGATIVE (NEGATIVE) Hepatitis B Core IgM Antibody NEGATIVE (NEGATIVE) Hepatitis C Antibody REACTIVE (NEGATIVE) White Blood Count 26.2 TH/MM3 (4.0-11.0) 29.1 TH/MM3 (4.0-11.0) Red Blood Count 2.93 MIL/MM3 (4.50-5.90) 2.95 MIL/MM3 (4.50-5.90) Hemoglobin 8.8 GM/DL (13.0-17.0) 9.0 GM/DL (13.0-17.0) Hematocrit 26.7 % (39.0-51.0) 26.9 % (39.0-51.0) Mean Corpuscular Volume 91.2 FL (80.0-100.0) 91.2 FL (80.0-100.0) Mean Corpuscular Hemoglobin 30.2 PG (27.0-34.0) 30.5 PG (27.0-34.0) Mean Corpuscular Hemoglobin Concent 33.1 % (32.0-36.0) 33.5 % (32.0-36.0) Red Cell Distribution Width 15.2 % (11.6-17.2) 15.0 % (11.6-17.2) Platelet Count 85 TH/MM3 (150-450) 68 TH/MM3 (150-450) Mean Platelet Volume 9.6 FL (7.0-11.0) 9.9 FL (7.0-11.0) Neutrophils (%) (Auto) 86.1 % (16.0-70.0) 89.2 % (16.0-70.0) Lymphocytes (%) (Auto) 9.6 % (9.0-44.0) 7.1 % (9.0-44.0) Monocytes (%) (Auto) 3.1 % (0.0-8.0) 2.6 % (0.0-8.0) Eosinophils (%) (Auto) 0.7 % (0.0-4.0) 0.8 % (0.0-4.0) Basophils (%) (Auto) 0.5 % (0.0-2.0) 0.3 % (0.0-2.0) Neutrophils # (Auto) 22.5 TH/MM3 (1.8-7.7) 26.0 TH/MM3 (1.8-7.7) Lymphocytes # (Auto) 2.5 TH/MM3 (1.0-4.8) 2.1 TH/MM3 (1.0-4.8) Monocytes # (Auto) 0.8 TH/MM3 (0-0.9) 0.8 TH/MM3 (0-0.9) Eosinophils # (Auto) 0.2 TH/MM3 (0-0.4) 0.2 TH/MM3 (0-0.4) Basophils # (Auto) 0.1 TH/MM3 (0-0.2) 0.1 TH/MM3 (0-0.2) CBC Comment AUTO DIFF AUTO DIFF Differential Total Cells Counted 100 100 Neutrophils % (Manual) 62 % (16-70) 85 % (16-70) Band Neutrophils % 8 % (0-6) 1 % (0-6) Lymphocytes % 27 % (9-44) 8 % (9-44) Monocytes % 1 % (0-8) 2 % (0-8) Basophils % 1 % (0-2) Neutrophils # (Manual) 18.6 TH/MM3 (1.8-7.7) 25.6 TH/MM3 (1.8-7.7) Metamyelocytes 1 % (0-1) 1 % (0-1) Nucleated Red Blood Cells 15 /100 WBC (0-0) Differential Comment FINAL DIFF MANUAL FINAL DIFF MANUAL Toxic Granulation 1+ (NORMAL) Platelet Estimate LOW (NORMAL) LOW (NORMAL) Platelet Morphology Comment NORMAL (NORMAL) NORMAL (NORMAL) Blood Urea Nitrogen 74 MG/DL (7-18) 59 MG/DL (7-18) Creatinine 4.69 MG/DL (0.60-1.30) 3.86 MG/DL (0.60-1.30) Random Glucose 142 MG/DL (74-106) 145 MG/DL (74-106) Calcium Level 7.5 MG/DL (8.5-10.1) 7.7 MG/DL (8.5-10.1) Sodium Level 138 MEQ/L (136-145) 141 MEQ/L (136-145) Potassium Level 3.7 MEQ/L (3.5-5.1) 3.6 MEQ/L (3.5-5.1) Chloride Level 100 MEQ/L (98-107) 103 MEQ/L (98-107) Carbon Dioxide Level 21.7 MEQ/L (21.0-32.0) 27.2 MEQ/L (21.0-32.0) Anion Gap 16 MEQ/L (5-15) 11 MEQ/L (5-15) Estimat Glomerular Filtration Rate 13 ML/MIN (>89) 17 ML/MIN (>89) Synovial Fluid Color STRAW (STRAW) Synovial Fluid Appearance MARKED (CLEAR) Synovial Fluid WBC 41338 /MM3 (0-200) Synovial Fluid RBC 4500 /MM3 (0-0) Synovial Fluid Neutrophils 97 % (0-25) Synovial Fluid Lymphocytes 0 % Synovial Fluid Monocytes 2 % Synovial Fluid Synovial Lining Cell 1 % Synovial Fluid Crystals NONE (NONE) Eosinophils % 2 % (0-4) Myelocytes 1 % (0-0) Target Cells 1+ (NORMAL) Total Protein 5.6 GM/DL (6.4-8.2) Albumin 1.8 GM/DL (3.4-5.0) Alkaline Phosphatase 193 U/L (45-117) Aspartate Amino Transf (AST/SGOT) 71 U/L (15-37) Alanine Aminotransferase (ALT/SGPT) 30 U/L (12-78) Total Bilirubin 7.8 MG/DL (0.2-1.0) Test 03/12/17 15:45 03/13/17 03:20 Lactic Acid Level 2.0 mmol/L (0.4-2.0) White Blood Count 32.1 TH/MM3 (4.0-11.0) Red Blood Count 3.02 MIL/MM3 (4.50-5.90) Hemoglobin 9.0 GM/DL (13.0-17.0) Hematocrit 28.0 % (39.0-51.0) Mean Corpuscular Volume 92.8 FL (80.0-100.0) Mean Corpuscular Hemoglobin 29.9 PG (27.0-34.0) Mean Corpuscular Hemoglobin Concent 32.3 % (32.0-36.0) Red Cell Distribution Width 15.5 % (11.6-17.2) Platelet Count 100 TH/MM3 (150-450) Mean Platelet Volume 10.0 FL (7.0-11.0) Neutrophils (%) (Auto) 87.5 % (16.0-70.0) Lymphocytes (%) (Auto) 8.6 % (9.0-44.0) Monocytes (%) (Auto) 2.4 % (0.0-8.0) Eosinophils (%) (Auto) 0.7 % (0.0-4.0) Basophils (%) (Auto) 0.8 % (0.0-2.0) Neutrophils # (Auto) 28.1 TH/MM3 (1.8-7.7) Lymphocytes # (Auto) 2.8 TH/MM3 (1.0-4.8) Monocytes # (Auto) 0.8 TH/MM3 (0-0.9) Eosinophils # (Auto) 0.2 TH/MM3 (0-0.4) Basophils # (Auto) 0.3 TH/MM3 (0-0.2) CBC Comment AUTO DIFF Differential Total Cells Counted 100 Neutrophils % (Manual) 79 % (16-70) Band Neutrophils % 6 % (0-6) Lymphocytes % 10 % (9-44) Monocytes % 1 % (0-8) Eosinophils % 1 % (0-4) Basophils % 1 % (0-2) Neutrophils # (Manual) 27.9 TH/MM3 (1.8-7.7) Myelocytes 1 % (0-0) Promyelocytes 1 % (0-0) Nucleated Red Blood Cells 1 /100 WBC (0-0) Differential Comment FINAL DIFF MANUAL Toxic Granulation 1+ (NORMAL) Dohle Bodies PRESENT (NONE SEEN) Platelet Estimate LOW (NORMAL) Platelet Morphology Comment NORMAL (NORMAL) Red Cell Morphology Comment NORMAL (NORMAL) Blood Urea Nitrogen 71 MG/DL (7-18) Creatinine 4.66 MG/DL (0.60-1.30) Random Glucose 164 MG/DL (74-106) Total Protein 5.9 GM/DL (6.4-8.2) Albumin 1.5 GM/DL (3.4-5.0) Calcium Level 7.9 MG/DL (8.5-10.1) Magnesium Level 2.3 MG/DL (1.5-2.5) Alkaline Phosphatase 265 U/L (45-117) Aspartate Amino Transf (AST/SGOT) 71 U/L (15-37) Alanine Aminotransferase (ALT/SGPT) 27 U/L (12-78) Total Bilirubin 8.2 MG/DL (0.2-1.0) Sodium Level 140 MEQ/L (136-145) Potassium Level 3.5 MEQ/L (3.5-5.1) Chloride Level 102 MEQ/L (98-107) Carbon Dioxide Level 24.6 MEQ/L (21.0-32.0) Anion Gap 13 MEQ/L (5-15) Estimat Glomerular Filtration Rate 13 ML/MIN (>89) Result Diagram: 03/13/17 0320 03/13/17 0320 Microbiology Microbiology Date/Time Source Procedure Growth Status 03/11/17 13:31 Fluid Synovial Fluid Fungal Smear - Final NO FUNGAL ELEMENTS SEEN. Resulted 03/11/17 13:31 Fluid Synovial Fluid Fungal Culture Pending Resulted 03/11/17 10:06 Fluid Synovial Fluid Gram Stain - Final Resulted 03/11/17 10:06 Fluid Synovial Fluid Body Fluid Culture - Preliminary NO GROWTH IN 48 HOURS. Resulted 03/11/17 10:06 Fluid Synovial Fluid Acid Fast Stain - Final NO ACID FAST BACILLI SEEN Resulted 03/11/17 10:06 Fluid Synovial Fluid Mycobacterial Culture Pending Resulted 03/12/17 15:45 Sputum Endotracheal Gram Stain - Final Resulted 03/12/17 15:45 Sputum Endotracheal Sputum Culture - Preliminary NO GROWTH IN 24 HOURS. Resulted 03/11/17 19:45 Wound Knee Fungal Smear - Final NO FUNGAL ELEMENTS SEEN. Resulted 03/11/17 19:45 Wound Knee Fungal Culture Pending Resulted 03/11/17 19:45 Wound Knee Acid Fast Stain - Final NO ACID FAST BACILLI SEEN Resulted 03/11/17 19:45 Wound Knee Mycobacterial Culture Pending Resulted 03/11/17 19:45 Wound Knee Gram Stain - Final Resulted 03/11/17 19:45 Wound Knee Wound Culture - Preliminary NO GROWTH IN 48 HOURS. Resulted Imaging Last Impressions Thoracic Spine MRI 03/13/17 Signed Impressions: Service Date/Time: February 12:17 - CONCLUSION: Tiny disc protrusions at several levels. No evidence of epidural or paraspinal abscess. Danny Garrett MD Lumbar Spine MRI 03/13/17 Signed Impressions: Service Date/Time: February 12:17 - CONCLUSION: Normal examination. Adrian Fisher Jr., MD Elbow MRI 03/13/17 Signed Impressions: Service Date/Time: February 12:17 - CONCLUSION: Prominent subcutaneous edema. Minimal fluid in the joint and olecranon bursa Danny Garrett MD Chest CT 03/13/17 Signed Impressions: Service Date/Time: February 11:37 - CONCLUSION: 1. Consolidation in both lower lobes right greater than left. 2. Small bilateral pleural effusions. Mike Anthony MD Cervical Spine MRI 03/13/17 Signed Impressions: Service Date/Time: February 12:17 - CONCLUSION: 1. Minimal degenerative disc disease. No abutment of the cord or central canal stenosis. 2. No abscess. Adrian Fisher Jr., MD Abdomen/Pelvis CT 03/13/17 Signed Impressions: Service Date/Time: February 11:37 - CONCLUSION: 1. Apparent circumferential bowel wall thickening involving portions of the ascending colon and proximal transverse colon which are nonspecific but most characteristic of colitis. 2. Moderate amount of ascitic fluid in the abdomen and pelvis. 3. The liver is mildly prominent and cirrhotic in appearance. 4. Small bilateral pleural effusions with consolidation in both posterior lung bases. Mike Anthony MD Elbow X-Ray 03/12/17 Signed Impressions: Service Date/Time: Sunday, March 12, 2017 15:42 - CONCLUSION: No acute bony findings Danny Garrett MD Chest X-Ray 03/12/17 Signed Impressions: Service Date/Time: Sunday, March 12, 2017 14:03 - CONCLUSION: Support apparatus in good position. Interval improvement. Darinel Graves MD FACR Ankle X-Ray 03/12/17 Signed Impressions: Service Date/Time: Sunday, March 12, 2017 15:27 - CONCLUSION: No acute bony findings Danny Garrett MD Liver Ultrasound 03/09/17 Signed Impressions: Service Date/Time: Thursday, March 09, 2017 12:50 - CONCLUSION: 1. No gallstones or biliary tract obstruction. 2. Thickening of the gallbladder wall at 5 mm. This can be seen with chronic gallbladder disease. 3. Increased echogenicity throughout the liver suggestive of fatty infiltration and/or hepatocellular disease. Carl Sands MD Knee X-Ray 03/09/17 Signed Impressions: Service Date/Time: Thursday, March 09, 2017 14:15 - CONCLUSION: 1. No acute bony abnormality. 2. Moderate nonspecific joint effusion. 3. Mild medial compartment osteoarthritis. Danny Buchanan MD Hand X-Ray 03/09/17 Signed Impressions: Service Date/Time: Thursday, March 09, 2017 14:11 - CONCLUSION: Nonspecific soft tissue swelling. No acute bony abnormality of the right hand. Danny Buchanan MD Shoulder X-Ray 03/08/17 Signed Impressions: Service Date/Time: Wednesday, March 08, 2017 10:47 - CONCLUSION: Within normal limits. Danny Buchanan MD Renal Ultrasound 03/08/17 Signed Impressions: Service Date/Time: Wednesday, March 08, 2017 08:58 - CONCLUSION: 1. Unremarkable bilateral renal ultrasound. 2. Hepatomegaly with a trace of ascites in the upper abdomen. Carl Sands MD Procedures * INTUBATION 03/07/17 * Right BKA 03/08/17 * Vas-Cath * Left knee arthrotomy and irrigation 03/11/17 . Patient/Family Conference Present at Family Conference: Brother Mike by phone . Family Conference Time (mins): 40 Family Conference Location: Telephone Issues Discussed: * Palliative care role, purpose, approach * Additional medical, psychosocial, and spiritual history * Patients general health, functional status, and cognitive changes in the months leading up to the current hospitalization * Patient/family understanding of the current medical problems * Patient/family understanding of prognosis * Patients goals of care as best understood from advance directives and/or conversations and/or values * Current medical treatment options and benefits/burdens of those options * Likely scenarios comparing ongoing aggressive care with a transition to comfort measures only * Questions answered to the best of my ability * Palliative care contact information provided The patient's brother Mike will be contacting his 2 brothers (Stevie and Mikey), and we will all talk tomorrow about goals, specifically about the patient's very poor prognosis, CODE STATUS, and the option to "stop doing things to him and allow him to peacefully." . Assessment and Plan Disease Oriented Problem List: (1) septic shock, profound (2) respiratory failure, ventilator dependent (3) group B strep bacteremia (4) multiple septic joints (5) recent gangrenous foot, status post right BKA (6) acute kidney injury/failure, now on dialysis (7) colitis on CT scan (8) COPD history (9) long-standing alcohol and drug abuse (10) possible rhabdomyolysis (11) diabetes, with reportedly no treatment in recent years Symptom Scale: (1) dyspnea 0-10 Scale: Unable to quantify (2) pain 0-10 Scale: Unable to quantify Pertinent Non-Medical Issues Psychosocial: From [place], , long-term drug and alcohol abuse, unemployed. Spiritual: Unknown if he was spiritual or congregational Legal: The patient lacks capacity for decision-making, and it is highly unlikely that he will regain that capacity. He is unmarried and has no children , so decision making falls to the majority of his 3 brothers who will decide if they want to participate in the decision making. Ethical issues impacting care: None . Important Contacts Brother: Mike Mcrae [phone] Brother: Stevie Mcrae Brother: Mikey Mcrae . Prognosis The patient's prognosis is very poor; he has multisystem organ failure (CASING TESTER, respiratory, cardiovascular, renal) in the face of profound septic shock and profound malnutrition and alcoholism. He is appropriate for hospice services if the goals are determined to be comfort oriented. . Code Status: Full Code Plan * FULL CODE for now, I will readdress this with all 3 brothers tomorrow. * DECISION-MAKING: The patient lacks capacity for decision-making, and it is highly unlikely that he will regain that capacity. He is unmarried and has no children, so decision making falls to the majority of his 3 brothers who will decide if they want to participate in the decision making. * GOALS: The patient's brother Mike will be contacting his 2 brothers ( Stevie and Mikey), and we will all talk tomorrow about goals, specifically about the patient's very poor prognosis, CODE STATUS, and the option to "stop doing things to him and allow him to peacefully." * His PROGNOSIS is extremely poor, and he is facing the possibility of multiple amputations and upcoming days. The patient has multisystem organ failure (CASING TESTER, respiratory, cardiovascular, renal) in the face of profound septic shock and profound malnutrition and alcoholism. He is appropriate for hospice services if the goals are determined to be comfort oriented; discussion with the decision makers (3 brothers) will continue tomorrow. * SYMPTOMS: The patient's dyspnea and pain is currently being managed by ventilator and sedation/fentanyl. I have no new medication recommendations at this time. * Palliative Care will continue to follow the patient during this hospitalization. . Time Spent Total Floor Time (mins): 79 Face to Face Time (mins): 15 >50% Counseling/Coord of Care: Yes (d/e Dr. Marie) Thank you for the opportunity to participate in the care of Mr. Bob. Attestation To help prompt me to consider important information that might be impacting today's encounter and assessment, information from prior notes written by myself or my colleagues may have been "brought forward" into today's note. My signature on this note, however, is an attestation that I personally performed the exam, history, and/or decision-making noted today, and, unless otherwise indicated, the interactions with patient, family, and staff as well as the review of records all occurred today. I also attest that the listed assessment and stated plan reflect my best clinical judgment today based on the combination of historical information, prior notes, and today's exam/ interactions. When time spent is documented, it refers only to time spent today by the signer, or if indicated, combined time spent today by collaborating physician/nurse practitioner. Smiley Raymundo MD Mar 13, 2017 16:15
[2017-03-13] MEDS ORDERED: ACETAMINOPHEN 325 MG TAB PO SCH (17:00)
[2017-03-13] MEDS ORDERED: diphenhydrAMINE HCL 25 MG CAP PO SCH (17:00)
[2017-03-13] MEDS ORDERED: SODIUM CHLORID 0.9% 500 ML INJ 500 ML IV SCH (17:00)
[2017-03-13] MEDS ORDERED: diphenhydrAMINE HCL 50 MG/ML VIAL IV PUSH PRN (17:00)
[2017-03-13] MEDS ORDERED: EPINEPHrine HCL (1:1000) 1 MG/ML VIAL OTHER PRN (17:00)
--- NOTE | 2017-03-13 17:59 | PD.CONS ---
HPI History of Present Illness This is a 51 year old male with hx ETOH abuse, COPD, uncontrolled DM, hep C who presented with confusion and with draining right foot wound. He was found to be in septic shock, hypotensive, encephalopathic, and was intubated. CT 03/13 suggestive of colitis, moderate ascites, cirrhotic appearance liver. He did have mild elevation AST on admission which has since decreased. ALP has since increased. Tbil was also elevated and has been increasing. Pos for cocaine and marijuana. Hx from EMR. s/p right BKA 03/08. (Lesvia Byrd) PFSH Past Medical History * Profound septic shock * Respiratory failure * Group B strep bacteremia * Multiple septic joints * Gangrenous foot, status post right BKA * Acute kidney injury/failure, now on dialysis * Colitis on CT scan * COPD * Alcohol and drug abuse * Possible rhabdomyolysis * Diabetes, with no recent treatment . Past Surgical History * INTUBATION 03/07/17 * Right BKA 03/08/17 * Vas-Cath 03/10/17 * Left knee arthrotomy and irrigation 03/11/17 . (Lesvia Byrd) Coded Allergies: No Known Allergies (Unverified , 03/07/17) Family History The patient's mother had suffered a stroke, but of suicide via gunshot wound. The patient's father of pulmonary fibrosis at age 77, and also suffered from alcoholism, heart disease, and diabetes. Two brothers are alcoholic. . (Lesvia Byrd) Review of Systems ROS noncontributory (Lesvia Byrd) GI Exam Vitals I&O Vital Signs Date Time Temp Pulse Resp B/P (MAP) Pulse Ox O2 Delivery O2 Flow Rate FiO2 03/13/17 16:25 100 30 03/13/17 11:15 100 100 03/13/17 10:05 90 95/54 03/13/17 10:00 90 03/13/17 08:18 98 30 03/13/17 08:18 98 Ventilator 40 03/13/17 08:00 99.6 87 21 104/56 (72) 97 03/13/17 08:00 87 03/13/17 08:00 30 03/13/17 07:34 91 107/59 03/13/17 07:00 90 17 108/61 (77) 97 03/13/17 06:45 92 22 106/59 (75) 96 03/13/17 06:30 93 16 105/57 (73) 96 03/13/17 06:15 93 16 105/61 (76) 95 03/13/17 06:00 93 19 99/56 (70) 97 03/13/17 06:00 93 03/13/17 05:45 88 22 102/60 (74) 98 03/13/17 05:30 90 21 99/56 (70) 98 03/13/17 05:15 92 22 98/55 (69) 98 03/13/17 05:00 93 16 101/56 (71) 98 03/13/17 04:45 95 16 101/57 (72) 99 03/13/17 04:30 96 17 104/55 (71) 98 03/13/17 04:30 98 30 03/13/17 04:15 97 16 108/63 (78) 98 03/13/17 04:00 30 03/13/17 04:00 98 03/13/17 04:00 98 21 110/60 (77) 99 03/13/17 04:00 98 21 110/60 (77) 99 03/13/17 04:00 99.4 98 20 110/60 (77) 99 03/13/17 03:45 98 21 92/53 (66) 98 03/13/17 03:36 98 30 03/13/17 03:30 99 23 96/54 (68) 99 03/13/17 03:15 98 17 92/51 (65) 98 03/13/17 03:04 96 18 103/59 (74) 96 03/13/17 03:00 97 27 75/53 (60) 94 03/13/17 02:45 96 17 90/60 (70) 98 03/13/17 02:30 96 20 105/59 (74) 97 03/13/17 02:15 96 17 99/56 (70) 98 03/13/17 02:00 96 03/13/17 02:00 96 16 96/55 (69) 98 03/13/17 01:56 96 97/55 03/13/17 01:45 96 16 97/55 (69) 98 03/13/17 01:30 93 16 96/54 (68) 98 03/13/17 01:15 94 19 93/55 (68) 98 03/13/17 01:00 93 20 94/53 (67) 98 03/13/17 00:45 92 21 92/51 (65) 98 03/13/17 00:30 91 19 97/54 (68) 100 03/13/17 00:23 99 30 03/13/17 00:15 93 16 94/50 (65) 98 03/13/17 00:00 94 16 94/51 (65) 98 03/13/17 00:00 94 03/13/17 00:00 30 03/13/17 00:00 98.9 94 16 94/51 (65) 98 03/13/17 00:00 94 16 94/51 (65) 98 03/12/17 23:45 95 16 91/50 (64) 99 03/12/17 23:30 95 16 92/54 (67) 99 03/12/17 23:15 93 21 93/55 (68) 99 03/12/17 23:00 91 23 91/55 (67) 99 03/12/17 22:45 89 25 92/54 (67) 99 03/12/17 22:30 89 23 88/51 (63) 99 03/12/17 22:15 84 22 85/52 (63) 99 03/12/17 22:00 83 17 91/50 (64) 100 03/12/17 22:00 83 03/12/17 21:58 100 30 03/12/17 21:45 84 17 87/54 (65) 99 03/12/17 21:30 83 16 87/50 (62) 99 03/12/17 21:15 83 16 87/54 (65) 99 03/12/17 21:00 84 17 90/50 (63) 99 03/12/17 20:45 84 16 92/50 (64) 99 03/12/17 20:30 83 16 91/54 (66) 99 03/12/17 20:18 98 30 03/12/17 20:15 81 16 93/53 (66) 98 03/12/17 20:00 82 24 94/53 (67) 99 03/12/17 20:00 100.1 82 18 94/53 (67) 99 03/12/17 20:00 30 03/12/17 20:00 82 03/12/17 18:00 88 I/O 03/12/17 03/12/17 03/12/17 03/13/17 03/13/17 03/13/17 07:00 15:00 23:00 07:00 15:00 23:00 Intake Total 256 ml 100 ml 260 ml 538 ml 200 ml Output Total 415 ml 825 ml 145 ml 2000 ml Balance -159 ml 100 ml -565 ml 393 ml 200 ml -2000 ml IV Total 100 ml 200 ml 200 ml Tube Feeding 166 ml 418 ml Other 90 ml 60 ml 120 ml Output Urine Total 200 ml 225 ml 75 ml Stool Total 200 ml 600 ml 60 ml Drainage Total 15 ml 10 ml Hemodialysis 2000 ml Imaging Last Impressions Thoracic Spine MRI 03/13/17 Signed Impressions: Service Date/Time: February 12:17 - CONCLUSION: Tiny disc protrusions at several levels. No evidence of epidural or paraspinal abscess. Danny Garrett MD Lumbar Spine MRI 03/13/17 Signed Impressions: Service Date/Time: February 12:17 - CONCLUSION: Normal examination. Adrian Fisher Jr., MD Elbow MRI 03/13/17 0000 Signed Impressions: Service Date/Time: February 12:17 - CONCLUSION: Prominent subcutaneous edema. Minimal fluid in the joint and olecranon bursa Danny Garrett MD Chest CT 03/13/17 Signed Impressions: Service Date/Time: February 11:37 - CONCLUSION: 1. Consolidation in both lower lobes right greater than left. 2. Small bilateral pleural effusions. Mike Anthony MD Cervical Spine MRI 03/13/17 Signed Impressions: Service Date/Time: February 12:17 - CONCLUSION: 1. Minimal degenerative disc disease. No abutment of the cord or central canal stenosis. 2. No abscess. Adrian Fisher Jr., MD Abdomen/Pelvis CT 03/13/17 Signed Impressions: Service Date/Time: February 11:37 - CONCLUSION: 1. Apparent circumferential bowel wall thickening involving portions of the ascending colon and proximal transverse colon which are nonspecific but most characteristic of colitis. 2. Moderate amount of ascitic fluid in the abdomen and pelvis. 3. The liver is mildly prominent and cirrhotic in appearance. 4. Small bilateral pleural effusions with consolidation in both posterior lung bases. Mike Anthony MD Elbow X-Ray 03/12/17 Signed Impressions: Service Date/Time: Sunday, March 12, 2017 15:42 - CONCLUSION: No acute bony findings Danny Garrett MD Chest X-Ray 03/12/17 Signed Impressions: Service Date/Time: Sunday, March 12, 2017 14:03 - CONCLUSION: Support apparatus in good position. Interval improvement. Darinel Graves MD FACR Ankle X-Ray 03/12/17 Signed Impressions: Service Date/Time: Sunday, March 12, 2017 15:27 - CONCLUSION: No acute bony findings Danny Garrett MD Liver Ultrasound 03/09/17 Signed Impressions: Service Date/Time: Thursday, March 09, 2017 12:50 - CONCLUSION: 1. No gallstones or biliary tract obstruction. 2. Thickening of the gallbladder wall at 5 mm. This can be seen with chronic gallbladder disease. 3. Increased echogenicity throughout the liver suggestive of fatty infiltration and/or hepatocellular disease. Carl Sands MD Knee X-Ray 03/09/17 Signed Impressions: Service Date/Time: Thursday, March 09, 2017 14:15 - CONCLUSION: 1. No acute bony abnormality. 2. Moderate nonspecific joint effusion. 3. Mild medial compartment osteoarthritis. Danny Buchanan MD Hand X-Ray 03/09/17 Signed Impressions: Service Date/Time: Thursday, March 09, 2017 14:11 - CONCLUSION: Nonspecific soft tissue swelling. No acute bony abnormality of the right hand. Danny Buchanan MD Shoulder X-Ray 03/08/17 Signed Impressions: Service Date/Time: Wednesday, March 08, 2017 10:47 - CONCLUSION: Within normal limits. Danny Buchanan MD Renal Ultrasound 03/08/17 Signed Impressions: Service Date/Time: Wednesday, March 08, 2017 08:58 - CONCLUSION: 1. Unremarkable bilateral renal ultrasound. 2. Hepatomegaly with a trace of ascites in the upper abdomen. Carl Sands MD Laboratory Test 03/13/17 03:20 White Blood Count 32.1 TH/MM3 Red Blood Count 3.02 MIL/MM3 Hemoglobin 9.0 GM/DL Hematocrit 28.0 % Mean Corpuscular Volume 92.8 FL Mean Corpuscular Hemoglobin 29.9 PG Mean Corpuscular Hemoglobin Concent 32.3 % Red Cell Distribution Width 15.5 % Platelet Count 100 TH/MM3 Mean Platelet Volume 10.0 FL Neutrophils (%) (Auto) 87.5 % Lymphocytes (%) (Auto) 8.6 % Monocytes (%) (Auto) 2.4 % Eosinophils (%) (Auto) 0.7 % Basophils (%) (Auto) 0.8 % Neutrophils # (Auto) 28.1 TH/MM3 Lymphocytes # (Auto) 2.8 TH/MM3 Monocytes # (Auto) 0.8 TH/MM3 Eosinophils # (Auto) 0.2 TH/MM3 Basophils # (Auto) 0.3 TH/MM3 CBC Comment AUTO DIFF Differential Total Cells Counted 100 Neutrophils % (Manual) 79 % Band Neutrophils % 6 % Lymphocytes % 10 % Monocytes % 1 % Eosinophils % 1 % Basophils % 1 % Neutrophils # (Manual) 27.9 TH/MM3 Myelocytes 1 % Promyelocytes 1 % Nucleated Red Blood Cells 1 /100 WBC Differential Comment FINAL DIFF MANUAL Toxic Granulation 1+ Dohle Bodies PRESENT Platelet Estimate LOW Platelet Morphology Comment NORMAL Red Cell Morphology Comment NORMAL Blood Urea Nitrogen 71 MG/DL Creatinine 4.66 MG/DL Random Glucose 164 MG/DL Total Protein 5.9 GM/DL Albumin 1.5 GM/DL Calcium Level 7.9 MG/DL Magnesium Level 2.3 MG/DL Alkaline Phosphatase 265 U/L Aspartate Amino Transf (AST/SGOT) 71 U/L Alanine Aminotransferase (ALT/SGPT) 27 U/L Total Bilirubin 8.2 MG/DL Sodium Level 140 MEQ/L Potassium Level 3.5 MEQ/L Chloride Level 102 MEQ/L Carbon Dioxide Level 24.6 MEQ/L Anion Gap 13 MEQ/L Estimat Glomerular Filtration Rate 13 ML/MIN Date/Time Source Procedure Growth Status 03/09/17 19:56 Blood Peripheral Aerobic Blood Culture - Preliminary NO GROWTH IN 4 DAYS Resulted 03/09/17 19:56 Blood Peripheral Anaerobic Blood Culture - Final QNS - SEE AEROBE REPORT Resulted 03/11/17 13:31 Fluid Synovial Fluid Fungal Smear - Final NO FUNGAL ELEMENTS SEEN. Resulted 03/11/17 13:31 Fluid Synovial Fluid Fungal Culture Pending Resulted 03/12/17 15:45 Sputum Endotracheal Gram Stain - Final Resulted 03/12/17 15:45 Sputum Endotracheal Sputum Culture - Preliminary NO GROWTH IN 24 HOURS. Resulted 03/08/17 10:25 Urine Clean Catch Urine Culture - Final NO GROWTH IN 48 HOURS. Complete 03/11/17 19:45 Wound Knee Fungal Smear - Final NO FUNGAL ELEMENTS SEEN. Resulted 03/11/17 19:45 Wound Knee Fungal Culture Pending Resulted Physical Examination HEENT: normocephalic; atraumatic; + icterus. OGT, intubated CHEST: coarse CARDIAC: RRR ABDOMEN: semifirm, distended, no hepatosplenomegaly; bowel sounds are present in all four quadrants. EXTREMITIES: No clubbing, cyanosis. right BKA dressing D&I. Left leg bandaged D&I, hemovac. + edema left lower leg. erythema left foot. 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 AST has decreased, ALP increasing, Tbil increasing. CT shows cirrhotic appearance liver, colitis, moderate ascites. US shows no stones or biliary tract obstruction, fatty liver vs hepatocellular dz, chronic GB dz. hx ETOH abuse, pos cocaine, marijuana. paracentesis & cultures & cytology pending. - acute hypoxic and hypercarbic respiratory failure per CCM - septic shock per CCM - untreated DM per CCM - acute metabolic encephalopathy per CCM - DIANA - leukocytosis, worsening, ID following PLAN - liver w/u - hep c quant & genotype - await paracentesis - await peritoneal fluid cultures and cytology - monitor labwork - abx per ID - further recs as case unfolds THis pt seen by myself and DR Resendiz and this note is written on his behalf (Lesvia Byrd) Physician Comments Seen and examined, plan as above. Will send for work up for chronic liver disease. Will follow up with you. (Geronimo Resendiz MD) Lesvia Byrd Mar 13, 2017 17:59 Geronimo Resendiz MD Mar 13, 2017 19:06
[2017-03-13] MEDS: DEXTROSE 5% IN WATE 500 ML INJ 500 ML OTHER SCH (18:00)
[2017-03-13] MEDS ORDERED: IMMUNE GLOBULIN INJ 30 GM in SYRINGE/BAG 1 EA IV SCH (18:00)
--- NOTE | 2017-03-13 18:34 | PD.PROCEDR ---
Procedure Note Procedure Diagnostic and therapeutic Paracentesis Procedure Note Diagnosis: Septic shock Indications: Shock with hepatic dysfunction, concern for possible spontaneous bacterial peritonitis Consent: Written consent was obtained Anesthesia: 1% lidocaine locally, fentanyl IV Description of the Procedure: The patient was placed in the supine position. The area of largest fluid collection was marked pre-procedure using ultrasound guidance. The area was prepped and draped sterilely. 1% Lidocaine was infiltrated subcutaneously. A small incision was made using a #11 blade. A 12g needle and angiocath were advanced under negative pressure aspiration until fluid was obtained. The catheter was advanced over the needle easily and without resistance. At the conclusion of the procedure, the catheter was removed and a dressing was applied. There were no immediate complications noted. There was minimal EBL. The patient tolerated the procedure well. Findings: Clear ascitic fluid. Proximally 2 L were removed. No hemodynamic instability was observed. 25 g of 25% albumen was infused during the procedure. I personally performed the procedure. Jericho Marie MD Mar 13, 2017 18:34
[2017-03-13] MEDS ORDERED: ALBUMIN HUMAN 5% 25 GM/500 ML BOTTLE IV ONE (19:30)
[2017-03-13 20:20] LABS: PERITONEAL FL SPECIFIC GRAVITY 1.015; PERITONEAL FLUID PH 8.5; PERITONEAL LYMPHS 14 %; PERITONEAL MONOS 10 %; PERITONEAL POLYS(SEGS) 76 %; PERITONEAL WBC 160 /MM3 (0-10)
[2017-03-13] MEDS: fentaNYL 2,500 MCG/NS 250 ML IV PRN (21:33)
[2017-03-13 23:27] LABS: IMMUNOGLOBULIN A 492 MG/DL (93-514)
[2017-03-13 23:41] LABS: IMMUNOGLOBULIN G 1010 MG/DL (660-1640); IMMUNOGLOBULIN M 273 MG/DL (40-247)
[2017-03-13 23:42] LABS: LDH SERUM 198 U/L (87-241)
[2017-03-14] VITALS (13 sets, daily range): BP systolic 91–98; BP diastolic 51–56; PULSE 85–96; RESP 16–24; TEMP 97.9–100.5; O2SAT 73–100
[2017-03-14] MEDS: PENICILLIN G SODIUM INJ 2,000,000 UNITS in SODIUM CHLORIDE 0.9% INJ 100 ML IV SCH ×4 (00:33→12:25)
[2017-03-14] MEDS: NOREPINEPHRINE 4 MG/D5W 250 ML IV PRN (00:34)
[2017-03-14] MEDS: CHLORHEXIDINE GLUCONATE 2 % 1 PACK (2 CLOTHS) TOP SCH (04:00)
[2017-03-14] MEDS: RESP: ALBUTEROL 2.5 MG/IPRATROPIUM 0.5 MG NEB (SCH) NEB ×2 (04:09→09:01)
[2017-03-14] MEDS: INSULIN ASPART SUPPLEMENTAL SCALE SQ SCH ×2 (04:15→10:15)
[2017-03-14] MEDS: CLINDAMYCIN INJ 900 MG in SODIUM CHLORIDE 0.9% INJ 100 ML IV SCH ×2 (04:17→12:26)
[2017-03-14] MEDS: HEPARIN SODIUM - SQ 10,000 UNITS/ML VIAL SQ SCH (05:44)
[2017-03-14] MEDS: fentaNYL 2,500 MCG/NS 250 ML IV PRN (06:31)
--- NOTE | 2017-03-14 07:38 | PD.ORT.PN ---
Subjective Post Op Day #: 6,3 Subjective Remarks The patient is intubated and sedated. Records are reviewed and palliative care only being considered. Further disposition will be obtained from family decision making. Objective Vitals Vital Signs Date Time Temp Pulse Resp B/P (MAP) Pulse Ox O2 Delivery O2 Flow Rate FiO2 03/14/17 06:00 93 03/14/17 04:00 98.3 90 16 91/54 (66) 98 03/14/17 04:00 30 03/14/17 04:00 90 03/14/17 02:00 96 03/14/17 01:26 100 30 03/14/17 00:34 91 98/56 03/14/17 00:00 88 03/14/17 00:00 99.8 88 24 98/54 (69) 100 03/14/17 00:00 30 03/13/17 23:30 99 30 03/13/17 22:00 94 03/13/17 20:58 93 23 97/52 03/13/17 20:50 100 30 03/13/17 20:00 30 03/13/17 20:00 100.2 98 35 96/53 (67) 100 03/13/17 20:00 98 03/13/17 18:00 99 03/13/17 18:00 30 03/13/17 16:25 100 30 03/13/17 16:00 30 03/13/17 16:00 92 19 101/56 (71) 100 03/13/17 16:00 30 03/13/17 16:00 92 03/13/17 16:00 100.1 92 19 101/56 (71) 100 03/13/17 14:00 30 03/13/17 14:00 87 03/13/17 12:00 88 03/13/17 12:00 30 03/13/17 12:00 88 14 98/58 (71) 100 03/13/17 12:00 30 03/13/17 11:15 100 100 03/13/17 10:05 90 95/54 03/13/17 10:00 90 03/13/17 08:18 98 30 03/13/17 08:18 98 Ventilator 40 03/13/17 08:00 99.6 87 21 104/56 (72) 97 03/13/17 08:00 87 03/13/17 08:00 30 03/13/17 07:34 91 107/59 I/O 03/13/17 03/13/17 03/13/17 03/14/17 03/14/17 03/14/17 07:00 15:00 23:00 07:00 15:00 23:00 Intake Total 538 ml 200 ml 100 ml 6099 ml Output Total 145 ml 2050 ml 1170 ml Balance 393 ml 200 ml -1950 ml 4929 ml IV Total 200 ml 5599 ml Tube Feeding 418 ml Albumin 100 ml 500 ml Other 120 ml Output Urine Total 75 ml 50 ml 20 ml Stool Total 60 ml 1150 ml Drainage Total 10 ml Hemodialysis 2000 ml Result Diagram: 03/13/17 0320 03/13/17 0320 Imaging Last 72 hours Impressions Thoracic Spine MRI 03/13/17 0000 Signed Impressions: Service Date/Time: February 12:17 - CONCLUSION: Tiny disc protrusions at several levels. No evidence of epidural or paraspinal abscess. Danny Garrett MD Lumbar Spine MRI 03/13/17 Signed Impressions: Service Date/Time: February 12:17 - CONCLUSION: Normal examination. Adrian Fisher Jr., MD Elbow MRI 03/13/17 Signed Impressions: Service Date/Time: February 12:17 - CONCLUSION: Prominent subcutaneous edema. Minimal fluid in the joint and olecranon bursa Danny Garrett MD Elbow MRI 03/13/17 Signed Impressions: Service Date/Time: February 12:17 - CONCLUSION: Small fluid collection just dorsal to the medial epicondyle. Diffuse soft tissue edema. Danny Garrett MD Chest CT 03/13/17 Signed Impressions: Service Date/Time: February 11:37 - CONCLUSION: 1. Consolidation in both lower lobes right greater than left. 2. Small bilateral pleural effusions. Mike Anthony MD Cervical Spine MRI 03/13/17 0000 Signed Impressions: Service Date/Time: February 12:17 - CONCLUSION: 1. Minimal degenerative disc disease. No abutment of the cord or central canal stenosis. 2. No abscess. Adrian Fisher Jr., MD Abdomen/Pelvis CT 03/13/17 Signed Impressions: Service Date/Time: February 11:37 - CONCLUSION: 1. Apparent circumferential bowel wall thickening involving portions of the ascending colon and proximal transverse colon which are nonspecific but most characteristic of colitis. 2. Moderate amount of ascitic fluid in the abdomen and pelvis. 3. The liver is mildly prominent and cirrhotic in appearance. 4. Small bilateral pleural effusions with consolidation in both posterior lung bases. Mike Anthony MD Elbow X-Ray 03/12/17 0000 Signed Impressions: Service Date/Time: Sunday, March 12, 2017 15:42 - CONCLUSION: No acute bony findings Danny Garrett MD Elbow X-Ray 03/12/17 0000 Signed Impressions: Service Date/Time: Sunday, March 12, 2017 15:35 - CONCLUSION: No acute bony findings Danny Garrett MD Chest X-Ray 03/12/17 Signed Impressions: Service Date/Time: Sunday, March 12, 2017 14:03 - CONCLUSION: Support apparatus in good position. Interval improvement. Darinel Graves MD FACR Ankle X-Ray 03/12/17 Signed Impressions: Service Date/Time: Sunday, March 12, 2017 15:27 - CONCLUSION: No acute bony findings Danny Garrett MD Last 48 hours Impressions Elbow X-Ray 03/12/17 0000 Signed Impressions: Service Date/Time: Sunday, March 12, 2017 15:42 - CONCLUSION: No acute bony findings Danny Garrett MD Elbow X-Ray 03/12/17 0000 Signed Impressions: Service Date/Time: Sunday, March 12, 2017 15:35 - CONCLUSION: No acute bony findings Danny Garrett MD Chest X-Ray 03/12/17 0000 Signed Impressions: Service Date/Time: Sunday, March 12, 2017 14:03 - CONCLUSION: Support apparatus in good position. Interval improvement. Darinel Graves MD FACR Ankle X-Ray 03/12/17 0000 Signed Impressions: Service Date/Time: Sunday, March 12, 2017 15:27 - CONCLUSION: No acute bony findings Danny Garrett MD Procedures 1. Right below-knee amputation 03/08/2017 2. Arthrotomy with irrigation and debridement right knee 03/08/2017 3. Left knee arthrotomy with irrigation debridement 03/11/2017 Objective Remarks RLE: BKA and splint. Reviewed yesterday and has breakdown of the incision and soft tissue distal to the knee. LLE: dressings is are clean and dry, not removed for examination, soft, good cap refill noted distally, moderate swelling noted distally, skin blanches, neuro exam is unobtainable. Slight erythema noted on plantar aspect of foot. RN has marked area with pen. Bilateral elbows with moderate edema and fluid in the olecranon bursa. No significant increased warmth or erythema. Assessment & Plan Problem List: (1) Septic shock ICD Codes: A41.9 - Sepsis, unspecified organism; R65.21 - Severe sepsis with septic shock Status: Acute (2) Ischemic necrosis of foot ICD Codes: I96 - Gangrene, not elsewhere classified Status: Acute (3) Diabetic infection of right foot ICD Codes: E11.69 - Type 2 diabetes mellitus with other specified complication ; L08.9 - Local infection of the skin and subcutaneous tissue, unspecified Status: Acute (4) Septic arthritis of knee, left ICD Codes: M00.9 - Pyogenic arthritis, unspecified Status: Acute (5) Septic arthritis of knee, right ICD Codes: M00.9 - Pyogenic arthritis, unspecified Status: Acute Assessment and Plan POD #6 Right below-knee amputation POD #6. Arthrotomy with irrigation and debridement right knee POD #3 Left knee arthrotomy with irrigation debridement Changes noted in right BKA and right elbow exam. Possible need for right AKA in near future depending on decision regarding aggressiveness of care Discontinue splint right lower extremity Discontinue drain left lower extremity Daily dressing changes per orders. I reviewed findings of MRI and clinically patient does not require upper extremity amputation. I do not feel he has "multiple septic joints". His Gram stain and culture from his recent left knee surgery have been negative. Clinically he has third spacing and fluid in his olecranon bursal regions and the MRI does not suggest a septic joint or abscess. Efren Hanks MD Mar 14, 2017 07:38
--- NOTE | 2017-03-14 09:17 | HHI.CCPN ---
Subjective Remarks/Hospital Course 51 y/o delirious man with draining wound right great toe, untreated diabetes, and severe COPD. According to his girlfriend at bedside in ED he has been confused for 3 days while on a trip to [place]. He has diabetes but does not take insulin, oral agents, nor check his sugar. This foot problem started as a non-healing cut on his right great toe. He is clearly in septic shock at present with hypotension, lactic acid 11, and leukocytosis. He will require a right above knee amputation eventually, possibly sooner if we can't control the source with antibiotics. He has audible wheezing from the doorway and is a chronic smoker. DIANA with creatinine > 5, and metabolic acidosis. 03/08 Patient was started on Levophed 8 mics overnight now down to 4 mics. Lactic acid trending down 4.2 this morning from 11.1 on arrival however his WBC increased 22.6 from 19. 03/09 Patient s/p Right BKA last night remains intubated postop sedated with Diprivan. On Levophed 7 mics and bicarb drip. 03/10 Patient is sedated with Diprivan and Fentanyl. On Levophed 8 mics. renal function worse today with Cr:5.29 from 4.532 with poor UOP:75ml in 24 hrs. Afebrile. 03/11 Patient remains sedated and intubated. HD initiated yesterday with removal 2L. Levophed down 5 mics. Afebrile, WBC trending down. TF held for high residuals. 03/12. Remains severely encephalopathic. Grimaces to pain. Currently on only fentanyl infusion and control. WBC worsening 26.2 to 29.1 today. Worsening thrombocytopenia 68 today. Remains oliguric. Remains on Levophed 03/14 Patient is sedated with Fentanyl and intubated. On Levophed 4. PRVC wiith PEEP: 5 and FIO2 30%.. Afebrile.s/p HD yesterday with removal 2L. Objective Vital Signs Date Time Temp Pulse Resp B/P (MAP) Pulse Ox O2 Delivery O2 Flow Rate FiO2 03/14/17 08:55 99 30 03/14/17 06:00 93 03/14/17 04:00 98.3 16 91/54 (66) 03/13/17 08:18 Ventilator Intake and Output 903/14/17 03/15/17 08:00 16:00 00:00 Intake Total 6099 ml Output Total 1170 ml Balance 4929 ml Result Diagram: 03/13/17 0320 03/13/17 0320 Other Results Laboratory Tests Test 03/13/17 18:20 03/13/17 22:25 03/13/17 22:40 03/14/17 04:10 Peritoneal Fluid pH 8.5 Peritoneal Fluid Specific [place] 1.015 Peritoneal Fluid WBC 160 /MM3 Peritoneal Fluid RBC 359 /MM3 Peritoneal Fluid Neutrophils 76 % Peritoneal Fluid Lymphocytes 14 % Peritoneal Fluid Monocytes 10 % Peritoneal Fluid Albumin 0.4 G/DL Peritoneal Fluid LDH 96 U/L Peritoneal Fluid Glucose 128 MG/DL Peritoneal Fluid Lipase 70 U/L Fibrinogen 449 mg/dL D-Dimer Quantitative (PE/DVT) 4.44 MG/L FEU Lactate Dehydrogenase 198 U/L Immunoglobulin G Total 1010 MG/DL Immunoglobulin A 492 MG/DL Immunoglobulin M 273 MG/DL Haptoglobin 184 MG/DL Tumor Marker Alpha Fetoprotein 0.9 NG/ML Test 03/14/17 04:28 Imaging Last Impressions Thoracic Spine MRI 03/13/17 0000 Signed Impressions: Service Date/Time: February 12:17 - CONCLUSION: Tiny disc protrusions at several levels. No evidence of epidural or paraspinal abscess. Danny Garrett MD Lumbar Spine MRI 03/13/17 0000 Signed Impressions: Service Date/Time: February 12:17 - CONCLUSION: Normal examination. Adrian Fisher Jr., MD Elbow MRI 03/13/17 0000 Signed Impressions: Service Date/Time: February 12:17 - CONCLUSION: Prominent subcutaneous edema. Minimal fluid in the joint and olecranon bursa Danny Garrett MD Chest CT 03/13/17 0000 Signed Impressions: Service Date/Time: February 11:37 - CONCLUSION: 1. Consolidation in both lower lobes right greater than left. 2. Small bilateral pleural effusions. Mike Anthony MD Cervical Spine MRI 03/13/17 0000 Signed Impressions: Service Date/Time: February 12:17 - CONCLUSION: 1. Minimal degenerative disc disease. No abutment of the cord or central canal stenosis. 2. No abscess. Adrian Fisher Jr., MD Abdomen/Pelvis CT 03/13/17 Signed Impressions: Service Date/Time: February 11:37 - CONCLUSION: 1. Apparent circumferential bowel wall thickening involving portions of the ascending colon and proximal transverse colon which are nonspecific but most characteristic of colitis. 2. Moderate amount of ascitic fluid in the abdomen and pelvis. 3. The liver is mildly prominent and cirrhotic in appearance. 4. Small bilateral pleural effusions with consolidation in both posterior lung bases. Mike Anthony MD Elbow X-Ray 03/12/17 Signed Impressions: Service Date/Time: Sunday, March 12, 2017 15:42 - CONCLUSION: No acute bony findings Danny Garrett MD Chest X-Ray 03/12/17 Signed Impressions: Service Date/Time: Sunday, March 12, 2017 14:03 - CONCLUSION: Support apparatus in good position. Interval improvement. Darienl Graves MD FACR Ankle X-Ray 03/12/17 Signed Impressions: Service Date/Time: Sunday, March 12, 2017 15:27 - CONCLUSION: No acute bony findings Danny Garrett MD Liver Ultrasound 03/09/17 Signed Impressions: Service Date/Time: Thursday, March 09, 2017 12:50 - CONCLUSION: 1. No gallstones or biliary tract obstruction. 2. Thickening of the gallbladder wall at 5 mm. This can be seen with chronic gallbladder disease. 3. Increased echogenicity throughout the liver suggestive of fatty infiltration and/or hepatocellular disease. Carl Sands MD Knee X-Ray 03/09/17 Signed Impressions: Service Date/Time: Thursday, March 09, 2017 14:15 - CONCLUSION: 1. No acute bony abnormality. 2. Moderate nonspecific joint effusion. 3. Mild medial compartment osteoarthritis. Danny Buchanan MD Hand X-Ray 03/09/17 Signed Impressions: Service Date/Time: Thursday, March 09, 2017 14:11 - CONCLUSION: Nonspecific soft tissue swelling. No acute bony abnormality of the right hand. Danny Buchanan MD Shoulder X-Ray 03/08/17 Signed Impressions: Service Date/Time: Wednesday, March 08, 2017 10:47 - CONCLUSION: Within normal limits. Danny Buchanan MD Renal Ultrasound 8/26/17 0000 Signed Impressions: Service Date/Time: Wednesday, March 08, 2017 08:58 - CONCLUSION: 1. Unremarkable bilateral renal ultrasound. 2. Hepatomegaly with a trace of ascites in the upper abdomen. Carl Sands MD Objective Remarks GENERAL: Patient is 51 yo critically ill intubated, sedated with Fentanyl and on Levophed . SKIN: Warm and dry. HEAD: Normocephalic. EYES: No scleral icterus. No injection or drainage. NECK: Supple, trachea midline. No JVD or lymphadenopathy. Orally intubated CARDIOVASCULAR: Regular rate and rhythm without murmurs, gallops, or rubs. RESPIRATORY: Breath sounds equal bilaterally. No accessory muscle use. GASTROINTESTINAL: Abdomen soft, non-tender, nondistended. EXT: s/p Right BKA with dressing on. s/p L knee aspiration by ortho Neuro: Intubated and sedated. Grimaces to painful stimuli no spontaneous eye opening. No spontaneous movement noted on my exam A/P Assessment and Plan Acute hypoxic and hypercarbic respiratory failure Septic shock. Gram + bacteremia/ Group B strep Acute metabolic encephalopathy s/p right BKA 03/08 Septic arthritis of knee, elbow, wrist Acute kidney injury requiring renal replacement therapy Lactic acidemia- resolving. Acute Rhabdomyolysis- resolving. Leukocytosis Elevated AST Emphysema, COPD. Diabetes mellitus, Type 2 ETOH use Acute protein calorie Malnutrition- severe Plan: Neuro: On Fentanyl infusion for sedation. Daily sedation vacation. Monitor neuro status On Thiamine/Folic acid. MRI spine: No acute findings Will get CT brain w/o contrast Pulm: Continue with vent support keep sat >92% Bronchodilators, ICU vent bundle, SBT daily as dimitri, unable to extubate due to severe encephalopathy CV: Continue to wean off Levophed keep MAP>65mmHg. Serial lactic acid. Trending down. 03/10 Echo EF 55-60%, no RWMA, no vegetations SALMA: Negative for endocarditis : Monitor renal function, I/O's, avoid nephrotoxins. HD initiated 03/10 with removal 2L.HD per nephrology Renal US: No hydro. Renal is following-Dr. Feliciano. Follow up on BMP today GI: On Protonix 40mg IV daily, tube feeds- Nepro with goal rate 40ml/hr s/p paracentesis on 03/13 with 2L removed. GI is following Monitor LFT;s, US liver: No gallstones or biliary tract obstruction. Thickening of the gallbladder wall at 5 mm. This can be seen with chronic gallbladder disease. Increased echogenicity throughout the liver suggestive of fatty infiltration and/or hepatocellular disease. CT abd/pelvis: circumferential bowel wall thickening involving portions of the ascending colon and proximal transverse colon which are nonspecific but most characteristic of colitis. Moderate amount of ascitic fluid in the abdomen and pelvis. The liver is mildly prominent and cirrhotic in appearance. ID: BC form 03/07: GPC, Group B strep Fluid/wound cx 03/08: Group B strep Right below-knee amputation 03/08/2017 Arthrotomy with irrigation and debridement right knee 03/08/2017 Left knee arthrotomy with irrigation debridement 03/11/2017 Ortho and Vascular are following Right hand abscess s/p debridement at bedside by Dr. Marie 03/10 Continue with abx per ID (PNC G, Cefepime, IVIG) monitor for signs of infections ( Fever, WBC) Check C-diff PCR Heme: Monitor CBC, Endo: SSI for glycemic control. GI prophylaxis- Protonix 40mg daily DVT prophylaxis- SCD to LLE, Heparin sq q12 Lines: Right IJ CVP placed 03/08, Left IJ vascath placed 03/10 Patient is critically ill and in septic shock requiring pressors, renal failure , leukocytosis. worsening clinical status Palliative care is following Addendum: Dr. Raymundo spoke to family and they elected to proceed with withdrawal life support and transition to comfort care. CCT 30 mins Iman Duffy MD Mar 14, 2017 09:17
[2017-03-14] MEDS: SENNOSIDES SYRUP 8.8 MG/5 ML CUP PO SCH (09:26)
[2017-03-14] MEDS: DOCUSATE SODIUM 100 MG/10 ML UDC PO SCH (09:26)
[2017-03-14] MEDS: PANTOPRAZOLE SODIUM 40 MG VIAL IV SCH (09:26)
[2017-03-14] MEDS: LACTULOSE SYRUP 20 GM/30 ML CUP PO SCH ×2 (09:26→12:25)
[2017-03-14] MEDS: SODIUM CHLORIDE 0.9% FLUSH 10 ML FLUSH IV FLUSH SCH (09:27)
[2017-03-14] MEDS: THIAMINE HCL 100 MG TAB PO SCH (09:27)
[2017-03-14] MEDS: FOLIC ACID 1 MG TAB PO SCH (09:27)
[2017-03-14] MEDS: POVIDONE IODINE 10% OINT 30 GM TUBE TOPICAL SCH (09:27)
--- NOTE | 2017-03-14 09:45 | HHI.GIFU ---
Subjective Remarks Sedated on vent. No distress. Tolerating TF at 10cc/hr. Objective Vitals I&O Vital Signs Date Time Temp Pulse Resp B/P (MAP) Pulse Ox O2 Delivery O2 Flow Rate FiO2 03/14/17 08:55 99 30 03/14/17 06:00 93 03/14/17 04:00 98.3 90 16 91/54 (66) 98 03/14/17 04:00 30 03/14/17 04:00 90 03/14/17 02:00 96 03/14/17 01:26 100 30 03/14/17 00:34 91 98/56 03/14/17 00:00 88 03/14/17 00:00 99.8 88 24 98/54 (69) 100 03/14/17 00:00 30 03/13/17 23:30 99 30 03/13/17 22:00 94 03/13/17 20:58 93 23 97/52 03/13/17 20:50 100 30 03/13/17 20:00 30 03/13/17 20:00 100.2 98 35 96/53 (67) 100 03/13/17 20:00 98 03/13/17 18:00 99 03/13/17 18:00 30 03/13/17 16:25 100 30 03/13/17 16:00 30 03/13/17 16:00 92 19 101/56 (71) 100 03/13/17 16:00 30 03/13/17 16:00 92 03/13/17 16:00 100.1 92 19 101/56 (71) 100 03/13/17 14:00 30 03/13/17 14:00 87 03/13/17 12:00 88 03/13/17 12:00 30 03/13/17 12:00 88 14 98/58 (71) 100 03/13/17 12:00 30 03/13/17 11:15 100 100 03/13/17 10:05 90 95/54 03/13/17 10:00 90 I/O 03/13/17 03/13/17 03/13/17 03/14/17 03/14/17 03/14/17 07:00 15:00 23:00 07:00 15:00 23:00 Intake Total 538 ml 200 ml 100 ml 6099 ml Output Total 145 ml 2050 ml 1170 ml Balance 393 ml 200 ml -1950 ml 4929 ml IV Total 200 ml 5599 ml Tube Feeding 418 ml Albumin 100 ml 500 ml Other 120 ml Output Urine Total 75 ml 50 ml 20 ml Stool Total 60 ml 1150 ml Drainage Total 10 ml Hemodialysis 2000 ml Laboratory Laboratory Tests Test 03/13/17 18:20 03/13/17 22:25 03/13/17 22:40 03/14/17 04:10 Peritoneal Fluid pH 8.5 Peritoneal Fluid Specific [place] 1.015 Peritoneal Fluid WBC 160 Peritoneal Fluid RBC 359 Peritoneal Fluid Neutrophils 76 Peritoneal Fluid Lymphocytes 14 Peritoneal Fluid Monocytes 10 Peritoneal Fluid Albumin 0.4 Peritoneal Fluid LDH 96 Peritoneal Fluid Glucose 128 Peritoneal Fluid Lipase 70 Fibrinogen 449 D-Dimer Quantitative (PE/DVT) 4.44 Lactate Dehydrogenase 198 Immunoglobulin G Total 1010 Immunoglobulin A 492 Immunoglobulin M 273 Haptoglobin 184 Tumor Marker Alpha Fetoprotein 0.9 Test 03/14/17 04:28 Date/Time Source Procedure Growth Status 03/09/17 19:56 Blood Peripheral Aerobic Blood Culture - Preliminary NO GROWTH IN 4 DAYS Resulted 03/09/17 19:56 Blood Peripheral Anaerobic Blood Culture - Final QNS - SEE AEROBE REPORT Resulted 03/13/17 18:20 Fluid Ascites Fluid Acid Fast Stain Pending Worksheet 03/13/17 18:20 Fluid Ascites Fluid Mycobacterial Culture Pending Worksheet 03/12/17 15:45 Sputum Endotracheal Gram Stain - Final Resulted 03/12/17 15:45 Sputum Endotracheal Sputum Culture - Preliminary NO GROWTH IN 24 HOURS. Resulted 03/08/17 10:25 Urine Clean Catch Urine Culture - Final NO GROWTH IN 48 HOURS. Complete 03/13/17 18:20 Abscess Other Fungal Smear Pending Received 03/13/17 18:20 Abscess Other Fungal Culture Pending Received Imaging Last Impressions Thoracic Spine MRI 03/13/17 0000 Signed Impressions: Service Date/Time: February 12:17 - CONCLUSION: Tiny disc protrusions at several levels. No evidence of epidural or paraspinal abscess. Danny Garrett MD Lumbar Spine MRI 03/13/17 0000 Signed Impressions: Service Date/Time: February 12:17 - CONCLUSION: Normal examination. Adrian Fisher Jr., MD Elbow MRI 03/13/17 0000 Signed Impressions: Service Date/Time: February 12:17 - CONCLUSION: Prominent subcutaneous edema. Minimal fluid in the joint and olecranon bursa Danny Garrett MD Chest CT 03/13/17 Signed Impressions: Service Date/Time: February 11:37 - CONCLUSION: 1. Consolidation in both lower lobes right greater than left. 2. Small bilateral pleural effusions. Mike Anthony MD Cervical Spine MRI 03/13/17 Signed Impressions: Service Date/Time: February 12:17 - CONCLUSION: 1. Minimal degenerative disc disease. No abutment of the cord or central canal stenosis. 2. No abscess. Adrian Fisher Jr., MD Abdomen/Pelvis CT 03/13/17 Signed Impressions: Service Date/Time: February 11:37 - CONCLUSION: 1. Apparent circumferential bowel wall thickening involving portions of the ascending colon and proximal transverse colon which are nonspecific but most characteristic of colitis. 2. Moderate amount of ascitic fluid in the abdomen and pelvis. 3. The liver is mildly prominent and cirrhotic in appearance. 4. Small bilateral pleural effusions with consolidation in both posterior lung bases. Mike Anthony MD Elbow X-Ray 03/12/17 Signed Impressions: Service Date/Time: Sunday, March 12, 2017 15:42 - CONCLUSION: No acute bony findings Danny Garrett MD Chest X-Ray 03/12/17 Signed Impressions: Service Date/Time: Sunday, March 12, 2017 14:03 - CONCLUSION: Support apparatus in good position. Interval improvement. Darinel Graves MD FACR Ankle X-Ray 03/12/17 Signed Impressions: Service Date/Time: Sunday, March 12, 2017 15:27 - CONCLUSION: No acute bony findings Danny Garrett MD Liver Ultrasound 03/09/17 Signed Impressions: Service Date/Time: Thursday, March 09, 2017 12:50 - CONCLUSION: 1. No gallstones or biliary tract obstruction. 2. Thickening of the gallbladder wall at 5 mm. This can be seen with chronic gallbladder disease. 3. Increased echogenicity throughout the liver suggestive of fatty infiltration and/or hepatocellular disease. Carl Sands MD Knee X-Ray 03/09/17 Signed Impressions: Service Date/Time: Thursday, March 09, 2017 14:15 - CONCLUSION: 1. No acute bony abnormality. 2. Moderate nonspecific joint effusion. 3. Mild medial compartment osteoarthritis. Danny Buchanan MD Hand X-Ray 03/09/17 0000 Signed Impressions: Service Date/Time: Thursday, March 09, 2017 14:11 - CONCLUSION: Nonspecific soft tissue swelling. No acute bony abnormality of the right hand. Danny Buchanan MD Shoulder X-Ray 03/08/17 0000 Signed Impressions: Service Date/Time: Wednesday, March 08, 2017 10:47 - CONCLUSION: Within normal limits. Danny Buchanan MD Renal Ultrasound 03/08/17 0000 Signed Impressions: Service Date/Time: Wednesday, March 08, 2017 08:58 - CONCLUSION: 1. Unremarkable bilateral renal ultrasound. 2. Hepatomegaly with a trace of ascites in the upper abdomen. Carl Sands MD Physical Exam HEENT: Normocephalic; atraumatic; no jaundice. CHEST: Course breath sounds. OETT vent. CARDIAC: RRR ABDOMEN: Soft, nondistended, nontender; hepatosplenomegaly; bowel sounds are present in all four quadrants. Mild ascites EXTREMITIES: Right BKA, Left knee drsg with hemovac SKIN: Generalized edema BLANKMAKER: Sedated on vent. Assessment and Plan Plan ASSESSMENT - Colitis with circumferential bowel wall thickening involving portions of the ascending colon and proximal transverse colon which are nonspecific but most characteristic of colitis. On abx. WBC 32.1. Send stool for Cdiff. If negative, egd/colonoscopy vs. sigmoidoscopy, timing to be determined. - Group B Beta Strep bacteremia. ? EGD/Colonoscopy. Will discuss timing with Dr. Menendez - Elevated LFTs, Liver cirrhosis. Liver US (03/09/17)---> No gallstones or biliary tract obstruction. Thickening of the gallbladder wall at 5 mm. This can be seen with chronic gallbladder disease. Increased echogenicity throughout the liver suggestive of fatty infiltrative and/or hepatocellular disease. CT Scan abdomen and pelvis with IV contrast (03/13/17)---> Apparent circumferential bowel wall thickening involving portions of the ascending colon and proximal transverse colon which are nonspecific but most characteristic of colitis. Moderate amount of ascitic fluid in the abdomen and pelvis, the liver is mildly promient and cirrhotic in appearance. Small bilateral pleural effusions with consolidation in both posterior lung bases. Hx HCV, ETOH use, Cocaine, Marijuana. T. Bili 8.2, AST 71, ALT 27, Alk Phosph 265. Bilirubin trending up. If continues to worsening, ? cholecystomy tube. Will d/w Dr. Menendez. - Ascites. S/P Diagnostic/therapeutic bedside paracentesis with removal of 2L ascitic fluidf (03/13). Cx pending. - Diabetic infection right foot/gangrene. S/P BKA, left knee surgery - Anemia 9.0/28.0. - Thrombocytopenia. WBC 100,000. - Sepsis with multiorgan dysfunction syndrome, septic joint. Group B strep bacteremia. SALMA no endocarditis/abscess. Worsening WBC. Abx per ID. - Acute respiratory failure. Vent per CCM - Acute metabolic encephalopathy per CCM - DIANA. Creat 4.66. HD per nephrology PLAN - Nepro at 45cc/hr - Send stool for CDiff - ? EGD/Colonoscopy vs. Sigmoidoscopy. Will d/w Dr. Menendez the timing of this. - HCV genotype and viral load pending. - Await peritoneal fluid culture/ - Monitor labs - Abx per ID - Further recommendations to follow based on results of above - Pt seen and examined by Dr. Menendez and myself and this note is written on his behalf Fannie Ding Mar 14, 2017 09:45
[2017-03-14 10:12] LABS: AUTOMATED NEUTROPHIL # 21.6 TH/MM3 (1.8-7.7); BASOPHIL # 0.1 TH/MM3 (0-0.2); BASOPHIL % 0.2 % (0.0-2.0); EOSINOPHIL # 0.2 TH/MM3 (0-0.4); EOSINOPHIL % 0.6 % (0.0-4.0); HEMATOCRIT 23.7 % (39.0-51.0); HEMO FLAGS DIFF FINAL; LYMPH % 7.2 % (9.0-44.0); LYMPHOCYTE # 1.7 TH/MM3 (1.0-4.8); MEAN CELL VOLUME 91.8 FL (80.0-100.0); MEAN CORPUSCULAR HEMOGLOBIN 30.3 PG (27.0-34.0); MONO % 3.1 % (0.0-8.0); NEUT % 88.9 % (16.0-70.0); PLATELET COUNT 113 TH/MM3 (150-450); RED BLOOD COUNT 2.58 MIL/MM3 (4.50-5.90); RED CELL DISTRIBUTION WIDTH 15.5 % (11.6-17.2); WHITE BLOOD COUNT 24.3 TH/MM3 (4.0-11.0)
--- NOTE | 2017-03-14 10:14 | HHI.IDPN ---
Subjective Subjective Remarks is a 51 y/o CM , who appears delirious, and was admitted overnight with septic shock, right great toe wound with gangrene possible osteomyelitis and untreated diabetes. Patient's cough and reports that approximately a week prior to admission patient had an episode of acute gastroenteritis and so did she. She thinks patient hasn't eaten in almost a week. He does consume heavy alcohol and this is the only fluid that he's been consuming in the last 7 days. She reports that patient stopped his right great toe on the superior aspect but did not see any ED, PCP or urgent care for this. No history of consumption of any antibiotics prior to admission. She reports that he is a known diabetic but is not compliant with his medications. Patient was noted to have sepsis on admission with low blood pressure and needing to be placed on pressors septic shock. He was noted to have an elevated lactic acid of 11.8 as well as in acute renal failure. His urine output is low and nephrology has been consulted. Vascular surgery as well as orthopedic surgeons have seen this patient and patient's girlfriend informs me that the surgeons have told him that patient needs a 2 staged amputation beginning with below knee amputation. At the time of my evaluation [facility], has undergone fluid resuscitation, has decreased urine output, as well as decreased mentation. There is a plan for placement of a central line later today. Overnight events reviewed. Right knee in post op dressing. RN reports Right elbow swelling again today. Elbow Xrays negative. Also L ankle and foot with significant erythema. HD planned for after Contrast CTs S/p BKA on Right side. Low grade fevers 99.8 No rash No diarrhea On Levophed 6 mics. Antibiotics Ceftriaxone IV Lines Line sites with no e.o infection Past Medical History reviewed Allergies: Coded Allergies: No Known Allergies (Unverified , 03/07/17) Objective . Vital Signs Date Time Temp Pulse Resp B/P (MAP) Pulse Ox O2 Delivery O2 Flow Rate FiO2 03/14/17 08:55 99 30 03/14/17 06:00 93 03/14/17 04:00 98.3 90 16 91/54 (66) 98 03/14/17 04:00 30 03/14/17 04:00 90 03/14/17 02:00 96 03/14/17 01:26 100 30 03/14/17 00:34 91 98/56 03/14/17 00:00 88 03/14/17 00:00 99.8 88 24 98/54 (69) 100 03/14/17 00:00 30 03/13/17 23:30 99 30 03/13/17 22:00 94 03/13/17 20:58 93 23 97/52 03/13/17 20:50 100 30 03/13/17 20:00 30 03/13/17 20:00 100.2 98 35 96/53 (67) 100 03/13/17 20:00 98 03/13/17 18:00 99 03/13/17 18:00 30 03/13/17 16:25 100 30 03/13/17 16:00 30 03/13/17 16:00 92 19 101/56 (71) 100 03/13/17 16:00 30 03/13/17 16:00 92 03/13/17 16:00 100.1 92 19 101/56 (71) 100 03/13/17 14:00 30 03/13/17 14:00 87 03/13/17 12:00 88 03/13/17 12:00 30 03/13/17 12:00 88 14 98/58 (71) 100 03/13/17 12:00 30 03/13/17 11:15 100 100 . Laboratory Tests Test 03/13/17 03:20 03/13/17 22:40 03/14/17 09:50 White Blood Count 32.1 TH/MM3 24.3 TH/MM3 Red Blood Count 3.02 MIL/MM3 2.58 MIL/MM3 Hemoglobin 9.0 GM/DL 7.8 GM/DL Hematocrit 28.0 % 23.7 % Mean Corpuscular Volume 92.8 FL 91.8 FL Mean Corpuscular Hemoglobin 29.9 PG 30.3 PG Mean Corpuscular Hemoglobin Concent 32.3 % 33.0 % Red Cell Distribution Width 15.5 % 15.5 % Platelet Count 100 TH/MM3 113 TH/MM3 Mean Platelet Volume 10.0 FL 9.6 FL Neutrophils (%) (Auto) 87.5 % 88.9 % Lymphocytes (%) (Auto) 8.6 % 7.2 % Monocytes (%) (Auto) 2.4 % 3.1 % Eosinophils (%) (Auto) 0.7 % 0.6 % Basophils (%) (Auto) 0.8 % 0.2 % Neutrophils # (Auto) 28.1 TH/MM3 21.6 TH/MM3 Lymphocytes # (Auto) 2.8 TH/MM3 1.7 TH/MM3 Monocytes # (Auto) 0.8 TH/MM3 0.7 TH/MM3 Eosinophils # (Auto) 0.2 TH/MM3 0.2 TH/MM3 Basophils # (Auto) 0.3 TH/MM3 0.1 TH/MM3 CBC Comment AUTO DIFF DIFF FINAL Differential Total Cells Counted 100 Neutrophils % (Manual) 79 % Band Neutrophils % 6 % Lymphocytes % 10 % Monocytes % 1 % Eosinophils % 1 % Basophils % 1 % Neutrophils # (Manual) 27.9 TH/MM3 Myelocytes 1 % Promyelocytes 1 % Nucleated Red Blood Cells 1 /100 WBC Differential Comment FINAL DIFF MANUAL Toxic Granulation 1+ Dohle Bodies PRESENT Platelet Estimate LOW Platelet Morphology Comment NORMAL Red Cell Morphology Comment NORMAL Haptoglobin 184 MG/DL Laboratory Tests Test 03/12/17 15:45 03/13/17 03:20 03/13/17 22:25 03/13/17 22:40 Lactic Acid Level 2.0 mmol/L Blood Urea Nitrogen 71 MG/DL Creatinine 4.66 MG/DL Random Glucose 164 MG/DL Total Protein 5.9 GM/DL Albumin 1.5 GM/DL Calcium Level 7.9 MG/DL Magnesium Level 2.3 MG/DL Alkaline Phosphatase 265 U/L Aspartate Amino Transf (AST/SGOT) 71 U/L Alanine Aminotransferase (ALT/SGPT) 27 U/L Total Bilirubin 8.2 MG/DL Sodium Level 140 MEQ/L Potassium Level 3.5 MEQ/L Chloride Level 102 MEQ/L Carbon Dioxide Level 24.6 MEQ/L Anion Gap 13 MEQ/L Estimat Glomerular Filtration Rate 13 ML/MIN Lactate Dehydrogenase 198 U/L Tumor Marker Alpha Fetoprotein 0.9 NG/ML Test 03/14/17 09:50 Microbiology Date/Time Source Procedure Growth Status 03/13/17 18:20 Fluid Ascites Fluid Acid Fast Stain Pending Worksheet 03/13/17 18:20 Fluid Ascites Fluid Mycobacterial Culture Pending Worksheet 03/11/17 13:31 Fluid Synovial Fluid Fungal Smear - Final NO FUNGAL ELEMENTS SEEN. Resulted 03/11/17 13:31 Fluid Synovial Fluid Fungal Culture Pending Resulted 03/12/17 15:45 Sputum Endotracheal Gram Stain - Final Resulted 03/12/17 15:45 Sputum Endotracheal Sputum Culture - Preliminary NO GROWTH IN 24 HOURS. Resulted 03/13/17 18:20 Abscess Other Fungal Smear - Final NO FUNGAL ELEMENTS SEEN. Resulted 03/13/17 18:20 Abscess Other Fungal Culture Pending Resulted 03/13/17 18:20 Abscess Other Gram Stain - Final Resulted 03/13/17 18:20 Abscess Other Wound Culture Pending Resulted 03/11/17 19:45 Wound Knee Fungal Smear - Final NO FUNGAL ELEMENTS SEEN. Resulted 03/11/17 19:45 Wound Knee Fungal Culture Pending Resulted 03/11/17 19:45 Wound Knee Acid Fast Stain - Final NO ACID FAST BACILLI SEEN Resulted 03/11/17 19:45 Wound Knee Mycobacterial Culture Pending Resulted 03/11/17 19:45 Wound Knee Gram Stain - Final Complete 03/11/17 19:45 Wound Knee Wound Culture - Final NO GROWTH IN 72 HRS.--AEROBICALLY OR ... Complete Imaging Last Impressions Liver Ultrasound 03/09/17 0000 Signed Impressions: Service Date/Time: Thursday, March 09, 2017 12:50 - CONCLUSION: 1. No gallstones or biliary tract obstruction. 2. Thickening of the gallbladder wall at 5 mm. This can be seen with chronic gallbladder disease. 3. Increased echogenicity throughout the liver suggestive of fatty infiltration and/or hepatocellular disease. Carl Sands MD Chest X-Ray 03/09/17 0000 Signed Impressions: Service Date/Time: Thursday, March 09, 2017 07:58 - CONCLUSION: Status post interval intubation and placement of a left-sided chest tube. Hypoinflation of the left lung and a deep sulcus sign suggestive of a left-sided pneumothorax are present. Stable right sided central line. Denae Wilson MD ADDENDUM: This report is amended after discussion with the referring physician. There is no left-sided chest tube present. The line overlying the inferior left hemithorax is artifact. There is persistent appearance of a deep sulcus sign concern for possible pneumothorax. Recommend better evaluation with CT to exclude this abnormality. Denae Wilson MD Chest CT 03/09/17 0000 Signed Impressions: Service Date/Time: Thursday, March 09, 2017 12:31 - CONCLUSION: Bibasilar infiltrates with small effusions. Carl Sands MD Shoulder X-Ray 03/08/17 0000 Signed Impressions: Service Date/Time: Wednesday, March 08, 2017 10:47 - CONCLUSION: Within normal limits. Danny Buchanan MD Renal Ultrasound 03/08/17 0000 Signed Impressions: Service Date/Time: Wednesday, March 08, 2017 08:58 - CONCLUSION: 1. Unremarkable bilateral renal ultrasound. 2. Hepatomegaly with a trace of ascites in the upper abdomen. Carl Sands MD Physical Exam GENERAL: Acutely ill-appearing, well-nourished, well-developed patient, in no apparent distress. SKIN: No rashes, ecchymoses or lesions. Cool and dry. HEAD: Atraumatic. Normocephalic. No temporal or scalp tenderness. EYES: Pupils equal round and reactive. Extraocular motions intact. No scleral icterus. No injection or drainage. ENT: Intubated. NECK: Trachea midline. Supple, nontender, no meningeal signs. CARDIOVASCULAR: Regular rate and rhythm without murmurs, gallops, or rubs. RESPIRATORY: Clear to auscultation. Breath sounds equal bilaterally. No wheezes , rales, or rhonchi. GASTROINTESTINAL: Abdomen soft, non-tender, nondistended. MUSCULOSKELETAL: right BKA site with dressing on it. Left knee in post op dressing. Right hand dressing. Left elbow and right elbow with swelling, erythema and significant tenderness. NEUROLOGICAL: Sedated on vent. IV line sites with no evidence of infection. Assessment & Plan Remarks Septic shock with multiorgan dysfunction syndrome Group B strep bacteremia likely source right great toe osteomyelitis/gangrene. Probable endocarditis (ECHO may be negative as patient may have showered emboli : 3 joints with sepsis). Lymphangitis strep related. Bilateral knee septic arthritis. Elbows bilaterally with cellulitis possible septic arthritis. Acute renal failure: prerenal, sepsis. Acute metabolic encephalopathy: sepsis, alcohol related withdrawal. Lactic acidemia: sepsis, ischemia of tissues. Abnormal LFTs: Increased AST but normal ALT: likely alcohol related, sepsis. Acute Elevation in CK: ? Rhabdomyolysis vs acute ischemia and destruction of local tissues. Diabetes Mellitus non compliance with hyperglycemia. Thrombocytopenia: sepsis, Antibiotics. Recs Continue Penicillin G (Re: Strep Grp B Endocarditis, multiple joint septic arthritis) Continue Cefepime IV (Re:Possible PSAE HCAP) Start Clindamycin IV (Re: Toxin neutralization for Strep) Start IVIgG x 5 days. SALMA negative for endocarditis but patient likely threw septic emboli or hematogenously disseminated. CT C/A/P with IV contrast (workup dissemination) MRI bilateral elbows (r/o abscess) MRI Entire spine (r/o epidural abscess) Check HIV screen,CD4, Viral load, Immune globulins (G,A,M) d/w Radiologist , Tile Conduit Layer, . ok with CT and MRI contrast and HD right after. Coordinated with RN to nicol HD RN. Follow intra op cultures Follow cultures Follow clinically. Consult Palliative care (Re: address goals of therapy. Nicol Ott plan for the day multiple times today. Ortho notes reviewed. Critical thinking and decision making. Time > 60 mins multiple times today. Addendum: Patient imaging reviewed by me again at 4:08 pm and findings nicol Ott. Recommended Paracentesis in view of moderate ascites. Patient has h/o alcoholism and Hep C. Recommend albumin infusion. Recommend hematology consult Check D-Dimer, Haptoglobulin, HIT, Fibrinogen. Consult Gastroenterology. Asked RN to notify Ortho about Elbow MRI with fluid collection? need for aspiration/I&D. Paracentesis workup tests entered. Addendum: Consult hand surgery: left hand abscess. Susie De La Cruz MD Mar 14, 2017 10:14
--- NOTE | 2017-03-14 10:26 | HHI.IDPN ---
Subjective Subjective Remarks is a 51 y/o CM , who appears delirious, and was admitted overnight with septic shock, right great toe wound with gangrene possible osteomyelitis and untreated diabetes. Patient's cough and reports that approximately a week prior to admission patient had an episode of acute gastroenteritis and so did she. She thinks patient hasn't eaten in almost a week. He does consume heavy alcohol and this is the only fluid that he's been consuming in the last 7 days. She reports that patient stopped his right great toe on the superior aspect but did not see any ED, PCP or urgent care for this. No history of consumption of any antibiotics prior to admission. She reports that he is a known diabetic but is not compliant with his medications. Patient was noted to have sepsis on admission with low blood pressure and needing to be placed on pressors septic shock. He was noted to have an elevated lactic acid of 11.8 as well as in acute renal failure. His urine output is low and nephrology has been consulted. Vascular surgery as well as orthopedic surgeons have seen this patient and patient's girlfriend informs me that the surgeons have told him that patient needs a 2 staged amputation beginning with below knee amputation. At the time of my evaluation [facility] on [facility], has undergone fluid resuscitation, has decreased urine output, as well as decreased mentation. There is a plan for placement of a central line later today. Overnight events reviewed. Right knee in post op dressing. Also L ankle and foot with significant erythema. HD T,Thur,Sat S/p BKA on Right side. Tmax 100.2 F No rash No diarrhea On Levophed 4 mics. Grimaces on examination of left hand and left elbow. Antibiotics Cefepime IV Clinda IV (for toxin neutralization) Pen G Na IV IVIgG Lines Line sites with no e.o infection Past Medical History reviewed Allergies: Coded Allergies: No Known Allergies (Unverified , 03/07/17) Objective . Vital Signs Date Time Temp Pulse Resp B/P (MAP) Pulse Ox O2 Delivery O2 Flow Rate FiO2 03/14/17 08:55 99 30 03/14/17 06:00 93 03/14/17 04:00 98.3 90 16 91/54 (66) 98 03/14/17 04:00 30 03/14/17 04:00 90 03/14/17 02:00 96 03/14/17 01:26 100 30 03/14/17 00:34 91 98/56 03/14/17 00:00 88 03/14/17 00:00 99.8 88 24 98/54 (69) 100 03/14/17 00:00 30 03/13/17 23:30 99 30 03/13/17 22:00 94 03/13/17 20:58 93 23 97/52 03/13/17 20:50 100 30 03/13/17 20:00 30 03/13/17 20:00 100.2 98 35 96/53 (67) 100 03/13/17 20:00 98 03/13/17 18:00 99 03/13/17 18:00 30 03/13/17 16:25 100 30 03/13/17 16:00 30 03/13/17 16:00 92 19 101/56 (71) 100 03/13/17 16:00 30 03/13/17 16:00 92 03/13/17 16:00 100.1 92 19 101/56 (71) 100 03/13/17 14:00 30 03/13/17 14:00 87 03/13/17 12:00 88 03/13/17 12:00 30 03/13/17 12:00 88 14 98/58 (71) 100 03/13/17 12:00 30 03/13/17 11:15 100 100 . Laboratory Tests Test 03/13/17 03:20 03/13/17 22:40 03/14/17 09:50 White Blood Count 32.1 TH/MM3 24.3 TH/MM3 Red Blood Count 3.02 MIL/MM3 2.58 MIL/MM3 Hemoglobin 9.0 GM/DL 7.8 GM/DL Hematocrit 28.0 % 23.7 % Mean Corpuscular Volume 92.8 FL 91.8 FL Mean Corpuscular Hemoglobin 29.9 PG 30.3 PG Mean Corpuscular Hemoglobin Concent 32.3 % 33.0 % Red Cell Distribution Width 15.5 % 15.5 % Platelet Count 100 TH/MM3 113 TH/MM3 Mean Platelet Volume 10.0 FL 9.6 FL Neutrophils (%) (Auto) 87.5 % 88.9 % Lymphocytes (%) (Auto) 8.6 % 7.2 % Monocytes (%) (Auto) 2.4 % 3.1 % Eosinophils (%) (Auto) 0.7 % 0.6 % Basophils (%) (Auto) 0.8 % 0.2 % Neutrophils # (Auto) 28.1 TH/MM3 21.6 TH/MM3 Lymphocytes # (Auto) 2.8 TH/MM3 1.7 TH/MM3 Monocytes # (Auto) 0.8 TH/MM3 0.7 TH/MM3 Eosinophils # (Auto) 0.2 TH/MM3 0.2 TH/MM3 Basophils # (Auto) 0.3 TH/MM3 0.1 TH/MM3 CBC Comment AUTO DIFF DIFF FINAL Differential Total Cells Counted 100 Neutrophils % (Manual) 79 % Band Neutrophils % 6 % Lymphocytes % 10 % Monocytes % 1 % Eosinophils % 1 % Basophils % 1 % Neutrophils # (Manual) 27.9 TH/MM3 Myelocytes 1 % Promyelocytes 1 % Nucleated Red Blood Cells 1 /100 WBC Differential Comment FINAL DIFF MANUAL Toxic Granulation 1+ Dohle Bodies PRESENT Platelet Estimate LOW Platelet Morphology Comment NORMAL Red Cell Morphology Comment NORMAL Haptoglobin 184 MG/DL Laboratory Tests Test 03/12/17 15:45 03/13/17 03:20 03/13/17 22:25 03/13/17 22:40 Lactic Acid Level 2.0 mmol/L Blood Urea Nitrogen 71 MG/DL Creatinine 4.66 MG/DL Random Glucose 164 MG/DL Total Protein 5.9 GM/DL Albumin 1.5 GM/DL Calcium Level 7.9 MG/DL Magnesium Level 2.3 MG/DL Alkaline Phosphatase 265 U/L Aspartate Amino Transf (AST/SGOT) 71 U/L Alanine Aminotransferase (ALT/SGPT) 27 U/L Total Bilirubin 8.2 MG/DL Sodium Level 140 MEQ/L Potassium Level 3.5 MEQ/L Chloride Level 102 MEQ/L Carbon Dioxide Level 24.6 MEQ/L Anion Gap 13 MEQ/L Estimat Glomerular Filtration Rate 13 ML/MIN Lactate Dehydrogenase 198 U/L Tumor Marker Alpha Fetoprotein 0.9 NG/ML Test 03/14/17 09:50 Microbiology Date/Time Source Procedure Growth Status 03/13/17 18:20 Fluid Ascites Fluid Acid Fast Stain Pending Worksheet 03/13/17 18:20 Fluid Ascites Fluid Mycobacterial Culture Pending Worksheet 03/11/17 13:31 Fluid Synovial Fluid Fungal Smear - Final NO FUNGAL ELEMENTS SEEN. Resulted 03/11/17 13:31 Fluid Synovial Fluid Fungal Culture Pending Resulted 03/12/17 15:45 Sputum Endotracheal Gram Stain - Final Resulted 03/12/17 15:45 Sputum Endotracheal Sputum Culture - Preliminary NO GROWTH IN 24 HOURS. Resulted 03/13/17 18:20 Abscess Other Fungal Smear - Final NO FUNGAL ELEMENTS SEEN. Resulted 03/13/17 18:20 Abscess Other Fungal Culture Pending Resulted 03/13/17 18:20 Abscess Other Gram Stain - Final Resulted 03/13/17 18:20 Abscess Other Wound Culture Pending Resulted 03/11/17 19:45 Wound Knee Fungal Smear - Final NO FUNGAL ELEMENTS SEEN. Resulted 03/11/17 19:45 Wound Knee Fungal Culture Pending Resulted 03/11/17 19:45 Wound Knee Acid Fast Stain - Final NO ACID FAST BACILLI SEEN Resulted 03/11/17 19:45 Wound Knee Mycobacterial Culture Pending Resulted 03/11/17 19:45 Wound Knee Gram Stain - Final Complete 03/11/17 19:45 Wound Knee Wound Culture - Final NO GROWTH IN 72 HRS.--AEROBICALLY OR ... Complete Imaging Last Impressions Liver Ultrasound 03/09/17 0000 Signed Impressions: Service Date/Time: Thursday, March 09, 2017 12:50 - CONCLUSION: 1. No gallstones or biliary tract obstruction. 2. Thickening of the gallbladder wall at 5 mm. This can be seen with chronic gallbladder disease. 3. Increased echogenicity throughout the liver suggestive of fatty infiltration and/or hepatocellular disease. Carl Sands MD Chest X-Ray 03/09/17 0000 Signed Impressions: Service Date/Time: Thursday, March 09, 2017 07:58 - CONCLUSION: Status post interval intubation and placement of a left-sided chest tube. Hypoinflation of the left lung and a deep sulcus sign suggestive of a left-sided pneumothorax are present. Stable right sided central line. Denae Wilson MD ADDENDUM: This report is amended after discussion with the referring physician. There is no left-sided chest tube present. The line overlying the inferior left hemithorax is artifact. There is persistent appearance of a deep sulcus sign concern for possible pneumothorax. Recommend better evaluation with CT to exclude this abnormality. Denae Wilson MD Chest CT 03/09/17 0000 Signed Impressions: Service Date/Time: Thursday, March 09, 2017 12:31 - CONCLUSION: Bibasilar infiltrates with small effusions. Carl Sands MD Shoulder X-Ray 03/08/17 0000 Signed Impressions: Service Date/Time: Wednesday, March 08, 2017 10:47 - CONCLUSION: Within normal limits. Danny Buchanan MD Renal Ultrasound 03/08/17 0000 Signed Impressions: Service Date/Time: Wednesday, March 08, 2017 08:58 - CONCLUSION: 1. Unremarkable bilateral renal ultrasound. 2. Hepatomegaly with a trace of ascites in the upper abdomen. Carl Sands MD Physical Exam GENERAL: Acutely ill-appearing,well-developed patient, in no apparent distress. SKIN: No rashes, ecchymoses or lesions. Cool and dry. HEAD: Atraumatic. Normocephalic. No temporal or scalp tenderness. EYES: Pupils equal round and reactive. Extraocular motions intact. No scleral icterus. No injection or drainage. ENT: Intubated. NECK: Trachea midline. Supple, nontender, no meningeal signs. CARDIOVASCULAR: Regular rate and rhythm without murmurs, gallops, or rubs. RESPIRATORY: Clear to auscultation. Breath sounds equal bilaterally. No wheezes , rales, or rhonchi. GASTROINTESTINAL: Abdomen soft, non-tender, nondistended. MUSCULOSKELETAL: right BKA site with dressing on it. Left knee in post op dressing. Right hand dressing. Left elbow and right elbow with swelling, erythema and significant tenderness. Left hand with significant swelling, blister formation, erythema. Overall swelling bilateral UE and LE. NEUROLOGICAL: Sedated on vent. Grimaces to pain and opens eyes spontaneously. Psych could not be assessed. IV line sites with no evidence of infection. Assessment & Plan Remarks Septic shock with multiorgan dysfunction syndrome Group B strep bacteremia likely source right great toe osteomyelitis/gangrene. Probable endocarditis (ECHO may be negative as patient may have showered emboli : 3 joints with sepsis). Bilateral knee septic arthritis. Elbows bilaterally with cellulitis possible septic arthritis. Left hand abscess, ? tenosynovitis and ? septic arthritis. Acute renal failure: prerenal, sepsis. On HD Acute metabolic encephalopathy: sepsis, alcohol related withdrawal. Abnormal LFTs: Increased AST but normal ALT: likely alcohol related, sepsis. Diabetes Mellitus non compliance with hyperglycemia. Thrombocytopenia: sepsis, Antibiotics. Ascites: r/o peritonitis. Follow cultures as partially treated at this point. Colitis: Infectious, Cdiff, Ischemic. Check Cdiff PCR. Recs Patient has Multiple joints with sepsis at this point and Endocarditis. Multiple joints and dissemination sites include (Right hand abscess, left hand abscess possible deep infection and septic arthritis, Left knee septic arthritis (culture negative as was on antibiotics), Right knee septic arthritis (Grp B strep), Left foot infection s/p amputation (Grp B Strep) plus bacteremia. SALMA can be negative as he may have showered emboli leading to hematogenous dissemination) Continue Penicillin G (Re: Strep Grp B Endocarditis, multiple joint septic arthritis) Continue Cefepime IV (Re:Possible PSAE HCAP) Continue Clindamycin IV (Re: Toxin neutralization for Strep) Continue IVIgG x 5 days. SALMA negative for endocarditis but patient likely threw septic emboli or hematogenously disseminated. CT C/A/P with IV contrast (workup dissemination) with Colitis, Ascites. Check Stool Cdiff. GI consulted yday. MRI bilateral elbows (r/o abscess): ? left fluid collection. following. MRI Entire spine (r/o epidural abscess): no epidural abscess. Check HIV screen,CD4, Viral load workup for other causes of immune suppression. Follow intra op cultures Follow cultures Follow clinically. Appreciate input from Palliative care. Family meeting planned for today. Reina Mason. Ortho notes reviewed. Hematology notes reviewed. Critical thinking and decision making. Time > 40 mins multiple times today. Susie De La Cruz MD Mar 14, 2017 10:26
[2017-03-14 10:37] LABS: ALKALINE PHOSPHATASE 233 U/L (45-117); ALT (GPT) 24 U/L (12-78); ANION GAP 12 MEQ/L (5-15); AST (GOT) 72 U/L (15-37); BICARBONATE 26.2 MEQ/L (21.0-32.0); BLOOD UREA NITROGEN 47 MG/DL (7-18); CHLORIDE 102 MEQ/L (98-107); GLOMERULAR FILTRATION RATE 16 ML/MIN (>89); POTASSIUM 3.5 MEQ/L (3.5-5.1); SODIUM (NA) 140 MEQ/L (136-145); TOTAL BILIRUBIN ADULT 11.6 MG/DL (0.2-1.0)
[2017-03-14] MEDS: DEXTROSE 5% IN WATE 500 ML INJ 500 ML OTHER SCH (10:40)
[2017-03-14 10:49] LABS: BLOOD GAS BASE EXCESS -0.8 mmol/L (-2-2); BLOOD GAS CARBOXYHEMOGLOBIN 2.2 % (0-4); BLOOD GAS HCO3 23 mmol/L (22-26); BLOOD GAS METHEMOGLOBIN 1.3 % (0-2); BLOOD GAS O2 HGB SATURATION 91 % (90-100); BLOOD GAS OXYGEN CONTENT 10.2 Vol % (12.0-20.0); BLOOD GAS PCO2 32 mmHg (38-42); BLOOD GAS PO2 71 mmHg (61-120); BLOOD GAS TOTAL HGB 7.9 G/DL (12.0-16.0); TEMP CORR TO 98.6
[2017-03-14 10:50] LABS: CRITICAL VALUE NO; DRAW SITE RT RADIAL; FIO2 30 %; NUMBER OF ARTERIAL PUNCTURES 1; OXYGEN DEVICE VENTILATOR; STAT NO; ULNAR PULSE PRESENT
--- NOTE | 2017-03-14 12:15 | PD.CARD.PN ---
Subjective Subjective Remarks No events over night Con't on Levophed around 4 Objective Medications Current Medications Medications (Trade) Dose Ordered Sig/Stacy Route Start Time Stop Time Status Last Admin (Tylenol) 650 mg Q6H PRN PO 03/07/17 15:45 03/09/17 09:19 (Morphine Inj) 2 mg Q2H PRN IV 03/07/17 15:45 03/09/17 07:56 (Protonix Inj) 40 mg DAILY IV 03/08/17 09:00 03/14/17 09:26 (Duoneb Neb) 1 ampule Q4HR NEB PRN INH 03/07/17 15:45 (Heparin Inj) 5,000 units Q12H SQ 03/07/17 18:00 03/14/17 05:44 Miscellaneous Information 1 Q361D XX 03/07/17 15:45 03/07/17 15:45 (Chlorhexidine 2% Cloth) Taper DAILY@04 TOP 03/08/17 04:00 03/04/18 03:59 03/14/17 04:00 (Chlorhexidine 2% Cloth) 3 pack UNSCH PRN TOP 03/07/17 15:45 (D50w (Vial) Inj) 50 ml UNSCH PRN IV 03/07/17 16:15 (Glucagon Inj) 1 mg UNSCH PRN OTHER 03/07/17 16:15 (NovoLOG SUPPLEMENTAL SCALE) 1 Q6H SQ 03/07/17 16:15 03/13/17 04:07 Norepinephrine Bitartrate 250 ml @ 7.5 mls/hr TITRATE PRN IV 03/07/17 21:00 03/14/17 00:34 (Vitamin B1) 100 mg DAILY PO 03/08/17 09:00 03/14/17 09:27 (Folate) 1 mg DAILY PO 03/08/17 09:00 03/14/17 09:27 Propofol 100 ml @ 2.79 mls/hr TITRATE PRN IV 03/09/17 00:30 03/10/17 20:50 (Colace Liq) 100 mg Q12HR PO 03/10/17 10:00 03/14/17 09:26 (Senna Liq) 8.8 mg DAILY PO 03/10/17 10:00 03/14/17 09:26 (Lactulose Liq) 30 ml QID PO 03/10/17 13:00 03/14/17 09:26 Sodium Chloride 1,000 ml @ 0 mls/hr Q0M PRN OTHER 03/10/17 12:05 (Heparin Inj) 8,000 units UNSCH PRN IVF 03/10/17 12:15 Sodium Chloride 1,000 ml @ 200 mls/hr Q5H PRN IV 03/10/17 12:05 03/10/17 18:14 Sodium Chloride 1,000 ml @ 0 mls/hr Q0M PRN OTHER 03/10/17 12:05 (Mannitol Inj) 12.5 gm UNSCH PRN IV 03/10/17 12:15 03/10/17 18:13 (Albumin 25% Inj) 25 gm UNSCH PRN IV 03/10/17 12:15 03/13/17 14:50 (NS Flush) 5 ml UNSCH PRN IV FLUSH 03/10/17 12:15 (Heparin Inj) UNSCH PRN .XX 03/10/17 12:15 03/13/17 14:49 (Gentamicin (Dialysis) Inj) 20 mg UNSCH PRN IV 03/10/17 12:15 03/13/17 14:49 (Zofran Inj) 4 mg UNSCH PRN IV 03/10/17 12:15 (Tylenol) 650 mg UNSCH PRN PO 03/10/17 12:15 (Benadryl) 25 mg UNSCH PRN PO 03/10/17 12:15 (Nitrostat Sl) 0.4 mg UNSCH PRN SL 03/10/17 12:15 (Catapres) 0.1 mg UNSCH PRN PO 03/10/17 12:15 (Epogen Inj) 4,000 units UNSCH PRN IV 03/10/17 14:00 03/13/17 14:49 (Gelfoam 12 Mm/7 Mm Top) 1 foam UNSCH PRN TOP 03/10/17 12:15 (Betadine 10% Oint) 1 applic DAILY TOPICAL 03/11/17 09:00 03/14/17 09:27 (NS Flush) 2 ml UNSCH PRN IV FLUSH 03/11/17 20:30 (NS Flush) 2 ml BID IV FLUSH 03/11/17 21:00 03/14/17 09:27 (Duoneb Neb) 1 ampule Q6HR NEB NEB 03/12/17 16:00 03/14/17 09:01 Cefepime HCl 1000 mg/Sodium Chloride 100 ml @ 200 mls/hr Q24H IV 03/12/17 15:00 03/13/17 15:00 Penicillin G Sodium [id number] units/Sodium Chloride 100 ml @ 200 mls/hr Q4H IV 03/12/17 20:00 03/14/17 09:33 Clindamycin Phosphate 900 mg/ Sodium Chloride 106 ml @ 212 mls/hr Q8H IV 03/13/17 12:00 03/14/17 04:17 Sodium Chloride 500 ml @ 500 mls/hr Q24H IV 03/13/17 17:00 03/17/17 17:59 03/13/17 18:48 (Tylenol) 650 mg Q24H PO 03/13/17 17:00 03/18/17 16:59 03/13/17 18:45 Dextrose 500 ml @ 30 mls/hr [id number] OTHER 03/13/17 18:00 03/17/17 05:19 03/13/17 18:00 (Benadryl) 25 mg Q24H PO 03/13/17 17:00 03/18/17 16:59 03/13/17 18:44 Immune Globulin 30 gm/Syringe / Bag 300 ml @ 24.75 mls/ hr Q24H IV 03/13/17 18:00 03/18/17 06:08 03/13/17 20:58 (Benadryl Inj) 50 mg UNSCH PRN IV PUSH 03/13/17 17:00 03/19/17 16:59 (Adrenalin (1:1000) Inj) 0.3 mg Q10M PRN OTHER 03/13/17 17:00 03/19/17 16:59 Fentanyl Citrate 250 ml @ 5 mls/hr TITRATE PRN IV 03/13/17 17:30 03/14/17 06:31 Vital Signs / I&O Vital Signs Date Time Temp Pulse Resp B/P (MAP) Pulse Ox O2 Delivery O2 Flow Rate FiO2 03/14/17 08:55 99 30 03/14/17 08:00 97.9 88 16 96/56 (69) 99 03/14/17 08:00 30 03/14/17 06:00 93 03/14/17 04:00 98.3 90 16 91/54 (66) 98 03/14/17 04:00 30 03/14/17 04:00 90 03/14/17 02:00 96 03/14/17 01:26 100 30 03/14/17 00:34 91 98/56 03/14/17 00:00 88 03/14/17 00:00 99.8 88 24 98/54 (69) 100 03/14/17 00:00 30 03/13/17 23:30 99 30 03/13/17 22:00 94 03/13/17 20:58 93 23 97/52 03/13/17 20:50 100 30 03/13/17 20:00 30 03/13/17 20:00 100.2 98 35 96/53 (67) 100 03/13/17 20:00 98 03/13/17 18:00 99 03/13/17 18:00 30 03/13/17 16:25 100 30 03/13/17 16:00 30 03/13/17 16:00 92 19 101/56 (71) 100 03/13/17 16:00 30 03/13/17 16:00 92 03/13/17 16:00 100.1 92 19 101/56 (71) 100 03/13/17 14:00 30 03/13/17 14:00 87 I/O 03/13/17 03/13/17 03/13/17 03/14/17 03/14/17 03/14/17 06:59 14:59 22:59 06:59 14:59 22:59 Intake Total 538 ml 200 ml 100 ml 6099 ml Output Total 145 ml 2050 ml 1170 ml Balance 393 ml 200 ml -1950 ml 4929 ml IV Total 200 ml 5599 ml Tube Feeding 418 ml Albumin 100 ml 500 ml Other 120 ml Output Urine Total 75 ml 50 ml 20 ml Stool Total 60 ml 1150 ml Drainage Total 10 ml Hemodialysis 2000 ml Physical Exam GENERAL: Intubated and sedated SKIN: Warm and dry. HEAD: Atraumatic. Normocephalic. EYES: Pupils equal and round. No scleral icterus. No injection or drainage. ENT: No nasal bleeding or discharge. Mucous membranes pink and moist. NECK: Trachea midline. No JVD. CARDIOVASCULAR: Regular rate and rhythm. RESPIRATORY: No accessory muscle use. Decreased breath sounds bilaterally GASTROINTESTINAL: Abdomen soft, non-tender, nondistended. Hepatic and splenic margins not palpable. MUSCULOSKELETAL: Right LE BKA. Left knee with drain. B/L elbows erythematous NEUROLOGICAL: Sedated on the vent Laboratory Laboratory Tests Test 03/13/17 18:20 03/13/17 22:25 03/13/17 22:40 03/14/17 04:10 Peritoneal Fluid pH 8.5 Peritoneal Fluid Specific [place] 1.015 Peritoneal Fluid WBC 160 /MM3 Peritoneal Fluid RBC 359 /MM3 Peritoneal Fluid Neutrophils 76 % Peritoneal Fluid Lymphocytes 14 % Peritoneal Fluid Monocytes 10 % Peritoneal Fluid Albumin 0.4 G/DL Peritoneal Fluid LDH 96 U/L Peritoneal Fluid Glucose 128 MG/DL Peritoneal Fluid Lipase 70 U/L Fibrinogen 449 mg/dL D-Dimer Quantitative (PE/DVT) 4.44 MG/L FEU Lactate Dehydrogenase 198 U/L Immunoglobulin G Total 1010 MG/DL Immunoglobulin A 492 MG/DL Immunoglobulin M 273 MG/DL Haptoglobin 184 MG/DL Tumor Marker Alpha Fetoprotein 0.9 NG/ML Test 03/14/17 04:28 03/14/17 09:50 03/14/17 10:26 03/14/17 10:45 White Blood Count 24.3 TH/MM3 Red Blood Count 2.58 MIL/MM3 Hemoglobin 7.8 GM/DL Hematocrit 23.7 % Mean Corpuscular Volume 91.8 FL Mean Corpuscular Hemoglobin 30.3 PG Mean Corpuscular Hemoglobin Concent 33.0 % Red Cell Distribution Width 15.5 % Platelet Count 113 TH/MM3 Mean Platelet Volume 9.6 FL Neutrophils (%) (Auto) 88.9 % Lymphocytes (%) (Auto) 7.2 % Monocytes (%) (Auto) 3.1 % Eosinophils (%) (Auto) 0.6 % Basophils (%) (Auto) 0.2 % Neutrophils # (Auto) 21.6 TH/MM3 Lymphocytes # (Auto) 1.7 TH/MM3 Monocytes # (Auto) 0.7 TH/MM3 Eosinophils # (Auto) 0.2 TH/MM3 Basophils # (Auto) 0.1 TH/MM3 CBC Comment DIFF FINAL Differential Comment Blood Urea Nitrogen 47 MG/DL Creatinine 3.88 MG/DL Random Glucose 112 MG/DL Total Protein 6.1 GM/DL Albumin 1.9 GM/DL Calcium Level 7.6 MG/DL Alkaline Phosphatase 233 U/L Aspartate Amino Transf (AST/SGOT) 72 U/L Alanine Aminotransferase (ALT/SGPT) 24 U/L Total Bilirubin 11.6 MG/DL Sodium Level 140 MEQ/L Potassium Level 3.5 MEQ/L Chloride Level 102 MEQ/L Carbon Dioxide Level 26.2 MEQ/L Anion Gap 12 MEQ/L Estimat Glomerular Filtration Rate 16 ML/MIN Blood Gas Puncture Site RT RADIAL Blood Gas Patient Temperature 98.6 Blood Gas HCO3 23 mmol/L Blood Gas Base Excess -0.8 mmol/L Blood Gas Oxygen Saturation 91 % Arterial Blood pH 7.46 Arterial Blood Partial Pressure CO2 32 mmHg Arterial Blood Partial Pressure O2 71 mmHg Arterial Blood Oxygen Content 10.2 Vol % Arterial Blood Carboxyhemoglobin 2.2 % Arterial Blood Methemoglobin 1.3 % Blood Gas Hemoglobin 7.9 G/DL Oxygen Delivery Device VENTILATOR Blood Gas Ventilator Setting SEE COMMENT Blood Gas Inspired Oxygen 30 % Assessment and Plan Problem List: (1) Septic shock ICD Codes: A41.9 - Sepsis, unspecified organism; R65.21 - Severe sepsis with septic shock Status: Acute (2) Septic arthritis of knee, right ICD Codes: M00.9 - Pyogenic arthritis, unspecified Status: Acute (3) Septic arthritis of knee, left ICD Codes: M00.9 - Pyogenic arthritis, unspecified Status: Acute (4) Abscess, wrist ICD Codes: L02.419 - Cutaneous abscess of limb, unspecified (5) Abscess of right hand ICD Codes: L02.511 - Cutaneous abscess of right hand Status: Acute (6) 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 ICD Codes: E11.622 - Type 2 diabetes mellitus with other skin ulcer; L97.913 - Non-pressure chronic ulcer of unspecified part of right lower leg with necrosis of muscle (7) Acute renal failure ICD Codes: N17.9 - Acute kidney failure, unspecified Status: Acute (8) Diabetic infection of right foot ICD Codes: E11.69 - Type 2 diabetes mellitus with other specified complication ; L08.9 - Local infection of the skin and subcutaneous tissue, unspecified Status: Acute (9) Ischemic necrosis of foot ICD Codes: I96 - Gangrene, not elsewhere classified Status: Acute Assessment and Plan 1) SALMA showing no endocarditis/abscess 2) Con't work up per ID 3) Wean vasopressors as possible 4) Discussed case with critical care and ID 5) Agree with palliative care consult 6) Will see PRN, call with questions Problem Qualifiers (1) Acute renal failure: Qualified Codes: N17.9 - Acute kidney failure, unspecified Cristobal Ruiz DO Mar 14, 2017 12:15
[2017-03-14 13:10] LABS: C. DIFF EPI 027 PRESUMPTIVE NEGATIVE (NEGATIVE)
--- NOTE | 2017-03-14 14:19 | HHI.HCPN ---
Reason for visit a. To assist with evaluation and management of symptoms including: Dyspnea , pain b. To assist medical decision maker(s) with: better understanding of current medical conditions; weighing benefits/burdens of medical treatment options; making medical treatment decisions. . Subjective/Interval History INTERVAL NOTE: Pt remains in IMC on the vent, on pressors. He continues to be in shock, and his hepatic failure continues to worsen (bili > 11 today). Clearly he is terminal. Discussion w family, see below. Family/friend interactions Discussed with brothers Julio Cesar, Byron and Kole, uncle Jayce (a retired MD by telephone, and then with the other uncle Anish and the ex-sife int he room. All agree that we should transisiton to comfort care, withdraw life support, and allow a natural/peaceful . Nelson Harrell and nelson Matthews ask that nelson Hubbard be the one to sign the Exhibit B on their behalf. . Advance Directives Living Will: Never completed Health Care Surrogate: Never completed Durable Power of Sales Communications Manager: Never completed Advance Directive Specifics Significant change in goals: withdraw life support to allow natural . Objective Vital Signs Date Time Temp Pulse Resp B/P (MAP) Pulse Ox O2 Delivery O2 Flow Rate FiO2 03/14/17 12:50 97 30 03/14/17 12:00 100.5 85 16 92/51 (65) 99 03/14/17 08:55 99 30 03/14/17 08:00 97.9 88 16 96/56 (69) 99 03/14/17 08:00 30 03/14/17 06:00 93 03/14/17 04:00 98.3 90 16 91/54 (66) 98 03/14/17 04:00 30 03/14/17 04:00 90 03/14/17 02:00 96 03/14/17 01:26 100 30 03/14/17 00:34 91 98/56 03/14/17 00:00 88 03/14/17 00:00 99.8 88 24 98/54 (69) 100 03/14/17 00:00 30 03/13/17 23:30 99 30 03/13/17 22:00 94 03/13/17 20:58 93 23 97/52 03/13/17 20:50 100 30 03/13/17 20:00 30 03/13/17 20:00 100.2 98 35 96/53 (67) 100 03/13/17 20:00 98 03/13/17 18:00 99 03/13/17 18:00 30 03/13/17 16:25 100 30 03/13/17 16:00 30 03/13/17 16:00 92 19 101/56 (71) 100 03/13/17 16:00 30 03/13/17 16:00 92 03/13/17 16:00 100.1 92 19 101/56 (71) 100 Intake & Output 03/14/17 03/14/17 06:59 18:59 Intake Total 6099 ml 306 ml Output Total 1170 ml Balance 4929 ml 306 ml IV Total 5599 ml 306 ml Albumin 500 ml Output Urine Total 20 ml Stool Total 1150 ml Physical Exam CONSTITUTIONAL/GENERAL: This is an ill-appearing patient, sedated, ventilated. TUBES/LINES/DRAINS: OG tube, ET tube, SCDs, Dennison catheter, vas catheter SKIN: No rashes, or lesions, but jaundice is present. Ecchymoses on upper extremities. No wounds seen anteriorly. Skin temperature appropriate. Not diaphoretic. NECK: Trachea midline. Supple, nontender. No palpable thyroid enlargement or nodularity. CARDIOVASCULAR: Regular rate and rhythm without murmurs, gallops, or rubs. Tachycardic. No JVD. Weak radial pulses. RESPIRATORY/CHEST: Symmetric, unlabored respirations. Scattered rales and rhonchi GASTROINTESTINAL: Abdomen soft, nondistended. No hepato-splenomegaly, or palpable masses. No guarding. Bowel sounds present. GENITOURINARY: Without palpable bladder distension. Dennison catheter in place. MUSCULOSKELETAL: Bandage on right BKA stump. Left foot edematous, cool. Left elbow swollen, edematous. NEUROLOGICAL: Unresponsive. PSYCHIATRIC: Unable to evaluate due to her clinical condition . Diagnostic Tests Laboratory Laboratory Tests Test 03/12/17 04:10 03/12/17 15:45 03/13/17 03:20 03/13/17 18:20 White Blood Count 29.1 TH/MM3 (4.0-11.0) 32.1 TH/MM3 (4.0-11.0) Red Blood Count 2.95 MIL/MM3 (4.50-5.90) 3.02 MIL/MM3 (4.50-5.90) Hemoglobin 9.0 GM/DL (13.0-17.0) 9.0 GM/DL (13.0-17.0) Hematocrit 26.9 % (39.0-51.0) 28.0 % (39.0-51.0) Mean Corpuscular Volume 91.2 FL (80.0-100.0) 92.8 FL (80.0-100.0) Mean Corpuscular Hemoglobin 30.5 PG (27.0-34.0) 29.9 PG (27.0-34.0) Mean Corpuscular Hemoglobin Concent 33.5 % (32.0-36.0) 32.3 % (32.0-36.0) Red Cell Distribution Width 15.0 % (11.6-17.2) 15.5 % (11.6-17.2) Platelet Count 68 TH/MM3 (150-450) 100 TH/MM3 (150-450) Mean Platelet Volume 9.9 FL (7.0-11.0) 10.0 FL (7.0-11.0) Neutrophils (%) (Auto) 89.2 % (16.0-70.0) 87.5 % (16.0-70.0) Lymphocytes (%) (Auto) 7.1 % (9.0-44.0) 8.6 % (9.0-44.0) Monocytes (%) (Auto) 2.6 % (0.0-8.0) 2.4 % (0.0-8.0) Eosinophils (%) (Auto) 0.8 % (0.0-4.0) 0.7 % (0.0-4.0) Basophils (%) (Auto) 0.3 % (0.0-2.0) 0.8 % (0.0-2.0) Neutrophils # (Auto) 26.0 TH/MM3 (1.8-7.7) 28.1 TH/MM3 (1.8-7.7) Lymphocytes # (Auto) 2.1 TH/MM3 (1.0-4.8) 2.8 TH/MM3 (1.0-4.8) Monocytes # (Auto) 0.8 TH/MM3 (0-0.9) 0.8 TH/MM3 (0-0.9) Eosinophils # (Auto) 0.2 TH/MM3 (0-0.4) 0.2 TH/MM3 (0-0.4) Basophils # (Auto) 0.1 TH/MM3 (0-0.2) 0.3 TH/MM3 (0-0.2) CBC Comment AUTO DIFF AUTO DIFF Differential Total Cells Counted 100 100 Neutrophils % (Manual) 85 % (16-70) 79 % (16-70) Band Neutrophils % 1 % (0-6) 6 % (0-6) Lymphocytes % 8 % (9-44) 10 % (9-44) Monocytes % 2 % (0-8) 1 % (0-8) Eosinophils % 2 % (0-4) 1 % (0-4) Neutrophils # (Manual) 25.6 TH/MM3 (1.8-7.7) 27.9 TH/MM3 (1.8-7.7) Metamyelocytes 1 % (0-1) Myelocytes 1 % (0-0) 1 % (0-0) Differential Comment FINAL DIFF MANUAL FINAL DIFF MANUAL Platelet Estimate LOW (NORMAL) LOW (NORMAL) Platelet Morphology Comment NORMAL (NORMAL) NORMAL (NORMAL) Target Cells 1+ (NORMAL) Blood Urea Nitrogen 59 MG/DL (7-18) 71 MG/DL (7-18) Creatinine 3.86 MG/DL (0.60-1.30) 4.66 MG/DL (0.60-1.30) Random Glucose 145 MG/DL (74-106) 164 MG/DL (74-106) Total Protein 5.6 GM/DL (6.4-8.2) 5.9 GM/DL (6.4-8.2) Albumin 1.8 GM/DL (3.4-5.0) 1.5 GM/DL (3.4-5.0) Calcium Level 7.7 MG/DL (8.5-10.1) 7.9 MG/DL (8.5-10.1) Alkaline Phosphatase 193 U/L (45-117) 265 U/L (45-117) Aspartate Amino Transf (AST/SGOT) 71 U/L (15-37) 71 U/L (15-37) Alanine Aminotransferase (ALT/SGPT) 30 U/L (12-78) 27 U/L (12-78) Total Bilirubin 7.8 MG/DL (0.2-1.0) 8.2 MG/DL (0.2-1.0) Sodium Level 141 MEQ/L (136-145) 140 MEQ/L (136-145) Potassium Level 3.6 MEQ/L (3.5-5.1) 3.5 MEQ/L (3.5-5.1) Chloride Level 103 MEQ/L (98-107) 102 MEQ/L (98-107) Carbon Dioxide Level 27.2 MEQ/L (21.0-32.0) 24.6 MEQ/L (21.0-32.0) Anion Gap 11 MEQ/L (5-15) 13 MEQ/L (5-15) Estimat Glomerular Filtration Rate 17 ML/MIN (>89) 13 ML/MIN (>89) Lactic Acid Level 2.0 mmol/L (0.4-2.0) Basophils % 1 % (0-2) Promyelocytes 1 % (0-0) Nucleated Red Blood Cells 1 /100 WBC (0-0) Toxic Granulation 1+ (NORMAL) Dohle Bodies PRESENT (NONE SEEN) Red Cell Morphology Comment NORMAL (NORMAL) Magnesium Level 2.3 MG/DL (1.5-2.5) Peritoneal Fluid pH 8.5 Peritoneal Fluid Specific [place] 1.015 Peritoneal Fluid WBC 160 /MM3 (0-10) Peritoneal Fluid RBC 359 /MM3 (0-0) Peritoneal Fluid Neutrophils 76 % Peritoneal Fluid Lymphocytes 14 % Peritoneal Fluid Monocytes 10 % Peritoneal Fluid Albumin 0.4 G/DL Peritoneal Fluid LDH 96 U/L Peritoneal Fluid Glucose 128 MG/DL Peritoneal Fluid Lipase 70 U/L Test 03/13/17 22:25 03/13/17 22:40 03/14/17 04:10 03/14/17 04:28 Fibrinogen 449 mg/dL (227-377) D-Dimer Quantitative (PE/DVT) 4.44 MG/L FEU (0.00-0.50) Lactate Dehydrogenase 198 U/L (87-241) Immunoglobulin G Total 1010 MG/DL (660-1640) Immunoglobulin A 492 MG/DL (93-514) Immunoglobulin M 273 MG/DL (40-247) Haptoglobin 184 MG/DL (30-200) Tumor Marker Alpha Fetoprotein 0.9 NG/ML (0.5-8.0) Anti-Nuclear Antibody Screen NEG (NEG) Test 03/14/17 09:50 03/14/17 10:26 03/14/17 10:45 White Blood Count 24.3 TH/MM3 (4.0-11.0) Red Blood Count 2.58 MIL/MM3 (4.50-5.90) Hemoglobin 7.8 GM/DL (13.0-17.0) Hematocrit 23.7 % (39.0-51.0) Mean Corpuscular Volume 91.8 FL (80.0-100.0) Mean Corpuscular Hemoglobin 30.3 PG (27.0-34.0) Mean Corpuscular Hemoglobin Concent 33.0 % (32.0-36.0) Red Cell Distribution Width 15.5 % (11.6-17.2) Platelet Count 113 TH/MM3 (150-450) Mean Platelet Volume 9.6 FL (7.0-11.0) Neutrophils (%) (Auto) 88.9 % (16.0-70.0) Lymphocytes (%) (Auto) 7.2 % (9.0-44.0) Monocytes (%) (Auto) 3.1 % (0.0-8.0) Eosinophils (%) (Auto) 0.6 % (0.0-4.0) Basophils (%) (Auto) 0.2 % (0.0-2.0) Neutrophils # (Auto) 21.6 TH/MM3 (1.8-7.7) Lymphocytes # (Auto) 1.7 TH/MM3 (1.0-4.8) Monocytes # (Auto) 0.7 TH/MM3 (0-0.9) Eosinophils # (Auto) 0.2 TH/MM3 (0-0.4) Basophils # (Auto) 0.1 TH/MM3 (0-0.2) CBC Comment DIFF FINAL Differential Comment Blood Urea Nitrogen 47 MG/DL (7-18) Creatinine 3.88 MG/DL (0.60-1.30) Random Glucose 112 MG/DL (74-106) Total Protein 6.1 GM/DL (6.4-8.2) Albumin 1.9 GM/DL (3.4-5.0) Calcium Level 7.6 MG/DL (8.5-10.1) Alkaline Phosphatase 233 U/L (45-117) Aspartate Amino Transf (AST/SGOT) 72 U/L (15-37) Alanine Aminotransferase (ALT/SGPT) 24 U/L (12-78) Total Bilirubin 11.6 MG/DL (0.2-1.0) Sodium Level 140 MEQ/L (136-145) Potassium Level 3.5 MEQ/L (3.5-5.1) Chloride Level 102 MEQ/L (98-107) Carbon Dioxide Level 26.2 MEQ/L (21.0-32.0) Anion Gap 12 MEQ/L (5-15) Estimat Glomerular Filtration Rate 16 ML/MIN (>89) Blood Gas Puncture Site RT RADIAL Blood Gas Patient Temperature 98.6 Blood Gas HCO3 23 mmol/L (22-26) Blood Gas Base Excess -0.8 mmol/L (-2-2) Blood Gas Oxygen Saturation 91 % (90-100) Arterial Blood pH 7.46 (7.380-7.420) Arterial Blood Partial Pressure CO2 32 mmHg (38-42) Arterial Blood Partial Pressure O2 71 mmHg (61-120) Arterial Blood Oxygen Content 10.2 Vol % (12.0-20.0) Arterial Blood Carboxyhemoglobin 2.2 % (0-4) Arterial Blood Methemoglobin 1.3 % (0-2) Blood Gas Hemoglobin 7.9 G/DL (12.0-16.0) Oxygen Delivery Device VENTILATOR Blood Gas Ventilator Setting SEE COMMENT Blood Gas Inspired Oxygen 30 % Stool C. difficile Toxin (PCR) NEGATIVE (NEGATIVE) Stl C. difficile Toxin Epiderm 027 PRESUMPTIVE NEGATIVE Result Diagram: 03/14/17 0950 03/14/17 0950 Microbiology Microbiology Date/Time Source Procedure Growth Status 03/13/17 18:20 Fluid Ascites Fluid Acid Fast Stain Pending Worksheet 03/13/17 18:20 Fluid Ascites Fluid Mycobacterial Culture Pending Worksheet 03/12/17 15:45 Sputum Endotracheal Gram Stain - Final Resulted 03/12/17 15:45 Sputum Culture - Preliminary Staphylococcus Aureus Resulted 03/13/17 18:20 Abscess Other Fungal Smear - Final NO FUNGAL ELEMENTS SEEN. Resulted 03/13/17 18:20 Abscess Other Fungal Culture Pending Resulted 03/13/17 18:20 Abscess Other Gram Stain - Final Resulted 03/13/17 18:20 Abscess Other Wound Culture - Preliminary NO GROWTH IN 24 HOURS. Resulted 03/11/17 19:45 Wound Knee Fungal Smear - Final NO FUNGAL ELEMENTS SEEN. Resulted 03/11/17 19:45 Wound Knee Fungal Culture Pending Resulted 03/11/17 19:45 Wound Knee Acid Fast Stain - Final NO ACID FAST BACILLI SEEN Resulted 03/11/17 19:45 Wound Knee Mycobacterial Culture Pending Resulted 03/11/17 19:45 Wound Knee Gram Stain - Final Complete 03/11/17 19:45 Wound Knee Wound Culture - Final NO GROWTH IN 72 HRS.--AEROBICALLY OR ... Complete Procedures * INTUBATION 03/07/17 * Right BKA 03/08/17 * Vas-Cath * Left knee arthrotomy and irrigation 03/11/17 . Assessment and Plan Disease Oriented Problem List: (1) septic shock, profound (2) respiratory failure, ventilator dependent (3) group B strep bacteremia (4) multiple septic joints (5) recent gangrenous foot, status post right BKA (6) acute kidney injury/failure, now on dialysis (7) colitis on CT scan (8) COPD history (9) long-standing alcohol and drug abuse (10) possible rhabdomyolysis (11) diabetes, with reportedly no treatment in recent years Symptom Scale: (1) dyspnea 0-10 Scale: Unable to quantify (2) pain 0-10 Scale: Unable to quantify Pertinent Non-Medical Issues Psychosocial: From [place], , long-term drug and alcohol abuse, unemployed. Spiritual: Unknown if he was spiritual or quaker Legal: The patient lacks capacity for decision-making, and it is highly unlikely that he will regain that capacity. He is unmarried and has no children , so decision making falls to the majority of his 3 brothers who will decide if they want to participate in the decision making. Ethical issues impacting care: None . Important Contacts Brother: Mike Mcrae [phone] Brother: Steive Mcrae Brother: Mikey Mcrae . 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 He is appropriate for hospice services if the goals are determined to be comfort oriented. . Code Status: No Code Plan * DO NOT RESUSCITATE, PER REQUEST OF ALL 3 BROTHERS 03/14/17 * DECISION-MAKING: The patient lacks capacity for decision-making, and it is highly unlikely that he will regain that capacity. He is unmarried and has no children, so decision making falls to his 3 brothers, all of whom have agreed to serve.. * GOALS: The patient's 3 brothers, 2 uncles, and ex- all request withdrawal of life support today. * His PROGNOSIS is extremely poor, and he is facing the possibility of multiple amputations and upcoming days. 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 * SYMPTOMS: The patient's dyspnea and pain is currently being managed by ventilator and sedation/fentanyl. Now we will provide appropriate doses of comfort meds for the withdrawal. * Palliative Care will continue to follow the patient during this hospitalization. . Time Spent Total Floor Time (mins): 46 Face to Face Time (mins): 13 >50% Counseling/Coord of Care: Yes (d/w Dr. Ghotra and w RN) Attestation To help prompt me to consider important information that might be impacting today's encounter and assessment, information from prior notes written by myself or my colleagues may have been "brought forward" into today's note. My signature on this note, however, is an attestation that I personally performed the exam, history, and/or decision-making noted today, and, unless otherwise indicated, the interactions with patient, family, and staff as well as the review of records all occurred today. I also attest that the listed assessment and stated plan reflect my best clinical judgment today based on the combination of historical information, prior notes, and today's exam/ interactions. When time spent is documented, it refers only to time spent today by the signer, or if indicated, combined time spent today by collaborating physician/nurse practitioner. Smiley Raymundo MD Mar 14, 2017 14:18
[2017-03-14] MEDS ORDERED: HYOSCYAMINE 0.5 MG/ML AMP IV ONE (14:30)
[2017-03-14] MEDS ORDERED: LORazepam 2 MG/ML VIAL IV ONE ×2 (14:30→14:45)
[2017-03-14] MEDS ORDERED: MORPHINE SULFATE 8 MG/ML INJ IV PUSH ONE (14:30)
[2017-03-14] MEDS ORDERED: MORPHINE SULFATE 4 MG/ML INJ IV ONE (14:45)
[2017-03-14 14:50] LABS: HEPARIN AB OD 0.155 O.D. (0.000-0.300); HEPARIN INDUCED PLATELET AB NEGATIVE (NEGATIVE)
[2017-03-14] MEDS ORDERED: BISACODYL 10 MG SUPP RECTAL PRN (15:00)
[2017-03-14] MEDS ORDERED: LORazepam 2 MG/ML VIAL IVS PRN (15:00)
[2017-03-14] MEDS ORDERED: HYOSCYAMINE 0.5 MG/ML AMP IV PRN (15:00)
[2017-03-14] MEDS ORDERED: MORPHINE SULFATE 4 MG/ML INJ IV PRN (15:00)
[2017-03-14] MEDS ORDERED: MORPHINE SULFATE 8 MG/ML INJ IV PUSH PRN (15:00)
[2017-03-14] MEDS ORDERED: FUROSEMIDE 20 MG/2 ML VIAL IV PRN (15:00)
[2017-03-14] MEDS ORDERED: ACETAMINOPHEN 650 MG SUPP RECTAL PRN (15:00)
[2017-03-14] MEDS ORDERED: LORazepam 2 MG/ML VIAL IV PRN ×2 (15:00)
[2017-03-14] MEDS ORDERED: MORPHINE SULFATE 4 MG/ML INJ IV SCH (16:00)
[2017-03-14] MEDS ORDERED: LORazepam 2 MG/ML VIAL IV SCH (16:00)
[2017-03-15 23:53] LABS: CD 19 PERCENT 15 % (6-29); CD3 ABSOLUTE 1289 (840-3060); CD4/CD8 RATIO 5.5 (0.86-5.00); CD8 ABSOLUTE 195 (180-1170); LYMPHOCYTES, ABSOLUTE 1707 (850-3900)
[2017-03-16 17:53] LABS: HCV RNA PCR IU/ML LESS THAN 15 IU/mL (0-14); HCV RNA PCR LOGIU/ML LESS THAN 1.18 (0-1.18)
[2017-03-17 17:51] LABS: HIV 1 PROVIRAL DNA Not Detected (Not Detected)
[2017-03-17 23:52] LABS: HEPATITIS C RNA GENOTYPE NOT DETECTED (NOT DETECTD)
[2017-03-18 11:50] LABS: MITOCHONDRIAL ABS LESS THAN 20.0 U (<=20.0)
--- NOTE | 2017-04-12 23:27 | MD ---
cc: MARK ANTHONY OSCAR M.D. ADMISSION DATE: 03/07/2017 DISCHARGE DATE: 03/14/2017 DATE OF 1965 HISTORY The patient is a 51-year-old male with a history of diabetes mellitus, severe COPD who presented to [facility] ED with a 3-day history of confusion and upon arrival to the ER the patient was in septic shock with severe lactic acidemia at 11. In addition, he had leukocytosis and was in acute renal failure with metabolic acidosis. The patient was placed on Levophed to maintain MAP greater than 65 mmHg. The patient was admitted to ICU with acute hypoxemic and hypercapnic respiratory failure, septic shock secondary to gram-positive bacteremia and group B strep. He was on fentanyl infusion for sedation in addition to thiamine and folic acid. MRI of the spine showed no acute findings. The patient also had severe metabolic encephalopathy. Echocardiogram from March 10 showed an EF of 55-60% with no vegetation or regional wall motion abnormalities. Subsequently, the patient underwent SALMA which showed no evidence for endocarditis. The patient was seen by multiple consultants including nephrology service, infectious disease, GI, orthopedics, vascular surgery and palliative care. Hemodialysis was initiated on March 10. Also, he had a renal ultrasound which showed no evidence of any hydronephrosis. The patient was placed on Protonix 40 milligrams IV daily and received nutrition support in the form of tube feeds. He was on ___ at a rate of 40 ml an hour. He underwent paracentesis on March 13 with 2 liters removed. The patient also noted to have elevated liver enzymes and ultrasound of liver showed no gallstones or biliary tract obstruction. Thickening of the gallbladder wall noted at 5 mm and findings suggestive of fatty infiltration and/or hepatocellular disease. A CT abdomen, pelvis was obtained as well which showed bowel wall thickening involving portion of the ascending colon and proximal transverse colon which are nonspecific and likely characteristic of colitis. He underwent right below-knee amputation on March 08 in addition to arthrotomy with irrigation and debridement of the right knee. A left knee arthrotomy with irrigation, debridement was performed on March 11. The patient also had debridement of right hand abscess at the bedside by Dr. Marie. He was on broad-spectrum antibiotics in the form of penicillin, cefepime and IVIG per ID service. The patient was also on Protonix and DVT prophylaxis. He had a right IJ central line and left IJ vas cath. The patient was critically ill with septic shock requiring pressors, renal failure, leukocytosis and multiorgan injury. Dr. Raymundo from palliative care discussed with family and they elected to proceed with withdrawal life support and transition to comfort care. He on March 14. MD MARY Herr/WANG /10:35 AM /11:03 PM
== END 2017-03-14 16:50 | disposition expired | DRG 853 ==
LOC: NEPC 13:04 → NEDA 14:58 → HIME 17:35
PROVIDERS: ADMIT Internal Medicine Critical Care Medicine; ATTEND Internal Medicine Critical Care Medicine
PROC: 5A1955Z Respiratory Ventilation, Greater than 96 Consecutive Hours (ICD-10-PCS; 2017-03-08)
PROC: 0SBC0ZZ Excision of Right Knee Joint, Open Approach (ICD-10-PCS; 2017-03-08)
PROC: 02HV33Z Insertion of Infusion Device into Superior Vena Cava, Percutaneous Approach (ICD-10-PCS; 2017-03-08)
PROC: B543ZZA Ultrasonography of Right Jugular Veins, Guidance (ICD-10-PCS; 2017-03-08)
PROC: 0Y6H0Z1 Detachment at Right Lower Leg, High, Open Approach (ICD-10-PCS; principal; 2017-03-08 20:31)
PROC: 0JDJ0ZZ Extraction of Right Hand Subcutaneous Tissue and Fascia, Open Approach (ICD-10-PCS; 2017-03-10)
PROC: 5A1D60Z (ICD-10-PCS; 2017-03-10)
PROC: 05HN33Z Insertion of Infusion Device into Left Internal Jugular Vein, Percutaneous Approach (ICD-10-PCS; 2017-03-10)
PROC: B544ZZA Ultrasonography of Left Jugular Veins, Guidance (ICD-10-PCS; 2017-03-10)
PROC: 0SBC0ZZ Excision of Right Knee Joint, Open Approach (ICD-10-PCS; 2017-03-11)
PROC: 0S9D3ZX Drainage of Left Knee Joint, Percutaneous Approach, Diagnostic (ICD-10-PCS; 2017-03-11)
PROC: B246ZZ4 Ultrasonography of Right and Left Heart, Transesophageal (ICD-10-PCS; 2017-03-12)
PROC: 0W9G3ZZ Drainage of Peritoneal Cavity, Percutaneous Approach (ICD-10-PCS; 2017-03-13)
DX: A40.1 Sepsis due to streptococcus, group B (principal); R65.21 Severe sepsis with septic shock; N17.0 Acute kidney failure with tubular necrosis; Z51.5 Encounter for palliative care; E43 Unspecified severe protein-calorie malnutrition; G93.41 Metabolic encephalopathy; J96.01 Acute respiratory failure with hypoxia; J96.02 Acute respiratory failure with hypercapnia; M00.261 Other streptococcal arthritis, right knee; D69.59 Other secondary thrombocytopenia; E11.52 Type 2 diabetes mellitus with diabetic peripheral angiopathy with gangrene; I76 Septic arterial embolism; E87.2 Acidosis; L02.511 Cutaneous abscess of right hand; M62.82 Rhabdomyolysis; F10.239 Alcohol dependence with withdrawal, unspecified; M00.262 Other streptococcal arthritis, left knee; L03.114 Cellulitis of left upper limb; L03.113 Cellulitis of right upper limb; L02.512 Cutaneous abscess of left hand; E86.0 Dehydration; E11.65 Type 2 diabetes mellitus with hyperglycemia; E11.628 Type 2 diabetes mellitus with other skin complications; J44.9 Chronic obstructive pulmonary disease, unspecified; E11.621 Type 2 diabetes mellitus with foot ulcer; I10 Essential (primary) hypertension; E11.622 Type 2 diabetes mellitus with other skin ulcer; L97.519 Non-pressure chronic ulcer of other part of right foot with unspecified severity; D64.9 Anemia, unspecified; F14.90 Cocaine use, unspecified, uncomplicated; B19.20 Unspecified viral hepatitis C without hepatic coma; K52.9 Noninfective gastroenteritis and colitis, unspecified; K70.31 Alcoholic cirrhosis of liver with ascites; K72.90 Hepatic failure, unspecified without coma; F17.200 Nicotine dependence, unspecified, uncomplicated; F12.90 Cannabis use, unspecified, uncomplicated; Y90.0 Blood alcohol level of less than 20 mg/100 ml; Z66 Do not resuscitate; Z68.29 Body mass index [BMI] 29.0-29.9, adult; Z81.1 Family history of alcohol abuse and dependence; Z91.14 Patient's other noncompliance with medication regimen; Z91.19 Patient's noncompliance with other medical treatment and regimen
CPT/HCPCS: 36556; 36600; 49082; 71010; 71250; 71260; 72141; 72146; 72148; 73020; 73070; 73120; 73221; 73560; 73600; 74177; 76705; 76775; 76937; 80048; 80053; 80074; 80202; 80307; 81001; 82010; 82042; 82103; 82105; 82140; 82390; 82550; 82552; 82784; 82805; 82945; 82948; 83010; 83520; 83605; 83615; 83690; 83735; 83986; 84100; 84155; 84157; 84315; 85007; 85025; 85027; 85379; 85384; 85610; 85730; 86022; 86038; 86140; 86255; 86355; 86357; 86359; 86360; 86403; 86703; 86850; 86900; 86901; 87015; 87040; 87070; 87086; 87102; 87116; 87147; 87186; 87205; 87206; 87493; 87522; 87535; 87641; 87902; 88307; 88311; 89051; 89060; 90935; 93306; 93312; 93320; 93325; 94003; 94640; 94664; 96374; 96375; 99292; C9113; J0690; J0692; J0696; J1459; J1580; J1644; J1815; J1980; J2060; J2150; J2250; J2270; J2370; J2543; J3010; J3370; J3480; J7030; J7040; J7050; J7060; P9045; P9047; Q4081; Q9963; Q9967